=== PATIENT | male | born 1945 | race Caucasian/White ===

== ENCOUNTER 2019-06-19 18:03 | Inpatient (IN) | payer MEDICARE, OTHER ==
[~2019-06-19] VITALS: Ht 182.9 cm; Wt 102.1 kg
--- NOTE | 2019-06-19 18:34 | PHYS DOC ---
Past Medical History Past Medical History: CVA, Hypertension, Other Additional Past Medical Histor: PARKINSON'S Past Surgical History: Coronary Bypass Surgery, Other Additional Past Surgical Histo: KNEE Alcohol Use: None Drug Use: None Adult General Chief Complaint Chief Complaint: WEAKNESS/GENERALIZED HPI HPI Patient is a 73 year old male who presents via EMS with complaining of weakness and frequent falls. Patient states he had gradually increasing generalized weakness for the last couple days and had 3 falls since yesterday. Patient's stated he did not fall and was not able to get up from the toilet stool or from the floor and she had to call recovery room nurse to help her to get him out of the floor. Patient denies new focal neuro deficit, fever and chills, chest pain, nausea and vomiting. Patient had history of left knee replacement several weeks ago at [facility]. Review of Systems Review of Systems Constitutional: Denies fever or chills [] Eyes: Denies change in visual acuity, redness, or eye pain [] HENT: Denies nasal congestion or sore throat [] Respiratory: Denies cough or shortness of breath [] Cardiovascular: No additional information not addressed in HPI [] GI: Denies abdominal pain, nausea, vomiting, bloody stools or diarrhea [] : Denies dysuria or hematuria [] Musculoskeletal: Denies back pain or joint pain [] Integument: Denies rash or skin lesions [] Neurologic: Denies headache, focal weakness or sensory changes [] Endocrine: Denies polyuria or polydipsia [] All other systems were reviewed and found to be within normal limits, except as documented in this note. Allergies Allergies Physical Exam Physical Exam Constitutional: Well developed, well nourished, mild distress, non-toxic appearance. [] HENT: Normocephalic, atraumatic. Eyes: PERRLA, EOMI, conjunctiva normal, no discharge. [] Neck: Normal range of motion, no tenderness, supple, no stridor. [] Cardiovascular:Heart rate regular rhythm, no murmur [] Lungs & Thorax: Bilateral breath sounds clear to auscultation [] Abdomen: Bowel sounds normal, soft, no tenderness, no masses, no pulsatile reggie s. [] Skin: Warm, dry, no erythema, no rash. [] Back: No tenderness, no CVA tenderness. [] Extremities: No tenderness, no cyanosis, no clubbing, ROM intact, no edema. [] Neurologic: Alert and oriented X 2, no focal deficits noted. [] Psychologic: Unable to evaluate Current Patient Data Vital Signs Vital Signs Date Time Temp Pulse Resp B/P (MAP) Pulse Ox O2 Delivery O2 Flow Rate FiO2 06/19/19 19:12 70 96 06/19/19 18:03 100.1 20 153/67 (95) Room Air 100.1 Lab Values Laboratory Tests Test 06/19/19 18:25 White Blood Count 18.5 x10^3/uL (4.0-11.0) H Red Blood Count 3.83 x10^6/uL (4.30-5.70) L Hemoglobin 10.6 g/dL (13.0-17.5) L Hematocrit 32.9 % (39.0-53.0) L Mean Corpuscular Volume 86 fL (79-100) Mean Corpuscular Hemoglobin 28 pg (25-35) Mean Corpuscular Hemoglobin Concent 32 g/dL (31-37) Red Cell Distribution Width 18.2 % (11.5-14.5) H Platelet Count 245 x10^3/uL (140-400) Neutrophils (%) (Auto) 87 % (31-73) H Lymphocytes (%) (Auto) 5 % (24-48) L Monocytes (%) (Auto) 8 % (0-9) Eosinophils (%) (Auto) 0 % (0-3) Basophils (%) (Auto) 0 % (0-3) Neutrophils # (Auto) 16.1 x10^3/uL (1.8-7.7) H Lymphocytes # (Auto) 1.0 x10^3/uL (1.0-4.8) Monocytes # (Auto) 1.4 x10^3/uL (0.0-1.1) H Eosinophils # (Auto) 0.0 x10^3/uL (0.0-0.7) Basophils # (Auto) 0.1 x10^3/uL (0.0-0.2) Segmented Neutrophils % 81 % (35-66) H Band Neutrophils % 6 % (0-9) Lymphocytes % 6 % (24-48) L Monocytes % 7 % (0-10) Platelet Estimate Adequate (ADEQUATE) Prothrombin Time 20.5 SEC (11.7-14.0) H Prothrombin Time INR 1.8 (0.8-1.1) H Sodium Level 145 mmol/L (136-145) Potassium Level 4.7 mmol/L (3.5-5.1) Chloride Level 106 mmol/L (98-107) Carbon Dioxide Level 32 mmol/L (21-32) Anion Gap 7 (6-14) Blood Urea Nitrogen 54 mg/dL (8-26) H Creatinine 3.4 mg/dL (0.7-1.3) H Estimated GFR (Cockcroft-Gault) 17.8 BUN/Creatinine Ratio 16 (6-20) Glucose Level 104 mg/dL (70-99) H Lactic Acid Level 2.0 mmol/L (0.4-2.0) Calcium Level 9.9 mg/dL (8.5-10.1) Magnesium Level 2.5 mg/dL (1.8-2.4) H Total Bilirubin 0.6 mg/dL (0.2-1.0) Aspartate Amino Transferase (AST) 27 U/L (15-37) Alanine Aminotransferase (ALT) 6 U/L (16-63) L Alkaline Phosphatase 104 U/L (46-116) Creatine Kinase 421 U/L (39-308) H Troponin I Quantitative < 0.017 ng/mL (0.000-0.055) CF-Lrq-[id number]-Type Natriuretic Peptide 2491 pg/mL (0-124) H Total Protein 7.7 g/dL (6.4-8.2) Albumin 3.3 g/dL (3.4-5.0) L Albumin/Globulin Ratio 0.8 (1.0-1.7) L Laboratory Tests 06/19/19 18:25 Laboratory Tests 06/19/19 18:25 EKG EKG EKG interpreted by me. EKG at 1821 showed normal sinus rhythm at rate of 65, left atrial abnormalities, left de la rosa axis, nonspecific ST-T elevation, no acute ST and T-wave elevation. Radiology/Procedures Radiology/Procedures [][facility] [address] [place], [place] [id number] IMAGING REPORT Signed PATIENT: ANTON PRIETO ACCOUNT: [id number] : 1945 LOCATION: [address] [place] [address] AGE: 73 SEX: M EXAM STATUS: ADM IN ORD. PHYSICIAN: MARIELLA LOWE MD REASON: weakness PROCEDURE: PORTABLE CHEST 1V EXAM: CHEST ONE VIEW. HISTORY: Weakness. COMPARISON: None. FINDINGS: A frontal view of the chest is obtained. There are changes of coronary artery bypass grafting. There is mild atelectasis in the bases. There is no pneumothorax or pleural effusion. The heart is mildly enlarged. There are atherosclerotic calcifications of the aorta. IMPRESSION: 1. Mild cardiomegaly. 2. Mild basilar atelectasis. Electronically signed by: Andrei Hale MD (06/19/2019 7:37 PM) [facility] DICTATED and SIGNED BY: IRENE HALE MD DATE: 06/19/191936 [facility] [address] [place] [address] IMAGING REPORT Signed PATIENT: ANTON PRIETO ACCOUNT: [id number] : 1945 LOCATION: [address] [place] [address] AGE: 73 SEX: M EXAM STATUS: ADM IN ORD. PHYSICIAN: MARIELLA LOWE MD REASON: weakness PROCEDURE: CT HEAD WO CONTRAST EXAM: CT HEAD WITHOUT CONTRAST. HISTORY: Weakness. TECHNIQUE: Computed tomography of the head was performed without intravenous contrast. COMPARISON: None. FINDINGS: There is no intracranial hemorrhage. There is a chronic infarct in the left external capsule. Hypoattenuation within the white matter indicates moderate chronic microangiopathic change. Prominence of the lateral ventricles and hemispheric sulci indicates moderate atrophy. There is mild mucosal thickening in the ethmoid air cells. There are small mucus retention cysts in the right maxillary sinus. The orbits are unremarkable. The temporal bones are unremarkable. The calvarium reveals no suspicious lesions. There are atherosclerotic calcifications of the internal carotid and vertebral arteries. IMPRESSION: 1. No acute intracranial findings. 2. Chronic left insular infarct. Moderate atrophy and chronic microangiopathic white matter change. *One or more of the following individualized dose reduction techniques were utilized for this examination: 1. Automated exposure control. 2. Adjustment of the mA and/or kV according to patient size. 3. Use of iterative reconstruction technique. Electronically signed by: Andrei Hale MD (06/19/2019 7:51 PM) [facility] DICTATED and SIGNED BY: IRENE HALE MD DATE: 06/19/191950 [facility] [address] [place] [address] IMAGING REPORT Signed PATIENT: ANTON PRIETO ACCOUNT: [id number] : 1945 LOCATION: [address] [place] [address] AGE: 73 SEX: M EXAM STATUS: ADM IN ORD. PHYSICIAN: MARIELLA LOWE MD REASON: weakness PROCEDURE: PELVIS EXAM: PELVIS 1 VIEW. HISTORY: Weakness. COMPARISON: None. FINDINGS: No fractures are identified. There is moderately decreased femoral head/neck offset superolaterally bilaterally. The joint spaces of both hips are maintained. There are moderate degenerative changes of the lower lumbar spine. Atherosclerotic calcifications are noted. IMPRESSION: 1. Correlate for femoroacetabular impingement bilaterally. Electronically signed by: Andrei Hale MD (06/19/2019 7:39 PM) [facility] DICTATED and SIGNED BY: IRENE HALE MD DATE: 06/19/191938 Course & Med Decision Making Course & Med Decision Making Pertinent Labs and Imaging studies reviewed. (See chart for details) Patient requiring admission for further evaluation and treatment. Discussed with Dr. Person who is in agreement with admission. Discussed findings and plan with patient and family, who acknowledge understanding and agreement. Dragon Disclaimer Dragon Disclaimer This electronic medical record was generated, in whole or in part, using a voice recognition dictation system. Departure Departure Impression: Primary Impression: Generalized weakness Additional Impressions: Frequent falls Leukocytosis Disposition: ADMITTED INPATIENT (1938) Admitting Physician: KALEB (Dr. Person accepted admission at 1937) Condition: IMPROVED Referrals: SHANKAR WALDROP (PCP) Problem Qualifiers Additional Impressions: Leukocytosis Leukocytosis type: unspecified Qualified Codes: D72.829 - Elevated white blood cell count, unspecified MARIELLA LOWE MD Jun 19, 2019 18:34
[2019-06-19 18:59] LABS: BASO # 0.1 x10^3/uL (0.0-0.2); BASO % 0 % (0-3); EOS % 0 % (0-3); HEMATOCRIT 32.9 % (39.0-53.0); HEMOGLOBIN 10.6 g/dL (13.0-17.5); LYMPH % 5 % (24-48); MEAN CORPUSCULAR HEMOGLOBIN 28 pg (25-35); MEAN CORPUSCULAR HGB CONC 32 g/dL (31-37); MEAN CORPUSCULAR VOLUME 86 fL (79-100); MONO # 1.4 x10^3/uL (0.0-1.1); MONO % 8 % (0-9); NEUT # 16.1 x10^3/uL (1.8-7.7); NEUT % 87 % (31-73); PLATELET COUNT 245 x10^3/uL (140-400); RED BLOOD COUNT 3.83 x10^6/uL (4.30-5.70); RED CELL DISTRIBUTION WIDTH 18.2 % (11.5-14.5); WHITE BLOOD COUNT 18.5 x10^3/uL (4.0-11.0)
[2019-06-19 19:09] LABS: CALCIUM 9.9 mg/dL (8.5-10.1); CREATININE 3.4 mg/dL (0.7-1.3); GFR 17.8; POTASSIUM 4.7 mmol/L (3.5-5.1); PROTHROMBIN TIME PATIENT 20.5 SEC (11.7-14.0)
[2019-06-19 19:16] LABS: ALBUMIN 3.3 g/dL (3.4-5.0); ALBUMIN/GLOBULIN RATIO 0.8 (1.0-1.7); MAGNESIUM 2.5 mg/dL (1.8-2.4); TOTAL BILIRUBIN 0.6 mg/dL (0.2-1.0); TOTAL PROTEIN 7.7 g/dL (6.4-8.2)
[2019-06-19 19:24] LABS: % BANDS 6 % (0-9); % LYMPHS 6 % (24-48); % MONOS 7 % (0-10); % SEGS 81 % (35-66); PLT ESTIMATE ADEQUATE (ADEQUATE)
--- NOTE | 2019-06-19 19:40 | RAD ---
EXAM: CHEST ONE VIEW. HISTORY: Weakness. COMPARISON: None. FINDINGS: A frontal view of the chest is obtained. There are changes of coronary artery bypass grafting. There is mild atelectasis in the bases. There is no pneumothorax or pleural effusion. The heart is mildly enlarged. There are atherosclerotic calcifications of the aorta. IMPRESSION: 1. Mild cardiomegaly. 2. Mild basilar atelectasis. Electronically signed by: Andrei Hale MD (06/19/2019 7:37 PM) [facility]
--- NOTE | 2019-06-19 19:42 | RAD ---
EXAM: PELVIS 1 VIEW. HISTORY: Weakness. COMPARISON: None. FINDINGS: No fractures are identified. There is moderately decreased femoral head/neck offset superolaterally bilaterally. The joint spaces of both hips are maintained. There are moderate degenerative changes of the lower lumbar spine. Atherosclerotic calcifications are noted. IMPRESSION: 1. Correlate for femoroacetabular impingement bilaterally. Electronically signed by: Andrei Hale MD (06/19/2019 7:39 PM) [facility]
--- NOTE | 2019-06-19 19:54 | RAD ---
EXAM: CT HEAD WITHOUT CONTRAST. HISTORY: Weakness. TECHNIQUE: Computed tomography of the head was performed without intravenous contrast. COMPARISON: None. FINDINGS: There is no intracranial hemorrhage. There is a chronic infarct in the left external capsule. Hypoattenuation within the white matter indicates moderate chronic microangiopathic change. Prominence of the lateral ventricles and hemispheric sulci indicates moderate atrophy. There is mild mucosal thickening in the ethmoid air cells. There are small mucus retention cysts in the right maxillary sinus. The orbits are unremarkable. The temporal bones are unremarkable. The calvarium reveals no suspicious lesions. There are atherosclerotic calcifications of the internal carotid and vertebral arteries. IMPRESSION: 1. No acute intracranial findings. 2. Chronic left insular infarct. Moderate atrophy and chronic microangiopathic white matter change. *One or more of the following individualized dose reduction techniques were utilized for this examination: 1. Automated exposure control. 2. Adjustment of the mA and/or kV according to patient size. 3. Use of iterative reconstruction technique. Electronically signed by: Andrei Hale MD (06/19/2019 7:51 PM) [facility]
[2019-06-19] MEDS ORDERED: cefTRIAXone IV Push 1 GM VIAL. IVP ONE (20:15)
[2019-06-19 21:05] VITALS: BP 145/69
[2019-06-19] MEDS ORDERED: C.DIFF MED SCREEN BY RX. MC ONE (23:00)
[2019-06-19 23:45] VITALS: BP 123/42
[2019-06-20] MEDS ORDERED: FURO-68 PO (00:19)
[2019-06-20] MEDS ORDERED: TAMS0.4C97 PO (00:19)
[2019-06-20] MEDS ORDERED: FENO134C PO (00:19)
[2019-06-20] MEDS ORDERED: LEVO25TA4 PO (00:19)
[2019-06-20] MEDS ORDERED: LORA10TA3 PO (00:19)
[2019-06-20] MEDS ORDERED: ASPI-630 PO (00:19)
[2019-06-20] MEDS ORDERED: AMLO5TAB4 PO (00:19)
[2019-06-20] MEDS ORDERED: LACT1CAP8 PO (00:19)
[2019-06-20] MEDS ORDERED: CARB1TAB2 PO (00:19)
[2019-06-20] MEDS ORDERED: DILT120C99 PO (00:19)
[2019-06-20] MEDS ORDERED: METH10TA2 PO (00:19)
[2019-06-20] MEDS ORDERED: CALC0.25 PO (00:19)
[2019-06-20] MEDS ORDERED: POTA10TA12 PO (00:19)
[2019-06-20] MEDS ORDERED: ASCO500C9 PO (00:19)
[2019-06-20] MEDS ORDERED: WARF7.5T48 PO (00:19)
[2019-06-20] MEDS ORDERED: CITA20TA6 PO (00:19)
[2019-06-20] MEDS ORDERED: CARV25TA PO (00:19)
[2019-06-20] MEDS ORDERED: CHOL10003 PO (00:19)
[2019-06-20] MEDS ORDERED: VITA1CAP PO (00:19)
[2019-06-20] MEDS ORDERED: GABA600T7 PO (00:19)
--- NOTE | 2019-06-20 00:21 | NUR ---
Upon admission assessment, pt BLE noted discoloration dark/red with small multiple blisters, on the L lower leg small blisters are all intact, R lower leg some blisters were dried and intact, no edema noted. Sore on the bottom noted, slightly opened L and R inner buttock but affected skin noted purple/red discoloration and non blanchable, wound care consulted, pictured and placed in pt's chart.
[2019-06-20 03:01] LABS: BILIRUBIN,URINE NEGATIVE (NEG); CLARITY,URINE CLEAR; COLOR,URINE YELLOW; NITRITE,URINE NEGATIVE (NEG); PH,URINE 6.5; PROTEIN,URINE 100 mg/dL (NEG-TRACE)
[2019-06-20 03:15] LABS: BACTERIA,URINE 0 /HPF (0-FEW); SQUAMOUS EPITHELIAL CELL,UR FEW /LPF
[2019-06-20 03:16] LABS: HYALINE CASTS, URINE FEW /HPF
[2019-06-20 03:45] VITALS: BP 159/69
[2019-06-20 07:00] VITALS: BP 138/60
--- NOTE | 2019-06-20 10:27 | PDOC1 ---
History and Physical Date of Admission Date of Admission DATE: 06/20/19 TIME: 10:26 Identification/Chief Complaint Chief Complaint SEEN IN ER , 73 year old male who presents via EMS with complaining of weakness and frequent falls. states he had gradually increasing generalized weakness for the last couple days and had 3 falls since 06/18. stated he did not fall and was not able to get up from the toilet stool or from the floor and she had to call tap out operator to help her to get him out of the floor. Patient denies new focal neuro deficit, fever and chills, Past Medical History Past Medical History Past Medical History Past Medical History: CVA, Hypertension, Other Additional Past Medical Histor: PARKINSON'S Past Surgical History: Coronary Bypass Surgery, Other Additional Past Surgical Histo: KNEE Alcohol Use: None Drug Use: None fhx obesity Family History Family History: High Cholestrol, Hypertension Social History Smoke: No ALCOHOL: none Drugs: None Current Problem List Problem List Problems Medical Problems: (1) Frequent falls Status: Acute (2) Leukocytosis Status: Acute Current Medications Current Medications Current Medications Ceftriaxone Sodium (Rocephin) 1 gm 1X ONCE IVP Last administered on 06/19/19at 20:10; Start 06/19/19 at 20:15; Stop 06/19/19 at 20:16; Status DC Pharmacy Consult (C.diff Med Screen By Rx) 1 each 1X ONCE [facility] Last administered on 06/19/19at 23:00; Start 06/19/19 at 23:00; Stop 06/19/19 at 23:01; Status DC Amlodipine Besylate (Norvasc) 5 mg DAILY PO ; Start 06/20/19 at 09:00 Calcitriol (Rocaltrol) 0.25 mcg DAILY PO ; Start 06/20/19 at 09:00 Carbidopa/Levodopa (Sinemet 25/100) 1 tab QID PO ; Start 06/20/19 at 09:00 Vitamin D (Vitamin D3) 1,000 unit DAILY PO ; Start 06/20/19 at 09:00 Citalopram Hydrobromide (CeleXA) 20 mg DAILY PO ; Start 06/20/19 at 09:00 Diltiazem HCl (Cardizem 24hr Cd) 120 mg DAILY PO ; Start 06/20/19 at 09:00 Fenofibrate (Lofibra) 134 mg DAILY PO ; Start 06/20/19 at 09:00 Furosemide (Lasix) 40 mg BID92 PO ; Start 06/20/19 at 09:00 Levothyroxine Sodium (Synthroid) 25 mcg DAILY06 PO ; Start 06/20/19 at 09:00 Potassium Chloride (Klor-Con) 10 meq DAILY PO ; Start 06/20/19 at 09:00 Tamsulosin HCl (Flomax) 0.4 mg DAILY PO ; Start 06/20/19 at 09:00 Warfarin Sodium (Coumadin) 7.5 mg DAILY16 PO ; Start 06/20/19 at 16:00 Ascorbic Acid (Vitamin C) 500 mg DAILY PO ; Start 06/20/19 at 09:00 Carvedilol (Coreg) 25 mg BIDWMEALS PO ; Start 06/20/19 at 09:00 Gabapentin (Neurontin) 600 mg DAILY PO ; Start 06/20/19 at 10:00 Lactobacillus Rhamnosus (Culturelle) 1 cap BID PO ; Start 06/20/19 at 09:00 Cetirizine HCl (ZyrTEC) 10 mg DAILY PO ; Start 06/20/19 at 09:00 Vitamin B Complex (Eloy B) 1 tab DAILY PO ; Start 06/20/19 at 09:00 Warfarin Sodium (Coumadin Per Pharmacy) 1 each PRN DAILY PRN [facility] SEE COMMENTS; Start 06/20/19 at 09:15 Active Scripts Active Reported Vitamin D3 (Cholecalciferol (Vitamin D3)) 1,000 Unit Tablet 1 Tab PO DAILY Vitamin C (Ascorbic Acid) 500 Mg Capsule 500 Mg PO DAILY Vitamin B Complex 1 Each Capsule 1 Each PO DAILY Sinemet 25-100 Mg Tablet (Carbidopa/Levodopa) 1 Each Tablet 1 Tab PO QID Probiotic (Lactobacillus Combo No.11) 1 Each Cap.sprink 1 Each PO DAILY Potassium Chloride 10 Meq Tab.sr.24h 10 Meq PO DAILY Methadone Hcl 10 Mg Tablet 30 Mg PO TID Loratadine 10 Mg Tablet 1 Tab PO DAILY Levothyroxine Sodium 25 Mcg Tablet 1 Tab PO DAILY Lasix (Furosemide) 40 Mg Tablet 40 Mg PO BID Gabapentin 600 Mg Tablet 600 Mg PO QID Flomax (Tamsulosin Hcl) 0.4 Mg Cap.er.24h 1 Cap PO DAILY Fenofibrate (Fenofibrate,Micronized) 134 Mg Capsule 1 Cap PO DAILY Diltiazem 24HR Cd (Diltiazem Hcl) 120 Mg Cap.er.24h 1 Cap PO DAILY Coumadin (Warfarin Sodium) 7.5 Mg Tablet 1 Tab PO DAILY Coreg (Carvedilol) 25 Mg Tablet 25 Mg PO BIDWMEALS Citalopram Hbr (Citalopram Hydrobromide) 20 Mg Tablet 1 Tab PO DAILY Calcitriol 0.25 Mcg Capsule 1 Cap PO DAILY Aspirin 81 Mg Tab.chew 1 Tab PO DAILY Norvasc (Amlodipine Besylate) 5 Mg Tablet 5 Mg PO DAILY Allergies Allergies: Coded Allergies: ibuprofen (Verified Allergy, Intermediate, 06/20/19) ROS Review of System Review of Systems Review of Systems Constitutional: Denies fever or chills [] Eyes: Denies change in visual acuity, redness, or eye pain [] HENT: Denies nasal congestion or sore throat [] Respiratory: Denies cough or shortness of breath [] Cardiovascular: No additional information not addressed in HPI [] GI: Denies abdominal pain, nausea, vomiting, bloody stools or diarrhea [] : Denies dysuria or hematuria [] Musculoskeletal: Denies back pain or joint pain [] Integument: Denies rash or skin lesions [] Neurologic: Denies headache, focal weakness or sensory changes [] Endocrine: Denies polyuria or polydipsia [] 14 pt systems were reviewed and found to be within normal limits, except as documented Physical Exam Physical Exam bradykinesia General: Alert, Oriented X3, Cooperative, No acute distress HEENT: Atraumatic, PERRLA, EOMI Lungs: Clear to auscultation, Normal air movement Heart: no thrills Breasts: Not examined Abdomen: Normal bowel sounds, Soft Rectal Exam: not examined PELVIC: Examination not indicated Extremities: No cyanosis Neuro: Normal speech, Cranial nerves 3-12 NL Psych/Mental Status: Mental status NL, Mood NL Vitals Vitals Vital Signs Date Time Temp Pulse Resp B/P (MAP) Pulse Ox O2 Delivery O2 Flow Rate FiO2 06/20/19 07:00 98.0 73 16 138/60 (86) 91 Nasal Cannula 2.0 98.0 Labs Labs Laboratory Tests Test 06/19/19 18:25 06/20/19 02:10 White Blood Count 18.5 x10^3/uL (4.0-11.0) Red Blood Count 3.83 x10^6/uL (4.30-5.70) Hemoglobin 10.6 g/dL (13.0-17.5) Hematocrit 32.9 % (39.0-53.0) Mean Corpuscular Volume 86 fL (79-100) Mean Corpuscular Hemoglobin 28 pg (25-35) Mean Corpuscular Hemoglobin Concent 32 g/dL (31-37) Red Cell Distribution Width 18.2 % (11.5-14.5) Platelet Count 245 x10^3/uL (140-400) Neutrophils (%) (Auto) 87 % (31-73) Lymphocytes (%) (Auto) 5 % (24-48) Monocytes (%) (Auto) 8 % (0-9) Eosinophils (%) (Auto) 0 % (0-3) Basophils (%) (Auto) 0 % (0-3) Neutrophils # (Auto) 16.1 x10^3/uL (1.8-7.7) Lymphocytes # (Auto) 1.0 x10^3/uL (1.0-4.8) Monocytes # (Auto) 1.4 x10^3/uL (0.0-1.1) Eosinophils # (Auto) 0.0 x10^3/uL (0.0-0.7) Basophils # (Auto) 0.1 x10^3/uL (0.0-0.2) Segmented Neutrophils % 81 % (35-66) Band Neutrophils % 6 % (0-9) Lymphocytes % 6 % (24-48) Monocytes % 7 % (0-10) Platelet Estimate Adequate (ADEQUATE) Prothrombin Time 20.5 SEC (11.7-14.0) Prothromb Time International Ratio 1.8 (0.8-1.1) Sodium Level 145 mmol/L (136-145) Potassium Level 4.7 mmol/L (3.5-5.1) Chloride Level 106 mmol/L (98-107) Carbon Dioxide Level 32 mmol/L (21-32) Anion Gap 7 (6-14) Blood Urea Nitrogen 54 mg/dL (8-26) Creatinine 3.4 mg/dL (0.7-1.3) Estimated GFR (Cockcroft-Gault) 17.8 BUN/Creatinine Ratio 16 (6-20) Glucose Level 104 mg/dL (70-99) Lactic Acid Level 2.0 mmol/L (0.4-2.0) Calcium Level 9.9 mg/dL (8.5-10.1) Magnesium Level 2.5 mg/dL (1.8-2.4) Total Bilirubin 0.6 mg/dL (0.2-1.0) Aspartate Amino Transf (AST/SGOT) 27 U/L (15-37) Alanine Aminotransferase (ALT/SGPT) 6 U/L (16-63) Alkaline Phosphatase 104 U/L (46-116) Creatine Kinase 421 U/L (39-308) Troponin I Quantitative < 0.017 ng/mL (0.000-0.055) PW-Amh-Q-Type Natriuretic Peptide 2491 pg/mL (0-124) Total Protein 7.7 g/dL (6.4-8.2) Albumin 3.3 g/dL (3.4-5.0) Albumin/Globulin Ratio 0.8 (1.0-1.7) Urine Collection Type Unknown Urine Color Yellow Urine Clarity Clear Urine pH 6.5 Urine Specific Meadow 1.015 Urine Protein 100 mg/dL (NEG-TRACE) Urine Glucose (UA) Negative mg/dL (NEG) Urine Ketones (Stick) Negative mg/dL (NEG) Urine Blood Negative (NEG) Urine Nitrite Negative (NEG) Urine Bilirubin Negative (NEG) Urine Urobilinogen Dipstick 1.0 mg/dL (0.2 mg/dL) Urine Leukocyte Esterase Negative (NEG) Urine RBC 3-5 /HPF (0-2) Urine WBC 1-4 /HPF (0-4) Urine Squamous Epithelial Cells Few /LPF Urine Bacteria 0 /HPF (0-FEW) Urine Hyaline Casts Few /HPF Laboratory Tests Test 06/19/19 18:25 06/20/19 02:10 White Blood Count 18.5 x10^3/uL (4.0-11.0) Red Blood Count 3.83 x10^6/uL (4.30-5.70) Hemoglobin 10.6 g/dL (13.0-17.5) Hematocrit 32.9 % (39.0-53.0) Mean Corpuscular Volume 86 fL (79-100) Mean Corpuscular Hemoglobin 28 pg (25-35) Mean Corpuscular Hemoglobin Concent 32 g/dL (31-37) Red Cell Distribution Width 18.2 % (11.5-14.5) Platelet Count 245 x10^3/uL (140-400) Neutrophils (%) (Auto) 87 % (31-73) Lymphocytes (%) (Auto) 5 % (24-48) Monocytes (%) (Auto) 8 % (0-9) Eosinophils (%) (Auto) 0 % (0-3) Basophils (%) (Auto) 0 % (0-3) Neutrophils # (Auto) 16.1 x10^3/uL (1.8-7.7) Lymphocytes # (Auto) 1.0 x10^3/uL (1.0-4.8) Monocytes # (Auto) 1.4 x10^3/uL (0.0-1.1) Eosinophils # (Auto) 0.0 x10^3/uL (0.0-0.7) Basophils # (Auto) 0.1 x10^3/uL (0.0-0.2) Segmented Neutrophils % 81 % (35-66) Band Neutrophils % 6 % (0-9) Lymphocytes % 6 % (24-48) Monocytes % 7 % (0-10) Platelet Estimate Adequate (ADEQUATE) Prothrombin Time 20.5 SEC (11.7-14.0) Prothromb Time International Ratio 1.8 (0.8-1.1) Sodium Level 145 mmol/L (136-145) Potassium Level 4.7 mmol/L (3.5-5.1) Chloride Level 106 mmol/L (98-107) Carbon Dioxide Level 32 mmol/L (21-32) Anion Gap 7 (6-14) Blood Urea Nitrogen 54 mg/dL (8-26) Creatinine 3.4 mg/dL (0.7-1.3) Estimated GFR (Cockcroft-Gault) 17.8 BUN/Creatinine Ratio 16 (6-20) Glucose Level 104 mg/dL (70-99) Lactic Acid Level 2.0 mmol/L (0.4-2.0) Calcium Level 9.9 mg/dL (8.5-10.1) Magnesium Level 2.5 mg/dL (1.8-2.4) Total Bilirubin 0.6 mg/dL (0.2-1.0) Aspartate Amino Transf (AST/SGOT) 27 U/L (15-37) Alanine Aminotransferase (ALT/SGPT) 6 U/L (16-63) Alkaline Phosphatase 104 U/L (46-116) Creatine Kinase 421 U/L (39-308) Troponin I Quantitative < 0.017 ng/mL (0.000-0.055) CL-Ovx-Y-Type Natriuretic Peptide 2491 pg/mL (0-124) Total Protein 7.7 g/dL (6.4-8.2) Albumin 3.3 g/dL (3.4-5.0) Albumin/Globulin Ratio 0.8 (1.0-1.7) Urine Collection Type Unknown Urine Color Yellow Urine Clarity Clear Urine pH 6.5 Urine Specific Meadow 1.015 Urine Protein 100 mg/dL (NEG-TRACE) Urine Glucose (UA) Negative mg/dL (NEG) Urine Ketones (Stick) Negative mg/dL (NEG) Urine Blood Negative (NEG) Urine Nitrite Negative (NEG) Urine Bilirubin Negative (NEG) Urine Urobilinogen Dipstick 1.0 mg/dL (0.2 mg/dL) Urine Leukocyte Esterase Negative (NEG) Urine RBC 3-5 /HPF (0-2) Urine WBC 1-4 /HPF (0-4) Urine Squamous Epithelial Cells Few /LPF Urine Bacteria 0 /HPF (0-FEW) Urine Hyaline Casts Few /HPF Images Images XAM: CHEST ONE VIEW. HISTORY: Weakness. COMPARISON: None. FINDINGS: A frontal view of the chest is obtained. There are changes of coronary artery bypass grafting. There is mild atelectasis in the bases. There is no pneumothorax or pleural effusion. The heart is mildly enlarged. There are atherosclerotic calcifications of the aorta. IMPRESSION: 1. Mild cardiomegaly. 2. Mild basilar atelectasis. Electronically signed by: Andrei Hale MD (06/19/2019 7:37 PM) [employer] DICTATED and SIGNED BY: IRENE HALE MD DATE: 06/19/191936 REASON: weakness PROCEDURE: CT HEAD WO CONTRAST EXAM: CT HEAD WITHOUT CONTRAST. HISTORY: Weakness. TECHNIQUE: Computed tomography of the head was performed without intravenous contrast. COMPARISON: None. FINDINGS: There is no intracranial hemorrhage. There is a chronic infarct in the left external capsule. Hypoattenuation within the white matter indicates moderate chronic microangiopathic change. Prominence of the lateral ventricles and hemispheric sulci indicates moderate atrophy. There is mild mucosal thickening in the ethmoid air cells. There are small mucus retention cysts in the right maxillary sinus. The orbits are unremarkable. The temporal bones are unremarkable. The calvarium reveals no suspicious lesions. There are atherosclerotic calcifications of the internal carotid and vertebral arteries. IMPRESSION: 1. No acute intracranial findings. 2. Chronic left insular infarct. Moderate atrophy and chronic microangiopathic white matter change. *One or more of the following individualized dose reduction techniques were utilized for this examination: 1. Automated exposure control. 2. Adjustment of the mA and/or kV according to patient size. 3. Use of iterative reconstruction technique. VTE Prophylaxis Ordered VTE Prophylaxis Devices: Yes VTE Pharmacological Prophylaxi: Yes Assessment/Plan Assessment/Plan IMPRESSION : 1. No acute intracranial findings. ON CT HEAD 2. Chronic left insular infarct. Moderate atrophy and chronic microangiopathic white matter change. 3. FALLS 4. Generalized weakness 5 morbid obesity 6. HYPERTENSION 7. Depression 8. Mild basilar atelectasis. plan admit fall precautions consult neurology PT/OT/ ST home meds dvt prophylaxis 59 MIN PT EXAM, CHART REVIEW, > 50% OF TIME SPENT WITH EXAM, CHART REVIEW, PT CARE COORDINATION JOHANA SIMMONS MD Jun 20, 2019 10:27
[2019-06-20 11:00] VITALS: BP 155/73
--- NOTE | 2019-06-20 11:20 | NUR ---
Pharmacy Warfarin Dosing Note S:Pharmacy consulted to assist with anticoagulation therapy started with target INR: 2 -3 O:ANTON PRIETO is a 73 year old M with Atrial Fibrillation LABS: Last INR: 1.8 Last HGB: 10.6 Last HCT: 32.9 Last PLT: 245 Last dose of given on at Previous Regimen: 7.5 MG/D Vitamin K given: Drug Interaction Changes: Ongoing Drug Interactions: A:INR of 1.8 is below desired range. Target range for this patient is: 2 -3 P: Warfarin dose: 7.5 mg Today at 1600 Bridge Therapy: None Next INR due TOMORROW. Pharmacy anticoagulation service will continue to follow. JAYE JUSTIN [facility]MERLY [facility] [place], 06/20/19 [id number]
--- NOTE | 2019-06-20 11:23 | EKG ---
[facility] [address] [place] [address] Test Date: 2019-06-19 Test Time: 18:21:39 Pat Name: ANTON PRIETO Department: Room: [facility] 1 Gender: M [employer]: : 1945 Requested By: MARIELLA LOWE Order Number: [id number] Reading MD: Jamil Olson MD Measurements Intervals Philipp Rate: 64 P: 56 AK: 210 QRS: -17 QRSD: 88 T: 17 QT: 436 QTc: 454 Interpretive Statements SINUS RHYTHM LAD NON-SPECIFIC ST/T CHANGES Electronically Signed On 06-29-2019 10:26:43 CDT by Jamil Olson MD
--- NOTE | 2019-06-20 11:32 | NUR ---
Pharmacy Medication Review S: Consulted for medication review re: C.diff Risk Assessment score of 5 O: ANTON PRIETO is a 73 year old with: Previous C.diff infection: >1yr ago Previous hospitalization: Within 60 days Recent antibiotics: Within 30 days Use of gastric acid suppressor: No Transfer from [place]/LTAC: No Current antibiotic regimen: NONE Current acid suppression regimen: NONE A: Patient has been identified as having risk factors for C.diff infection as noted above. P: ABX DE-ESCALATION RECOMMENDED: PT NOT ON ABX CURRENTLY PROBIOTIC ORDERED: YES PPI CHANGED TO [id number]: PT NOT ON PPI THERAPY JAYE JUSTIN [facility], 06/20/19 [id number]
[2019-06-20] MEDS ORDERED: 0.9 % SODIUM CHLORIDE 10 ML DISP.SYRIN. IV PRN (12:30)
[2019-06-20] MEDS ORDERED: DOCUSATE SODIUM 100 MG CAPSULE. PO PRN (12:30)
[2019-06-20] MEDS ORDERED: guaiFENesin ORAL 200 MG/10 ML LIQUID. PO PRN (12:30)
[2019-06-20] MEDS ORDERED: ALBUTEROL SULFATE 2.5 MG/3 ML NEBU. NEB PRN (12:30)
[2019-06-20] MEDS ORDERED: LORazepam 0.5 MG TABLET PO PRN (12:30)
[2019-06-20] MEDS ORDERED: ACETAMINOPHEN 325 MG TABLET. PO PRN (12:30)
[2019-06-20] MEDS ORDERED: cloNIDine HCL 0.1 MG TABLET PO PRN (12:30)
[2019-06-20] MEDS ORDERED: SODIUM PHOSPHATES 19/7GM 133 ML ENEMA. PR PRN (12:30)
[2019-06-20] MEDS ORDERED: ONDANSETRON PF 4 MG/2 ML VIAL. IV PRN (12:30)
[2019-06-20] MEDS ORDERED: MAG HYDROX/ALUMINUM HYD/SIMETH 30 ML ORAL.SUSP PO PRN (12:30)
[2019-06-20] MEDS: CALCITRIOL 0.25 MCG CAPSULE. PO SCH (12:40)
[2019-06-20] MEDS: CETIRIZINE HCL 10 MG TABLET. PO SCH (12:40)
[2019-06-20] MEDS: amLODIPine BESYLATE 5 MG TABLET PO SCH (12:40)
[2019-06-20] MEDS: POTASSIUM CHLORIDE 10 MEQ TABLET.ER. PO SCH (12:40)
[2019-06-20] MEDS: ASCORBIC ACID 500 MG TABLET PO SCH (12:40)
[2019-06-20] MEDS: GABAPENTIN 300 MG CAPSULE. PO SCH (12:42)
[2019-06-20] MEDS: CITALOPRAM 20 MG TABLET. PO SCH (12:42)
[2019-06-20] MEDS: TAMSULOSIN 0.4 MG CAP.ER.24H. PO SCH (12:42)
[2019-06-20] MEDS: FUROSEMIDE 40 MG TABLET. PO SCH ×2 (12:42→14:19)
[2019-06-20] MEDS: CARBIDOPA/LEVODOPA 25/100MG TABLET PO SCH ×4 (12:42→20:32)
[2019-06-20] MEDS: CHOLECALCIFEROL (VITAMIN D3) 1,000 UNIT TABLET PO SCH (12:42)
[2019-06-20] MEDS: LACTOBACILLUS RHAMNOSUS GG 1 CAPSULE. PO SCH ×2 (12:42→20:32)
[2019-06-20] MEDS: CARVEDILOL 12.5 MG TABLET. PO SCH ×2 (12:42→17:20)
[2019-06-20] MEDS: VITAMIN B COMPLEX TABLET. PO SCH (12:43)
[2019-06-20] MEDS: FENOFIBRATE,MICRONIZED 134 MG CAPSULE PO SCH (12:43)
[2019-06-20] MEDS: LEVOTHYROXINE 25 MCG TABLET. PO SCH (12:43)
[2019-06-20 15:00] VITALS: BP 162/58
[2019-06-20] MEDS: ASPIRIN CHEWABLE 81 MG TABLET. PO SCH (15:00)
--- NOTE | 2019-06-20 15:30 | PDOC ---
PROGRESS NOTES Assessment Assessment IMPRESSION: PD. Falls. Generalized weakness. Chronic urinary retention on Pelaez. HTN. Obesity. 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 Brain atrophy, moderate. Dementia features. RECOMMENDATIONS/PLAN: Continue Sinemet 25/100 mg qid. He has been on Coumadin. Continue ASA 81 mg daily. Treat medical diseases. CCT w/o contrast. Lab: see orders. OT/PT. HISTORY OF THE PRESENT ILLNESS: This is a 73 -year-old male patient with above medical and neurological diseases was brought by EMS with complaining of weakness and frequent falls. 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 Patient denies new focal neuro deficit, fever and chills, chest pain, nausea and vomiting. Patient had history of left knee replacement several weeks ago at [facility]. Past Medical History CVA, Hypertension, PARKINSON'S PAST SURGERY HISTORY: Coronary Bypass Surgery, left knee surgery. Family History High Cholesterol, Hypertension Allergies Coded Allergies: ibuprofen (Verified Allergy, Intermediate, 06/20/19) MEDICATIONS: Refer to [facility] SOCIAL HISTORY: Lives at home. Denies recent smoking, drinking, and illicit drug use. REVIEW OF SYSTEMS: Constitutional: No malnutrition, weight loss, cachexia. Head: No traumatic brain or head injury. Skin: No edema, or rash. Ear: No infection. Eyes: No vision loss or color blindness. Nose: No bleeding or purulent discharges. Hearing: Hearing decrease. Neck: No injury. Cardiac: HTN. Pulmonary: No COPD. GI: No GI ulcer, GI bleeding. Urinary/genital: Incontinence, urinary retention. Endocrinologic: No cousin face, craniofacial dysmorphism. Skeletomuscular: Generalized weakness. Neurological: see HP. Psychiatric: Denies drug use/abuse. Otherwise, not [id number] review of systems. PHYSICAL EXAMINATION: General appearance is in subacute distress. HEENT: Normocephalic and nontraumatic. Eyes, nose, ears, and throat are unremarkable. Neck is supple. No lymphadenopathy. No crepitus. Cardiovascular: S1, S2, regular rate and rhythm. Pulmonary: Relative clear to auscultation bilaterally. Abdomen: Bowel sounds are positive. Abdomen is soft, nontender, and nondistended. Extremities: No rash, lesions, or edema. No restriction of range of motion NEUROLOGICAL EXAMINATION: Awake. Partially oriented to time, place and person. PERRL. EOMI. CN: no focal findings. Muscle tone: within normal. Muscle strength: 4+ DTR: 1+ Plantar reflex: Flexor response bilaterally Gait: not examined in bed. Sensory exam: no abnormal findings. No acute cerebellar signs elicited. F-T-N test fine. Objective Objective Vital Signs Date Time Temp Pulse Resp B/P (MAP) Pulse Ox O2 Delivery O2 Flow Rate FiO2 06/20/19 12:45 71 155/73 06/20/19 11:00 98.3 16 93 Room Air 1.0 98.3 Intake and Output 06/20/19 07:00 Intake Total 400 ml Output Total 750 ml Balance -350 ml Intake Oral 400 ml Output Urine Total 750 ml # Bowel Movements 2 Vitals Signs Vitals VS - Last 72 Hours, by Label Date Time Temp Pulse Resp B/P (MAP) Pulse Ox O2 Delivery O2 Flow Rate FiO2 06/20/19 12:45 71 155/73 06/20/19 12:42 71 155/73 06/20/19 12:40 71 155/73 06/20/19 11:00 98.3 71 16 155/73 (100) 93 Room Air 1.0 98.3 06/20/19 08:00 Room Air 1.0 06/20/19 07:00 98.0 73 16 138/60 (86) 91 Nasal Cannula 2.0 98.0 06/20/19 03:45 100.1 71 17 159/69 (99) 91 Nasal Cannula 1.0 100.1 06/19/19 23:45 97.6 64 17 123/42 (69) 94 Nasal Cannula 1.0 97.6 06/19/19 21:58 Room Air 06/19/19 21:05 98.0 64 17 145/69 (94) 95 Nasal Cannula 1.0 98.0 06/19/19 19:57 66 06/19/19 19:42 64 94 06/19/19 19:12 70 96 06/19/19 18:57 66 94 06/19/19 18:42 66 06/19/19 18:38 68 06/19/19 18:03 100.1 66 20 153/67 (95) 100 Room Air 100.1 Laboratory Laboratory Laboratory Tests Test 06/19/19 18:25 06/20/19 02:10 White Blood Count 18.5 x10^3/uL (4.0-11.0) Red Blood Count 3.83 x10^6/uL (4.30-5.70) Hemoglobin 10.6 g/dL (13.0-17.5) Hematocrit 32.9 % (39.0-53.0) Mean Corpuscular Volume 86 fL (79-100) Mean Corpuscular Hemoglobin 28 pg (25-35) Mean Corpuscular Hemoglobin Concent 32 g/dL (31-37) Red Cell Distribution Width 18.2 % (11.5-14.5) Platelet Count 245 x10^3/uL (140-400) Neutrophils (%) (Auto) 87 % (31-73) Lymphocytes (%) (Auto) 5 % (24-48) Monocytes (%) (Auto) 8 % (0-9) Eosinophils (%) (Auto) 0 % (0-3) Basophils (%) (Auto) 0 % (0-3) Neutrophils # (Auto) 16.1 x10^3/uL (1.8-7.7) Lymphocytes # (Auto) 1.0 x10^3/uL (1.0-4.8) Monocytes # (Auto) 1.4 x10^3/uL (0.0-1.1) Eosinophils # (Auto) 0.0 x10^3/uL (0.0-0.7) Basophils # (Auto) 0.1 x10^3/uL (0.0-0.2) Segmented Neutrophils % 81 % (35-66) Band Neutrophils % 6 % (0-9) Lymphocytes % 6 % (24-48) Monocytes % 7 % (0-10) Platelet Estimate Adequate (ADEQUATE) Prothrombin Time 20.5 SEC (11.7-14.0) Prothromb Time International Ratio 1.8 (0.8-1.1) Sodium Level 145 mmol/L (136-145) Potassium Level 4.7 mmol/L (3.5-5.1) Chloride Level 106 mmol/L (98-107) Carbon Dioxide Level 32 mmol/L (21-32) Anion Gap 7 (6-14) Blood Urea Nitrogen 54 mg/dL (8-26) Creatinine 3.4 mg/dL (0.7-1.3) Estimated GFR (Cockcroft-Gault) 17.8 BUN/Creatinine Ratio 16 (6-20) Glucose Level 104 mg/dL (70-99) Lactic Acid Level 2.0 mmol/L (0.4-2.0) Calcium Level 9.9 mg/dL (8.5-10.1) Magnesium Level 2.5 mg/dL (1.8-2.4) Total Bilirubin 0.6 mg/dL (0.2-1.0) Aspartate Amino Transf (AST/SGOT) 27 U/L (15-37) Alanine Aminotransferase (ALT/SGPT) 6 U/L (16-63) Alkaline Phosphatase 104 U/L (46-116) Creatine Kinase 421 U/L (39-308) Troponin I Quantitative < 0.017 ng/mL (0.000-0.055) UG-Bak-U-Type Natriuretic Peptide 2491 pg/mL (0-124) Total Protein 7.7 g/dL (6.4-8.2) Albumin 3.3 g/dL (3.4-5.0) Albumin/Globulin Ratio 0.8 (1.0-1.7) Urine Collection Type Unknown Urine Color Yellow Urine Clarity Clear Urine pH 6.5 Urine Specific [place] 1.015 Urine Protein 100 mg/dL (NEG-TRACE) Urine Glucose (UA) Negative mg/dL (NEG) Urine Ketones (Stick) Negative mg/dL (NEG) Urine Blood Negative (NEG) Urine Nitrite Negative (NEG) Urine Bilirubin Negative (NEG) Urine Urobilinogen Dipstick 1.0 mg/dL (0.2 mg/dL) Urine Leukocyte Esterase Negative (NEG) Urine RBC 3-5 /HPF (0-2) Urine WBC 1-4 /HPF (0-4) Urine Squamous Epithelial Cells Few /LPF Urine Bacteria 0 /HPF (0-FEW) Urine Hyaline Casts Few /HPF Medication Medications Current Medications Acetaminophen (Tylenol) 650 mg PRN Q4HRS PRN PO TEMP OVER 100.4F OR MILD PAIN; Start 06/20/19 at 12:30 Al Hydroxide/Mg Hydroxide (Mylanta Plus Xs) 30 ml PRN DAILY PRN PO HEARTBURN / GAS; Start 06/20/19 at 12:30 Albuterol Sulfate (Ventolin Neb Soln) 2.5 mg PRN Q4HRS PRN NEB SHORTNESS OF BREATH; Start 06/20/19 at 12:30 Amlodipine Besylate (Norvasc) 5 mg DAILY PO Last administered on 06/20/19 12:40; Start 06/20/19 at 09:00 Ascorbic Acid (Vitamin C) 500 mg DAILY PO Last administered on 06/20/19at 12:40; Start 06/20/19 at 09:00 Aspirin (Children'S Aspirin) 81 mg DAILY PO ; Start 06/20/19 at 15:00 Calcitriol (Rocaltrol) 0.25 mcg DAILY PO Last administered on 06/20/19 12:40; Start 06/20/19 at 09:00 Carbidopa/Levodopa (Sinemet 25/100) 1 tab QID PO Last administered on 06/20/19 12:42; Start 06/20/19 at 09:00 Carvedilol (Coreg) 25 mg BIDWMEALS PO Last administered on 06/20/19 12:42; Start 06/20/19 at 09:00 Ceftriaxone Sodium (Rocephin) 1 gm 1X ONCE IVP Last administered on 06/19/19at 20:10; Start 06/19/19 at 20:15; Stop 06/19/19 at 20:16; Status DC Ceftriaxone Sodium (Rocephin) 1 gm Q24H IVP ; Start 06/20/19 at 20:00 Cetirizine HCl (ZyrTEC) 10 mg DAILY PO Last administered on 06/20/19at 12:40; Start 06/20/19 at 09:00 Citalopram Hydrobromide (CeleXA) 20 mg DAILY PO Last administered on 06/20/19 12:42; Start 06/20/19 at 09:00 Clonidine HCl (Catapres) 0.1 mg PRN Q6HRS PRN PO SBP>160 OR DBP>90; Start 06/20/19 at 12:30 Diltiazem HCl (Cardizem 24hr Cd) 120 mg DAILY PO Last administered on 06/20/19at 12:45; Start 06/20/19 at 09:00 Docusate Sodium (Colace) 100 mg PRN BID PRN PO CONSTIPATION; Start 06/20/19 at 12:30 Fenofibrate (Lofibra) 134 mg DAILY PO Last administered on 06/20/19 12:43; Start 06/20/19 at 09:00 Furosemide (Lasix) 40 mg BID92 PO Last administered on 06/20/19 14:19; Start 06/20/19 at 09:00 Gabapentin (Neurontin) 600 mg DAILY PO Last administered on 06/20/19 12:42; Start 06/20/19 at 10:00 Guaifenesin (Robitussin) 200 mg PRN Q4HRS PRN PO COUGH; Start 06/20/19 at 12:30 Lactobacillus Rhamnosus (Culturelle) 1 cap BID PO Last administered on 06/20/19 12:42; Start 06/20/19 at 09:00 Levothyroxine Sodium (Synthroid) 25 mcg DAILY06 PO Last administered on 06/20/19at 12:43; Start 06/20/19 at 09:00 Lorazepam (Ativan) 0.5 mg PRN Q4HRS PRN PO ANXIETY / AGITATION; Start 06/20/19 at 12:30 Methadone HCl (Dolophine) 30 mg TID PO ; Start 06/20/19 at 15:00 Ondansetron HCl (Zofran) 4 mg PRN Q4HRS PRN IV NAUSEA/VOMITING; Start 06/20/19 at 12:30 Pharmacy Consult (C.diff Med Screen By Rx) 1 each 1X ONCE MC Last administered on 06/19/19at 23:00; Start 06/19/19 at 23:00; Stop 06/19/19 at 23:01; Status DC Potassium Chloride (Klor-Con) 10 meq DAILY PO Last administered on 06/20/19 12:40; Start 06/20/19 at 09:00 Sodium Monofluorophosphate (Fleet Adult) 133 ml PRN DAILY PRN [place] CONSTIPATION; Start 06/20/19 at 12:30 Sodium Chloride (Normal Saline Flush) 3 ml QSHIFT PRN IV AFTER MEDS AND BLOOD DRAWS; Start 06/20/19 at 12:30 Tamsulosin HCl (Flomax) 0.4 mg DAILY PO Last administered on 06/20/19at 12:42; Start 9/29/19 at 09:00 Vitamin B Complex (Eloy B) 1 tab DAILY PO Last administered on 06/20/19at 12:43; Start 06/20/19 at 09:00 Vitamin D (Vitamin D3) 1,000 unit DAILY PO Last administered on 06/20/19at 12:42; Start 06/20/19 at 09:00 Warfarin Sodium (Coumadin Per Pharmacy) 1 each PRN DAILY PRN MC SEE COMMENTS Last administered on 06/20/19at 11:17; Start 06/20/19 at 09:15 Warfarin Sodium (Coumadin) 7.5 mg DAILY16 PO ; Start 06/20/19 at 16:00 Comment Review of Relevant I have reviewed the following items piyush (where applicable) has been applied. BRAD MOTLEY MD Jun 20, 2019 15:30
[2019-06-20] MEDS: WARFARIN 7.5 MG TABLET. PO SCH (15:37)
[2019-06-20] MEDS: METHADONE 10 MG TABLET. PO SCH ×2 (15:37→20:32)
--- NOTE | 2019-06-20 17:31 | PDOC2 ---
CONSULT Date of Consult Date of Consult DATE: 06/20/19 TIME: 17:22 Reason for Consult Reason for Consult: abdominal pain History of Present Illness Reason for Visit: This is a 73-year-old gentleman who was admitted yesterday after having weakness at home having difficulty getting off the toilet. He has a history of mild constipation for which she takes a stool softener. He and his relate that he had worsening constipation this week without bowel movement for 34 days. He took 1 single capful of MiraLAX and developed loose stools yesterday several of them, although he doesn't think that precipitated his weakness. He denies a history of abdominal pain at admission, but today he noticed some crampy stabbing pain in the lower abdomen more on the right side. This is a new c omplaint. He denies any hematochezia, melena, upper abdominal pain, nausea, vomiting, change in appetite. He had a colonoscopy about 5 years ago that was reportedly normal. He had a stroke around that same time. He is 7 weeks out from total knee replacement and states that he is still recovering. The abdominal pain seems to have slowly improved. We are asked to see him Past Medical History Cardiovascular: CAD, HTN CENTRAL NERVOUS SYSTEM: CVA, Other (parkinsonism) GI: Constipation Musculoskeletal: Osteoarthritis Past Surgical History Past Surgical History: CABG, Total knee replacement (7 weeks ago, still and rehabilitation) Family History Family History: High Cholestrol, Hypertension Social History No ALCOHOL: none Drugs: None Current Problem List Problem List Problems Medical Problems: (1) Frequent falls Status: Acute (2) Leukocytosis Status: Acute Current Medications Current Medications Current Medications Ceftriaxone Sodium (Rocephin) 1 gm 1X ONCE IVP Last administered on 06/19/19at 20:10; Start 06/19/19 at 20:15; Stop 06/19/19 at 20:16; Status DC Pharmacy Consult (C.diff Med Screen By Rx) 1 each 1X ONCE [facility] Last administered on 06/19/19at 23:00; Start 06/19/19 at 23:00; Stop 06/19/19 at 23:01; Status DC Amlodipine Besylate (Norvasc) 5 mg DAILY PO Last administered on 06/20/19at 12:40; Start 06/20/19 at 09:00 Calcitriol (Rocaltrol) 0.25 mcg DAILY PO Last administered on 06/20/19 12:40; Start 06/20/19 at 09:00 Carbidopa/Levodopa (Sinemet 25/100) 1 tab QID PO Last administered on 06/20/19 17:20; Start 06/20/19 at 09:00 Vitamin D (Vitamin D3) 1,000 unit DAILY PO Last administered on 06/20/19 12:42; Start 06/20/19 at 09:00 Citalopram Hydrobromide (CeleXA) 20 mg DAILY PO Last administered on 06/20/19 12:42; Start 06/20/19 at 09:00 Diltiazem HCl (Cardizem 24hr Cd) 120 mg DAILY PO Last administered on 06/20/19 12:45; Start 06/20/19 at 09:00 Fenofibrate (Lofibra) 134 mg DAILY PO Last administered on 06/20/19 12:43; Start 06/20/19 at 09:00 Furosemide (Lasix) 40 mg BID92 PO Last administered on 06/20/19 14:19; Start 06/20/19 at 09:00 Levothyroxine Sodium (Synthroid) 25 mcg DAILY06 PO Last administered on 06/20/19 12:43; Start 06/20/19 at 09:00 Potassium Chloride (Klor-Con) 10 meq DAILY PO Last administered on 06/20/19 12:40; Start 06/20/19 at 09:00 Tamsulosin HCl (Flomax) 0.4 mg DAILY PO Last administered on 06/20/19 12:42; Start 06/20/19 at 09:00 Warfarin Sodium (Coumadin) 7.5 mg DAILY16 PO Last administered on 06/20/19 15:37; Start 06/20/19 at 16:00 Ascorbic Acid (Vitamin C) 500 mg DAILY PO Last administered on 06/20/19 12:40; Start 06/20/19 at 09:00 Carvedilol (Coreg) 25 mg BIDWMEALS PO Last administered on 06/20/19 17:20; Start 06/20/19 at 09:00 Gabapentin (Neurontin) 600 mg DAILY PO Last administered on 06/20/19 12:42; Start 06/20/19 at 10:00 Lactobacillus Rhamnosus (Culturelle) 1 cap BID PO Last administered on 06/20/19at 12:42; Start 06/20/19 at 09:00 Cetirizine HCl (ZyrTEC) 10 mg DAILY PO Last administered on 06/20/19at 12:40; Start 06/20/19 at 09:00 Vitamin B Complex (Eloy B) 1 tab DAILY PO Last administered on 06/20/19at 12:43; Start 06/20/19 at 09:00 Warfarin Sodium (Coumadin Per Pharmacy) 1 each PRN DAILY PRN MC SEE COMMENTS Last administered on 06/20/19at 11:17; Start 06/20/19 at 09:15 Sodium Chloride (Normal Saline Flush) 3 ml QSHIFT PRN IV AFTER MEDS AND BLOOD DRAWS; Start 06/20/19 at 12:30 Ondansetron HCl (Zofran) 4 mg PRN Q4HRS PRN IV NAUSEA/VOMITING; Start 06/20/19 at 12:30 Acetaminophen (Tylenol) 650 mg PRN Q4HRS PRN PO TEMP OVER 100.4F OR MILD PAIN; Start 06/20/19 at 12:30 Al Hydroxide/Mg Hydroxide (Mylanta Plus Xs) 30 ml PRN DAILY PRN PO HEARTBURN / GAS; Start 06/20/19 at 12:30 Clonidine HCl (Catapres) 0.1 mg PRN Q6HRS PRN PO SBP>160 OR DBP>90; Start 06/20/19 at 12:30 Sodium Monofluorophosphate (Fleet Adult) 133 ml PRN DAILY PRN [place] CONSTIPATION; Start 06/20/19 at 12:30 Docusate Sodium (Colace) 100 mg PRN BID PRN PO CONSTIPATION; Start 06/20/19 at 12:30 Albuterol Sulfate (Ventolin Neb Soln) 2.5 mg PRN Q4HRS PRN NEB SHORTNESS OF BREATH; Start 06/20/19 at 12:30 Guaifenesin (Robitussin) 200 mg PRN Q4HRS PRN PO COUGH; Start 06/20/19 at 12:30 Lorazepam (Ativan) 0.5 mg PRN Q4HRS PRN PO ANXIETY / AGITATION; Start 06/20/19 at 12:30 Ceftriaxone Sodium (Rocephin) 1 gm Q24H IVP ; Start 06/20/19 at 20:00 Aspirin (Children'S Aspirin) 81 mg DAILY PO Last administered on 06/20/19at 15:00; Start 06/20/19 at 15:00 Methadone HCl (Dolophine) 30 mg TID PO Last administered on 06/20/19at 15:37; Start 06/20/19 at 15:00 Active Scripts Active Reported Vitamin D3 (Cholecalciferol (Vitamin D3)) 1,000 Unit Tablet 1 Tab PO DAILY Vitamin C (Ascorbic Acid) 500 Mg Capsule 500 Mg PO DAILY Vitamin B Complex 1 Each Capsule 1 Each PO DAILY Sinemet 25-100 Mg Tablet (Carbidopa/Levodopa) 1 Each Tablet 1 Tab PO QID Probiotic (Lactobacillus Combo No.11) 1 Each Cap.sprink 1 Each PO DAILY Potassium Chloride 10 Meq Tab.sr.24h 10 Meq PO DAILY Methadone Hcl 10 Mg Tablet 30 Mg PO TID Loratadine 10 Mg Tablet 1 Tab PO DAILY Levothyroxine Sodium 25 Mcg Tablet 1 Tab PO DAILY Lasix (Furosemide) 40 Mg Tablet 40 Mg PO BID Gabapentin 600 Mg Tablet 600 Mg PO QID Flomax (Tamsulosin Hcl) 0.4 Mg Cap.er.24h 1 Cap PO DAILY Fenofibrate (Fenofibrate,Micronized) 134 Mg Capsule 1 Cap PO DAILY Diltiazem 24HR Cd (Diltiazem Hcl) 120 Mg Cap.er.24h 1 Cap PO DAILY Coumadin (Warfarin Sodium) 7.5 Mg Tablet 1 Tab PO DAILY Coreg (Carvedilol) 25 Mg Tablet 25 Mg PO BIDWMEALS Citalopram Hbr (Citalopram Hydrobromide) 20 Mg Tablet 1 Tab PO DAILY Calcitriol 0.25 Mcg Capsule 1 Cap PO DAILY Aspirin 81 Mg Tab.chew 1 Tab PO DAILY Norvasc (Amlodipine Besylate) 5 Mg Tablet 5 Mg PO DAILY Allergies Allergies: Coded Allergies: ibuprofen (Verified Allergy, Intermediate, 06/20/19) ROS Gastrointestinal: Yes Abdominal Pain (new today, lower, stabbing) Musculoskeletal: Yes Joint Pain Neurological: Yes Gait Disturbance (consistent with Parkinson's disease), Yes Speech Problems Physical Exam General: Alert, Other (slow speech pattern due to Parkinson's disease but appears oriented and appropriate) HEENT: Atraumatic Lungs: Clear to auscultation Heart: Regular rate, Normal S1, Normal S2 Abdomen: Normal bowel sounds, Soft, No tenderness, No hepatosplenomegaly, No masses Extremities: No clubbing, No cyanosis Neuro: Other (generalized weakness) Vitals VITALS Vital Signs Date Time Temp Pulse Resp B/P (MAP) Pulse Ox O2 Delivery O2 Flow Rate FiO2 06/20/19 17:20 64 162/58 06/20/19 15:00 98.6 16 91 Room Air 1.0 98.6 Labs Labs Laboratory Tests Test 06/19/19 18:25 06/20/19 02:10 06/20/19 16:05 White Blood Count 18.5 x10^3/uL (4.0-11.0) Red Blood Count 3.83 x10^6/uL (4.30-5.70) Hemoglobin 10.6 g/dL (13.0-17.5) Hematocrit 32.9 % (39.0-53.0) Mean Corpuscular Volume 86 fL (79-100) Mean Corpuscular Hemoglobin 28 pg (25-35) Mean Corpuscular Hemoglobin Concent 32 g/dL (31-37) Red Cell Distribution Width 18.2 % (11.5-14.5) Platelet Count 245 x10^3/uL (140-400) Neutrophils (%) (Auto) 87 % (31-73) Lymphocytes (%) (Auto) 5 % (24-48) Monocytes (%) (Auto) 8 % (0-9) Eosinophils (%) (Auto) 0 % (0-3) Basophils (%) (Auto) 0 % (0-3) Neutrophils # (Auto) 16.1 x10^3/uL (1.8-7.7) Lymphocytes # (Auto) 1.0 x10^3/uL (1.0-4.8) Monocytes # (Auto) 1.4 x10^3/uL (0.0-1.1) Eosinophils # (Auto) 0.0 x10^3/uL (0.0-0.7) Basophils # (Auto) 0.1 x10^3/uL (0.0-0.2) Segmented Neutrophils % 81 % (35-66) Band Neutrophils % 6 % (0-9) Lymphocytes % 6 % (24-48) Monocytes % 7 % (0-10) Platelet Estimate Adequate (ADEQUATE) Prothrombin Time 20.5 SEC (11.7-14.0) Prothromb Time International Ratio 1.8 (0.8-1.1) Sodium Level 145 mmol/L (136-145) Potassium Level 4.7 mmol/L (3.5-5.1) Chloride Level 106 mmol/L (98-107) Carbon Dioxide Level 32 mmol/L (21-32) Anion Gap 7 (6-14) Blood Urea Nitrogen 54 mg/dL (8-26) Creatinine 3.4 mg/dL (0.7-1.3) Estimated GFR (Cockcroft-Gault) 17.8 BUN/Creatinine Ratio 16 (6-20) Glucose Level 104 mg/dL (70-99) Lactic Acid Level 2.0 mmol/L (0.4-2.0) Calcium Level 9.9 mg/dL (8.5-10.1) Magnesium Level 2.5 mg/dL (1.8-2.4) Total Bilirubin 0.6 mg/dL (0.2-1.0) Aspartate Amino Transf (AST/SGOT) 27 U/L (15-37) Alanine Aminotransferase (ALT/SGPT) 6 U/L (16-63) Alkaline Phosphatase 104 U/L (46-116) Creatine Kinase 421 U/L (39-308) 333 U/L (39-308) Troponin I Quantitative < 0.017 ng/mL (0.000-0.055) JQ-Nfo-B-Type Natriuretic Peptide 2491 pg/mL (0-124) Total Protein 7.7 g/dL (6.4-8.2) Albumin 3.3 g/dL (3.4-5.0) Albumin/Globulin Ratio 0.8 (1.0-1.7) Urine Collection Type Unknown Urine Color Yellow Urine Clarity Clear Urine pH 6.5 Urine Specific [place] 1.015 Urine Protein 100 mg/dL (NEG-TRACE) Urine Glucose (UA) Negative mg/dL (NEG) Urine Ketones (Stick) Negative mg/dL (NEG) Urine Blood Negative (NEG) Urine Nitrite Negative (NEG) Urine Bilirubin Negative (NEG) Urine Urobilinogen Dipstick 1.0 mg/dL (0.2 mg/dL) Urine Leukocyte Esterase Negative (NEG) Urine RBC 3-5 /HPF (0-2) Urine WBC 1-4 /HPF (0-4) Urine Squamous Epithelial Cells Few /LPF Urine Bacteria 0 /HPF (0-FEW) Urine Hyaline Casts Few /HPF Thyroid Stimulating Hormone (TSH) 1.819 uIU/mL (0.358-3.74) Laboratory Tests Test 06/19/19 18:25 06/20/19 02:10 06/20/19 16:05 White Blood Count 18.5 x10^3/uL (4.0-11.0) Red Blood Count 3.83 x10^6/uL (4.30-5.70) Hemoglobin 10.6 g/dL (13.0-17.5) Hematocrit 32.9 % (39.0-53.0) Mean Corpuscular Volume 86 fL (79-100) Mean Corpuscular Hemoglobin 28 pg (25-35) Mean Corpuscular Hemoglobin Concent 32 g/dL (31-37) Red Cell Distribution Width 18.2 % (11.5-14.5) Platelet Count 245 x10^3/uL (140-400) Neutrophils (%) (Auto) 87 % (31-73) Lymphocytes (%) (Auto) 5 % (24-48) Monocytes (%) (Auto) 8 % (0-9) Eosinophils (%) (Auto) 0 % (0-3) Basophils (%) (Auto) 0 % (0-3) Neutrophils # (Auto) 16.1 x10^3/uL (1.8-7.7) Lymphocytes # (Auto) 1.0 x10^3/uL (1.0-4.8) Monocytes # (Auto) 1.4 x10^3/uL (0.0-1.1) Eosinophils # (Auto) 0.0 x10^3/uL (0.0-0.7) Basophils # (Auto) 0.1 x10^3/uL (0.0-0.2) Segmented Neutrophils % 81 % (35-66) Band Neutrophils % 6 % (0-9) Lymphocytes % 6 % (24-48) Monocytes % 7 % (0-10) Platelet Estimate Adequate (ADEQUATE) Prothrombin Time 20.5 SEC (11.7-14.0) Prothromb Time International Ratio 1.8 (0.8-1.1) Sodium Level 145 mmol/L (136-145) Potassium Level 4.7 mmol/L (3.5-5.1) Chloride Level 106 mmol/L (98-107) Carbon Dioxide Level 32 mmol/L (21-32) Anion Gap 7 (6-14) Blood Urea Nitrogen 54 mg/dL (8-26) Creatinine 3.4 mg/dL (0.7-1.3) Estimated GFR (Cockcroft-Gault) 17.8 BUN/Creatinine Ratio 16 (6-20) Glucose Level 104 mg/dL (70-99) Lactic Acid Level 2.0 mmol/L (0.4-2.0) Calcium Level 9.9 mg/dL (8.5-10.1) Magnesium Level 2.5 mg/dL (1.8-2.4) Total Bilirubin 0.6 mg/dL (0.2-1.0) Aspartate Amino Transf (AST/SGOT) 27 U/L (15-37) Alanine Aminotransferase (ALT/SGPT) 6 U/L (16-63) Alkaline Phosphatase 104 U/L (46-116) Creatine Kinase 421 U/L (39-308) 333 U/L (39-308) Troponin I Quantitative < 0.017 ng/mL (0.000-0.055) DV-Pdb-L-Type Natriuretic Peptide 2491 pg/mL (0-124) Total Protein 7.7 g/dL (6.4-8.2) Albumin 3.3 g/dL (3.4-5.0) Albumin/Globulin Ratio 0.8 (1.0-1.7) Urine Collection Type Unknown Urine Color Yellow Urine Clarity Clear Urine pH 6.5 Urine Specific [place] 1.015 Urine Protein 100 mg/dL (NEG-TRACE) Urine Glucose (UA) Negative mg/dL (NEG) Urine Ketones (Stick) Negative mg/dL (NEG) Urine Blood Negative (NEG) Urine Nitrite Negative (NEG) Urine Bilirubin Negative (NEG) Urine Urobilinogen Dipstick 1.0 mg/dL (0.2 mg/dL) Urine Leukocyte Esterase Negative (NEG) Urine RBC 3-5 /HPF (0-2) Urine WBC 1-4 /HPF (0-4) Urine Squamous Epithelial Cells Few /LPF Urine Bacteria 0 /HPF (0-FEW) Urine Hyaline Casts Few /HPF Thyroid Stimulating Hormone (TSH) 1.819 uIU/mL (0.358-3.74) Assessment/Plan Assessment/Plan Abdominal pain. According to the patient and his , this is a new complaint today. He described it as a crampy stabbing pain in the lower abdomen. He denies this was occurring in the past. He does relate a chronic history of mild constipation which had worsened this week. He took MiraLAX and had some loose stools on the day of admission but curiously was not having abdominal pain at that time. He denies any bleeding in his pain now is slowly improved. His examination now is relatively benign. This history suggests related to spasm & constipation with irregular bowel pattern but occult colitis, inflammation, diverticulitis, appendicitis, etc. should be considered and excluded Parkinsonism Recent weakness- 7 weeks post total knee replacement Plan: CT scan of the abdomen and pelvis tomorrow morning to exclude any unrecognized inflammatory process Monitor stool output and treat appropriately VILMA NANCE MD Jun 20, 2019 17:31
[2019-06-20] MEDS ORDERED: DICYCLOMINE HCL 10 MG CAPSULE PO PRN (17:45)
[2019-06-20 19:40] VITALS: BP 156/63
[2019-06-20] MEDS: cefTRIAXone IV Push 1 GM VIAL. IVP SCH (20:31)
[2019-06-20 23:45] VITALS: BP 144/53
[2019-06-21] VITALS (7 sets, daily range): BP systolic 119–152; BP diastolic 52–76
[2019-06-21 04:21] LABS: BASO # 0.1 x10^3/uL (0.0-0.2); BASO % 0 % (0-3); EOS # 0.3 x10^3/uL (0.0-0.7); EOS % 2 % (0-3); HEMATOCRIT 29.3 % (39.0-53.0); HEMOGLOBIN 9.4 g/dL (13.0-17.5); LYMPH # 1.2 x10^3/uL (1.0-4.8); LYMPH % 9 % (24-48); MEAN CORPUSCULAR HEMOGLOBIN 28 pg (25-35); MEAN CORPUSCULAR HGB CONC 32 g/dL (31-37); MEAN CORPUSCULAR VOLUME 86 fL (79-100); MONO # 1.4 x10^3/uL (0.0-1.1); MONO % 10 % (0-9); NEUT # 10.6 x10^3/uL (1.8-7.7); NEUT % 79 % (31-73); PLATELET COUNT 188 x10^3/uL (140-400); RED BLOOD COUNT 3.42 x10^6/uL (4.30-5.70); RED CELL DISTRIBUTION WIDTH 18.6 % (11.5-14.5); WHITE BLOOD COUNT 13.4 x10^3/uL (4.0-11.0)
[2019-06-21 04:34] LABS: ALBUMIN 2.8 g/dL (3.4-5.0); ALBUMIN/GLOBULIN RATIO 0.7 (1.0-1.7); CALCIUM 9.3 mg/dL (8.5-10.1); CREATININE 3.1 mg/dL (0.7-1.3); GFR 19.8; PHOSPHORUS 4.6 mg/dL (2.6-4.7); POTASSIUM 3.9 mmol/L (3.5-5.1); TOTAL BILIRUBIN 0.5 mg/dL (0.2-1.0); TOTAL PROTEIN 6.9 g/dL (6.4-8.2)
[2019-06-21] MEDS: LEVOTHYROXINE 25 MCG TABLET. PO SCH (05:41)
--- NOTE | 2019-06-21 08:20 | PDOC ---
PROGRESS NOTES History of Present Illness History of Present Illness VTE Prophylaxis Ordered VTE Prophylaxis Devices: Yes VTE Pharmacological Prophylaxi: Yes Assessment/Plan Assessment/Plan IMPRESSION : 1. No acute intracranial findings. ON CT HEAD 2. Chronic left insular infarct. Moderate atrophy and chronic microangiopathic white matter change. 3. FALLS 4. Generalized weakness 5 morbid obesity 6. HYPERTENSION 7. Depression 8. Mild basilar atelectasis. 9. CKD stage 4-[address] abd Significant calcific involvement of the arterial vasculature. Bilateral common iliac artery fusiform aneurysms. 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 Alternatively, this may represent significant atherosclerotic calcific involvement. plan admit fall precautions consult neurology PT/OT/ ST home meds dvt prophylaxis nephrology consult vascular surgery consult 39 MIN PT EXAM, CHART REVIEW, > 50% OF TIME SPENT WITH EXAM, CHART REVIEW, PT CARE COORDINATION Vitals Vitals Vital Signs Date Time Temp Pulse Resp B/P (MAP) Pulse Ox O2 Delivery O2 Flow Rate FiO2 06/21/19 08:02 97.9 97.9 06/21/19 08:01 61 18 142/54 (83) 92 Nasal Cannula 2.0 Physical Exam General: Alert, Oriented X3, Cooperative, No acute distress, mild distress, Other (slow speech pattern due to Parkinson's disease but appears oriented and appropriate) Heart: Regular rate, Normal S1, Normal S2 Lungs: Clear Abdomen: Normal bowel sounds, Soft, No tenderness, No hepatosplenomegaly, No masses Extremities: No clubbing, No cyanosis, No edema Labs LABS Examination: CT ABDOMEN PELVIS WO CONTRAST History: Abdominal pain Comparison/Correlation: None Findings: Axial images of the abdomen and pelvis were obtained about contrast. Sagittal and coronal reformatted images were provided. Small pleural effusions bilaterally present. Sternal wires are present. Significant coronary artery calcification is present. Minimal bibasilar costophrenic sulcus atelectasis is present. Unenhanced liver is unremarkable. Spleen is unremarkable. Numerous small calculi present within the dependent aspect of the gallbladder. Slight distention of the gallbladder is present but there is no biliary dilatation or surrounding inflammatory change. Pancreas is unremarkable. Nodule involving the right adrenal gland is present. It is very small for characterization measuring less than 1 cm diameter left adrenal gland 1 cm diameter nodule is present with Hounsfield units of 19. It is smoothly marginated. Fullness of the right pelvicalyceal system is present. Significant left renal atrophy is present. Left renal lower pole cysts are present. Circumferential wall thickening urinary bladder is present. Gas is present within the inner bladder. Significant surrounding stranding of the urinary bladder is evident. No loculated collections. Large quantity of stool is present in the colon. No extraluminal gas. Small right periumbilical hernias present containing a very small segment of nonobstructed bowel. No bowel obstruction or extraluminal gas. Calcific involvement of the abdominal aorta and iliac arteries is significant. 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 2.2 cm diameter left common iliac artery fusiform aneurysm is present. Calcific density which appears represent focal dissection is suspected involving the proximal left superficial femoral artery and this is best seen on axial image 90. Similar findings involving the proximal left superficial femoral artery on axial image 85 and 86 is present Minimal anterolisthesis of L4 in relation L5 is present. Facet joint degenerative changes are present. Spinal canal stenosis is severe at L3-4 and L4-5. Sclerosis of the right and left femoral heads noted. Impression: Circumferential wall thickening of the urinary bladder with surrounding stranding is of concern for cystitis. Cholelithiasis. Small pleural effusions. Significant calcific involvement of the arterial vasculature. Bilateral common iliac artery fusiform aneurysms. 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 Alternatively, this may represent significant atherosclerotic calcific involvement. Indeterminate left adrenal nodule. Interval follow-up CT in 6-8 months to assess stability should be considered as this finding is not typical for an adenoma. PQRS Compliance Statement: One or more of the following individualized dose reduction techniques were utilized for this examination: 1. Automated exposure control 2. Adjustment of the mA and/or kV according to patient size 3. Use of iterative reconstruction technique Electronically signed by: Jake Castaneda MD (06/21/2019 11:19 AM) [facility] Laboratory Tests Test 06/20/19 16:05 06/21/19 03:40 06/21/19 03:45 Creatine Kinase 333 U/L (39-308) Thyroid Stimulating Hormone (TSH) 1.819 uIU/mL (0.358-3.74) Sodium Level 142 mmol/L (136-145) Potassium Level 3.9 mmol/L (3.5-5.1) Chloride Level 104 mmol/L (98-107) Carbon Dioxide Level 34 mmol/L (21-32) Anion Gap 4 (6-14) Blood Urea Nitrogen 49 mg/dL (8-26) Creatinine 3.1 mg/dL (0.7-1.3) Estimated GFR (Cockcroft-Gault) 19.8 BUN/Creatinine Ratio 16 (6-20) Glucose Level 89 mg/dL (70-99) Calcium Level 9.3 mg/dL (8.5-10.1) Phosphorus Level 4.6 mg/dL (2.6-4.7) Total Bilirubin 0.5 mg/dL (0.2-1.0) Aspartate Amino Transf (AST/SGOT) 24 U/L (15-37) Alanine Aminotransferase (ALT/SGPT) 7 U/L (16-63) Alkaline Phosphatase 88 U/L (46-116) Total Protein 6.9 g/dL (6.4-8.2) Albumin 2.8 g/dL (3.4-5.0) Albumin/Globulin Ratio 0.7 (1.0-1.7) White Blood Count 13.4 x10^3/uL (4.0-11.0) Red Blood Count 3.42 x10^6/uL (4.30-5.70) Hemoglobin 9.4 g/dL (13.0-17.5) Hematocrit 29.3 % (39.0-53.0) Mean Corpuscular Volume 86 fL (79-100) Mean Corpuscular Hemoglobin 28 pg (25-35) Mean Corpuscular Hemoglobin Concent 32 g/dL (31-37) Red Cell Distribution Width 18.6 % (11.5-14.5) Platelet Count 188 x10^3/uL (140-400) Neutrophils (%) (Auto) 79 % (31-73) Lymphocytes (%) (Auto) 9 % (24-48) Monocytes (%) (Auto) 10 % (0-9) Eosinophils (%) (Auto) 2 % (0-3) Basophils (%) (Auto) 0 % (0-3) Neutrophils # (Auto) 10.6 x10^3/uL (1.8-7.7) Lymphocytes # (Auto) 1.2 x10^3/uL (1.0-4.8) Monocytes # (Auto) 1.4 x10^3/uL (0.0-1.1) Eosinophils # (Auto) 0.3 x10^3/uL (0.0-0.7) Basophils # (Auto) 0.1 x10^3/uL (0.0-0.2) Assessment and Plan Assessmemt and Plan Problems Medical Problems: (1) Frequent falls Status: Acute (2) Leukocytosis Status: Acute Comment Review of Relevant I have reviewed the following items piyush (where applicable) has been applied. Labs Laboratory Tests Test 06/19/19 18:25 06/20/19 02:10 06/20/19 07:30 06/20/19 16:05 White Blood Count 18.5 x10^3/uL (4.0-11.0) Red Blood Count 3.83 x10^6/uL (4.30-5.70) Hemoglobin 10.6 g/dL (13.0-17.5) Hematocrit 32.9 % (39.0-53.0) Mean Corpuscular Volume 86 fL (79-100) Mean Corpuscular Hemoglobin 28 pg (25-35) Mean Corpuscular Hemoglobin Concent 32 g/dL (31-37) Red Cell Distribution Width 18.2 % (11.5-14.5) Platelet Count 245 x10^3/uL (140-400) Neutrophils (%) (Auto) 87 % (31-73) Lymphocytes (%) (Auto) 5 % (24-48) Monocytes (%) (Auto) 8 % (0-9) Eosinophils (%) (Auto) 0 % (0-3) Basophils (%) (Auto) 0 % (0-3) Neutrophils # (Auto) 16.1 x10^3/uL (1.8-7.7) Lymphocytes # (Auto) 1.0 x10^3/uL (1.0-4.8) Monocytes # (Auto) 1.4 x10^3/uL (0.0-1.1) Eosinophils # (Auto) 0.0 x10^3/uL (0.0-0.7) Basophils # (Auto) 0.1 x10^3/uL (0.0-0.2) Segmented Neutrophils % 81 % (35-66) Band Neutrophils % 6 % (0-9) Lymphocytes % 6 % (24-48) Monocytes % 7 % (0-10) Platelet Estimate Adequate (ADEQUATE) Prothrombin Time 20.5 SEC (11.7-14.0) Prothromb Time International Ratio 1.8 (0.8-1.1) Sodium Level 145 mmol/L (136-145) Potassium Level 4.7 mmol/L (3.5-5.1) Chloride Level 106 mmol/L (98-107) Carbon Dioxide Level 32 mmol/L (21-32) Anion Gap 7 (6-14) Blood Urea Nitrogen 54 mg/dL (8-26) Creatinine 3.4 mg/dL (0.7-1.3) Estimated GFR (Cockcroft-Gault) 17.8 BUN/Creatinine Ratio 16 (6-20) Glucose Level 104 mg/dL (70-99) Lactic Acid Level 2.0 mmol/L (0.4-2.0) Calcium Level 9.9 mg/dL (8.5-10.1) Magnesium Level 2.5 mg/dL (1.8-2.4) Total Bilirubin 0.6 mg/dL (0.2-1.0) Aspartate Amino Transf (AST/SGOT) 27 U/L (15-37) Alanine Aminotransferase (ALT/SGPT) 6 U/L (16-63) Alkaline Phosphatase 104 U/L (46-116) Creatine Kinase 421 U/L (39-308) 333 U/L (39-308) Troponin I Quantitative < 0.017 ng/mL (0.000-0.055) AW-Syh-V-Type Natriuretic Peptide 2491 pg/mL (0-124) Total Protein 7.7 g/dL (6.4-8.2) Albumin 3.3 g/dL (3.4-5.0) Albumin/Globulin Ratio 0.8 (1.0-1.7) Urine Collection Type Unknown Urine Color Yellow Urine Clarity Clear Urine pH 6.5 Urine Specific [place] 1.015 Urine Protein 100 mg/dL (NEG-TRACE) Urine Glucose (UA) Negative mg/dL (NEG) Urine Ketones (Stick) Negative mg/dL (NEG) Urine Blood Negative (NEG) Urine Nitrite Negative (NEG) Urine Bilirubin Negative (NEG) Urine Urobilinogen Dipstick 1.0 mg/dL (0.2 mg/dL) Urine Leukocyte Esterase Negative (NEG) Urine RBC 3-5 /HPF (0-2) Urine WBC 1-4 /HPF (0-4) Urine Squamous Epithelial Cells Few /LPF Urine Bacteria 0 /HPF (0-FEW) Urine Hyaline Casts Few /HPF Clostridium difficile Toxin B Gene Negative (Negative) Thyroid Stimulating Hormone (TSH) 1.819 uIU/mL (0.358-3.74) Test 06/21/19 03:40 06/21/19 03:45 Sodium Level 142 mmol/L (136-145) Potassium Level 3.9 mmol/L (3.5-5.1) Chloride Level 104 mmol/L (98-107) Carbon Dioxide Level 34 mmol/L (21-32) Anion Gap 4 (6-14) Blood Urea Nitrogen 49 mg/dL (8-26) Creatinine 3.1 mg/dL (0.7-1.3) Estimated GFR (Cockcroft-Gault) 19.8 BUN/Creatinine Ratio 16 (6-20) Glucose Level 89 mg/dL (70-99) Calcium Level 9.3 mg/dL (8.5-10.1) Phosphorus Level 4.6 mg/dL (2.6-4.7) Total Bilirubin 0.5 mg/dL (0.2-1.0) Aspartate Amino Transf (AST/SGOT) 24 U/L (15-37) Alanine Aminotransferase (ALT/SGPT) 7 U/L (16-63) Alkaline Phosphatase 88 U/L (46-116) Total Protein 6.9 g/dL (6.4-8.2) Albumin 2.8 g/dL (3.4-5.0) Albumin/Globulin Ratio 0.7 (1.0-1.7) White Blood Count 13.4 x10^3/uL (4.0-11.0) Red Blood Count 3.42 x10^6/uL (4.30-5.70) Hemoglobin 9.4 g/dL (13.0-17.5) Hematocrit 29.3 % (39.0-53.0) Mean Corpuscular Volume 86 fL (79-100) Mean Corpuscular Hemoglobin 28 pg (25-35) Mean Corpuscular Hemoglobin Concent 32 g/dL (31-37) Red Cell Distribution Width 18.6 % (11.5-14.5) Platelet Count 188 x10^3/uL (140-400) Neutrophils (%) (Auto) 79 % (31-73) Lymphocytes (%) (Auto) 9 % (24-48) Monocytes (%) (Auto) 10 % (0-9) Eosinophils (%) (Auto) 2 % (0-3) Basophils (%) (Auto) 0 % (0-3) Neutrophils # (Auto) 10.6 x10^3/uL (1.8-7.7) Lymphocytes # (Auto) 1.2 x10^3/uL (1.0-4.8) Monocytes # (Auto) 1.4 x10^3/uL (0.0-1.1) Eosinophils # (Auto) 0.3 x10^3/uL (0.0-0.7) Basophils # (Auto) 0.1 x10^3/uL (0.0-0.2) Laboratory Tests Test 06/20/19 16:05 06/21/19 03:40 06/21/19 03:45 Creatine Kinase 333 U/L (39-308) Thyroid Stimulating Hormone (TSH) 1.819 uIU/mL (0.358-3.74) Sodium Level 142 mmol/L (136-145) Potassium Level 3.9 mmol/L (3.5-5.1) Chloride Level 104 mmol/L (98-107) Carbon Dioxide Level 34 mmol/L (21-32) Anion Gap 4 (6-14) Blood Urea Nitrogen 49 mg/dL (8-26) Creatinine 3.1 mg/dL (0.7-1.3) Estimated GFR (Cockcroft-Gault) 19.8 BUN/Creatinine Ratio 16 (6-20) Glucose Level 89 mg/dL (70-99) Calcium Level 9.3 mg/dL (8.5-10.1) Phosphorus Level 4.6 mg/dL (2.6-4.7) Total Bilirubin 0.5 mg/dL (0.2-1.0) Aspartate Amino Transf (AST/SGOT) 24 U/L (15-37) Alanine Aminotransferase (ALT/SGPT) 7 U/L (16-63) Alkaline Phosphatase 88 U/L (46-116) Total Protein 6.9 g/dL (6.4-8.2) Albumin 2.8 g/dL (3.4-5.0) Albumin/Globulin Ratio 0.7 (1.0-1.7) White Blood Count 13.4 x10^3/uL (4.0-11.0) Red Blood Count 3.42 x10^6/uL (4.30-5.70) Hemoglobin 9.4 g/dL (13.0-17.5) Hematocrit 29.3 % (39.0-53.0) Mean Corpuscular Volume 86 fL (79-100) Mean Corpuscular Hemoglobin 28 pg (25-35) Mean Corpuscular Hemoglobin Concent 32 g/dL (31-37) Red Cell Distribution Width 18.6 % (11.5-14.5) Platelet Count 188 x10^3/uL (140-400) Neutrophils (%) (Auto) 79 % (31-73) Lymphocytes (%) (Auto) 9 % (24-48) Monocytes (%) (Auto) 10 % (0-9) Eosinophils (%) (Auto) 2 % (0-3) Basophils (%) (Auto) 0 % (0-3) Neutrophils # (Auto) 10.6 x10^3/uL (1.8-7.7) Lymphocytes # (Auto) 1.2 x10^3/uL (1.0-4.8) Monocytes # (Auto) 1.4 x10^3/uL (0.0-1.1) Eosinophils # (Auto) 0.3 x10^3/uL (0.0-0.7) Basophils # (Auto) 0.1 x10^3/uL (0.0-0.2) Medications Current Medications Ceftriaxone Sodium (Rocephin) 1 gm 1X ONCE IVP Last administered on 06/19/19at 20:10; Start 06/19/19 at 20:15; Stop 06/19/19 at 20:16; Status DC Pharmacy Consult (C.diff Med Screen By Rx) 1 each 1X ONCE [facility] Last administered on 06/19/19at 23:00; Start 06/19/19 at 23:00; Stop 06/19/19 at 23:01; Status DC Amlodipine Besylate (Norvasc) 5 mg DAILY PO Last administered on 06/20/19at 12:40; Start 06/20/19 at 09:00 Calcitriol (Rocaltrol) 0.25 mcg DAILY PO Last administered on 06/20/19 12:40; Start 06/20/19 at 09:00 Carbidopa/Levodopa (Sinemet 25/100) 1 tab QID PO Last administered on 06/20/19 20:32; Start 06/20/19 at 09:00 Vitamin D (Vitamin D3) 1,000 unit DAILY PO Last administered on 06/20/19 12:42; Start 06/20/19 at 09:00 Citalopram Hydrobromide (CeleXA) 20 mg DAILY PO Last administered on 06/20/19 12:42; Start 06/20/19 at 09:00 Diltiazem HCl (Cardizem 24hr Cd) 120 mg DAILY PO Last administered on 06/20/19 12:45; Start 06/20/19 at 09:00 Fenofibrate (Lofibra) 134 mg DAILY PO Last administered on 06/20/19 12:43; Start 06/20/19 at 09:00 Furosemide (Lasix) 40 mg BID92 PO Last administered on 06/20/19 14:19; Start 06/20/19 at 09:00 Levothyroxine Sodium (Synthroid) 25 mcg DAILY06 PO Last administered on 06/21/19 05:41; Start 06/20/19 at 09:00 Potassium Chloride (Klor-Con) 10 meq DAILY PO Last administered on 06/20/19 12:40; Start 06/20/19 at 09:00 Tamsulosin HCl (Flomax) 0.4 mg DAILY PO Last administered on 06/20/19 12:42; Start 06/20/19 at 09:00 Warfarin Sodium (Coumadin) 7.5 mg DAILY16 PO Last administered on 06/20/19 15:37; Start 06/20/19 at 16:00 Ascorbic Acid (Vitamin C) 500 mg DAILY PO Last administered on 06/20/19 12:40; Start 06/20/19 at 09:00 Carvedilol (Coreg) 25 mg BIDWMEALS PO Last administered on 06/20/19 17:20; Start 06/20/19 at 09:00 Gabapentin (Neurontin) 600 mg DAILY PO Last administered on 06/20/19 12:42; Start 06/20/19 at 10:00 Lactobacillus Rhamnosus (Culturelle) 1 cap BID PO Last administered on 06/20/19at 20:32; Start 06/20/19 at 09:00 Cetirizine HCl (ZyrTEC) 10 mg DAILY PO Last administered on 06/20/19at 12:40; Start 06/20/19 at 09:00 Vitamin B Complex (Eloy B) 1 tab DAILY PO Last administered on 06/20/19at 12:43; Start 06/20/19 at 09:00 Warfarin Sodium (Coumadin Per Pharmacy) 1 each PRN DAILY PRN MC SEE COMMENTS Last administered on 06/20/19at 11:17; Start 06/20/19 at 09:15 Sodium Chloride (Normal Saline Flush) 3 ml QSHIFT PRN IV AFTER MEDS AND BLOOD DRAWS; Start 06/20/19 at 12:30 Ondansetron HCl (Zofran) 4 mg PRN Q4HRS PRN IV NAUSEA/VOMITING; Start 06/20/19 at 12:30 Acetaminophen (Tylenol) 650 mg PRN Q4HRS PRN PO TEMP OVER 100.4F OR MILD PAIN; Start 06/20/19 at 12:30 Al Hydroxide/Mg Hydroxide (Mylanta Plus Xs) 30 ml PRN DAILY PRN PO HEARTBURN / GAS; Start 06/20/19 at 12:30 Clonidine HCl (Catapres) 0.1 mg PRN Q6HRS PRN PO SBP>160 OR DBP>90; Start 06/20/19 at 12:30 Sodium Monofluorophosphate (Fleet Adult) 133 ml PRN DAILY PRN NM CONSTIPATION; Start 06/20/19 at 12:30 Docusate Sodium (Colace) 100 mg PRN BID PRN PO CONSTIPATION; Start 06/20/19 at 12:30 Albuterol Sulfate (Ventolin Neb Soln) 2.5 mg PRN Q4HRS PRN NEB SHORTNESS OF BREATH; Start 06/20/19 at 12:30 Guaifenesin (Robitussin) 200 mg PRN Q4HRS PRN PO COUGH; Start 06/20/19 at 12:30 Lorazepam (Ativan) 0.5 mg PRN Q4HRS PRN PO ANXIETY / AGITATION; Start 06/20/19 at 12:30 Ceftriaxone Sodium (Rocephin) 1 gm Q24H IVP Last administered on 06/20/19at 20:31; Start 06/20/19 at 20:00 Aspirin (Children'S Aspirin) 81 mg DAILY PO Last administered on 06/20/19at 15:00; Start 06/20/19 at 15:00 Methadone HCl (Dolophine) 30 mg TID PO Last administered on 06/20/19at 20:32; Start 06/20/19 at 15:00 Dicyclomine HCl (Bentyl) 10 mg PRN 1X PRN PO recurrence of crampy abd pain; Start 06/20/19 at 17:45 Active Scripts Active Reported Vitamin D3 (Cholecalciferol (Vitamin D3)) 1,000 Unit Tablet 1 Tab PO DAILY Vitamin C (Ascorbic Acid) 500 Mg Capsule 500 Mg PO DAILY Vitamin B Complex 1 Each Capsule 1 Each PO DAILY Sinemet 25-100 Mg Tablet (Carbidopa/Levodopa) 1 Each Tablet 1 Tab PO QID Probiotic (Lactobacillus Combo No.11) 1 Each Cap.sprink 1 Each PO DAILY Potassium Chloride 10 Meq Tab.sr.24h 10 Meq PO DAILY Methadone Hcl 10 Mg Tablet 30 Mg PO TID Loratadine 10 Mg Tablet 1 Tab PO DAILY Levothyroxine Sodium 25 Mcg Tablet 1 Tab PO DAILY Lasix (Furosemide) 40 Mg Tablet 40 Mg PO BID Gabapentin 600 Mg Tablet 600 Mg PO QID Flomax (Tamsulosin Hcl) 0.4 Mg Cap.er.24h 1 Cap PO DAILY Fenofibrate (Fenofibrate,Micronized) 134 Mg Capsule 1 Cap PO DAILY Diltiazem 24HR Cd (Diltiazem Hcl) 120 Mg Cap.er.24h 1 Cap PO DAILY Coumadin (Warfarin Sodium) 7.5 Mg Tablet 1 Tab PO DAILY Coreg (Carvedilol) 25 Mg Tablet 25 Mg PO BIDWMEALS Citalopram Hbr (Citalopram Hydrobromide) 20 Mg Tablet 1 Tab PO DAILY Calcitriol 0.25 Mcg Capsule 1 Cap PO DAILY Aspirin 81 Mg Tab.chew 1 Tab PO DAILY Norvasc (Amlodipine Besylate) 5 Mg Tablet 5 Mg PO DAILY Vitals/I & O Vital Sign - Last 24 Hours 06/20/19 06/20/19 06/20/19 06/20/19 11:00 12:40 12:42 12:45 Temp 98.3 98.3 Pulse 71 71 71 71 Resp 16 B/P (MAP) 155/73 (100) 155/73 155/73 155/73 Pulse Ox 93 O2 Delivery Room Air O2 Flow Rate 1.0 06/20/19 06/20/19 06/20/19 06/20/19 15:00 17:20 19:40 20:16 Temp 98.6 98.2 98.6 98.2 Pulse 64 64 60 Resp 16 18 B/P (MAP) 162/58 (92) 162/58 156/63 (94) Pulse Ox 91 93 O2 Delivery Room Air Nasal Cannula Nasal Cannula O2 Flow Rate 1.0 2.0 1.0 06/20/19 06/21/19 06/21/19 06/21/19 23:45 03:45 07:00 08:01 Temp 98.1 98.1 97.9 97.9 98.1 98.1 97.9 97.9 Pulse 60 53 61 61 Resp 18 18 18 18 B/P (MAP) 144/53 (83) 119/52 (74) 142/54 (83) 142/54 (83) Pulse Ox 96 97 94 92 O2 Delivery Nasal Cannula Nasal Cannula Nasal Cannula O2 Flow Rate 2.0 2.0 2.0 06/21/19 08:02 Temp 97.9 97.9 Intake and Output 06/20/19 06/20/19 06/21/19 15:00 23:00 07:00 Intake Total 400 ml 100 ml 600 ml Output Total 550 ml 650 ml 1000 ml Balance -150 ml -550 ml -400 ml JOHANA SIMMONS MD Jun 21, 2019 08:20
[2019-06-21] MEDS: FENOFIBRATE,MICRONIZED 134 MG CAPSULE PO SCH (09:00)
--- NOTE | 2019-06-21 09:22 | PDOC ---
Subjective: Subjective: Point to RLQ and LLQ - has pain "in between here" - not getting better. Not really sure about pain anywhere else in abdomen. Says stooled a lot yesterday, none this morning. Thinks he'll try some breakfast. Objective: Objective: Dicyclomine not given. 2 stools charted yesterday, 5 today. Vital Signs: Vital Signs Date Time Temp Pulse Resp B/P (MAP) Pulse Ox O2 Delivery O2 Flow Rate FiO2 06/21/19 08:02 97.9 97.9 06/21/19 08:01 61 18 142/54 (83) 92 Nasal Cannula 2.0 Labs: Laboratory Tests Test 06/20/19 16:05 06/21/19 03:40 06/21/19 03:45 Creatine Kinase 333 U/L Thyroid Stimulating Hormone (TSH) 1.819 uIU/mL Sodium Level 142 mmol/L Potassium Level 3.9 mmol/L Chloride Level 104 mmol/L Carbon Dioxide Level 34 mmol/L Anion Gap 4 Blood Urea Nitrogen 49 mg/dL Creatinine 3.1 mg/dL Estimated GFR (Cockcroft-Gault) 19.8 BUN/Creatinine Ratio 16 Glucose Level 89 mg/dL Calcium Level 9.3 mg/dL Phosphorus Level 4.6 mg/dL Total Bilirubin 0.5 mg/dL Aspartate Amino Transf (AST/SGOT) 24 U/L Alanine Aminotransferase (ALT/SGPT) 7 U/L Alkaline Phosphatase 88 U/L Total Protein 6.9 g/dL Albumin 2.8 g/dL Albumin/Globulin Ratio 0.7 White Blood Count 13.4 x10^3/uL Red Blood Count 3.42 x10^6/uL Hemoglobin 9.4 g/dL Hematocrit 29.3 % Mean Corpuscular Volume 86 fL Mean Corpuscular Hemoglobin 28 pg Mean Corpuscular Hemoglobin Concent 32 g/dL Red Cell Distribution Width 18.6 % Platelet Count 188 x10^3/uL Neutrophils (%) (Auto) 79 % Lymphocytes (%) (Auto) 9 % Monocytes (%) (Auto) 10 % Eosinophils (%) (Auto) 2 % Basophils (%) (Auto) 0 % Neutrophils # (Auto) 10.6 x10^3/uL Lymphocytes # (Auto) 1.2 x10^3/uL Monocytes # (Auto) 1.4 x10^3/uL Eosinophils # (Auto) 0.3 x10^3/uL Basophils # (Auto) 0.1 x10^3/uL Imaging: CT A/P and C-spine CT 06/21 pending PE: GEN: NAD LUNGS: NC 2L HEART: RRR ABD: NABS, soft, umbilical hernia, does not seem particularly tender in lower quadrants NEURO/PSYCH: A & O 3, forgetful A/P: Lower abd pain H/o constipation w/ loose stools after Miralax - C Diff was negative - ?ongoing Weakness, recent knee replacement Anemia - unclear baseline, on Warfarin CKD, CAD, h/o CVA -- Leaving for CT after I saw him - await results. AMBROCIO HOGAN Jun 21, 2019 09:22
[2019-06-21] MEDS: CETIRIZINE HCL 10 MG TABLET. PO SCH (10:39)
[2019-06-21] MEDS: GABAPENTIN 300 MG CAPSULE. PO SCH (10:39)
[2019-06-21] MEDS: amLODIPine BESYLATE 5 MG TABLET PO SCH (10:39)
[2019-06-21] MEDS: LACTOBACILLUS RHAMNOSUS GG 1 CAPSULE. PO SCH ×2 (10:40→21:00)
[2019-06-21] MEDS: VITAMIN B COMPLEX TABLET. PO SCH (10:40)
[2019-06-21] MEDS: ASCORBIC ACID 500 MG TABLET PO SCH (10:40)
[2019-06-21] MEDS: CHOLECALCIFEROL (VITAMIN D3) 1,000 UNIT TABLET PO SCH (10:40)
[2019-06-21] MEDS: ASPIRIN CHEWABLE 81 MG TABLET. PO SCH (10:40)
[2019-06-21] MEDS: METHADONE 10 MG TABLET. PO SCH ×3 (10:42→21:00)
[2019-06-21] MEDS: CARVEDILOL 12.5 MG TABLET. PO SCH ×2 (10:42→18:48)
[2019-06-21] MEDS: CALCITRIOL 0.25 MCG CAPSULE. PO SCH (10:42)
[2019-06-21] MEDS: TAMSULOSIN 0.4 MG CAP.ER.24H. PO SCH (10:44)
[2019-06-21] MEDS: FUROSEMIDE 40 MG TABLET. PO SCH ×2 (10:44→14:00)
[2019-06-21] MEDS: CITALOPRAM 20 MG TABLET. PO SCH (10:44)
[2019-06-21] MEDS: POTASSIUM CHLORIDE 10 MEQ TABLET.ER. PO SCH (10:44)
[2019-06-21] MEDS: CARBIDOPA/LEVODOPA 25/100MG TABLET PO SCH ×4 (10:44→21:00)
[2019-06-21] MEDS: WARFARIN 7.5 MG TABLET. PO SCH (10:44)
--- NOTE | 2019-06-21 10:59 | RAD ---
Examination: CT CERVICAL SPINE WO CONTRAST History: Fall, pain Comparison/Correlation: None Findings: Axial images of cervical spine were obtained without contrast. Sagittal and coronal reformatted images were provided. Atlantoaxial joint degenerative remodeling is present. Reversal of cervical lordosis is present. Spurring at multiple levels of the cervical spine are notable vertically from C3 to C6 centrally. Moderate disc space narrowing at C3-4 is present. Moderate to severe disc space narrowing from C5 to C7 noted. Spurring is significant involving the anterior aspects of C3-C6. Mild spurring partially also is present. Neural foraminal narrowing is evident bilaterally from C3 through C6 especially. Vertebral body heights are adequate. Alignment is unremarkable. Soft tissues of neck are unremarkable. Sternotomy wires and anterior thoracic inlet surgical clips are present. Impression: Severe degenerative changes. No displaced fracture or malalignment. Reversal of cervical lordosis may represent normal variant or spasm. PQRS Compliance Statement: One or more of the following individualized dose reduction techniques were utilized for this examination: 1. Automated exposure control 2. Adjustment of the mA and/or kV according to patient size 3. Use of iterative reconstruction technique Electronically signed by: Jake Castaneda MD (06/21/2019 10:55 AM) [facility]
--- NOTE | 2019-06-21 11:22 | RAD ---
Examination: CT ABDOMEN PELVIS WO CONTRAST History: Abdominal pain Comparison/Correlation: None Findings: Axial images of the abdomen and pelvis were obtained about contrast. Sagittal and coronal reformatted images were provided. Small pleural effusions bilaterally present. Sternal wires are present. Significant coronary artery calcification is present. Minimal bibasilar costophrenic sulcus atelectasis is present. Unenhanced liver is unremarkable. Spleen is unremarkable. Numerous small calculi present within the dependent aspect of the gallbladder. Slight distention of the gallbladder is present but there is no biliary dilatation or surrounding inflammatory change. Pancreas is unremarkable. Nodule involving the right adrenal gland is present. It is very small for characterization measuring less than 1 cm diameter left adrenal gland 1 cm diameter nodule is present with Hounsfield units of 19. It is smoothly marginated. Fullness of the right pelvicalyceal system is present. Significant left renal atrophy is present. Left renal lower pole cysts are present. Circumferential wall thickening urinary bladder is present. Gas is present within the inner bladder. Significant surrounding stranding of the urinary bladder is evident. No loculated collections. Large quantity of stool is present in the colon. No extraluminal gas. Small right periumbilical hernias present containing a very small segment of nonobstructed bowel. No bowel obstruction or extraluminal gas. Calcific involvement of the abdominal aorta and iliac arteries is significant. 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 2.2 cm diameter left common iliac artery fusiform aneurysm is present. Calcific density which appears represent focal dissection is suspected involving the proximal left superficial femoral artery and this is best seen on axial image 90. Similar findings involving the proximal left superficial femoral artery on axial image 85 and 86 is present Minimal anterolisthesis of L4 in relation L5 is present. Facet joint degenerative changes are present. Spinal canal stenosis is severe at L3-4 and L4-5. Sclerosis of the right and left femoral heads noted. Impression: Circumferential wall thickening of the urinary bladder with surrounding stranding is of concern for cystitis. Cholelithiasis. Small pleural effusions. Significant calcific involvement of the arterial vasculature. Bilateral common iliac artery fusiform aneurysms. 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 Alternatively, this may represent significant atherosclerotic calcific involvement. Indeterminate left adrenal nodule. Interval follow-up CT in 6-8 months to assess stability should be considered as this finding is not typical for an adenoma. PQRS Compliance Statement: One or more of the following individualized dose reduction techniques were utilized for this examination: 1. Automated exposure control 2. Adjustment of the mA and/or kV according to patient size 3. Use of iterative reconstruction technique Electronically signed by: Jake Castaneda MD (06/21/2019 11:19 AM) [facility]
[2019-06-21] MEDS ORDERED: SODIUM PHOSPHATES 19/7GM 133 ML ENEMA. PR ONE (12:00)
[2019-06-21] MEDS ORDERED: SODIUM PHOSPHATES 19/7GM 133 ML ENEMA. PR PRN (12:00)
--- NOTE | 2019-06-21 14:20 | PDOC2 ---
CONSULT Date of Consult Date of Consult DATE: 06/21/19 TIME: 14:16 History of Present Illness Reason for Visit: This is a pleasant 73-year-old male who is referred to the hospital for weakness and altered mental status. Vascular surgery has been asked to see him for incidentally discovered bilateral iliac aneurysms. The patient is a very poor historian and cannot help very much with the history presented today. His is present at the bedside he was helpful in filling in some of his history. Past Medical History Cardiovascular: CAD, HTN CENTRAL NERVOUS SYSTEM: CVA, Other (parkinsonism) GI: Constipation Musculoskeletal: Osteoarthritis Past Surgical History Past Surgical History: CABG, Total knee replacement (7 weeks ago, still and rehabilitation) Family History Family History: High Cholestrol, Hypertension Social History No ALCOHOL: none Drugs: None Current Problem List Problem List Problems Medical Problems: (1) Frequent falls Status: Acute (2) Leukocytosis Status: Acute Current Medications Current Medications Current Medications Ceftriaxone Sodium (Rocephin) 1 gm 1X ONCE IVP Last administered on 06/19/19at 20:10; Start 06/19/19 at 20:15; Stop 06/19/19 at 20:16; Status DC Pharmacy Consult (C.diff Med Screen By Rx) 1 each 1X ONCE [facility] Last administered on 06/19/19at 23:00; Start 06/19/19 at 23:00; Stop 06/19/19 at 23:01; Status DC Amlodipine Besylate (Norvasc) 5 mg DAILY PO Last administered on 06/21/19at 10:39; Start 06/20/19 at 09:00 Calcitriol (Rocaltrol) 0.25 mcg DAILY PO Last administered on 06/21/19at 10:42; Start 06/20/19 at 09:00 Carbidopa/Levodopa (Sinemet 25/100) 1 tab QID PO Last administered on 06/21/19at 13:44; Start 06/20/19 at 09:00 Vitamin D (Vitamin D3) 1,000 unit DAILY PO Last administered on 06/21/19at 10:40; Start 06/20/19 at 09:00 Citalopram Hydrobromide (CeleXA) 20 mg DAILY PO Last administered on 06/21/19at 10:44; Start 06/20/19 at 09:00 Diltiazem HCl (Cardizem 24hr Cd) 120 mg DAILY PO Last administered on 06/21/19 09:00; Start 06/20/19 at 09:00 Fenofibrate (Lofibra) 134 mg DAILY PO Last administered on 06/21/19 09:00; Start 06/20/19 at 09:00 Furosemide (Lasix) 40 mg BID92 PO Last administered on 06/21/19 10:44; Start 06/20/19 at 09:00 Levothyroxine Sodium (Synthroid) 25 mcg DAILY06 PO Last administered on 06/21/19 05:41; Start 06/20/19 at 09:00 Potassium Chloride (Klor-Con) 10 meq DAILY PO Last administered on 06/21/19 10:44; Start 06/20/19 at 09:00 Tamsulosin HCl (Flomax) 0.4 mg DAILY PO Last administered on 06/21/19 10:44; Start 06/20/19 at 09:00 Warfarin Sodium (Coumadin) 7.5 mg DAILY16 PO Last administered on 06/21/19 10:44; Start 06/20/19 at 16:00 Ascorbic Acid (Vitamin C) 500 mg DAILY PO Last administered on 06/21/19 10:40; Start 06/20/19 at 09:00 Carvedilol (Coreg) 25 mg BIDWMEALS PO Last administered on 06/21/19 10:42; Start 06/20/19 at 09:00 Gabapentin (Neurontin) 600 mg DAILY PO Last administered on 06/21/19 10:39; Start 06/20/19 at 10:00 Lactobacillus Rhamnosus (Culturelle) 1 cap BID PO Last administered on 06/21/19 10:40; Start 06/20/19 at 09:00 Cetirizine HCl (ZyrTEC) 10 mg DAILY PO Last administered on 06/21/19 10:39; Start 06/20/19 at 09:00 Vitamin B Complex (Eloy B) 1 tab DAILY PO Last administered on 06/21/19 10:40; Start 06/20/19 at 09:00 Warfarin Sodium (Coumadin Per Pharmacy) 1 each PRN DAILY PRN [facility] SEE COMMENTS Last administered on 06/20/19 11:17; Start 06/20/19 at 09:15 Sodium Chloride (Normal Saline Flush) 3 ml QSHIFT PRN IV AFTER MEDS AND BLOOD DRAWS; Start 06/20/19 at 12:30 Ondansetron HCl (Zofran) 4 mg PRN Q4HRS PRN IV NAUSEA/VOMITING; Start 06/20/19 at 12:30 Acetaminophen (Tylenol) 650 mg PRN Q4HRS PRN PO TEMP OVER 100.4F OR MILD PAIN; Start 06/20/19 at 12:30 Al Hydroxide/Mg Hydroxide (Mylanta Plus Xs) 30 ml PRN DAILY PRN PO HEARTBURN / GAS; Start 06/20/19 at 12:30 Clonidine HCl (Catapres) 0.1 mg PRN Q6HRS PRN PO SBP>160 OR DBP>90; Start 06/20/19 at 12:30 Sodium Monofluorophosphate (Fleet Adult) 133 ml PRN DAILY PRN HI CONSTIPATION; Start 06/20/19 at 12:30; Stop 06/21/19 at 13:33; Status DC Docusate Sodium (Colace) 100 mg PRN BID PRN PO CONSTIPATION; Start 06/20/19 at 12:30 Albuterol Sulfate (Ventolin Neb Soln) 2.5 mg PRN Q4HRS PRN NEB SHORTNESS OF BREATH; Start 06/20/19 at 12:30 Guaifenesin (Robitussin) 200 mg PRN Q4HRS PRN PO COUGH; Start 06/20/19 at 12:30 Lorazepam (Ativan) 0.5 mg PRN Q4HRS PRN PO ANXIETY / AGITATION; Start 06/20/19 at 12:30 Ceftriaxone Sodium (Rocephin) 1 gm Q24H IVP Last administered on 06/20/19at 20:31; Start 06/20/19 at 20:00 Aspirin (Children'S Aspirin) 81 mg DAILY PO Last administered on 06/21/19at 10: 40; Start 06/20/19 at 15:00 Methadone HCl (Dolophine) 30 mg TID PO Last administered on 06/21/19at 13:45; Start 06/20/19 at 15:00 Dicyclomine HCl (Bentyl) 10 mg PRN 1X PRN PO recurrence of crampy abd pain; Start 06/20/19 at 17:45 Sodium Monofluorophosphate (Fleet Adult) 133 ml DAILY PRN HI CONSTIPATION; Start 06/21/19 at 12:00 Sodium Monofluorophosphate (Fleet Adult) 133 ml 1X ONCE HI ; Start 06/21/19 at 12:00; Stop 06/21/19 at 12:01; Status DC Active Scripts Active Reported Vitamin D3 (Cholecalciferol (Vitamin D3)) 1,000 Unit Tablet 1 Tab PO DAILY Vitamin C (Ascorbic Acid) 500 Mg Capsule 500 Mg PO DAILY Vitamin B Complex 1 Each Capsule 1 Each PO DAILY Sinemet 25-100 Mg Tablet (Carbidopa/Levodopa) 1 Each Tablet 1 Tab PO QID Probiotic (Lactobacillus Combo No.11) 1 Each Cap.sprink 1 Each PO DAILY Potassium Chloride 10 Meq Tab.sr.24h 10 Meq PO DAILY Methadone Hcl 10 Mg Tablet 30 Mg PO TID Loratadine 10 Mg Tablet 1 Tab PO DAILY Levothyroxine Sodium 25 Mcg Tablet 1 Tab PO DAILY Lasix (Furosemide) 40 Mg Tablet 40 Mg PO BID Gabapentin 600 Mg Tablet 600 Mg PO QID Flomax (Tamsulosin Hcl) 0.4 Mg Cap.er.24h 1 Cap PO DAILY Fenofibrate (Fenofibrate,Micronized) 134 Mg Capsule 1 Cap PO DAILY Diltiazem 24HR Cd (Diltiazem Hcl) 120 Mg Cap.er.24h 1 Cap PO DAILY Coumadin (Warfarin Sodium) 7.5 Mg Tablet 1 Tab PO DAILY Coreg (Carvedilol) 25 Mg Tablet 25 Mg PO BIDWMEALS Citalopram Hbr (Citalopram Hydrobromide) 20 Mg Tablet 1 Tab PO DAILY Calcitriol 0.25 Mcg Capsule 1 Cap PO DAILY Aspirin 81 Mg Tab.chew 1 Tab PO DAILY Norvasc (Amlodipine Besylate) 5 Mg Tablet 5 Mg PO DAILY Allergies Allergies: Coded Allergies: ibuprofen (Verified Allergy, Intermediate, 06/20/19) Physical Exam General: Alert, Cooperative, No acute distress HEENT: Atraumatic Lungs: Clear to auscultation Heart: Regular rate, Normal S1, Normal S2 Abdomen: Normal bowel sounds, Soft, Other (obese) Extremities: No edema, Other (Doppler signals intact bilaterally, palpable femoral pulses bilaterally, no evidence of pulsatile mass behind the knees) Skin: No rashes, No breakdown, No significant lesion Neuro: Normal gait, Normal speech, Strength at 5/5 X4 ext, Normal tone, Sensation intact, Cranial nerves 3-12 NL Psych/Mental Status: Mental status NL, Mood NL MUSCULOSKELETAL: No joint tenderness, No deformity, No swelling, No muscular tenderness noted Vitals VITALS Vital Signs Date Time Temp Pulse Resp B/P (MAP) Pulse Ox O2 Delivery O2 Flow Rate FiO2 06/21/19 12:41 99.2 99.2 06/21/19 11:45 64 20 146/76 (99) 94 06/21/19 08:01 Nasal Cannula 2.0 Labs Labs Laboratory Tests Test 06/19/19 18:25 06/20/19 02:10 06/20/19 07:30 06/20/19 16:05 White Blood Count 18.5 x10^3/uL (4.0-11.0) Red Blood Count 3.83 x10^6/uL (4.30-5.70) Hemoglobin 10.6 g/dL (13.0-17.5) Hematocrit 32.9 % (39.0-53.0) Mean Corpuscular Volume 86 fL (79-100) Mean Corpuscular Hemoglobin 28 pg (25-35) Mean Corpuscular Hemoglobin Concent 32 g/dL (31-37) Red Cell Distribution Width 18.2 % (11.5-14.5) Platelet Count 245 x10^3/uL (140-400) Neutrophils (%) (Auto) 87 % (31-73) Lymphocytes (%) (Auto) 5 % (24-48) Monocytes (%) (Auto) 8 % (0-9) Eosinophils (%) (Auto) 0 % (0-3) Basophils (%) (Auto) 0 % (0-3) Neutrophils # (Auto) 16.1 x10^3/uL (1.8-7.7) Lymphocytes # (Auto) 1.0 x10^3/uL (1.0-4.8) Monocytes # (Auto) 1.4 x10^3/uL (0.0-1.1) Eosinophils # (Auto) 0.0 x10^3/uL (0.0-0.7) Basophils # (Auto) 0.1 x10^3/uL (0.0-0.2) Segmented Neutrophils % 81 % (35-66) Band Neutrophils % 6 % (0-9) Lymphocytes % 6 % (24-48) Monocytes % 7 % (0-10) Platelet Estimate Adequate (ADEQUATE) Prothrombin Time 20.5 SEC (11.7-14.0) Prothromb Time International Ratio 1.8 (0.8-1.1) Sodium Level 145 mmol/L (136-145) Potassium Level 4.7 mmol/L (3.5-5.1) Chloride Level 106 mmol/L (98-107) Carbon Dioxide Level 32 mmol/L (21-32) Anion Gap 7 (6-14) Blood Urea Nitrogen 54 mg/dL (8-26) Creatinine 3.4 mg/dL (0.7-1.3) Estimated GFR (Cockcroft-Gault) 17.8 BUN/Creatinine Ratio 16 (6-20) Glucose Level 104 mg/dL (70-99) Lactic Acid Level 2.0 mmol/L (0.4-2.0) Calcium Level 9.9 mg/dL (8.5-10.1) Magnesium Level 2.5 mg/dL (1.8-2.4) Total Bilirubin 0.6 mg/dL (0.2-1.0) Aspartate Amino Transf (AST/SGOT) 27 U/L (15-37) Alanine Aminotransferase (ALT/SGPT) 6 U/L (16-63) Alkaline Phosphatase 104 U/L (46-116) Creatine Kinase 421 U/L (39-308) 333 U/L (39-308) Troponin I Quantitative < 0.017 ng/mL (0.000-0.055) WM-Hdx-K-Type Natriuretic Peptide 2491 pg/mL (0-124) Total Protein 7.7 g/dL (6.4-8.2) Albumin 3.3 g/dL (3.4-5.0) Albumin/Globulin Ratio 0.8 (1.0-1.7) Urine Collection Type Unknown Urine Color Yellow Urine Clarity Clear Urine pH 6.5 Urine Specific Strat[place] 1.015 Urine Protein 100 mg/dL (NEG-TRACE) Urine Glucose (UA) Negative mg/dL (NEG) Urine Ketones (Stick) Negative mg/dL (NEG) Urine Blood Negative (NEG) Urine Nitrite Negative (NEG) Urine Bilirubin Negative (NEG) Urine Urobilinogen Dipstick 1.0 mg/dL (0.2 mg/dL) Urine Leukocyte Esterase Negative (NEG) Urine RBC 3-5 /HPF (0-2) Urine WBC 1-4 /HPF (0-4) Urine Squamous Epithelial Cells Few /LPF Urine Bacteria 0 /HPF (0-FEW) Urine Hyaline Casts Few /HPF Clostridium difficile Toxin B Gene Negative (Negative) Vitamin B12 Level 871 pg/mL (247-911) Thyroid Stimulating Hormone (TSH) 1.819 uIU/mL (0.358-3.74) Test 06/21/19 03:40 06/21/19 03:45 Sodium Level 142 mmol/L (136-145) Potassium Level 3.9 mmol/L (3.5-5.1) Chloride Level 104 mmol/L (98-107) Carbon Dioxide Level 34 mmol/L (21-32) Anion Gap 4 (6-14) Blood Urea Nitrogen 49 mg/dL (8-26) Creatinine 3.1 mg/dL (0.7-1.3) Estimated GFR (Cockcroft-Gault) 19.8 BUN/Creatinine Ratio 16 (6-20) Glucose Level 89 mg/dL (70-99) Calcium Level 9.3 mg/dL (8.5-10.1) Phosphorus Level 4.6 mg/dL (2.6-4.7) Total Bilirubin 0.5 mg/dL (0.2-1.0) Aspartate Amino Transf (AST/SGOT) 24 U/L (15-37) Alanine Aminotransferase (ALT/SGPT) 7 U/L (16-63) Alkaline Phosphatase 88 U/L (46-116) Total Protein 6.9 g/dL (6.4-8.2) Albumin 2.8 g/dL (3.4-5.0) Albumin/Globulin Ratio 0.7 (1.0-1.7) White Blood Count 13.4 x10^3/uL (4.0-11.0) Red Blood Count 3.42 x10^6/uL (4.30-5.70) Hemoglobin 9.4 g/dL (13.0-17.5) Hematocrit 29.3 % (39.0-53.0) Mean Corpuscular Volume 86 fL (79-100) Mean Corpuscular Hemoglobin 28 pg (25-35) Mean Corpuscular Hemoglobin Concent 32 g/dL (31-37) Red Cell Distribution Width 18.6 % (11.5-14.5) Platelet Count 188 x10^3/uL (140-400) Neutrophils (%) (Auto) 79 % (31-73) Lymphocytes (%) (Auto) 9 % (24-48) Monocytes (%) (Auto) 10 % (0-9) Eosinophils (%) (Auto) 2 % (0-3) Basophils (%) (Auto) 0 % (0-3) Neutrophils # (Auto) 10.6 x10^3/uL (1.8-7.7) Lymphocytes # (Auto) 1.2 x10^3/uL (1.0-4.8) Monocytes # (Auto) 1.4 x10^3/uL (0.0-1.1) Eosinophils # (Auto) 0.3 x10^3/uL (0.0-0.7) Basophils # (Auto) 0.1 x10^3/uL (0.0-0.2) Laboratory Tests Test 06/20/19 16:05 06/21/19 03:40 06/21/19 03:45 Creatine Kinase 333 U/L (39-308) Vitamin B12 Level 871 pg/mL (247-911) Thyroid Stimulating Hormone (TSH) 1.819 uIU/mL (0.358-3.74) Sodium Level 142 mmol/L (136-145) Potassium Level 3.9 mmol/L (3.5-5.1) Chloride Level 104 mmol/L (98-107) Carbon Dioxide Level 34 mmol/L (21-32) Anion Gap 4 (6-14) Blood Urea Nitrogen 49 mg/dL (8-26) Creatinine 3.1 mg/dL (0.7-1.3) Estimated GFR (Cockcroft-Gault) 19.8 BUN/Creatinine Ratio 16 (6-20) Glucose Level 89 mg/dL (70-99) Calcium Level 9.3 mg/dL (8.5-10.1) Phosphorus Level 4.6 mg/dL (2.6-4.7) Total Bilirubin 0.5 mg/dL (0.2-1.0) Aspartate Amino Transf (AST/SGOT) 24 U/L (15-37) Alanine Aminotransferase (ALT/SGPT) 7 U/L (16-63) Alkaline Phosphatase 88 U/L (46-116) Total Protein 6.9 g/dL (6.4-8.2) Albumin 2.8 g/dL (3.4-5.0) Albumin/Globulin Ratio 0.7 (1.0-1.7) White Blood Count 13.4 x10^3/uL (4.0-11.0) Red Blood Count 3.42 x10^6/uL (4.30-5.70) Hemoglobin 9.4 g/dL (13.0-17.5) Hematocrit 29.3 % (39.0-53.0) Mean Corpuscular Volume 86 fL (79-100) Mean Corpuscular Hemoglobin 28 pg (25-35) Mean Corpuscular Hemoglobin Concent 32 g/dL (31-37) Red Cell Distribution Width 18.6 % (11.5-14.5) Platelet Count 188 x10^3/uL (140-400) Neutrophils (%) (Auto) 79 % (31-73) Lymphocytes (%) (Auto) 9 % (24-48) Monocytes (%) (Auto) 10 % (0-9) Eosinophils (%) (Auto) 2 % (0-3) Basophils (%) (Auto) 0 % (0-3) Neutrophils # (Auto) 10.6 x10^3/uL (1.8-7.7) Lymphocytes # (Auto) 1.2 x10^3/uL (1.0-4.8) Monocytes # (Auto) 1.4 x10^3/uL (0.0-1.1) Eosinophils # (Auto) 0.3 x10^3/uL (0.0-0.7) Basophils # (Auto) 0.1 x10^3/uL (0.0-0.2) Assessment/Plan Assessment/Plan Asymptomatic bilateral common iliac artery aneurysms--there is no evidence of dissection within the aorta. There is plaque within the aorta and that is all that can be said given that this is a noncontrast study. He does have an uncomplicated 2 cm right common iliac artery aneurysm and an uncomplicated 1.9 cm left common iliac artery aneurysm. There is no significant aortic degeneration or aneurysm. I would recommend follow-up in our office in 1 year with aortic duplex to monitor his aneurysms. These are not contributing to his acute illness currently in the hospital. All questions were answered to the patient's and his 's satisfaction regarding the plan. Our office will contact the patient for testing an appointment in 1 year. Amisha Mortensen DO, AMISHA NELSON DO Jun 21, 2019 14:20
--- NOTE | 2019-06-21 14:21 | PDOC2 ---
CONSULT Date of Consult Date of Consult DATE: 06/21/19 TIME: 14:08 Reason for Consult Reason for Consult: Renal failure Source Source: Caregiver, Chart review History of Present Illness Reason for Visit: 73 year old C male who presents via EMS with complaining of weakness and frequent falls. Hx Obtained from , Pt is hard of hearing and poor Historian Per c/o generalized weakness for the last couple days and had 3 falls since 06/18. He was not able to get up from the toilet stool and floor and she had to call client service professional to help her to get him out of the floor. Denies any F/C. NoCP or SOB . He does straight cath at home - 4 times/day. He follows with Dr. Posadas of our group and he he was scheduled for appt with him today as OP Denies any Urinary symptoms of UTI, C/O Constipation . No NSAID use Has AV access in Lt UE Currently sitting up, eating Lunch, No Complaints Past Medical History Cardiovascular: CAD, HTN CENTRAL NERVOUS SYSTEM: CVA, Other (parkinsonism) GI: Constipation Musculoskeletal: Osteoarthritis Past Surgical History Past Surgical History: CABG, Total knee replacement (7 weeks ago, still and rehabilitation) Family History Family History: High Cholestrol, Hypertension Social History No ALCOHOL: none Drugs: None Current Problem List Problem List Problems Medical Problems: (1) Frequent falls Status: Acute (2) Leukocytosis Status: Acute Current Medications Current Medications Current Medications Ceftriaxone Sodium (Rocephin) 1 gm 1X ONCE IVP Last administered on 06/19/19at 20:10; Start 06/19/19 at 20:15; Stop 06/19/19 at 20:16; Status DC Pharmacy Consult (C.diff Med Screen By Rx) 1 each 1X ONCE MC Last administered on 06/19/19at 23:00; Start 06/19/19 at 23:00; Stop 06/19/19 at 23:01; Status DC Amlodipine Besylate (Norvasc) 5 mg DAILY PO Last administered on 06/21/19at 10:39; Start 06/20/19 at 09:00 Calcitriol (Rocaltrol) 0.25 mcg DAILY PO Last administered on 06/21/19at 10:42; Start 06/20/19 at 09:00 Carbidopa/Levodopa (Sinemet 25/100) 1 tab QID PO Last administered on 06/21/19 13:44; Start 06/20/19 at 09:00 Vitamin D (Vitamin D3) 1,000 unit DAILY PO Last administered on 06/21/19 10:40; Start 06/20/19 at 09:00 Citalopram Hydrobromide (CeleXA) 20 mg DAILY PO Last administered on 06/21/19 10:44; Start 06/20/19 at 09:00 Diltiazem HCl (Cardizem 24hr Cd) 120 mg DAILY PO Last administered on 06/21/19 09:00; Start 06/20/19 at 09:00 Fenofibrate (Lofibra) 134 mg DAILY PO Last administered on 06/21/19 09:00; S tart 06/20/19 at 09:00 Furosemide (Lasix) 40 mg BID92 PO Last administered on 06/21/19 10:44; Start 06/20/19 at 09:00 Levothyroxine Sodium (Synthroid) 25 mcg DAILY06 PO Last administered on 06/21/19 05:41; Start 06/20/19 at 09:00 Potassium Chloride (Klor-Con) 10 meq DAILY PO Last administered on 06/21/19 10:44; Start 06/20/19 at 09:00 Tamsulosin HCl (Flomax) 0.4 mg DAILY PO Last administered on 06/21/19 10:44; Start 06/20/19 at 09:00 Warfarin Sodium (Coumadin) 7.5 mg DAILY16 PO Last administered on 06/21/19 10:44; Start 06/20/19 at 16:00 Ascorbic Acid (Vitamin C) 500 mg DAILY PO Last administered on 06/21/19 10:40; Start 06/20/19 at 09:00 Carvedilol (Coreg) 25 mg BIDWMEALS PO Last administered on 06/21/19 10:42; Start 06/20/19 at 09:00 Gabapentin (Neurontin) 600 mg DAILY PO Last administered on 06/21/19 10:39; Start 06/20/19 at 10:00 Lactobacillus Rhamnosus (Culturelle) 1 cap BID PO Last administered on 06/21/19 10:40; Start 06/20/19 at 09:00 Cetirizine HCl (ZyrTEC) 10 mg DAILY PO Last administered on 06/21/19at 10:39; Start 06/20/19 at 09:00 Vitamin B Complex (Eloy B) 1 tab DAILY PO Last administered on 06/21/19at 10:40; Start 06/20/19 at 09:00 Warfarin Sodium (Coumadin Per Pharmacy) 1 each PRN DAILY PRN MC SEE COMMENTS Last administered on 06/20/19at 11:17; Start 06/20/19 at 09:15 Sodium Chloride (Normal Saline Flush) 3 ml QSHIFT PRN IV AFTER MEDS AND BLOOD DRAWS; Start 06/20/19 at 12:30 Ondansetron HCl (Zofran) 4 mg PRN Q4HRS PRN IV NAUSEA/VOMITING; Start 06/20/19 at 12:30 Acetaminophen (Tylenol) 650 mg PRN Q4HRS PRN PO TEMP OVER 100.4F OR MILD PAIN; Start 06/20/19 at 12:30 Al Hydroxide/Mg Hydroxide (Mylanta Plus Xs) 30 ml PRN DAILY PRN PO HEARTBURN / GAS; Start 06/20/19 at 12:30 Clonidine HCl (Catapres) 0.1 mg PRN Q6HRS PRN PO SBP>160 OR DBP>90; Start 06/20/19 at 12:30 Sodium Monofluorophosphate (Fleet Adult) 133 ml PRN DAILY PRN NE CONSTIPATION; Start 06/20/19 at 12:30; Stop 06/21/19 at 13:33; Status DC Docusate Sodium (Colace) 100 mg PRN BID PRN PO CONSTIPATION; Start 06/20/19 at 12:30 Albuterol Sulfate (Ventolin Neb Soln) 2.5 mg PRN Q4HRS PRN NEB SHORTNESS OF BREATH; Start 06/20/19 at 12:30 Guaifenesin (Robitussin) 200 mg PRN Q4HRS PRN PO COUGH; Start 06/20/19 at 12:30 Lorazepam (Ativan) 0.5 mg PRN Q4HRS PRN PO ANXIETY / AGITATION; Start 06/20/19 at 12:30 Ceftriaxone Sodium (Rocephin) 1 gm Q24H IVP Last administered on 06/20/19at 20:31; Start 06/20/19 at 20:00 Aspirin (Children'S Aspirin) 81 mg DAILY PO Last administered on 06/21/19at 10:40; Start 06/20/19 at 15:00 Methadone HCl (Dolophine) 30 mg TID PO Last administered on 06/21/19at 13:45; Start 06/20/19 at 15:00 Dicyclomine HCl (Bentyl) 10 mg PRN 1X PRN PO recurrence of crampy abd pain; Start 06/20/19 at 17:45 Sodium Monofluorophosphate (Fleet Adult) 133 ml DAILY PRN NE CONSTIPATION; Start 06/21/19 at 12:00 Sodium Monofluorophosphate (Fleet Adult) 133 ml 1X ONCE NE ; Start 06/21/19 at 12:00; Stop 06/21/19 at 12:01; Status DC Active Scripts Active Reported Vitamin D3 (Cholecalciferol (Vitamin D3)) 1,000 Unit Tablet 1 Tab PO DAILY Vitamin C (Ascorbic Acid) 500 Mg Capsule 500 Mg PO DAILY Vitamin B Complex 1 Each Capsule 1 Each PO DAILY Sinemet 25-100 Mg Tablet (Carbidopa/Levodopa) 1 Each Tablet 1 Tab PO QID Probiotic (Lactobacillus Combo No.11) 1 Each Cap.sprink 1 Each PO DAILY Potassium Chloride 10 Meq Tab.sr.24h 10 Meq PO DAILY Methadone Hcl 10 Mg Tablet 30 Mg PO TID Loratadine 10 Mg Tablet 1 Tab PO DAILY Levothyroxine Sodium 25 Mcg Tablet 1 Tab PO DAILY Lasix (Furosemide) 40 Mg Tablet 40 Mg PO BID Gabapentin 600 Mg Tablet 600 Mg PO QID Flomax (Tamsulosin Hcl) 0.4 Mg Cap.er.24h 1 Cap PO DAILY Fenofibrate (Fenofibrate,Micronized) 134 Mg Capsule 1 Cap PO DAILY Diltiazem 24HR Cd (Diltiazem Hcl) 120 Mg Cap.er.24h 1 Cap PO DAILY Coumadin (Warfarin Sodium) 7.5 Mg Tablet 1 Tab PO DAILY Coreg (Carvedilol) 25 Mg Tablet 25 Mg PO BIDWMEALS Citalopram Hbr (Citalopram Hydrobromide) 20 Mg Tablet 1 Tab PO DAILY Calcitriol 0.25 Mcg Capsule 1 Cap PO DAILY Aspirin 81 Mg Tab.chew 1 Tab PO DAILY Norvasc (Amlodipine Besylate) 5 Mg Tablet 5 Mg PO DAILY Allergies Allergies: Coded Allergies: ibuprofen (Verified Allergy, Intermediate, 06/20/19) ROS Review of System Per HPI Physical Exam Physical Exam General: No acute distress HEENT:OM moist, O2 by NC Neck Supple Lungs: Clear to auscultation, Non labored Heart: RRR, No Rub Abdomen: Normal bowel sounds, Soft Extremities: No edema Neuro: Per neurologist exam Skin No rash Pelaez in place, No CVA or SP tenderness Vital Signs Vital Signs Date Time Temp Pulse Resp B/P (MAP) Pulse Ox O2 Delivery O2 Flow Rate FiO2 06/21/19 12:41 99.2 99.2 06/21/19 11:45 64 20 146/76 (99) 94 06/21/19 08:01 Nasal Cannula 2.0 Assessment & Plan RUSSELL - on CKD stage 4 - Pre-renal Baseline Cr 2.7 -3 E-Lytes stable, Currently no emergent indication for HD Supportive care, Strict I/O, Monitor, Avoid Nephrotoxins CKD stage 4- Obtained and Reviewed records from our office Follows with Dr. Posadas, Baseline Cr 2.7-3.0 Has AV access in Lt UE ? Urinary retention- Straight cath at home 4 times/day Dont have any records Consult urology CTscan- Fullness of the right pelvicalyceal system is present. Significant left renal atrophy is present. Left renal lower pole cysts are present. Circumferential wall thickening urinary bladder is present. Gas is present within the inner bladder. Significant surrounding stranding of the urinary bladder is evident. Constipation- Fleet's enema is CI in CKD natanael advanced Defer to primary HTN- BP stable Anemia- WALLACE per protocol for Hgb < 10 Discussed with at bedside Labs Labs Laboratory Tests Test 06/19/19 18:25 06/20/19 02:10 06/20/19 07:30 06/20/19 16:05 White Blood Count 18.5 x10^3/uL (4.0-11.0) Red Blood Count 3.83 x10^6/uL (4.30-5.70) Hemoglobin 10.6 g/dL (13.0-17.5) Hematocrit 32.9 % (39.0-53.0) Mean Corpuscular Volume 86 fL (79-100) Mean Corpuscular Hemoglobin 28 pg (25-35) Mean Corpuscular Hemoglobin Concent 32 g/dL (31-37) Red Cell Distribution Width 18.2 % (11.5-14.5) Platelet Count 245 x10^3/uL (140-400) Neutrophils (%) (Auto) 87 % (31-73) Lymphocytes (%) (Auto) 5 % (24-48) Monocytes (%) (Auto) 8 % (0-9) Eosinophils (%) (Auto) 0 % (0-3) Basophils (%) (Auto) 0 % (0-3) Neutrophils # (Auto) 16.1 x10^3/uL (1.8-7.7) Lymphocytes # (Auto) 1.0 x10^3/uL (1.0-4.8) Monocytes # (Auto) 1.4 x10^3/uL (0.0-1.1) Eosinophils # (Auto) 0.0 x10^3/uL (0.0-0.7) Basophils # (Auto) 0.1 x10^3/uL (0.0-0.2) Segmented Neutrophils % 81 % (35-66) Band Neutrophils % 6 % (0-9) Lymphocytes % 6 % (24-48) Monocytes % 7 % (0-10) Platelet Estimate Adequate (ADEQUATE) Prothrombin Time 20.5 SEC (11.7-14.0) Prothromb Time International Ratio 1.8 (0.8-1.1) Sodium Level 145 mmol/L (136-145) Potassium Level 4.7 mmol/L (3.5-5.1) Chloride Level 106 mmol/L (98-107) Carbon Dioxide Level 32 mmol/L (21-32) Anion Gap 7 (6-14) Blood Urea Nitrogen 54 mg/dL (8-26) Creatinine 3.4 mg/dL (0.7-1.3) Estimated GFR (Cockcroft-Gault) 17.8 BUN/Creatinine Ratio 16 (6-20) Glucose Level 104 mg/dL (70-99) Lactic Acid Level 2.0 mmol/L (0.4-2.0) Calcium Level 9.9 mg/dL (8.5-10.1) Magnesium Level 2.5 mg/dL (1.8-2.4) Total Bilirubin 0.6 mg/dL (0.2-1.0) Aspartate Amino Transf (AST/SGOT) 27 U/L (15-37) Alanine Aminotransferase (ALT/SGPT) 6 U/L (16-63) Alkaline Phosphatase 104 U/L (46-116) Creatine Kinase 421 U/L (39-308) 333 U/L (39-308) Troponin I Quantitative < 0.017 ng/mL (0.000-0.055) HQ-Mmv-C-Type Natriuretic Peptide 2491 pg/mL (0-124) Total Protein 7.7 g/dL (6.4-8.2) Albumin 3.3 g/dL (3.4-5.0) Albumin/Globulin Ratio 0.8 (1.0-1.7) Urine Collection Type Unknown Urine Color Yellow Urine Clarity Clear Urine pH 6.5 Urine Specific [place] 1.015 Urine Protein 100 mg/dL (NEG-TRACE) Urine Glucose (UA) Negative mg/dL (NEG) Urine Ketones (Stick) Negative mg/dL (NEG) Urine Blood Negative (NEG) Urine Nitrite Negative (NEG) Urine Bilirubin Negative (NEG) Urine Urobilinogen Dipstick 1.0 mg/dL (0.2 mg/dL) Urine Leukocyte Esterase Negative (NEG) Urine RBC 3-5 /HPF (0-2) Urine WBC 1-4 /HPF (0-4) Urine Squamous Epithelial Cells Few /LPF Urine Bacteria 0 /HPF (0-FEW) Urine Hyaline Casts Few /HPF Clostridium difficile Toxin B Gene Negative (Negative) Vitamin B12 Level 871 pg/mL (247-911) Thyroid Stimulating Hormone (TSH) 1.819 uIU/mL (0.358-3.74) Test 06/21/19 03:40 06/21/19 03:45 Sodium Level 142 mmol/L (136-145) Potassium Level 3.9 mmol/L (3.5-5.1) Chloride Level 104 mmol/L (98-107) Carbon Dioxide Level 34 mmol/L (21-32) Anion Gap 4 (6-14) Blood Urea Nitrogen 49 mg/dL (8-26) Creatinine 3.1 mg/dL (0.7-1.3) Estimated GFR (Cockcroft-Gault) 19.8 BUN/Creatinine Ratio 16 (6-20) Glucose Level 89 mg/dL (70-99) Calcium Level 9.3 mg/dL (8.5-10.1) Phosphorus Level 4.6 mg/dL (2.6-4.7) Total Bilirubin 0.5 mg/dL (0.2-1.0) Aspartate Amino Transf (AST/SGOT) 24 U/L (15-37) Alanine Aminotransferase (ALT/SGPT) 7 U/L (16-63) Alkaline Phosphatase 88 U/L (46-116) Total Protein 6.9 g/dL (6.4-8.2) Albumin 2.8 g/dL (3.4-5.0) Albumin/Globulin Ratio 0.7 (1.0-1.7) White Blood Count 13.4 x10^3/uL (4.0-11.0) Red Blood Count 3.42 x10^6/uL (4.30-5.70) Hemoglobin 9.4 g/dL (13.0-17.5) Hematocrit 29.3 % (39.0-53.0) Mean Corpuscular Volume 86 fL (79-100) Mean Corpuscular Hemoglobin 28 pg (25-35) Mean Corpuscular Hemoglobin Concent 32 g/dL (31-37) Red Cell Distribution Width 18.6 % (11.5-14.5) Platelet Count 188 x10^3/uL (140-400) Neutrophils (%) (Auto) 79 % (31-73) Lymphocytes (%) (Auto) 9 % (24-48) Monocytes (%) (Auto) 10 % (0-9) Eosinophils (%) (Auto) 2 % (0-3) Basophils (%) (Auto) 0 % (0-3) Neutrophils # (Auto) 10.6 x10^3/uL (1.8-7.7) Lymphocytes # (Auto) 1.2 x10^3/uL (1.0-4.8) Monocytes # (Auto) 1.4 x10^3/uL (0.0-1.1) Eosinophils # (Auto) 0.3 x10^3/uL (0.0-0.7) Basophils # (Auto) 0.1 x10^3/uL (0.0-0.2) Laboratory Tests Test 06/20/19 16:05 06/21/19 03:40 06/21/19 03:45 Creatine Kinase 333 U/L (39-308) Vitamin B12 Level 871 pg/mL (247-911) Thyroid Stimulating Hormone (TSH) 1.819 uIU/mL (0.358-3.74) Sodium Level 142 mmol/L (136-145) Potassium Level 3.9 mmol/L (3.5-5.1) Chloride Level 104 mmol/L (98-107) Carbon Dioxide Level 34 mmol/L (21-32) Anion Gap 4 (6-14) Blood Urea Nitrogen 49 mg/dL (8-26) Creatinine 3.1 mg/dL (0.7-1.3) Estimated GFR (Cockcroft-Gault) 19.8 BUN/Creatinine Ratio 16 (6-20) Glucose Level 89 mg/dL (70-99) Calcium Level 9.3 mg/dL (8.5-10.1) Phosphorus Level 4.6 mg/dL (2.6-4.7) Total Bilirubin 0.5 mg/dL (0.2-1.0) Aspartate Amino Transf (AST/SGOT) 24 U/L (15-37) Alanine Aminotransferase (ALT/SGPT) 7 U/L (16-63) Alkaline Phosphatase 88 U/L (46-116) Total Protein 6.9 g/dL (6.4-8.2) Albumin 2.8 g/dL (3.4-5.0) Albumin/Globulin Ratio 0.7 (1.0-1.7) White Blood Count 13.4 x10^3/uL (4.0-11.0) Red Blood Count 3.42 x10^6/uL (4.30-5.70) Hemoglobin 9.4 g/dL (13.0-17.5) Hematocrit 29.3 % (39.0-53.0) Mean Corpuscular Volume 86 fL (79-100) Mean Corpuscular Hemoglobin 28 pg (25-35) Mean Corpuscular Hemoglobin Concent 32 g/dL (31-37) Red Cell Distribution Width 18.6 % (11.5-14.5) Platelet Count 188 x10^3/uL (140-400) Neutrophils (%) (Auto) 79 % (31-73) Lymphocytes (%) (Auto) 9 % (24-48) Monocytes (%) (Auto) 10 % (0-9) Eosinophils (%) (Auto) 2 % (0-3) Basophils (%) (Auto) 0 % (0-3) Neutrophils # (Auto) 10.6 x10^3/uL (1.8-7.7) Lymphocytes # (Auto) 1.2 x10^3/uL (1.0-4.8) Monocytes # (Auto) 1.4 x10^3/uL (0.0-1.1) Eosinophils # (Auto) 0.3 x10^3/uL (0.0-0.7) Basophils # (Auto) 0.1 x10^3/uL (0.0-0.2) Review All relevant outside records, renal labs, imaging studies, telemetry/EKG's were reviewed. SHANTEL CLAY MD Jun 21, 2019 14:21
--- NOTE | 2019-06-21 14:50 | NUR ---
CHANTAL following pt for dc planning. Chart reviewed and discussed with RN. Pt lives at home with spouse. Pt is admitted for metabolic encephalopathy, AKF and has PMHx of CVA. Pt has 3 falls since 06/18. PT/OT notes reviewed and recommend SNU. CHANTAL attempted to speak with pt this morning but pt was asleep. CHANTAL spoke with pt's daughter, Amanda, phone: [phone] about SNU and options. Pt's daughter chose [facility] and [facility]. Amanda also requested if pt's is able to stay with pt at facility. CHANTAL extensively discussed SNU evaluation process and types of placements. Amanda reports pt/ is able to do private payments so can stay with pt. Plan 1. CHANTAL phoned and faxed referral to [facility], phone: [phone], fax: [phone]. Pt is seen by Luz from [facility] and is accepted pending insurance. Pt's daughter had already spoken with Luz regarding admitting pt's and they have scheduled in home evaluations tomorrow. [facility] will not have a bed until Friday and daughter agreeable with [facility].. 2. Discussed with Physician, nephrology consulted due to AKF. 3. Will continue to follow to assist with dc planning. Addendum: 06/21/19 at 1505 by YOUSUF CORNEJO DISREGARD ABOVE NOTE: ENTERED ON WRONG PATIENT
[2019-06-21 14:55] LABS: PROTHROMBIN TIME PATIENT 21.7 SEC (11.7-14.0)
--- NOTE | 2019-06-21 15:11 | NUR ---
CHANTAL following pt for dc planning. Chart reviewed and discussed with RN. Pt lives at home with spouse. Pt is admitted for generalized weakness and has PMHx CVA. Pt has had 3 falls since 06/18 and pt's called EMS as she was unable to lift him off floor. PT/OT notes reviewed- Recommends SNU. CHANTAL spoke with pt and pt's , Nasir, phone: [phone] regarding SNU, options and Medicare coverage. Pt's stated pt has been at [facility] inpt rehab after in March. Jelani discussed difference between SNU vs Rehab. Pt's requested for List of SNU and would like to visit the facilities tomorrow. Plan 1. SWer provided pt's with list of SNU providers with Medicare ratings. Pt's plans to visit the facilities with her daughter. 2. Will continue to follow pt to assist with dc planning.
--- NOTE | 2019-06-21 15:27 | NUR ---
Pharmacy Warfarin Dosing Note S: Pharmacy consulted to assist with anticoagulation therapy O: ANTON PRIETO is a 73 year old M with Atrial Fibrillation LABS: Last INR: 1.9 Last HGB: 9.4 Last HCT: 29.3 Last PLT: 188 Last dose of 7.5 mg given on 06/20/19 at 1500 A:INR of 1.9 is below desired range of 2 - 3; trending towards goal. P: Warfarin 7.5 mg today @ 1600 Bridge Therapy: None Next INR due 06/22/19 Pharmacy anticoagulation service will continue to follow. JOSE ALFREDO [facility], 06/21/19 [id number]
--- NOTE | 2019-06-21 16:15 | NUR ---
Wound Care: Consult to eval and treat for multiple wounds present on admission. Blisters to BLE closed with intact, dry, stable scabs. 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 L 4th toe and great toe scabbed (stable, dry, intact). Left EDITH. Py buttocks pink and blanchable, with small amount of dry peeling skin. Applied barrier cream. Recommend P500 mattress and WC cushion. Follow up 06/28/19 Addendum: 06/21/19 at 1619 by MARLEN ALEMAN RN Wound assessments completed d/t all wounds being closed.
--- NOTE | 2019-06-21 16:43 | PDOC ---
PROGRESS NOTES Assessment Assessment PD. Falls. Generalized weakness. Chronic urinary retention on Pelaez. HTN. Obesity. 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 Brain atrophy, moderate. Dementia features. RECOMMENDATIONS/PLAN: Continue Sinemet 25/100 mg qid. He has been on Coumadin. Continue ASA 81 mg daily. Treat medical diseases. CCT w/o contrast. Lab: see orders. OT/PT. HISTORY OF THE PRESENT ILLNESS: This is a 73 -year-old male patient with above medical and neurological diseases was brought by EMS with complaining of weakness and frequent falls. Patient st ated he had gradually increasing generalized weakness for the last couple days and had 3 falls since yesterday, but the patient's stated he did not fall and was not able to get up from the toilet stool or from the floor and she had to call utility hand to help her to get him out of the floor. Patient denies new focal neuro deficit, fever and chills, chest pain, nausea and vomiting. Patient had history of left knee replacement several weeks ago at [facility]. he stated on 06/21/19 that he was doing fine. Past Medical History CVA, Hypertension, PARKINSON'S PAST SURGERY HISTORY: Coronary Bypass Surgery, left knee surgery. Family History High Cholesterol, Hypertension Allergies Coded Allergies: ibuprofen (Verified Allergy, Intermediate, 06/20/19) MEDICATIONS: Refer to MAR SOCIAL HISTORY: Lives at home. Denies recent smoking, drinking, and illicit drug use. REVIEW OF SYSTEMS: Constitutional: No malnutrition, weight loss, cachexia. Head: No traumatic brain or head injury. Skin: No edema, or rash. Ear: No infection. Eyes: No vision loss or color blindness. Nose: No bleeding or purulent discharges. Hearing: Hearing decrease. Neck: No injury. Cardiac: HTN. Pulmonary: No COPD. GI: No GI ulcer, GI bleeding. Urinary/genital: Incontinence, urinary retention. Endocrinologic: No cousin face, craniofacial dysmorphism. Skeletomuscular: Generalized weakness. Neurological: see HP. Psychiatric: Denies drug use/abuse. Otherwise, not [id number] review of systems. PHYSICAL EXAMINATION: General appearance is in subacute distress. HEENT: Normocephalic and nontraumatic. Eyes, nose, ears, and throat are unremarkable. Neck is supple. No lymphadenopathy. No crepitus. Cardiovascular: S1, S2, regular rate and rhythm. Pulmonary: Relative clear to auscultation bilaterally. Abdomen: Bowel sounds are positive. Abdomen is soft, nontender, and nondistended. Extremities: No rash, lesions, or edema. No restriction of range of motion NEUROLOGICAL EXAMINATION: Awake. Partially oriented to time, place and person. PERRL. EOMI. CN: no focal findings. Muscle tone: within normal. Muscle strength: 4+ DTR: 1+ Plantar reflex: Flexor response bilaterally Gait: not examined in bed. Sensory exam: no abnormal findings. No acute cerebellar signs elicited. F-T-N test fine. Objective Objective Vital Signs Date Time Temp Pulse Resp B/P (MAP) Pulse Ox O2 Delivery O2 Flow Rate FiO2 06/21/19 15:48 98.3 55 20 122/56 (78) 94 98.3 06/21/19 08:01 Nasal Cannula 2.0 Intake and Output 06/21/19 07:00 Intake Total 1100 ml Output Total 2200 ml Balance -1100 ml Intake Oral 1100 ml Output Urine Total 2200 ml # Bowel Movements 5 Vitals Signs Vitals VS - Last 72 Hours, by Label Date Time Temp Pulse Resp B/P (MAP) Pulse Ox O2 Delivery O2 Flow Rate FiO2 06/21/19 15:48 98.3 55 20 122/56 (78) 94 98.3 06/21/19 12:41 99.2 99.2 06/21/19 11:45 99.5 64 20 146/76 (99) 94 99.5 06/21/19 10:42 61 142/54 06/21/19 10:39 61 142/54 06/21/19 09:00 61 142/54 06/21/19 08:02 97.9 97.9 06/21/19 08:01 97.9 61 18 142/54 (83) 92 Nasal Cannula 2.0 97.9 06/21/19 08:00 Nasal Cannula 2.0 06/21/19 07:00 97.9 61 18 142/54 (83) 94 97.9 06/21/19 03:45 98.1 53 18 119/52 (74) 97 Nasal Cannula 2.0 98.1 06/20/19 23:45 98.1 60 18 144/53 (83) 96 Nasal Cannula 2.0 98.1 06/20/19 20:16 Nasal Cannula 1.0 06/20/19 19:40 98.2 60 18 156/63 (94) 93 Nasal Cannula 2.0 98.2 06/20/19 17:20 64 162/58 06/20/19 15:00 98.6 64 16 162/58 (92) 91 Room Air 1.0 98.6 06/20/19 12:45 71 155/73 06/20/19 12:42 71 155/73 06/20/19 12:40 71 155/73 06/20/19 11:00 98.3 71 16 155/73 (100) 93 Room Air 1.0 98.3 06/20/19 08:00 Room Air 1.0 06/20/19 07:00 98.0 73 16 138/60 (86) 91 Nasal Cannula 2.0 98.0 Laboratory Laboratory Laboratory Tests Test 06/21/19 03:40 06/21/19 03:45 06/21/19 14:30 Sodium Level 142 mmol/L (136-145) Potassium Level 3.9 mmol/L (3.5-5.1) Chloride Level 104 mmol/L (98-107) Carbon Dioxide Level 34 mmol/L (21-32) Anion Gap 4 (6-14) Blood Urea Nitrogen 49 mg/dL (8-26) Creatinine 3.1 mg/dL (0.7-1.3) Estimated GFR (Cockcroft-Gault) 19.8 BUN/Creatinine Ratio 16 (6-20) Glucose Level 89 mg/dL (70-99) Calcium Level 9.3 mg/dL (8.5-10.1) Phosphorus Level 4.6 mg/dL (2.6-4.7) Total Bilirubin 0.5 mg/dL (0.2-1.0) Aspartate Amino Transf (AST/SGOT) 24 U/L (15-37) Alanine Aminotransferase (ALT/SGPT) 7 U/L (16-63) Alkaline Phosphatase 88 U/L (46-116) Total Protein 6.9 g/dL (6.4-8.2) Albumin 2.8 g/dL (3.4-5.0) Albumin/Globulin Ratio 0.7 (1.0-1.7) White Blood Count 13.4 x10^3/uL (4.0-11.0) Red Blood Count 3.42 x10^6/uL (4.30-5.70) Hemoglobin 9.4 g/dL (13.0-17.5) Hematocrit 29.3 % (39.0-53.0) Mean Corpuscular Volume 86 fL (79-100) Mean Corpuscular Hemoglobin 28 pg (25-35) Mean Corpuscular Hemoglobin Concent 32 g/dL (31-37) Red Cell Distribution Width 18.6 % (11.5-14.5) Platelet Count 188 x10^3/uL (140-400) Neutrophils (%) (Auto) 79 % (31-73) Lymphocytes (%) (Auto) 9 % (24-48) Monocytes (%) (Auto) 10 % (0-9) Eosinophils (%) (Auto) 2 % (0-3) Basophils (%) (Auto) 0 % (0-3) Neutrophils # (Auto) 10.6 x10^3/uL (1.8-7.7) Lymphocytes # (Auto) 1.2 x10^3/uL (1.0-4.8) Monocytes # (Auto) 1.4 x10^3/uL (0.0-1.1) Eosinophils # (Auto) 0.3 x10^3/uL (0.0-0.7) Basophils # (Auto) 0.1 x10^3/uL (0.0-0.2) Prothrombin Time 21.7 SEC (11.7-14.0) Prothromb Time International Ratio 1.9 (0.8-1.1) Medication Medications Current Medications Ceftriaxone Sodium (Rocephin) 1 gm Q24H IVP Last administered on 06/20/19at 20:31; Start 06/20/19 at 20:00 Dicyclomine HCl (Bentyl) 10 mg PRN 1X PRN PO recurrence of crampy abd pain; Start 06/20/19 at 17:45 Sodium Monofluorophosphate (Fleet Adult) 133 ml 1X ONCE MS ; Start 06/21/19 at 12:00; Stop 06/21/19 at 12:01; Status DC Sodium Monofluorophosphate (Fleet Adult) 133 ml DAILY PRN MS CONSTIPATION; Start 06/21/19 at 12:00; Status Cancel Comment Review of Relevant I have reviewed the following items piyush (where applicable) has been applied. BRAD MOTLEY MD Jun 21, 2019 16:43
--- NOTE | 2019-06-21 20:10 | NUR ---
Routine consult for urology, left message with Romelia with answering service took message.
[2019-06-21] MEDS: cefTRIAXone IV Push 1 GM VIAL. IVP SCH (20:33)
[2019-06-22 03:49] VITALS: BP 133/55
[2019-06-22 04:44] LABS: BASO % 0 % (0-3); EOS # 0.3 x10^3/uL (0.0-0.7); EOS % 3 % (0-3); HEMATOCRIT 29.1 % (39.0-53.0); HEMOGLOBIN 9.5 g/dL (13.0-17.5); LYMPH # 1.1 x10^3/uL (1.0-4.8); LYMPH % 9 % (24-48); MEAN CORPUSCULAR HEMOGLOBIN 28 pg (25-35); MEAN CORPUSCULAR HGB CONC 33 g/dL (31-37); MEAN CORPUSCULAR VOLUME 85 fL (79-100); MONO # 1.2 x10^3/uL (0.0-1.1); MONO % 10 % (0-9); NEUT # 9.7 x10^3/uL (1.8-7.7); NEUT % 79 % (31-73); PLATELET COUNT 207 x10^3/uL (140-400); RED BLOOD COUNT 3.42 x10^6/uL (4.30-5.70); WHITE BLOOD COUNT 12.3 x10^3/uL (4.0-11.0)
[2019-06-22 05:04] LABS: PROTHROMBIN TIME PATIENT 23.7 SEC (11.7-14.0)
[2019-06-22 05:05] LABS: ALBUMIN 2.7 g/dL (3.4-5.0); CALCIUM 9.1 mg/dL (8.5-10.1); GFR 20.6; PHOSPHORUS 4.5 mg/dL (2.6-4.7); POTASSIUM 3.6 mmol/L (3.5-5.1)
[2019-06-22] MEDS: LEVOTHYROXINE 25 MCG TABLET. PO SCH (05:53)
--- NOTE | 2019-06-22 07:13 | PDOC ---
PROGRESS NOTES History of Present Illness History of Present Illness VTE Prophylaxis Ordered VTE Prophylaxis Devices: Yes VTE Pharmacological Prophylaxi: Yes Assessment/Plan Assessment/Plan IMPRESSION : 1. No acute intracranial findings. ON CT HEAD 2. Chronic left insular infarct. Moderate atrophy and chronic microangiopathic white matter change. 3. FALLS 4. Generalized weakness 5 morbid obesity 6. HYPERTENSION 7. Depression 8. Mild basilar atelectasis. 9. CKD stage 4-[address] abd Significant calcific involvement of the arterial vasculature. Bilateral common iliac artery fusiform aneurysms. 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 Alternatively, this may represent significant atherosclerotic calcific involvement. plan admit fall precautions consult neurology PT/OT/ ST home meds dvt prophylaxis nephrology consult vascular surgery consult 06/22 CONFUSED TO DETAILS, SWALLOW IMPAIRED ST SEEING 29 MIN PT EXAM, CHART REVIEW, > 50% OF TIME SPENT WITH EXAM, CHART REVIEW, PT CARE COORDINATION Vitals Vitals Vital Signs Date Time Temp Pulse Resp B/P (MAP) Pulse Ox O2 Delivery O2 Flow Rate FiO2 06/22/19 03:49 99.0 60 16 133/55 (81) 2 Nasal Cannula 93.0 99.0 Physical Exam General: Alert, Cooperative, No acute distress, Other (CONFUSED TO DETAILS) Heart: Regular rate, Normal S1, Normal S2 Lungs: Clear Abdomen: Normal bowel sounds, Soft, Other (obese) Extremities: No edema, Other (Doppler signals intact bilaterally, palpable femoral pulses bilaterally, no evidence of pulsatile mass behind the knees) Skin: No rashes, No breakdown, No significant lesion Labs LABS Laboratory Tests Test 06/21/19 14:30 06/22/19 04:00 Prothrombin Time 21.7 SEC (11.7-14.0) 23.7 SEC (11.7-14.0) Prothromb Time International Ratio 1.9 (0.8-1.1) 2.1 (0.8-1.1) White Blood Count 12.3 x10^3/uL (4.0-11.0) Red Blood Count 3.42 x10^6/uL (4.30-5.70) Hemoglobin 9.5 g/dL (13.0-17.5) Hematocrit 29.1 % (39.0-53.0) Mean Corpuscular Volume 85 fL (79-100) Mean Corpuscular Hemoglobin 28 pg (25-35) Mean Corpuscular Hemoglobin Concent 33 g/dL (31-37) Red Cell Distribution Width 18.0 % (11.5-14.5) Platelet Count 207 x10^3/uL (140-400) Neutrophils (%) (Auto) 79 % (31-73) Lymphocytes (%) (Auto) 9 % (24-48) Monocytes (%) (Auto) 10 % (0-9) Eosinophils (%) (Auto) 3 % (0-3) Basophils (%) (Auto) 0 % (0-3) Neutrophils # (Auto) 9.7 x10^3/uL (1.8-7.7) Lymphocytes # (Auto) 1.1 x10^3/uL (1.0-4.8) Monocytes # (Auto) 1.2 x10^3/uL (0.0-1.1) Eosinophils # (Auto) 0.3 x10^3/uL (0.0-0.7) Basophils # (Auto) 0.0 x10^3/uL (0.0-0.2) Sodium Level 145 mmol/L (136-145) Potassium Level 3.6 mmol/L (3.5-5.1) Chloride Level 106 mmol/L (98-107) Carbon Dioxide Level 30 mmol/L (21-32) Anion Gap 9 (6-14) Blood Urea Nitrogen 49 mg/dL (8-26) Creatinine 3.0 mg/dL (0.7-1.3) Estimated GFR (Cockcroft-Gault) 20.6 Glucose Level 93 mg/dL (70-99) Calcium Level 9.1 mg/dL (8.5-10.1) Phosphorus Level 4.5 mg/dL (2.6-4.7) Albumin 2.7 g/dL (3.4-5.0) Assessment and Plan Assessmemt and Plan Problems Medical Problems: (1) Frequent falls Status: Acute (2) Leukocytosis Status: Acute Comment Review of Relevant I have reviewed the following items piyush (where applicable) has been applied. Labs Laboratory Tests Test 06/20/19 07:30 06/20/19 16:05 06/21/19 03:40 06/21/19 03:45 Clostridium difficile Toxin B Gene Negative (Negative) Creatine Kinase 333 U/L (39-308) Vitamin B12 Level 871 pg/mL (247-911) Thyroid Stimulating Hormone (TSH) 1.819 uIU/mL (0.358-3.74) Sodium Level 142 mmol/L (136-145) Potassium Level 3.9 mmol/L (3.5-5.1) Chloride Level 104 mmol/L (98-107) Carbon Dioxide Level 34 mmol/L (21-32) Anion Gap 4 (6-14) Blood Urea Nitrogen 49 mg/dL (8-26) Creatinine 3.1 mg/dL (0.7-1.3) Estimated GFR (Cockcroft-Gault) 19.8 BUN/Creatinine Ratio 16 (6-20) Glucose Level 89 mg/dL (70-99) Calcium Level 9.3 mg/dL (8.5-10.1) Phosphorus Level 4.6 mg/dL (2.6-4.7) Total Bilirubin 0.5 mg/dL (0.2-1.0) Aspartate Amino Transf (AST/SGOT) 24 U/L (15-37) Alanine Aminotransferase (ALT/SGPT) 7 U/L (16-63) Alkaline Phosphatase 88 U/L (46-116) Total Protein 6.9 g/dL (6.4-8.2) Albumin 2.8 g/dL (3.4-5.0) Albumin/Globulin Ratio 0.7 (1.0-1.7) White Blood Count 13.4 x10^3/uL (4.0-11.0) Red Blood Count 3.42 x10^6/uL (4.30-5.70) Hemoglobin 9.4 g/dL (13.0-17.5) Hematocrit 29.3 % (39.0-53.0) Mean Corpuscular Volume 86 fL (79-100) Mean Corpuscular Hemoglobin 28 pg (25-35) Mean Corpuscular Hemoglobin Concent 32 g/dL (31-37) Red Cell Distribution Width 18.6 % (11.5-14.5) Platelet Count 188 x10^3/uL (140-400) Neutrophils (%) (Auto) 79 % (31-73) Lymphocytes (%) (Auto) 9 % (24-48) Monocytes (%) (Auto) 10 % (0-9) Eosinophils (%) (Auto) 2 % (0-3) Basophils (%) (Auto) 0 % (0-3) Neutrophils # (Auto) 10.6 x10^3/uL (1.8-7.7) Lymphocytes # (Auto) 1.2 x10^3/uL (1.0-4.8) Monocytes # (Auto) 1.4 x10^3/uL (0.0-1.1) Eosinophils # (Auto) 0.3 x10^3/uL (0.0-0.7) Basophils # (Auto) 0.1 x10^3/uL (0.0-0.2) Test 06/21/19 14:30 06/22/19 04:00 Prothrombin Time 21.7 SEC (11.7-14.0) 23.7 SEC (11.7-14.0) Prothromb Time International Ratio 1.9 (0.8-1.1) 2.1 (0.8-1.1) White Blood Count 12.3 x10^3/uL (4.0-11.0) Red Blood Count 3.42 x10^6/uL (4.30-5.70) Hemoglobin 9.5 g/dL (13.0-17.5) Hematocrit 29.1 % (39.0-53.0) Mean Corpuscular Volume 85 fL (79-100) Mean Corpuscular Hemoglobin 28 pg (25-35) Mean Corpuscular Hemoglobin Concent 33 g/dL (31-37) Red Cell Distribution Width 18.0 % (11.5-14.5) Platelet Count 207 x10^3/uL (140-400) Neutrophils (%) (Auto) 79 % (31-73) Lymphocytes (%) (Auto) 9 % (24-48) Monocytes (%) (Auto) 10 % (0-9) Eosinophils (%) (Auto) 3 % (0-3) Basophils (%) (Auto) 0 % (0-3) Neutrophils # (Auto) 9.7 x10^3/uL (1.8-7.7) Lymphocytes # (Auto) 1.1 x10^3/uL (1.0-4.8) Monocytes # (Auto) 1.2 x10^3/uL (0.0-1.1) Eosinophils # (Auto) 0.3 x10^3/uL (0.0-0.7) Basophils # (Auto) 0.0 x10^3/uL (0.0-0.2) Sodium Level 145 mmol/L (136-145) Potassium Level 3.6 mmol/L (3.5-5.1) Chloride Level 106 mmol/L (98-107) Carbon Dioxide Level 30 mmol/L (21-32) Anion Gap 9 (6-14) Blood Urea Nitrogen 49 mg/dL (8-26) Creatinine 3.0 mg/dL (0.7-1.3) Estimated GFR (Cockcroft-Gault) 20.6 Glucose Level 93 mg/dL (70-99) Calcium Level 9.1 mg/dL (8.5-10.1) Phosphorus Level 4.5 mg/dL (2.6-4.7) Albumin 2.7 g/dL (3.4-5.0) Laboratory Tests Test 06/21/19 14:30 06/22/19 04:00 Prothrombin Time 21.7 SEC (11.7-14.0) 23.7 SEC (11.7-14.0) Prothromb Time International Ratio 1.9 (0.8-1.1) 2.1 (0.8-1.1) White Blood Count 12.3 x10^3/uL (4.0-11.0) Red Blood Count 3.42 x10^6/uL (4.30-5.70) Hemoglobin 9.5 g/dL (13.0-17.5) Hematocrit 29.1 % (39.0-53.0) Mean Corpuscular Volume 85 fL (79-100) Mean Corpuscular Hemoglobin 28 pg (25-35) Mean Corpuscular Hemoglobin Concent 33 g/dL (31-37) Red Cell Distribution Width 18.0 % (11.5-14.5) Platelet Count 207 x10^3/uL (140-400) Neutrophils (%) (Auto) 79 % (31-73) Lymphocytes (%) (Auto) 9 % (24-48) Monocytes (%) (Auto) 10 % (0-9) Eosinophils (%) (Auto) 3 % (0-3) Basophils (%) (Auto) 0 % (0-3) Neutrophils # (Auto) 9.7 x10^3/uL (1.8-7.7) Lymphocytes # (Auto) 1.1 x10^3/uL (1.0-4.8) Monocytes # (Auto) 1.2 x10^3/uL (0.0-1.1) Eosinophils # (Auto) 0.3 x10^3/uL (0.0-0.7) Basophils # (Auto) 0.0 x10^3/uL (0.0-0.2) Sodium Level 145 mmol/L (136-145) Potassium Level 3.6 mmol/L (3.5-5.1) Chloride Level 106 mmol/L (98-107) Carbon Dioxide Level 30 mmol/L (21-32) Anion Gap 9 (6-14) Blood Urea Nitrogen 49 mg/dL (8-26) Creatinine 3.0 mg/dL (0.7-1.3) Estimated GFR (Cockcroft-Gault) 20.6 Glucose Level 93 mg/dL (70-99) Calcium Level 9.1 mg/dL (8.5-10.1) Phosphorus Level 4.5 mg/dL (2.6-4.7) Albumin 2.7 g/dL (3.4-5.0) Medications Current Medications Ceftriaxone Sodium (Rocephin) 1 gm 1X ONCE IVP Last administered on 06/19/19at 20:10; Start 06/19/19 at 20:15; Stop 06/19/19 at 20:16; Status DC Pharmacy Consult (C.diff Med Screen By Rx) 1 each 1X ONCE [facility] Last administered on 06/19/19at 23:00; Start 06/19/19 at 23:00; Stop 06/19/19 at 23:01; Status DC Amlodipine Besylate (Norvasc) 5 mg DAILY PO Last administered on 06/21/19at 10:39; Start 06/20/19 at 09:00 Calcitriol (Rocaltrol) 0.25 mcg DAILY PO Last administered on 06/21/19at 10:42; Start 06/20/19 at 09:00 Carbidopa/Levodopa (Sinemet 25/100) 1 tab QID PO Last administered on 06/21/19at 18:48; Start 06/20/19 at 09:00 Vitamin D (Vitamin D3) 1,000 unit DAILY PO Last administered on 06/21/19 10:40; Start 06/20/19 at 09:00 Citalopram Hydrobromide (CeleXA) 20 mg DAILY PO Last administered on 06/21/19 10:44; Start 06/20/19 at 09:00 Diltiazem HCl (Cardizem 24hr Cd) 120 mg DAILY PO Last administered on 06/21/19 09:00; Start 06/20/19 at 09:00 Fenofibrate (Lofibra) 134 mg DAILY PO Last administered on 06/21/19 09:00; Start 06/20/19 at 09:00 Furosemide (Lasix) 40 mg BID92 PO Last administered on 06/21/19 10:44; Start 06/20/19 at 09:00 Levothyroxine Sodium (Synthroid) 25 mcg DAILY06 PO Last administered on 06/21/19 05:41; Start 06/20/19 at 09:00 Potassium Chloride (Klor-Con) 10 meq DAILY PO Last administered on 06/21/19 10:44; Start 06/20/19 at 09:00 Tamsulosin HCl (Flomax) 0.4 mg DAILY PO Last administered on 06/21/19 10:44; Start 06/20/19 at 09:00 Warfarin Sodium (Coumadin) 7.5 mg DAILY16 PO Last administered on 06/21/19 10:44; Start 06/20/19 at 16:00 Ascorbic Acid (Vitamin C) 500 mg DAILY PO Last administered on 06/21/19 10:40; Start 06/20/19 at 09:00 Carvedilol (Coreg) 25 mg BIDWMEALS PO Last administered on 06/21/19 18:48; Start 06/20/19 at 09:00 Gabapentin (Neurontin) 600 mg DAILY PO Last administered on 06/21/19 10:39; Start 06/20/19 at 10:00 Lactobacillus Rhamnosus (Culturelle) 1 cap BID PO Last administered on 06/21/19 10:40; Start 06/20/19 at 09:00 Cetirizine HCl (ZyrTEC) 10 mg DAILY PO Last administered on 06/21/19 10:39; Start 06/20/19 at 09:00 Vitamin B Complex (Eloy B) 1 tab DAILY PO Last administered on 06/21/19at 10:40; Start 06/20/19 at 09:00 Warfarin Sodium (Coumadin Per Pharmacy) 1 each PRN DAILY PRN MC SEE COMMENTS Last administered on 06/21/19at 15:27; Start 06/20/19 at 09:15 Sodium Chloride (Normal Saline Flush) 3 ml QSHIFT PRN IV AFTER MEDS AND BLOOD DRAWS; Start 06/20/19 at 12:30 Ondansetron HCl (Zofran) 4 mg PRN Q4HRS PRN IV NAUSEA/VOMITING; Start 06/20/19 at 12:30 Acetaminophen (Tylenol) 650 mg PRN Q4HRS PRN PO TEMP OVER 100.4F OR MILD PAIN; Start 06/20/19 at 12:30 Al Hydroxide/Mg Hydroxide (Mylanta Plus Xs) 30 ml PRN DAILY PRN PO HEARTBURN / GAS; Start 06/20/19 at 12:30 Clonidine HCl (Catapres) 0.1 mg PRN Q6HRS PRN PO SBP>160 OR DBP>90; Start 06/20/19 at 12:30 Sodium Monofluorophosphate (Fleet Adult) 133 ml PRN DAILY PRN VT CONSTIPATION; Start 06/20/19 at 12:30; Stop 06/21/19 at 13:33; Status DC Docusate Sodium (Colace) 100 mg PRN BID PRN PO CONSTIPATION; Start 06/20/19 at 12:30 Albuterol Sulfate (Ventolin Neb Soln) 2.5 mg PRN Q4HRS PRN NEB SHORTNESS OF B REATH; Start 06/20/19 at 12:30 Guaifenesin (Robitussin) 200 mg PRN Q4HRS PRN PO COUGH; Start 06/20/19 at 12:30 Lorazepam (Ativan) 0.5 mg PRN Q4HRS PRN PO ANXIETY / AGITATION; Start 06/20/19 at 12:30 Ceftriaxone Sodium (Rocephin) 1 gm Q24H IVP Last administered on 06/21/19at 20:33; Start 06/20/19 at 20:00 Aspirin (Children'S Aspirin) 81 mg DAILY PO Last administered on 06/21/19at 10:40; Start 06/20/19 at 15:00 Methadone HCl (Dolophine) 30 mg TID PO Last administered on 06/21/19at 13:45; Start 06/20/19 at 15:00 Dicyclomine HCl (Bentyl) 10 mg PRN 1X PRN PO recurrence of crampy abd pain; Start 06/20/19 at 17:45 Sodium Monofluorophosphate (Fleet Adult) 133 ml DAILY PRN VT CONSTIPATION; Start 06/21/19 at 12:00; Status Cancel Sodium Monofluorophosphate (Fleet Adult) 133 ml 1X ONCE VT ; Start 06/21/19 at 12:00; Stop 06/21/19 at 12:01; Status DC Active Scripts Active Reported Vitamin D3 (Cholecalciferol (Vitamin D3)) 1,000 Unit Tablet 1 Tab PO DAILY Vitamin C (Ascorbic Acid) 500 Mg Capsule 500 Mg PO DAILY Vitamin B Complex 1 Each Capsule 1 Each PO DAILY Sinemet 25-100 Mg Tablet (Carbidopa/Levodopa) 1 Each Tablet 1 Tab PO QID Probiotic (Lactobacillus Combo No.11) 1 Each Cap.sprink 1 Each PO DAILY Potassium Chloride 10 Meq Tab.sr.24h 10 Meq PO DAILY Methadone Hcl 10 Mg Tablet 30 Mg PO TID Loratadine 10 Mg Tablet 1 Tab PO DAILY Levothyroxine Sodium 25 Mcg Tablet 1 Tab PO DAILY Lasix (Furosemide) 40 Mg Tablet 40 Mg PO BID Gabapentin 600 Mg Tablet 600 Mg PO QID Flomax (Tamsulosin Hcl) 0.4 Mg Cap.er.24h 1 Cap PO DAILY Fenofibrate (Fenofibrate,Micronized) 134 Mg Capsule 1 Cap PO DAILY Diltiazem 24HR Cd (Diltiazem Hcl) 120 Mg Cap.er.24h 1 Cap PO DAILY Coumadin (Warfarin Sodium) 7.5 Mg Tablet 1 Tab PO DAILY Coreg (Carvedilol) 25 Mg Tablet 25 Mg PO BIDWMEALS Citalopram Hbr (Citalopram Hydrobromide) 20 Mg Tablet 1 Tab PO DAILY Calcitriol 0.25 Mcg Capsule 1 Cap PO DAILY Aspirin 81 Mg Tab.chew 1 Tab PO DAILY Norvasc (Amlodipine Besylate) 5 Mg Tablet 5 Mg PO DAILY Vitals/I & O Vital Sign - Last 24 Hours 06/21/19 06/21/19 06/21/19 06/21/19 08:00 08:01 08:02 09:00 Temp 97.9 97.9 97.9 97.9 Pulse 61 61 Resp 18 B/P (MAP) 142/54 (83) 142/54 Pulse Ox 92 O2 Delivery Nasal Cannula Nasal Cannula O2 Flow Rate 2.0 2.0 06/21/19 06/21/19 06/21/19 06/21/19 10:39 10:42 11:45 12:41 Temp 99.5 99.2 99.5 99.2 Pulse 61 61 64 Resp 20 B/P (MAP) 142/54 142/54 146/76 (99) Pulse Ox 94 06/21/19 06/21/19 06/21/19 06/21/19 15:48 18:48 19:55 20:00 Temp 98.3 98.2 98.3 98.2 Pulse 55 55 62 Resp 20 18 B/P (MAP) 122/56 (78) 122/56 152/55 (87) Pulse Ox 94 98 O2 Delivery Nasal Cannula Nasal Cannula O2 Flow Rate 2.0 2.0 06/21/19 06/22/19 23:18 03:49 Temp 97.9 99.0 97.9 99.0 Pulse 64 60 Resp 16 16 B/P (MAP) 144/70 (94) 133/55 (81) Pulse Ox 94 2 O2 Delivery Nasal Cannula Nasal Cannula O2 Flow Rate 2.0 93.0 Intake and Output 06/21/19 06/21/19 06/22/19 15:00 23:00 07:00 Intake Total 250 ml Output Total 0 ml 1250 ml Balance 250 ml -1250 ml JOHANA SIMMONS MD Jun 22, 2019 07:13
[2019-06-22 07:15] VITALS: BP 161/69
[2019-06-22] MEDS: CARBIDOPA/LEVODOPA 25/100MG TABLET PO SCH ×4 (09:00→19:19)
[2019-06-22] MEDS: FUROSEMIDE 40 MG TABLET. PO SCH ×2 (09:00→15:25)
--- NOTE | 2019-06-22 09:32 | PDOC ---
Subjective: Subjective: "Lower gut" pain. Says the year in 2011, then 2018. Says he's at [facility]. Objective: Objective: [facility] Bedside Swallow Eval: Pt demo's intermittent s/s aspiration across all consistencies. In addition, pt demo's minimally functional oropharyngeal swallow d/t severely prolonged oral holding, also across all consistencies. Dysphagia appears c/w advanced dementia, which is unlikely to improve. See full [facility] BSE report for add'l details. Recommendations: NPO. 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 Palliative care consult may be beneficial to determine goals of care. Will continue [facility] f/u to monitor pt's swallow function and provide PRN pt/fmly education. NPO precautions posted in pt's rm. Vital Signs: Vital Signs Date Time Temp Pulse Resp B/P (MAP) Pulse Ox O2 Delivery O2 Flow Rate FiO2 06/22/19 07:15 98.9 60 18 161/69 (99) 96 Nasal Cannula 2.0 98.9 Labs: Laboratory Tests Test 06/21/19 14:30 06/22/19 04:00 Prothrombin Time 21.7 SEC 23.7 SEC Prothromb Time International Ratio 1.9 2.1 White Blood Count 12.3 x10^3/uL Red Blood Count 3.42 x10^6/uL Hemoglobin 9.5 g/dL Hematocrit 29.1 % Mean Corpuscular Volume 85 fL Mean Corpuscular Hemoglobin 28 pg Mean Corpuscular Hemoglobin Concent 33 g/dL Red Cell Distribution Width 18.0 % Platelet Count 207 x10^3/uL Neutrophils (%) (Auto) 79 % Lymphocytes (%) (Auto) 9 % Monocytes (%) (Auto) 10 % Eosinophils (%) (Auto) 3 % Basophils (%) (Auto) 0 % Neutrophils # (Auto) 9.7 x10^3/uL Lymphocytes # (Auto) 1.1 x10^3/uL Monocytes # (Auto) 1.2 x10^3/uL Eosinophils # (Auto) 0.3 x10^3/uL Basophils # (Auto) 0.0 x10^3/uL Sodium Level 145 mmol/L Potassium Level 3.6 mmol/L Chloride Level 106 mmol/L Carbon Dioxide Level 30 mmol/L Anion Gap 9 Blood Urea Nitrogen 49 mg/dL Creatinine 3.0 mg/dL Estimated GFR (Cockcroft-Gault) 20.6 Glucose Level 93 mg/dL Calcium Level 9.1 mg/dL Phosphorus Level 4.5 mg/dL Albumin 2.7 g/dL Imaging: CT A/P 06/21 Impression: Circumferential wall thickening of the urinary bladder with surrounding stranding is of concern for cystitis. Cholelithiasis. Small pleural effusions. Significant calcific involvement of the arterial vasculature. Bilateral common iliac artery fusiform aneurysms. 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 Alternatively, this may represent significant atherosclerotic calcific involvement. Indeterminate left adrenal nodule. Interval follow-up CT in 6-8 months to assess stability should be considered as this finding is not typical for an adenoma. C-spine 06/21 Impression: Severe degenerative changes. No displaced fracture or malalignment. Reversal of cervical lordosis may represent normal variant or spasm. PE: GEN: NAD - staff changing brief - reports significant amount of stool LUNGS: room air HEART: RRR ABD: BS+, soft, non-tender NEURO/PSYCH: confused A/P: Lower abd pain Atherosclerosis, CKD, urinary retention, CAD, h/o CVA H/o constipation - now stooling Dementia, weakness, recent knee replacement Anemia - stable -- Stooling. Unreliable historian w/ dementia - reports pain - exam is benign. Reviewed other notes - NPO per [facility] - ?PC consult, follow [facility] recs. AMBROCIO HOGAN Jun 22, 2019 09:32
--- NOTE | 2019-06-22 10:17 | PDOC2 ---
GLEN LIRA 06/22/19 1017: UROLOGY CONSULT Date of Consult Date of Consult DATE: 06/22/19 TIME: 10:05 Identification/Chief Complaint Chief Complaint urinary retention Source Source: Chart review, Patient History of Present Illness Reason for Visit: 73yo male with PMH of CKD and PD admitted to [facility] for generalized weakness and frequent falls. We were consulted to evaluate urinary retention. He has been seen by [facility] in the past, four years ago when he was diagnosed with neurogenic bladder after urodynamics. He has since managed this with self-intermittent cath 4x/day and denies difficulty doing so. States he cannot urinate on his own, he relies on self-cath. He has not seen a Urologist since 2014. Pt states he has been constipated recently. Denies fevers, chills, nausea vomiting, hematuria, dysuria, abdominal pain. He had a L TKA last month. Past Medical History Cardiovascular: CAD, HTN CENTRAL NERVOUS SYSTEM: CVA, Other (parkinsonism) GI: Constipation Musculoskeletal: Osteoarthritis Past Surgical History Past Surgical History: CABG, Total knee replacement (7 weeks ago, still and rehabilitation) Family History Family History: High Cholestrol, Hypertension Social History No ALCOHOL: none Drugs: None Current Medications Current Medications Current Medications Famotidine (Pepcid Vial) 20 mg QHS IVP ; Start 06/22/19 at 21:00 Sodium Monofluorophosphate (Fleet Adult) 133 ml 1X ONCE ID ; Start 06/21/19 at 12:00; Stop 06/21/19 at 12:01; Status DC Sodium Monofluorophosphate (Fleet Adult) 133 ml DAILY PRN ID CONSTIPATION; Start 06/21/19 at 12:00; Status Cancel Allergies Allergies: Coded Allergies: ibuprofen (Verified Allergy, Intermediate, 06/20/19) ROS Review Of Systems: CONSTITUTIONAL: No fever or chills EYES: No recent changes SKIN: No rash or itching CARDIOVASCULAR: No chest pain, syncope, palpitations, or edema RESPIRATORY: No SOB or cough GASTROINTESTINAL: No nausea, vomiting or abdominal pain. + constipation NEUROLOGICAL: No headaches or weakness ENDOCRINE: No cold or heat intolerance GENITOURINARY: As per HPI MUSCULOSKELETAL: Recent TKA LYMPHATICS: No enlarged lymph nodes PSYCHIATRIC: No anxiety or depression Physical Exam Physical Exam: General: Pleasant, no acute distress, well groomed Eyes: conjunctiva anicteric, eyes full range of motion ENT: moist oral mucosa, normal dentition Neck: Trachea midline, no masses Respiratory: unlabored breathing, not using accessory muscles Cardiovascular: Regular rate and rhythm, no peripheral edema Abdomen: nontender, nondistended, no hepatosplenomegaly, no masses : boudreaux in place draining clear yellow urine Skin: no rashes or skin lesions on visualized skin Psych: normal mood, affect. Alert and oriented x 3. Vitals VITALS Vital Signs Date Time Temp Pulse Resp B/P (MAP) Pulse Ox O2 Delivery O2 Flow Rate FiO2 06/22/19 07:15 98.9 60 18 161/69 (99) 96 Nasal Cannula 2.0 98.9 Labs Labs Laboratory Tests Test 06/20/19 16:05 06/21/19 03:40 06/21/19 03:45 06/21/19 14:30 Creatine Kinase 333 U/L (39-308) Vitamin B12 Level 871 pg/mL (247-911) Thyroid Stimulating Hormone (TSH) 1.819 uIU/mL (0.358-3.74) Sodium Level 142 mmol/L (136-145) Potassium Level 3.9 mmol/L (3.5-5.1) Chloride Level 104 mmol/L (98-107) Carbon Dioxide Level 34 mmol/L (21-32) Anion Gap 4 (6-14) Blood Urea Nitrogen 49 mg/dL (8-26) Creatinine 3.1 mg/dL (0.7-1.3) Estimated GFR (Cockcroft-Gault) 19.8 BUN/Creatinine Ratio 16 (6-20) Glucose Level 89 mg/dL (70-99) Calcium Level 9.3 mg/dL (8.5-10.1) Phosphorus Level 4.6 mg/dL (2.6-4.7) Total Bilirubin 0.5 mg/dL (0.2-1.0) Aspartate Amino Transf (AST/SGOT) 24 U/L (15-37) Alanine Aminotransferase (ALT/SGPT) 7 U/L (16-63) Alkaline Phosphatase 88 U/L (46-116) Total Protein 6.9 g/dL (6.4-8.2) Albumin 2.8 g/dL (3.4-5.0) Albumin/Globulin Ratio 0.7 (1.0-1.7) White Blood Count 13.4 x10^3/uL (4.0-11.0) Red Blood Count 3.42 x10^6/uL (4.30-5.70) Hemoglobin 9.4 g/dL (13.0-17.5) Hematocrit 29.3 % (39.0-53.0) Mean Corpuscular Volume 86 fL (79-100) Mean Corpuscular Hemoglobin 28 pg (25-35) Mean Corpuscular Hemoglobin Concent 32 g/dL (31-37) Red Cell Distribution Width 18.6 % (11.5-14.5) Platelet Count 188 x10^3/uL (140-400) Neutrophils (%) (Auto) 79 % (31-73) Lymphocytes (%) (Auto) 9 % (24-48) Monocytes (%) (Auto) 10 % (0-9) Eosinophils (%) (Auto) 2 % (0-3) Basophils (%) (Auto) 0 % (0-3) Neutrophils # (Auto) 10.6 x10^3/uL (1.8-7.7) Lymphocytes # (Auto) 1.2 x10^3/uL (1.0-4.8) Monocytes # (Auto) 1.4 x10^3/uL (0.0-1.1) Eosinophils # (Auto) 0.3 x10^3/uL (0.0-0.7) Basophils # (Auto) 0.1 x10^3/uL (0.0-0.2) Prothrombin Time 21.7 SEC (11.7-14.0) Prothromb Time International Ratio 1.9 (0.8-1.1) Test 06/22/19 04:00 White Blood Count 12.3 x10^3/uL (4.0-11.0) Red Blood Count 3.42 x10^6/uL (4.30-5.70) Hemoglobin 9.5 g/dL (13.0-17.5) Hematocrit 29.1 % (39.0-53.0) Mean Corpuscular Volume 85 fL (79-100) Mean Corpuscular Hemoglobin 28 pg (25-35) Mean Corpuscular Hemoglobin Concent 33 g/dL (31-37) Red Cell Distribution Width 18.0 % (11.5-14.5) Platelet Count 207 x10^3/uL (140-400) Neutrophils (%) (Auto) 79 % (31-73) Lymphocytes (%) (Auto) 9 % (24-48) Monocytes (%) (Auto) 10 % (0-9) Eosinophils (%) (Auto) 3 % (0-3) Basophils (%) (Auto) 0 % (0-3) Neutrophils # (Auto) 9.7 x10^3/uL (1.8-7.7) Lymphocytes # (Auto) 1.1 x10^3/uL (1.0-4.8) Monocytes # (Auto) 1.2 x10^3/uL (0.0-1.1) Eosinophils # (Auto) 0.3 x10^3/uL (0.0-0.7) Basophils # (Auto) 0.0 x10^3/uL (0.0-0.2) Prothrombin Time 23.7 SEC (11.7-14.0) Prothromb Time International Ratio 2.1 (0.8-1.1) Sodium Level 145 mmol/L (136-145) Potassium Level 3.6 mmol/L (3.5-5.1) Chloride Level 106 mmol/L (98-107) Carbon Dioxide Level 30 mmol/L (21-32) Anion Gap 9 (6-14) Blood Urea Nitrogen 49 mg/dL (8-26) Creatinine 3.0 mg/dL (0.7-1.3) Estimated GFR (Cockcroft-Gault) 20.6 Glucose Level 93 mg/dL (70-99) Calcium Level 9.1 mg/dL (8.5-10.1) Phosphorus Level 4.5 mg/dL (2.6-4.7) Albumin 2.7 g/dL (3.4-5.0) Laboratory Tests Test 06/21/19 14:30 06/22/19 04:00 Prothrombin Time 21.7 SEC (11.7-14.0) 23.7 SEC (11.7-14.0) Prothromb Time International Ratio 1.9 (0.8-1.1) 2.1 (0.8-1.1) White Blood Count 12.3 x10^3/uL (4.0-11.0) Red Blood Count 3.42 x10^6/uL (4.30-5.70) Hemoglobin 9.5 g/dL (13.0-17.5) Hematocrit 29.1 % (39.0-53.0) Mean Corpuscular Volume 85 fL (79-100) Mean Corpuscular Hemoglobin 28 pg (25-35) Mean Corpuscular Hemoglobin Concent 33 g/dL (31-37) Red Cell Distribution Width 18.0 % (11.5-14.5) Platelet Count 207 x10^3/uL (140-400) Neutrophils (%) (Auto) 79 % (31-73) Lymphocytes (%) (Auto) 9 % (24-48) Monocytes (%) (Auto) 10 % (0-9) Eosinophils (%) (Auto) 3 % (0-3) Basophils (%) (Auto) 0 % (0-3) Neutrophils # (Auto) 9.7 x10^3/uL (1.8-7.7) Lymphocytes # (Auto) 1.1 x10^3/uL (1.0-4.8) Monocytes # (Auto) 1.2 x10^3/uL (0.0-1.1) Eosinophils # (Auto) 0.3 x10^3/uL (0.0-0.7) Basophils # (Auto) 0.0 x10^3/uL (0.0-0.2) Sodium Level 145 mmol/L (136-145) Potassium Level 3.6 mmol/L (3.5-5.1) Chloride Level 106 mmol/L (98-107) Carbon Dioxide Level 30 mmol/L (21-32) Anion Gap 9 (6-14) Blood Urea Nitrogen 49 mg/dL (8-26) Creatinine 3.0 mg/dL (0.7-1.3) Estimated GFR (Cockcroft-Gault) 20.6 Glucose Level 93 mg/dL (70-99) Calcium Level 9.1 mg/dL (8.5-10.1) Phosphorus Level 4.5 mg/dL (2.6-4.7) Albumin 2.7 g/dL (3.4-5.0) Images Images CT a/p Impression: Circumferential wall thickening of the urinary bladder with surrounding stranding is of concern for cystitis. Cholelithiasis. Small pleural effusions. Significant calcific involvement of the arterial vasculature. Bilateral common iliac artery fusiform aneurysms. 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 Alternatively, this may represent significant atherosclerotic calcific involvement. Indeterminate left adrenal nodule. Interval follow-up CT in 6-8 months to assess stability should be considered as this finding is not typical for an adenoma. Assessment/Plan Assessment/Plan Chronic urinary retention; Neurogenic Bladder Continue boudreaux until patient is functional enough for SIC, resume SIC 4x/d at th at time Recommend f/u outpatient MARTHA COLON MD 06/22/19 1048: UROLOGY CONSULT Assessment/Plan Assessment/Plan have seen patient and reviewed chart. will also need f/u of creatinine. agree with leaving boudreaux for now. GLEN LIRA Jun 22, 2019 10:17 MARTHA COLON MD Jun 22, 2019 10:48
[2019-06-22] MEDS: LACTOBACILLUS RHAMNOSUS GG 1 CAPSULE. PO SCH ×2 (10:52→19:19)
[2019-06-22] MEDS: GABAPENTIN 300 MG CAPSULE. PO SCH (10:55)
[2019-06-22] MEDS: CARVEDILOL 12.5 MG TABLET. PO SCH ×2 (10:55→17:00)
[2019-06-22] MEDS: TAMSULOSIN 0.4 MG CAP.ER.24H. PO SCH (10:55)
[2019-06-22] MEDS: ASPIRIN CHEWABLE 81 MG TABLET. PO SCH (10:56)
[2019-06-22] MEDS: METHADONE 10 MG TABLET. PO SCH ×3 (10:56→19:19)
[2019-06-22] MEDS: CITALOPRAM 20 MG TABLET. PO SCH (10:58)
[2019-06-22] MEDS: amLODIPine BESYLATE 5 MG TABLET PO SCH (10:58)
[2019-06-22 11:06] VITALS: BP 174/73
--- NOTE | 2019-06-22 11:18 | PDOC ---
SUBJECTIVE ROS More alert per RN, Having increased BM's OBJECTIVE Vital Signs Vital Signs Date Time Temp Pulse Resp B/P (MAP) Pulse Ox O2 Delivery O2 Flow Rate FiO2 06/22/19 10:58 60 161/69 06/22/19 07:15 98.9 18 96 Nasal Cannula 2.0 98.9 I & 0 Intake and Output 06/22/19 07:00 Intake Total 250 ml Output Total 1250 ml Balance -1000 ml Intake Oral 250 ml Output Urine Total 1250 ml # Bowel Movements 2 PHYSICAL EXAM Physical Exam General: No acute distress HEENT:OM moist, O2 by NC Neck Supple Lungs: Clear to auscultation, Non labored Heart: RRR, No Rub Abdomen: Normal bowel sounds, Soft Extremities: No edema Neuro: Per neurologist exam Skin No rash Pelaez in place, No CVA or SP tenderness DIAGNOSIS/ASSESSMENT Assessment & Plan RUSSELL - on CKD stage 4 - Pre-renal Baseline Cr 2.7 -3 , stable renal function E-Lytes stable, Currently no emergent indication for HD Supportive care, Strict I/O, Monitor, Avoid Nephrotoxins CKD stage 4- Obtained and Reviewed records from our office Follows with Dr. Posadas, Baseline Cr 2.7-3.0 Has AV access in Lt UE ? Urinary retention- Straight cath at home 4 times/day Urology consulted - Neurogenic Bladder, CTscan- Fullness of the right pelvicalyceal system is present. Significant left renal atrophy is present. Left renal lower pole cysts are present. Circumferential wall thickening urinary bladder is present. Gas is present within the inner bladder. Significant surrounding stranding of the urinary bladder is evident. Constipation- Fleet's enema is CI in CKD natanael advanced Dw RN , Defer to primary HTN- BP stable Anemia- WALLACE per protocol for Hgb < 10 COMMENT/RELEVANT DATA Meds Current Medications Medications (Trade) Dose Ordered Sig/Derick Start Time Stop Time Status Last Admin Dose Admin Acetaminophen (Tylenol) 650 mg PRN Q4HRS PRN 06/20/19 12:30 Al Hydroxide/Mg Hydroxide (Mylanta Plus Xs) 30 ml PRN DAILY PRN 06/20/19 12:30 Albuterol Sulfate (Ventolin Neb Soln) 2.5 mg PRN Q4HRS PRN 06/20/19 12:30 Amlodipine Besylate (Norvasc) 5 mg DAILY 06/20/19 09:00 06/22/19 10:58 5 MG Ascorbic Acid (Vitamin C) 500 mg DAILY 06/20/19 09:00 06/21/19 10:40 500 MG Aspirin (Children'S Aspirin) 81 mg DAILY 06/20/19 15:00 06/22/19 10:56 81 MG Calcitriol (Rocaltrol) 0.25 mcg DAILY 06/20/19 09:00 06/21/19 10:42 0.25 MCG Carbidopa/Levodopa (Sinemet 25/100) 1 tab QID 06/20/19 09:00 06/21/19 18:48 1 TAB Carvedilol (Coreg) 25 mg BIDWMEALS 06/20/19 09:00 06/22/19 10:55 25 MG Ceftriaxone Sodium (Rocephin) 1 gm Q24H 06/20/19 20:00 06/21/19 20:33 1 GM Cetirizine HCl (ZyrTEC) 10 mg DAILY 06/20/19 09:00 06/21/19 10:39 10 MG Citalopram Hydrobromide (CeleXA) 20 mg DAILY 06/20/19 09:00 06/22/19 10:58 20 MG Clonidine HCl (Catapres) 0.1 mg PRN Q6HRS PRN 06/20/19 12:30 Dicyclomine HCl (Bentyl) 10 mg PRN 1X PRN 06/20/19 17:45 Diltiazem HCl (Cardizem 24hr Cd) 120 mg DAILY 06/20/19 09:00 06/22/19 10:56 120 MG Docusate Sodium (Colace) 100 mg PRN BID PRN 06/20/19 12:30 Famotidine (Pepcid Vial) 20 mg QHS 06/22/19 21:00 Fenofibrate (Lofibra) 134 mg DAILY 06/20/19 09:00 06/21/19 09:00 134 MG Furosemide (Lasix) 40 mg BID92 06/20/19 09:00 06/21/19 10:44 40 MG Gabapentin (Neurontin) 600 mg DAILY 06/20/19 10:00 06/22/19 10:55 600 MG Guaifenesin (Robitussin) 200 mg PRN Q4HRS PRN 06/20/19 12:30 Lactobacillus Rhamnosus (Culturelle) 1 cap BID 06/20/19 09:00 06/22/19 10:52 1 CAP Levothyroxine Sodium (Synthroid) 25 mcg DAILY06 06/20/19 09:00 06/21/19 05:41 25 MCG Lorazepam (Ativan) 0.5 mg PRN Q4HRS PRN 06/20/19 12:30 Methadone HCl (Dolophine) 30 mg TID 06/20/19 15:00 06/22/19 10:56 30 MG Ondansetron HCl (Zofran) 4 mg PRN Q4HRS PRN 06/20/19 12:30 Pharmacy Consult ([place] Med Screen By Rx) 1 each 1X ONCE 06/19/19 23:00 06/19/19 23:01 DC 06/19/19 23:00 1 EACH Potassium Chloride (Klor-Con) 10 meq DAILY 06/20/19 09:00 06/21/19 10:44 10 MEQ Sodium Monofluorophosphate (Fleet Adult) 133 ml 1X ONCE 06/21/19 12:00 06/21/19 12:01 DC Sodium Chloride (Normal Saline Flush) 3 ml QSHIFT PRN 06/20/19 12:30 Tamsulosin HCl (Flomax) 0.4 mg DAILY 06/20/19 09:00 06/22/19 10:55 0.4 MG Vitamin B Complex (Eloy B) 1 tab DAILY 06/20/19 09:00 06/21/19 10:40 1 TAB Vitamin D (Vitamin D3) 1,000 unit DAILY 06/20/19 09:00 06/21/19 10:40 1,000 UNIT Warfarin Sodium (Coumadin Per Pharmacy) 1 each PRN DAILY PRN 06/20/19 09:15 06/21/19 15:27 1 EACH Warfarin Sodium (Coumadin) 7.5 mg DAILY16 06/20/19 16:00 06/21/19 10:44 7.5 MG Lab Laboratory Tests Test 06/21/19 14:30 06/22/19 04:00 Prothrombin Time 21.7 SEC (11.7-14.0) 23.7 SEC (11.7-14.0) Prothromb Time International Ratio 1.9 (0.8-1.1) 2.1 (0.8-1.1) White Blood Count 12.3 x10^3/uL (4.0-11.0) Red Blood Count 3.42 x10^6/uL (4.30-5.70) Hemoglobin 9.5 g/dL (13.0-17.5) Hematocrit 29.1 % (39.0-53.0) Mean Corpuscular Volume 85 fL (79-100) Mean Corpuscular Hemoglobin 28 pg (25-35) Mean Corpuscular Hemoglobin Concent 33 g/dL (31-37) Red Cell Distribution Width 18.0 % (11.5-14.5) Platelet Count 207 x10^3/uL (140-400) Neutrophils (%) (Auto) 79 % (31-73) Lymphocytes (%) (Auto) 9 % (24-48) Monocytes (%) (Auto) 10 % (0-9) Eosinophils (%) (Auto) 3 % (0-3) Basophils (%) (Auto) 0 % (0-3) Neutrophils # (Auto) 9.7 x10^3/uL (1.8-7.7) Lymphocytes # (Auto) 1.1 x10^3/uL (1.0-4.8) Monocytes # (Auto) 1.2 x10^3/uL (0.0-1.1) Eosinophils # (Auto) 0.3 x10^3/uL (0.0-0.7) Basophils # (Auto) 0.0 x10^3/uL (0.0-0.2) Sodium Level 145 mmol/L (136-145) Potassium Level 3.6 mmol/L (3.5-5.1) Chloride Level 106 mmol/L (98-107) Carbon Dioxide Level 30 mmol/L (21-32) Anion Gap 9 (6-14) Blood Urea Nitrogen 49 mg/dL (8-26) Creatinine 3.0 mg/dL (0.7-1.3) Estimated GFR (Cockcroft-Gault) 20.6 Glucose Level 93 mg/dL (70-99) Calcium Level 9.1 mg/dL (8.5-10.1) Phosphorus Level 4.5 mg/dL (2.6-4.7) Albumin 2.7 g/dL (3.4-5.0) Results All relevant outside records, renal labs, imaging studies, telemetry/EKG's were reviewed. SHANTEL CLAY MD Jun 22, 2019 11:18
--- NOTE | 2019-06-22 14:05 | NUR ---
SW following pt. SW spoke with pt and pt's , they have chosen [facility]. CHANTAL phoned and faxed referral to [facility]. Pt acceptance and admission pending. Will continue to follow.
--- NOTE | 2019-06-22 14:07 | NUR ---
Pharmacy Warfarin Dosing Note S: Pharmacy consulted to assist with anticoagulation therapy started O: ANTON PRIETO is a 73 year old M with Atrial Fibrillation LABS: Last INR: 2.1 Last HGB: 9.5 Last HCT: 29.1 Last PLT: 207 Last dose of 7.5 mg given on 06/21/19 at 1045 Vitamin K given: Ongoing Drug Interactions: A:INR of 2.1 is within desired range. Target range for this patient is: 2 -3 P: Warfarin dose: 7.5 mg Today at 1600 Bridge Therapy: None Next INR due IN AM Pharmacy anticoagulation service will continue to follow. KAMERON ADLER [facility], 06/22/19 0815
[2019-06-22 15:15] VITALS: BP 146/65
[2019-06-22] MEDS: POTASSIUM CHLORIDE 10 MEQ TABLET.ER. PO SCH (15:18)
[2019-06-22] MEDS: CALCITRIOL 0.25 MCG CAPSULE. PO SCH (15:18)
[2019-06-22] MEDS: VITAMIN B COMPLEX TABLET. PO SCH (15:18)
[2019-06-22] MEDS: FENOFIBRATE,MICRONIZED 134 MG CAPSULE PO SCH (15:18)
[2019-06-22] MEDS: ASCORBIC ACID 500 MG TABLET PO SCH (15:19)
[2019-06-22] MEDS: CETIRIZINE HCL 10 MG TABLET. PO SCH (15:19)
[2019-06-22] MEDS: CHOLECALCIFEROL (VITAMIN D3) 1,000 UNIT TABLET PO SCH (15:19)
[2019-06-22] MEDS: WARFARIN 7.5 MG TABLET. PO SCH (15:24)
--- NOTE | 2019-06-22 17:55 | PDOC ---
PROGRESS NOTES Assessment Assessment PD. Falls. Generalized weakness. Chronic urinary retention on Pelaez. HTN. Obesity. 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 Brain atrophy, moderate. Severe C-spine degenerative disease. Dementia features. RECOMMENDATIONS/PLAN: Continue Sinemet 25/100 mg qid. He has been on Coumadin. Continue ASA 81 mg daily. Treat medical diseases. OT/PT. Discussed with his at bedside on 06/22/19. HISTORY OF THE PRESENT ILLNESS: This is a 73 -year-old male patient with above medical and neurological diseases was brought by EMS with complaining of weakness and frequent falls. Patient stated he had gradually increasing generalized weakness for the last couple days and had 3 falls since yesterday, but the patient's stated he did not fall and was not able to get up from the toilet stool or from the floor and she had to call hat lining paster to help her to get him out of the floor. Patient denies new focal neuro deficit, fever and chills, chest pain, nausea and vomiting. Patient had history of left knee replacement several weeks ago at [facility]. He stated on 06/22/19 that he felt better. Past Medical History CVA, Hypertension, PARKINSON'S PAST SURGERY HISTORY: Coronary Bypass Surgery, left knee surgery. Family History High Cholesterol, Hypertension Allergies Coded Allergies: ibuprofen (Verified Allergy, Intermediate, 06/20/19) MEDICATIONS: Refer to MAR SOCIAL HISTORY: Lives at home. Denies recent smoking, drinking, and illicit drug use. REVIEW OF SYSTEMS: Constitutional: No malnutrition, weight loss, cachexia. Head: No traumatic brain or head injury. Skin: No edema, or rash. Ear: No infection. Eyes: No vision loss or color blindness. Nose: No bleeding or purulent discharges. Hearing: Hearing decrease. Neck: No injury. Cardiac: HTN. Pulmonary: No COPD. GI: No GI ulcer, GI bleeding. Urinary/genital: Incontinence, urinary retention. Endocrinologic: No cousin face, craniofacial dysmorphism. Skeletomuscular: Generalized weakness. Neurological: see HP. Psychiatric: Denies drug use/abuse. Otherwise, not [id number] review of systems. PHYSICAL EXAMINATION: General appearance is in subacute distress. HEENT: Normocephalic and nontraumatic. Eyes, nose, ears, and throat are unremarkable. Neck is supple. No lymphadenopathy. No crepitus. Cardiovascular: S1, S2, regular rate and rhythm. Pulmonary: Relative clear to auscultation bilaterally. Abdomen: Bowel sounds are positive. Abdomen is soft, nontender, and nondistended. Extremities: No rash, lesions, or edema. No restriction of range of motion NEUROLOGICAL EXAMINATION: Awake. Partially oriented to time, place and person. PERRL. EOMI. CN: no focal findings. Muscle tone: fluctuated. Muscle strength: 4+ DTR: 1+ Plantar reflex: Flexor response bilaterally Gait: not examined in chair. Sensory exam: no abnormal findings. No acute cerebellar signs elicited. F-T-N test fine. Objective Objective Vital Signs Date Time Temp Pulse Resp B/P (MAP) Pulse Ox O2 Delivery O2 Flow Rate FiO2 06/22/19 15:15 98.3 57 20 146/65 (92) 98 Nasal Cannula 2.0 98.3 Intake and Output 06/22/19 06:59 Intake Total 250 ml Output Total 1250 ml Balance -1000 ml Intake Oral 250 ml Output Urine Total 1250 ml # Bowel Movements 2 Vitals Signs Vitals VS - Last 72 Hours, by Label Date Time Temp Pulse Resp B/P (MAP) Pulse Ox O2 Delivery O2 Flow Rate FiO2 06/22/19 15:15 98.3 57 20 146/65 (92) 98 Nasal Cannula 2.0 98.3 06/22/19 11:06 98.7 64 18 174/73 (106) 97 Nasal Cannula 2.0 98.7 06/22/19 10:58 60 161/69 06/22/19 10:56 60 161/69 06/22/19 10:55 60 161/69 06/22/19 08:00 Nasal Cannula 2.0 06/22/19 07:15 98.9 60 18 161/69 (99) 96 Nasal Cannula 2.0 98.9 06/22/19 03:49 99.0 60 16 133/55 (81) 2 Nasal Cannula 93.0 99.0 06/21/19 23:18 97.9 64 16 144/70 (94) 94 Nasal Cannula 2.0 97.9 06/21/19 20:00 Nasal Cannula 2.0 06/21/19 19:55 98.2 62 18 152/55 (87) 98 Nasal Cannula 2.0 98.2 06/21/19 18:48 55 122/56 06/21/19 15:48 98.3 55 20 122/56 (78) 94 98.3 06/21/19 12:41 99.2 99.2 06/21/19 11:45 99.5 64 20 146/76 (99) 94 99.5 06/21/19 10:42 61 142/54 06/21/19 10:39 61 142/54 06/21/19 09:00 61 142/54 06/21/19 08:02 97.9 97.9 06/21/19 08:01 97.9 61 18 142/54 (83) 92 Nasal Cannula 2.0 97.9 06/21/19 08:00 Nasal Cannula 2.0 06/21/19 07:00 97.9 61 18 142/54 (83) 94 97.9 Laboratory Laboratory Laboratory Tests Test 06/22/19 04:00 White Blood Count 12.3 x10^3/uL (4.0-11.0) Red Blood Count 3.42 x10^6/uL (4.30-5.70) Hemoglobin 9.5 g/dL (13.0-17.5) Hematocrit 29.1 % (39.0-53.0) Mean Corpuscular Volume 85 fL (79-100) Mean Corpuscular Hemoglobin 28 pg (25-35) Mean Corpuscular Hemoglobin Concent 33 g/dL (31-37) Red Cell Distribution Width 18.0 % (11.5-14.5) Platelet Count 207 x10^3/uL (140-400) Neutrophils (%) (Auto) 79 % (31-73) Lymphocytes (%) (Auto) 9 % (24-48) Monocytes (%) (Auto) 10 % (0-9) Eosinophils (%) (Auto) 3 % (0-3) Basophils (%) (Auto) 0 % (0-3) Neutrophils # (Auto) 9.7 x10^3/uL (1.8-7.7) Lymphocytes # (Auto) 1.1 x10^3/uL (1.0-4.8) Monocytes # (Auto) 1.2 x10^3/uL (0.0-1.1) Eosinophils # (Auto) 0.3 x10^3/uL (0.0-0.7) Basophils # (Auto) 0.0 x10^3/uL (0.0-0.2) Prothrombin Time 23.7 SEC (11.7-14.0) Prothromb Time International Ratio 2.1 (0.8-1.1) Sodium Level 145 mmol/L (136-145) Potassium Level 3.6 mmol/L (3.5-5.1) Chloride Level 106 mmol/L (98-107) Carbon Dioxide Level 30 mmol/L (21-32) Anion Gap 9 (6-14) Blood Urea Nitrogen 49 mg/dL (8-26) Creatinine 3.0 mg/dL (0.7-1.3) Estimated GFR (Cockcroft-Gault) 20.6 Glucose Level 93 mg/dL (70-99) Calcium Level 9.1 mg/dL (8.5-10.1) Phosphorus Level 4.5 mg/dL (2.6-4.7) Albumin 2.7 g/dL (3.4-5.0) Medication Medications Current Medications Darbepoetin Koffi (ARANESP for NON-DIALYSIS PTS) 60 mcg 1X ONCE SQ ; Start 06/22/19 at 21:00; Stop 06/22/19 at 21:01 Famotidine (Pepcid Vial) 20 mg QHS IVP ; Start 06/22/19 at 21:00; Stop 06/22/19 at 15:28; Status DC Famotidine (Pepcid) 20 mg QHS PO ; Start 06/22/19 at 21:00 Comment Review of Relevant I have reviewed the following items piyush (where applicable) has been applied. BRAD MOTLEY MD Jun 22, 2019 17:55
[2019-06-22] MEDS: cefTRIAXone IV Push 1 GM VIAL. IVP SCH (19:18)
[2019-06-22 19:45] VITALS: BP 180/70
[2019-06-22] MEDS ORDERED: FAMOTIDINE 20 MG/2 ML VIAL IVP SCH (21:00)
[2019-06-22] MEDS ORDERED: DARBEPOETIN ALFA 60 MCG/0.3 ML DISP.SYRIN. SQ ONE (21:00)
[2019-06-22] MEDS ORDERED: FAMOTIDINE 20 MG TABLET. PO SCH (21:00)
[2019-06-22 23:40] VITALS: BP 174/75
[2019-06-23 03:40] VITALS: BP 167/77
[2019-06-23 04:52] LABS: BASO # 0.1 x10^3/uL (0.0-0.2); BASO % 1 % (0-3); EOS # 0.5 x10^3/uL (0.0-0.7); EOS % 5 % (0-3); HEMATOCRIT 31.3 % (39.0-53.0); HEMOGLOBIN 10.2 g/dL (13.0-17.5); LYMPH # 1.3 x10^3/uL (1.0-4.8); LYMPH % 12 % (24-48); MEAN CORPUSCULAR HEMOGLOBIN 28 pg (25-35); MEAN CORPUSCULAR HGB CONC 33 g/dL (31-37); MEAN CORPUSCULAR VOLUME 85 fL (79-100); MONO # 0.9 x10^3/uL (0.0-1.1); MONO % 8 % (0-9); NEUT # 7.9 x10^3/uL (1.8-7.7); NEUT % 74 % (31-73); PLATELET COUNT 241 x10^3/uL (140-400); RED BLOOD COUNT 3.68 x10^6/uL (4.30-5.70); RED CELL DISTRIBUTION WIDTH 18.2 % (11.5-14.5); WHITE BLOOD COUNT 10.7 x10^3/uL (4.0-11.0)
[2019-06-23 05:03] LABS: PROTHROMBIN TIME PATIENT 26.1 SEC (11.7-14.0)
[2019-06-23 05:10] LABS: ALBUMIN 2.7 g/dL (3.4-5.0); CALCIUM 9.3 mg/dL (8.5-10.1); CREATININE 2.9 mg/dL (0.7-1.3); GFR 21.4; PHOSPHORUS 4.3 mg/dL (2.6-4.7); POTASSIUM 3.6 mmol/L (3.5-5.1)
[2019-06-23] MEDS: LEVOTHYROXINE 25 MCG TABLET. PO SCH (06:29)
[2019-06-23 07:00] VITALS: BP 171/61
--- NOTE | 2019-06-23 08:03 | PDOC ---
PROGRESS NOTES History of Present Illness History of Present Illness VTE Prophylaxis Ordered VTE Prophylaxis Devices: Yes VTE Pharmacological Prophylaxi: Yes Assessment/Plan Assessment/Plan IMPRESSION : 1. No acute intracranial findings. ON CT HEAD 2. Chronic left insular infarct. Moderate atrophy and chronic microangiopathic white matter change. 3. FALLS 4. Generalized weakness 5 morbid obesity 6. HYPERTENSION 7. Depression 8. Mild basilar atelectasis. 9. CKD stage 4-[address] abd Significant calcific involvement of the arterial vasculature. Bilateral common iliac artery fusiform aneurysms. 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 Alternatively, this may represent significant atherosclerotic calcific involvement. plan admit fall precautions consult neurology PT/OT/ ST home meds dvt prophylaxis nephrology consult vascular surgery consult 06/22 CONFUSED TO DETAILS, SWALLOW IMPAIRED ST SEEING 06/23 PLAN D/C SOON WHEN NEUROLOGY AND NEPHROLOGY AGREES 29 MIN PT EXAM, CHART REVIEW, > 50% OF TIME SPENT WITH EXAM, CHART REVIEW, PT CARE COORDINATION Vitals Vitals Vital Signs Date Time Temp Pulse Resp B/P (MAP) Pulse Ox O2 Delivery O2 Flow Rate FiO2 06/23/19 03:40 98.3 63 17 167/77 (107) 95 Nasal Cannula 2.0 98.3 Physical Exam General: Alert, Oriented X3, Cooperative, No acute distress, Other (CONFUSED TO DETAILS) Heart: Regular rate, Normal S1, Normal S2 Lungs: Clear Abdomen: Normal bowel sounds, Soft, Other (obese) Extremities: No cyanosis, No edema, Other (Doppler signals intact bilaterally, palpable femoral pulses bilaterally, no evidence of pulsatile mass behind the knees) Skin: No rashes, No breakdown, No significant lesion Labs LABS Laboratory Tests Test 06/23/19 04:41 White Blood Count 10.7 x10^3/uL (4.0-11.0) Red Blood Count 3.68 x10^6/uL (4.30-5.70) Hemoglobin 10.2 g/dL (13.0-17.5) Hematocrit 31.3 % (39.0-53.0) Mean Corpuscular Volume 85 fL (79-100) Mean Corpuscular Hemoglobin 28 pg (25-35) Mean Corpuscular Hemoglobin Concent 33 g/dL (31-37) Red Cell Distribution Width 18.2 % (11.5-14.5) Platelet Count 241 x10^3/uL (140-400) Neutrophils (%) (Auto) 74 % (31-73) Lymphocytes (%) (Auto) 12 % (24-48) Monocytes (%) (Auto) 8 % (0-9) Eosinophils (%) (Auto) 5 % (0-3) Basophils (%) (Auto) 1 % (0-3) Neutrophils # (Auto) 7.9 x10^3/uL (1.8-7.7) Lymphocytes # (Auto) 1.3 x10^3/uL (1.0-4.8) Monocytes # (Auto) 0.9 x10^3/uL (0.0-1.1) Eosinophils # (Auto) 0.5 x10^3/uL (0.0-0.7) Basophils # (Auto) 0.1 x10^3/uL (0.0-0.2) Prothrombin Time 26.1 SEC (11.7-14.0) Prothromb Time International Ratio 2.4 (0.8-1.1) Sodium Level 146 mmol/L (136-145) Potassium Level 3.6 mmol/L (3.5-5.1) Chloride Level 106 mmol/L (98-107) Carbon Dioxide Level 31 mmol/L (21-32) Anion Gap 9 (6-14) Blood Urea Nitrogen 46 mg/dL (8-26) Creatinine 2.9 mg/dL (0.7-1.3) Estimated GFR (Cockcroft-Gault) 21.4 Glucose Level 93 mg/dL (70-99) Calcium Level 9.3 mg/dL (8.5-10.1) Phosphorus Level 4.3 mg/dL (2.6-4.7) Albumin 2.7 g/dL (3.4-5.0) Assessment and Plan Assessmemt and Plan Problems Medical Problems: (1) Frequent falls Status: Acute (2) Leukocytosis Status: Acute Comment Review of Relevant I have reviewed the following items piyush (where applicable) has been applied. Labs Laboratory Tests Test 06/21/19 14:30 06/22/19 04:00 06/23/19 04:41 Prothrombin Time 21.7 SEC (11.7-14.0) 23.7 SEC (11.7-14.0) 26.1 SEC (11.7-14.0) Prothromb Time International Ratio 1.9 (0.8-1.1) 2.1 (0.8-1.1) 2.4 (0.8-1.1) White Blood Count 12.3 x10^3/uL (4.0-11.0) 10.7 x10^3/uL (4.0-11.0) Red Blood Count 3.42 x10^6/uL (4.30-5.70) 3.68 x10^6/uL (4.30-5.70) Hemoglobin 9.5 g/dL (13.0-17.5) 10.2 g/dL (13.0-17.5) Hematocrit 29.1 % (39.0-53.0) 31.3 % (39.0-53.0) Mean Corpuscular Volume 85 fL (79-100) 85 fL (79-100) Mean Corpuscular Hemoglobin 28 pg (25-35) 28 pg (25-35) Mean Corpuscular Hemoglobin Concent 33 g/dL (31-37) 33 g/dL (31-37) Red Cell Distribution Width 18.0 % (11.5-14.5) 18.2 % (11.5-14.5) Platelet Count 207 x10^3/uL (140-400) 241 x10^3/uL (140-400) Neutrophils (%) (Auto) 79 % (31-73) 74 % (31-73) Lymphocytes (%) (Auto) 9 % (24-48) 12 % (24-48) Monocytes (%) (Auto) 10 % (0-9) 8 % (0-9) Eosinophils (%) (Auto) 3 % (0-3) 5 % (0-3) Basophils (%) (Auto) 0 % (0-3) 1 % (0-3) Neutrophils # (Auto) 9.7 x10^3/uL (1.8-7.7) 7.9 x10^3/uL (1.8-7.7) Lymphocytes # (Auto) 1.1 x10^3/uL (1.0-4.8) 1.3 x10^3/uL (1.0-4.8) Monocytes # (Auto) 1.2 x10^3/uL (0.0-1.1) 0.9 x10^3/uL (0.0-1.1) Eosinophils # (Auto) 0.3 x10^3/uL (0.0-0.7) 0.5 x10^3/uL (0.0-0.7) Basophils # (Auto) 0.0 x10^3/uL (0.0-0.2) 0.1 x10^3/uL (0.0-0.2) Sodium Level 145 mmol/L (136-145) 146 mmol/L (136-145) Potassium Level 3.6 mmol/L (3.5-5.1) 3.6 mmol/L (3.5-5.1) Chloride Level 106 mmol/L (98-107) 106 mmol/L (98-107) Carbon Dioxide Level 30 mmol/L (21-32) 31 mmol/L (21-32) Anion Gap 9 (6-14) 9 (6-14) Blood Urea Nitrogen 49 mg/dL (8-26) 46 mg/dL (8-26) Creatinine 3.0 mg/dL (0.7-1.3) 2.9 mg/dL (0.7-1.3) Estimated GFR (Cockcroft-Gault) 20.6 21.4 Glucose Level 93 mg/dL (70-99) 93 mg/dL (70-99) Calcium Level 9.1 mg/dL (8.5-10.1) 9.3 mg/dL (8.5-10.1) Phosphorus Level 4.5 mg/dL (2.6-4.7) 4.3 mg/dL (2.6-4.7) Albumin 2.7 g/dL (3.4-5.0) 2.7 g/dL (3.4-5.0) Laboratory Tests Test 06/23/19 04:41 White Blood Count 10.7 x10^3/uL (4.0-11.0) Red Blood Count 3.68 x10^6/uL (4.30-5.70) Hemoglobin 10.2 g/dL (13.0-17.5) Hematocrit 31.3 % (39.0-53.0) Mean Corpuscular Volume 85 fL (79-100) Mean Corpuscular Hemoglobin 28 pg (25-35) Mean Corpuscular Hemoglobin Concent 33 g/dL (31-37) Red Cell Distribution Width 18.2 % (11.5-14.5) Platelet Count 241 x10^3/uL (140-400) Neutrophils (%) (Auto) 74 % (31-73) Lymphocytes (%) (Auto) 12 % (24-48) Monocytes (%) (Auto) 8 % (0-9) Eosinophils (%) (Auto) 5 % (0-3) Basophils (%) (Auto) 1 % (0-3) Neutrophils # (Auto) 7.9 x10^3/uL (1.8-7.7) Lymphocytes # (Auto) 1.3 x10^3/uL (1.0-4.8) Monocytes # (Auto) 0.9 x10^3/uL (0.0-1.1) Eosinophils # (Auto) 0.5 x10^3/uL (0.0-0.7) Basophils # (Auto) 0.1 x10^3/uL (0.0-0.2) Prothrombin Time 26.1 SEC (11.7-14.0) Prothromb Time International Ratio 2.4 (0.8-1.1) Sodium Level 146 mmol/L (136-145) Potassium Level 3.6 mmol/L (3.5-5.1) Chloride Level 106 mmol/L (98-107) Carbon Dioxide Level 31 mmol/L (21-32) Anion Gap 9 (6-14) Blood Urea Nitrogen 46 mg/dL (8-26) Creatinine 2.9 mg/dL (0.7-1.3) Estimated GFR (Cockcroft-Gault) 21.4 Glucose Level 93 mg/dL (70-99) Calcium Level 9.3 mg/dL (8.5-10.1) Phosphorus Level 4.3 mg/dL (2.6-4.7) Albumin 2.7 g/dL (3.4-5.0) Medications Current Medications Ceftriaxone Sodium (Rocephin) 1 gm 1X ONCE IVP Last administered on 06/19/19at 20:10; Start 06/19/19 at 20:15; Stop 06/19/19 at 20:16; Status DC Pharmacy Consult (C.diff Med Screen By Rx) 1 each 1X ONCE [facility] Last administered on 06/19/19 23:00; Start 06/19/19 at 23:00; Stop 06/19/19 at 23:01; Status DC Amlodipine Besylate (Norvasc) 5 mg DAILY PO Last administered on 06/22/19 10:58; Start 06/20/19 at 09:00 Calcitriol (Rocaltrol) 0.25 mcg DAILY PO Last administered on 06/22/19 15:18; Start 06/20/19 at 09:00 Carbidopa/Levodopa (Sinemet 25/100) 1 tab QID PO Last administered on 06/22/19 19:19; Start 06/20/19 at 09:00 Vitamin D (Vitamin D3) 1,000 unit DAILY PO Last administered on 06/22/19 15:19; Start 06/20/19 at 09:00 Citalopram Hydrobromide (CeleXA) 20 mg DAILY PO Last administered on 06/22/19 10:58; Start 06/20/19 at 09:00 Diltiazem HCl (Cardizem 24hr Cd) 120 mg DAILY PO Last administered on 06/22/19 10:56; Start 06/20/19 at 09:00 Fenofibrate (Lofibra) 134 mg DAILY PO Last administered on 06/22/19 15:18; Start 06/20/19 at 09:00 Furosemide (Lasix) 40 mg BID92 PO Last administered on 06/22/19 15:25; Start 06/20/19 at 09:00 Levothyroxine Sodium (Synthroid) 25 mcg DAILY06 PO Last administered on 06/23/19 06:29; Start 06/20/19 at 09:00 Potassium Chloride (Klor-Con) 10 meq DAILY PO Last administered on 06/22/19 15:18; Start 06/20/19 at 09:00 Tamsulosin HCl (Flomax) 0.4 mg DAILY PO Last administered on 06/22/19 10:55; Start 06/20/19 at 09:00 Warfarin Sodium (Coumadin) 7.5 mg DAILY16 PO Last administered on 06/22/19 15:24; Start 06/20/19 at 16:00 Ascorbic Acid (Vitamin C) 500 mg DAILY PO Last administered on 06/22/19 15:19; Start 06/20/19 at 09:00 Carvedilol (Coreg) 25 mg BIDWMEALS PO Last administered on 06/22/19 10:55; Start 06/20/19 at 09:00 Gabapentin (Neurontin) 600 mg DAILY PO Last administered on 06/22/19 10:55; Start 06/20/19 at 10:00 Lactobacillus Rhamnosus (Culturelle) 1 cap BID PO Last administered on 06/22/19 19:19; Start 06/20/19 at 09:00 Cetirizine HCl (ZyrTEC) 10 mg DAILY PO Last administered on 06/22/19 15:19; Start 06/20/19 at 09:00 Vitamin B Complex (Eloy B) 1 tab DAILY PO Last administered on 06/22/19 15:18; Start 06/20/19 at 09:00 Warfarin Sodium (Coumadin Per Pharmacy) 1 each PRN DAILY PRN MC SEE COMMENTS Last administered on 06/22/19at 14:12; Start 06/20/19 at 09:15 Sodium Chloride (Normal Saline Flush) 3 ml QSHIFT PRN IV AFTER MEDS AND BLOOD DRAWS; Start 06/20/19 at 12:30 Ondansetron HCl (Zofran) 4 mg PRN Q4HRS PRN IV NAUSEA/VOMITING; Start 06/20/19 at 12:30 Acetaminophen (Tylenol) 650 mg PRN Q4HRS PRN PO TEMP OVER 100.4F OR MILD PAIN; Start 06/20/19 at 12:30 Al Hydroxide/Mg Hydroxide (Mylanta Plus Xs) 30 ml PRN DAILY PRN PO HEARTBURN / GAS; Start 06/20/19 at 12:30 Clonidine HCl (Catapres) 0.1 mg PRN Q6HRS PRN PO SBP>160 OR DBP>90; Start 06/20/19 at 12:30 Sodium Monofluorophosphate (Fleet Adult) 133 ml PRN DAILY PRN MS CONSTIPATION; Start 06/20/19 at 12:30; Stop 06/21/19 at 13:33; Status DC Docusate Sodium (Colace) 100 mg PRN BID PRN PO CONSTIPATION; Start 06/20/19 at 12:30 Albuterol Sulfate (Ventolin Neb Soln) 2.5 mg PRN Q4HRS PRN NEB SHORTNESS OF BREATH; Start 06/20/19 at 12:30 Guaifenesin (Robitussin) 200 mg PRN Q4HRS PRN PO COUGH; Start 06/20/19 at 12:30 Lorazepam (Ativan) 0.5 mg PRN Q4HRS PRN PO ANXIETY / AGITATION; Start 06/20/19 at 12:30 Ceftriaxone Sodium (Rocephin) 1 gm Q24H IVP Last administered on 06/22/19at 19:18; Start 06/20/19 at 20:00 Aspirin (Children'S Aspirin) 81 mg DAILY PO Last administered on 06/22/19at 10:56; Start 06/20/19 at 15:00 Methadone HCl (Dolophine) 30 mg TID PO Last administered on 06/22/19at 19:19; Start 06/20/19 at 15:00 Dicyclomine HCl (Bentyl) 10 mg PRN 1X PRN PO recurrence of crampy abd pain; Start 06/20/19 at 17:45 Sodium Monofluorophosphate (Fleet Adult) 133 ml DAILY PRN MS CONSTIPATION; Start 06/21/19 at 12:00; Status Cancel Sodium Monofluorophosphate (Fleet Adult) 133 ml 1X ONCE MS ; Start 06/21/19 at 12:00; Stop 06/21/19 at 12:01; Status DC Famotidine (Pepcid Vial) 20 mg QHS IVP ; Start 06/22/19 at 21:00; Stop 06/22/19 at 15:28; Status DC Darbepoetin Koffi (ARANESP for NON-DIALYSIS PTS) 60 mcg 1X ONCE SQ Last administered on 06/22/19at 19:18; Start 06/22/19 at 21:00; Stop 06/22/19 at 21:01; Status DC Famotidine (Pepcid) 20 mg QHS PO Last administered on 06/23/19at 00:44; Start 06/22/19 at 21:00 Active Scripts Active Reported Vitamin D3 (Cholecalciferol (Vitamin D3)) 1,000 Unit Tablet 1 Tab PO DAILY Vitamin C (Ascorbic Acid) 500 Mg Capsule 500 Mg PO DAILY Vitamin B Complex 1 Each Capsule 1 Each PO DAILY Sinemet 25-100 Mg Tablet (Carbidopa/Levodopa) 1 Each Tablet 1 Tab PO QID Probiotic (Lactobacillus Combo No.11) 1 Each Cap.sprink 1 Each PO DAILY Potassium Chloride 10 Meq Tab.sr.24h 10 Meq PO DAILY Methadone Hcl 10 Mg Tablet 30 Mg PO TID Loratadine 10 Mg Tablet 1 Tab PO DAILY Levothyroxine Sodium 25 Mcg Tablet 1 Tab PO DAILY Lasix (Furosemide) 40 Mg Tablet 40 Mg PO BID Gabapentin 600 Mg Tablet 600 Mg PO QID Flomax (Tamsulosin Hcl) 0.4 Mg Cap.er.24h 1 Cap PO DAILY Fenofibrate (Fenofibrate,Micronized) 134 Mg Capsule 1 Cap PO DAILY Diltiazem 24HR Cd (Diltiazem Hcl) 120 Mg Cap.er.24h 1 Cap PO DAILY Coumadin (Warfarin Sodium) 7.5 Mg Tablet 1 Tab PO DAILY Coreg (Carvedilol) 25 Mg Tablet 25 Mg PO BIDWMEALS Citalopram Hbr (Citalopram Hydrobromide) 20 Mg Tablet 1 Tab PO DAILY Calcitriol 0.25 Mcg Capsule 1 Cap PO DAILY Aspirin 81 Mg Tab.chew 1 Tab PO DAILY Norvasc (Amlodipine Besylate) 5 Mg Tablet 5 Mg PO DAILY Vitals/I & O Vital Sign - Last 24 Hours 06/22/19 06/22/19 06/22/19 06/22/19 10:55 10:56 10:58 11:06 Temp 98.7 98.7 Pulse 60 60 60 64 Resp 18 B/P (MAP) 161/69 161/69 161/69 174/73 (106) Pulse Ox 97 O2 Delivery Nasal Cannula O2 Flow Rate 2.0 06/22/19 06/22/19 06/22/19 06/22/19 15:15 17:00 19:45 23:40 Temp 98.3 98.7 98.5 98.3 98.7 98.5 Pulse 57 57 61 60 Resp 20 17 17 B/P (MAP) 146/65 (92) 146/65 180/70 (106) 174/75 (108) Pulse Ox 98 91 92 O2 Delivery Nasal Cannula Room Air Nasal Cannula O2 Flow Rate 2.0 2.0 06/23/19 03:40 Temp 98.3 98.3 Pulse 63 Resp 17 B/P (MAP) 167/77 (107) Pulse Ox 95 O2 Delivery Nasal Cannula O2 Flow Rate 2.0 Intake and Output 06/22/19 06/22/19 06/23/19 15:00 23:00 07:00 Intake Total 200 ml 60 ml 1000 ml Output Total 725 ml 1700 ml Balance 200 ml -665 ml -700 ml JOHANA SIMMONS MD Jun 23, 2019 08:03
[2019-06-23] MEDS: TAMSULOSIN 0.4 MG CAP.ER.24H. PO SCH (08:33)
[2019-06-23] MEDS: LACTOBACILLUS RHAMNOSUS GG 1 CAPSULE. PO SCH (08:33)
[2019-06-23] MEDS: FENOFIBRATE,MICRONIZED 134 MG CAPSULE PO SCH (08:33)
[2019-06-23] MEDS: CHOLECALCIFEROL (VITAMIN D3) 1,000 UNIT TABLET PO SCH (08:33)
[2019-06-23] MEDS: CALCITRIOL 0.25 MCG CAPSULE. PO SCH (08:33)
[2019-06-23] MEDS: CITALOPRAM 20 MG TABLET. PO SCH (08:34)
[2019-06-23] MEDS: VITAMIN B COMPLEX TABLET. PO SCH (08:34)
[2019-06-23] MEDS: GABAPENTIN 300 MG CAPSULE. PO SCH (08:34)
[2019-06-23] MEDS: CARBIDOPA/LEVODOPA 25/100MG TABLET PO SCH ×2 (08:34→13:34)
[2019-06-23] MEDS: POTASSIUM CHLORIDE 10 MEQ TABLET.ER. PO SCH (08:34)
[2019-06-23] MEDS: amLODIPine BESYLATE 5 MG TABLET PO SCH (08:34)
[2019-06-23] MEDS: CETIRIZINE HCL 10 MG TABLET. PO SCH (08:35)
[2019-06-23] MEDS: FUROSEMIDE 40 MG TABLET. PO SCH ×2 (08:35→13:33)
[2019-06-23] MEDS: ASCORBIC ACID 500 MG TABLET PO SCH (08:35)
[2019-06-23] MEDS: CARVEDILOL 12.5 MG TABLET. PO SCH (08:36)
[2019-06-23] MEDS: METHADONE 10 MG TABLET. PO SCH ×2 (08:36→13:34)
[2019-06-23] MEDS: ASPIRIN CHEWABLE 81 MG TABLET. PO SCH (08:42)
[2019-06-23 11:28] VITALS: BP 139/61
--- NOTE | 2019-06-23 11:37 | PDOC ---
Subjective: Subjective: Denies abd pain and is tolerating diet. Reports significant stooling yesterday - slowing - ?no stools yet today Objective: Vital Signs: Vital Signs Date Time Temp Pulse Resp B/P (MAP) Pulse Ox O2 Delivery O2 Flow Rate FiO2 06/23/19 11:28 98.4 54 18 139/61 (87) 95 Nasal Cannula 2.0 98.4 Labs: Laboratory Tests Test 06/23/19 04:41 White Blood Count 10.7 x10^3/uL Red Blood Count 3.68 x10^6/uL Hemoglobin 10.2 g/dL Hematocrit 31.3 % Mean Corpuscular Volume 85 fL Mean Corpuscular Hemoglobin 28 pg Mean Corpuscular Hemoglobin Concent 33 g/dL Red Cell Distribution Width 18.2 % Platelet Count 241 x10^3/uL Neutrophils (%) (Auto) 74 % Lymphocytes (%) (Auto) 12 % Monocytes (%) (Auto) 8 % Eosinophils (%) (Auto) 5 % Basophils (%) (Auto) 1 % Neutrophils # (Auto) 7.9 x10^3/uL Lymphocytes # (Auto) 1.3 x10^3/uL Monocytes # (Auto) 0.9 x10^3/uL Eosinophils # (Auto) 0.5 x10^3/uL Basophils # (Auto) 0.1 x10^3/uL Prothrombin Time 26.1 SEC Prothromb Time International Ratio 2.4 Sodium Level 146 mmol/L Potassium Level 3.6 mmol/L Chloride Level 106 mmol/L Carbon Dioxide Level 31 mmol/L Anion Gap 9 Blood Urea Nitrogen 46 mg/dL Creatinine 2.9 mg/dL Estimated GFR (Cockcroft-Gault) 21.4 Glucose Level 93 mg/dL Calcium Level 9.3 mg/dL Phosphorus Level 4.3 mg/dL Albumin 2.7 g/dL C Diff was negative. PE: GEN: NAD LUNGS: NC 2L HEART: RRR ABD: S/ND/NT NEURO/PSYCH: more alert today A/P: Lower abd pain - resolved H/o constipation, then with diarrhea after Miralax and Fleet, now slowing Dementia, Parkinson's Anemia - stable CKD, urinary retention -- Pain resolved, tolerating diet. Monitor stooling. AMBROCIO HOGAN Jun 23, 2019 11:37
--- NOTE | 2019-06-23 11:41 | PDOC3 ---
Discharge Summary Date of Admission: Jun 19, 2019 Date of Discharge: Jun 23, 2019 Follow-Up: 1-2 days Admitting Diagnosis comment: Assessment/Plan Assessment/Plan IMPRESSION : 1. No acute intracranial findings. ON CT HEAD, acute metabolic encephalopathy sec to UTI 2. Chronic left insular infarct. Moderate atrophy and chronic microangiopathic white matter change. 3. FALLS 4. Generalized weakness 5 morbid obesity 6. HYPERTENSION 7. Depression 8. Mild basilar atelectasis. 9. CKD stage 4-[address] abd Significant calcific involvement of the arterial vasculature. Bilateral common iliac artery fusiform aneurysms. 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 Alternatively, this may represent significant atherosclerotic calcific involvement. 11, uti plan admit fall precautions consult neurology PT/OT/ ST home meds dvt prophylaxis nephrology consult vascular surgery consult 06/22 CONFUSED TO DETAILS, SWALLOW IMPAIRED ST SEEING 06/23 PLAN D/C SOON WHEN NEUROLOGY AND NEPHROLOGY AGREES 36 MIN PT EXAM, CHART REVIEW, D/C PLANNING > 50% OF TIME SPENT WITH EXAM, CHART REVIEW, PT CARE COORDINATION Vitals Vitals Vital Signs Date Time Temp Pulse Resp B/P (MAP) Pulse Ox O2 Delivery O2 Flow Rate FiO2 06/23/19 03:40 98.3 63 17 167/77 (107) 95 Nasal Cannula 2.0 98.3 Physical Exam General: Alert, Oriented X3, Cooperative, No acute distress, Other (CONFUSED TO DETAILS) Heart: Regular rate, Normal S1, Normal S2 Lungs: Clear Abdomen: Normal bowel sounds, Soft, Other (obese) Extremities: No cyanosis, No edema, Other (Doppler signals intact bilaterally, palpable femoral pulses bilaterally, no evidence of pulsatile mass behind the knees) Skin: No rashes, No breakdown, No significant lesion FINAL DIAGNOSIS Problems Medical Problems: (1) Frequent falls Status: Acute (2) Leukocytosis Status: Acute Brief Hospital Course Mr. Dinh is a 73 old [sex] who presented with [ ACUTE METABOLIC ENCEPHALOPATHY//UTI] CONDITION AT DISCHARGE: Improved Discharge Medications Current Medications Ceftriaxone Sodium (Rocephin) 1 gm 1X ONCE IVP Last administered on 06/19/19at 20:10; Start 06/19/19 at 20:15; Stop 06/19/19 at 20:16; Status DC Pharmacy Consult (C.diff Med Screen By Rx) 1 each 1X ONCE [facility] Last administered on 06/19/19at 23:00; Start 06/19/19 at 23:00; Stop 06/19/19 at 23:01; Status DC Amlodipine Besylate (Norvasc) 5 mg DAILY PO Last administered on 06/23/19 08:34; Start 06/20/19 at 09:00 Calcitriol (Rocaltrol) 0.25 mcg DAILY PO Last administered on 06/23/19 08:33; Start 06/20/19 at 09:00 Carbidopa/Levodopa (Sinemet 25/100) 1 tab QID PO Last administered on 06/23/19 08:34; Start 06/20/19 at 09:00 Vitamin D (Vitamin D3) 1,000 unit DAILY PO Last administered on 06/23/19 08:3 3; Start 06/20/19 at 09:00 Citalopram Hydrobromide (CeleXA) 20 mg DAILY PO Last administered on 06/23/19 08:34; Start 06/20/19 at 09:00 Diltiazem HCl (Cardizem 24hr Cd) 120 mg DAILY PO Last administered on 06/22/19 10:56; Start 06/20/19 at 09:00 Fenofibrate (Lofibra) 134 mg DAILY PO Last administered on 06/23/19 08:33; Start 06/20/19 at 09:00 Furosemide (Lasix) 40 mg BID92 PO Last administered on 06/23/19 08:35; Start 06/20/19 at 09:00 Levothyroxine Sodium (Synthroid) 25 mcg DAILY06 PO Last administered on 06/23/19 06:29; Start 06/20/19 at 09:00 Potassium Chloride (Klor-Con) 10 meq DAILY PO Last administered on 06/23/19 08:34; Start 06/20/19 at 09:00 Tamsulosin HCl (Flomax) 0.4 mg DAILY PO Last administered on 06/23/19 08:33; Start 06/20/19 at 09:00 Warfarin Sodium (Coumadin) 7.5 mg DAILY16 PO Last administered on 06/22/19 15:24; Start 06/20/19 at 16:00 Ascorbic Acid (Vitamin C) 500 mg DAILY PO Last administered on 06/23/19 08:35; Start 06/20/19 at 09:00 Carvedilol (Coreg) 25 mg BIDWMEALS PO Last administered on 06/23/19 08:36; Start 06/20/19 at 09:00 Gabapentin (Neurontin) 600 mg DAILY PO Last administered on 06/23/19 08:34; Start 06/20/19 at 10:00 Lactobacillus Rhamnosus (Culturelle) 1 cap BID PO Last administered on 06/23/19 08:33; Start 06/20/19 at 09:00 Cetirizine HCl (ZyrTEC) 10 mg DAILY PO Last administered on 06/23/19 08:35; Start 06/20/19 at 09:00 Vitamin B Complex (Eloy B) 1 tab DAILY PO Last administered on 06/23/19 08:34; Start 06/20/19 at 09:00 Warfarin Sodium (Coumadin Per Pharmacy) 1 each PRN DAILY PRN [facility] SEE COMMENTS Last administered on 06/22/19at 14:12; Start 06/20/19 at 09:15 Sodium Chloride (Normal Saline Flush) 3 ml QSHIFT PRN IV AFTER MEDS AND BLOOD DRAWS; Start 06/20/19 at 12:30 Ondansetron HCl (Zofran) 4 mg PRN Q4HRS PRN IV NAUSEA/VOMITING; Start 06/20/19 at 12:30 Acetaminophen (Tylenol) 650 mg PRN Q4HRS PRN PO TEMP OVER 100.4F OR MILD PAIN; Start 06/20/19 at 12:30 Al Hydroxide/Mg Hydroxide (Mylanta Plus Xs) 30 ml PRN DAILY PRN PO HEARTBURN / GAS; Start 06/20/19 at 12:30 Clonidine HCl (Catapres) 0.1 mg PRN Q6HRS PRN PO SBP>160 OR DBP>90; Start 06/20/19 at 12:30 Sodium Monofluorophosphate (Fleet Adult) 133 ml PRN DAILY PRN [facility] CONSTIPATION; Start 06/20/19 at 12:30; Stop 06/21/19 at 13:33; Status DC Docusate Sodium (Colace) 100 mg PRN BID PRN PO CONSTIPATION; Start 06/20/19 at 12:30 Albuterol Sulfate (Ventolin Neb Soln) 2.5 mg PRN Q4HRS PRN NEB SHORTNESS OF BREATH; Start 06/20/19 at 12:30 Guaifenesin (Robitussin) 200 mg PRN Q4HRS PRN PO COUGH; Start 06/20/19 at 12:30 Lorazepam (Ativan) 0.5 mg PRN Q4HRS PRN PO ANXIETY / AGITATION; Start 06/20/19 at 12:30 Ceftriaxone Sodium (Rocephin) 1 gm Q24H IVP Last administered on 06/22/19at 19:18; Start 06/20/19 at 20:00 Aspirin (Children'S Aspirin) 81 mg DAILY PO Last administered on 06/23/19at 08:42; Start 06/20/19 at 15:00 Methadone HCl (Dolophine) 30 mg TID PO Last administered on 06/23/19at 08:36; Start 06/20/19 at 15:00 Dicyclomine HCl (Bentyl) 10 mg PRN 1X PRN PO recurrence of crampy abd pain; Start 06/20/19 at 17:45 Sodium Monofluorophosphate (Fleet Adult) 133 ml DAILY PRN [facility] CONSTIPATION; Start 06/21/19 at 12:00; Status Cancel Sodium Monofluorophosphate (Fleet Adult) 133 ml 1X ONCE [facility] ; Start 06/21/19 at 12:00; Stop 06/21/19 at 12:01; Status DC Famotidine (Pepcid Vial) 20 mg QHS IVP ; Start 06/22/19 at 21:00; Stop 06/22/19 at 15:28; Status DC Darbepoetin Koffi (ARANESP for NON-DIALYSIS PTS) 60 mcg 1X ONCE SQ Last administered on 06/22/19at 19:18; Start 06/22/19 at 21:00; Stop 06/22/19 at 21:01; Status DC Famotidine (Pepcid) 20 mg QHS PO Last administered on 06/23/19at 00:44; Start 06/22/19 at 21:00 Active Scripts Active Reported Vitamin D3 (Cholecalciferol (Vitamin D3)) 1,000 Unit Tablet 1 Tab PO DAILY Vitamin C (Ascorbic Acid) 500 Mg Capsule 500 Mg PO DAILY Vitamin B Complex 1 Each Capsule 1 Each PO DAILY Sinemet 25-100 Mg Tablet (Carbidopa/Levodopa) 1 Each Tablet 1 Tab PO QID Probiotic (Lactobacillus Combo No.11) 1 Each Cap.sprink 1 Each PO DAILY Potassium Chloride 10 Meq Tab.sr.24h 10 Meq PO DAILY Methadone Hcl 10 Mg Tablet 30 Mg PO TID Loratadine 10 Mg Tablet 1 Tab PO DAILY Levothyroxine Sodium 25 Mcg Tablet 1 Tab PO DAILY Lasix (Furosemide) 40 Mg Tablet 40 Mg PO BID Gabapentin 600 Mg Tablet 600 Mg PO QID Flomax (Tamsulosin Hcl) 0.4 Mg Cap.er.24h 1 Cap PO DAILY Fenofibrate (Fenofibrate,Micronized) 134 Mg Capsule 1 Cap PO DAILY Diltiazem 24HR Cd (Diltiazem Hcl) 120 Mg Cap.er.24h 1 Cap PO DAILY Coumadin (Warfarin Sodium) 7.5 Mg Tablet 1 Tab PO DAILY Coreg (Carvedilol) 25 Mg Tablet 25 Mg PO BIDWMEALS Citalopram Hbr (Citalopram Hydrobromide) 20 Mg Tablet 1 Tab PO DAILY Calcitriol 0.25 Mcg Capsule 1 Cap PO DAILY Aspirin 81 Mg Tab.chew 1 Tab PO DAILY Norvasc (Amlodipine Besylate) 5 Mg Tablet 5 Mg PO DAILY Vital Signs Vital Signs Date Time Temp Pulse Resp B/P (MAP) Pulse Ox O2 Delivery O2 Flow Rate FiO2 06/23/19 11:28 98.4 54 18 139/61 (87) 95 Nasal Cannula 2.0 98.4 Labs Laboratory Tests Test 06/21/19 14:30 06/22/19 04:00 06/23/19 04:41 Prothrombin Time 21.7 SEC (11.7-14.0) 23.7 SEC (11.7-14.0) 26.1 SEC (11.7-14.0) Prothromb Time International Ratio 1.9 (0.8-1.1) 2.1 (0.8-1.1) 2.4 (0.8-1.1) White Blood Count 12.3 x10^3/uL (4.0-11.0) 10.7 x10^3/uL (4.0-11.0) Red Blood Count 3.42 x10^6/uL (4.30-5.70) 3.68 x10^6/uL (4.30-5.70) Hemoglobin 9.5 g/dL (13.0-17.5) 10.2 g/dL (13.0-17.5) Hematocrit 29.1 % (39.0-53.0) 31.3 % (39.0-53.0) Mean Corpuscular Volume 85 fL (79-100) 85 fL (79-100) Mean Corpuscular Hemoglobin 28 pg (25-35) 28 pg (25-35) Mean Corpuscular Hemoglobin Concent 33 g/dL (31-37) 33 g/dL (31-37) Red Cell Distribution Width 18.0 % (11.5-14.5) 18.2 % (11.5-14.5) Platelet Count 207 x10^3/uL (140-400) 241 x10^3/uL (140-400) Neutrophils (%) (Auto) 79 % (31-73) 74 % (31-73) Lymphocytes (%) (Auto) 9 % (24-48) 12 % (24-48) Monocytes (%) (Auto) 10 % (0-9) 8 % (0-9) Eosinophils (%) (Auto) 3 % (0-3) 5 % (0-3) Basophils (%) (Auto) 0 % (0-3) 1 % (0-3) Neutrophils # (Auto) 9.7 x10^3/uL (1.8-7.7) 7.9 x10^3/uL (1.8-7.7) Lymphocytes # (Auto) 1.1 x10^3/uL (1.0-4.8) 1.3 x10^3/uL (1.0-4.8) Monocytes # (Auto) 1.2 x10^3/uL (0.0-1.1) 0.9 x10^3/uL (0.0-1.1) Eosinophils # (Auto) 0.3 x10^3/uL (0.0-0.7) 0.5 x10^3/uL (0.0-0.7) Basophils # (Auto) 0.0 x10^3/uL (0.0-0.2) 0.1 x10^3/uL (0.0-0.2) Sodium Level 145 mmol/L (136-145) 146 mmol/L (136-145) Potassium Level 3.6 mmol/L (3.5-5.1) 3.6 mmol/L (3.5-5.1) Chloride Level 106 mmol/L (98-107) 106 mmol/L (98-107) Carbon Dioxide Level 30 mmol/L (21-32) 31 mmol/L (21-32) Anion Gap 9 (6-14) 9 (6-14) Blood Urea Nitrogen 49 mg/dL (8-26) 46 mg/dL (8-26) Creatinine 3.0 mg/dL (0.7-1.3) 2.9 mg/dL (0.7-1.3) Estimated GFR (Cockcroft-Gault) 20.6 21.4 Glucose Level 93 mg/dL (70-99) 93 mg/dL (70-99) Calcium Level 9.1 mg/dL (8.5-10.1) 9.3 mg/dL (8.5-10.1) Phosphorus Level 4.5 mg/dL (2.6-4.7) 4.3 mg/dL (2.6-4.7) Albumin 2.7 g/dL (3.4-5.0) 2.7 g/dL (3.4-5.0) Laboratory Tests Test 06/23/19 04:41 White Blood Count 10.7 x10^3/uL (4.0-11.0) Red Blood Count 3.68 x10^6/uL (4.30-5.70) Hemoglobin 10.2 g/dL (13.0-17.5) Hematocrit 31.3 % (39.0-53.0) Mean Corpuscular Volume 85 fL (79-100) Mean Corpuscular Hemoglobin 28 pg (25-35) Mean Corpuscular Hemoglobin Concent 33 g/dL (31-37) Red Cell Distribution Width 18.2 % (11.5-14.5) Platelet Count 241 x10^3/uL (140-400) Neutrophils (%) (Auto) 74 % (31-73) Lymphocytes (%) (Auto) 12 % (24-48) Monocytes (%) (Auto) 8 % (0-9) Eosinophils (%) (Auto) 5 % (0-3) Basophils (%) (Auto) 1 % (0-3) Neutrophils # (Auto) 7.9 x10^3/uL (1.8-7.7) Lymphocytes # (Auto) 1.3 x10^3/uL (1.0-4.8) Monocytes # (Auto) 0.9 x10^3/uL (0.0-1.1) Eosinophils # (Auto) 0.5 x10^3/uL (0.0-0.7) Basophils # (Auto) 0.1 x10^3/uL (0.0-0.2) Prothrombin Time 26.1 SEC (11.7-14.0) Prothromb Time International Ratio 2.4 (0.8-1.1) Sodium Level 146 mmol/L (136-145) Potassium Level 3.6 mmol/L (3.5-5.1) Chloride Level 106 mmol/L (98-107) Carbon Dioxide Level 31 mmol/L (21-32) Anion Gap 9 (6-14) Blood Urea Nitrogen 46 mg/dL (8-26) Creatinine 2.9 mg/dL (0.7-1.3) Estimated GFR (Cockcroft-Gault) 21.4 Glucose Level 93 mg/dL (70-99) Calcium Level 9.3 mg/dL (8.5-10.1) Phosphorus Level 4.3 mg/dL (2.6-4.7) Albumin 2.7 g/dL (3.4-5.0) Allergies Allergies Coded Allergies Type Severity Reaction Last Updated Verified ibuprofen Allergy Intermediate 06/20/19 Yes Disposition/Orders: Other (D/C TO SNF) Patient Instructions D/C PLANNING 34 MIN JOHANA SIMMONS MD Jun 23, 2019 11:41
[2019-06-23] MEDS ORDERED: LORA0.5T PO (11:46)
[2019-06-23] MEDS ORDERED: CLON0.1T12 PO (11:46)
[2019-06-23] MEDS ORDERED: DICY10CA3 PO (11:46)
[2019-06-23] MEDS ORDERED: DOCU-109 PO (11:46)
[2019-06-23] MEDS ORDERED: FAMO20TA5 PO (11:46)
[2019-06-23] MEDS ORDERED: AMOX250S20 PO (11:46)
[2019-06-23] MEDS ORDERED: ALBU2.5V8 NEB (11:46)
[2019-06-23] MEDS ORDERED: ACET325T9 PO (11:46)
--- NOTE | 2019-06-23 11:51 | SNU/HH DC ---
DISCHARGE ORDERS DISCHARGE INFORMATION: FINAL DIAGNOSIS Problems Medical Problems: (1) Frequent falls Status: Acute (2) Leukocytosis Status: Acute CONDITION ON DISCHARGE: Stable CODE STATUS: Code Status: Full ASSISTED: SNF STAY <30 DAYS: Yes HOSPICE: HOSPICE: No HOSPICE EVAL & TREAT: No LTAC: ADMIT TO LTAC: No POST DISCHARGE ORDERS: ACTIVITY ORDERS: Activity as tolerated WEIGHT BEARING STATUS: Partial weight bearing DIET AFTER DISCHARGE: Cardiac WOUND/INCISION CARE: Other, see below (SELF CATHS) CHECKS AFTER DISCHARGE: CHECKS AFTER DISCHARGE: Check blood press - daily TREATMENT/EQUIPMENT ORDERS: ADAPTIVE EQUIPMENT NEEDED: Front wheeled walker, Wheelchair RESPIRATORY EQUIPMENT NEEDED: Oxygen Physical Therapy For: Evalulation/Treatment Occupational Therapy For: Evaluation/Treatment Speech Language Pathology For: Evaluation/Treatment DISCHARGE MEDICATIONS: Home Meds Active Scripts Amoxicillin/Potassium Clav (AUGMENTIN 250-62.5 MG/5 ML) 250 Mg/5 Ml Susp.recon, 5 ML PO BID for UTI for 10 Days, #100 ML Prov:JOHANA SIMMONS MD 06/23/19 Famotidine (FAMOTIDINE) 20 Mg Tablet, 20 MG PO QHS for STOMACH ACID for 30 Days, #30 TAB Prov:JOHANA SIMMONS MD 06/23/19 Docusate Sodium (COLACE) 100 Mg Capsule, 100 MG PO PRN BID PRN for CONSTIPATION for 30 Days, #30 CAP Prov:JOHANA SIMMONS MD 06/23/19 Lorazepam (LORAZEPAM) 0.5 Mg Tablet, 0.5 MG PO PRN Q4HRS PRN for ANXIETY / AGITATION for 14 Days, #30 TAB Prov:JOHANA SIMMONS MD 06/23/19 Acetaminophen (TYLENOL) 325 Mg Tablet, 650 MG PO PRN Q4HRS PRN for TEMP OVER 100.4F OR MILD PAIN for 30 Days, #60 TAB Prov:JOHANA SIMMONS MD 06/23/19 Clonidine Hcl (CATAPRES) 0.1 Mg Tablet, 0.1 MG PO PRN Q6HRS PRN for SBP>160 OR DBP>90 for 14 Days, #30 TAB Prov:JOHANA SIMMONS MD 06/23/19 Albuterol Sulfate (Proair Hfa) 8.5 Gm Hfa.aer.ad, 2.5 MG NEB PRN Q4HRS PRN for SHORTNESS OF BREATH for 14 Days, #1 INHALER Prov:JOHANA SIMMONS MD 06/23/19 Dicyclomine Hcl (DICYCLOMINE HCL) 10 Mg Capsule, 10 MG PO PRN 1X PRN for recurrence of crampy abd pain for 14 Days, #30 CAP Prov:JOHANA SIMMONS MD 06/23/19 Reported Medications Cholecalciferol (Vitamin D3) (VITAMIN D3) 1,000 Unit Tablet, 1 TAB PO DAILY for supplement, #30 TAB 5 Refills 06/20/19 Ascorbic Acid (Vitamin C) 500 Mg Capsule, 500 MG PO DAILY for Supplement, CAP 06/20/19 Vitamin B Complex (VITAMIN B COMPLEX) 1 Each Capsule, 1 EACH PO DAILY for Supplement, CAP 06/20/19 Carbidopa/Levodopa (SINEMET 25-100 MG TABLET) 1 Each Tablet, 1 TAB PO QID for Parkinson, TAB 06/20/19 Lactobacillus Combo No.11 (PROBIOTIC) 1 Each Cap.sprink, 1 EACH PO DAILY for supplement, CAP 06/20/19 Potassium Chloride (POTASSIUM CHLORIDE) 10 Meq Tab.sr.24h, 10 MEQ PO DAILY for Supplement, TAB.SR 06/20/19 Methadone Hcl (METHADONE HCL) 10 Mg Tablet, 30 MG PO TID for pain, TAB 06/20/19 Loratadine (LORATADINE) 10 Mg Tablet, 1 TAB PO DAILY for Allergy, #30 TAB 5 Refills 06/20/19 Levothyroxine Sodium (LEVOTHYROXINE SODIUM) 25 Mcg Tablet, 1 TAB PO DAILY for Hypothyroidism, #30 TAB 5 Refills 06/20/19 Furosemide (LASIX) 40 Mg Tablet, 40 MG PO BID for Edema/swelling, TAB 06/20/19 Gabapentin (GABAPENTIN) 600 Mg Tablet, 600 MG PO QID for NEUROGENIC PAIN, TAB 06/20/19 Tamsulosin Hcl (FLOMAX) 0.4 Mg Cap.er.24h, 1 CAP PO DAILY for Prostate, #30 CAP 11 Refills 06/20/19 Fenofibrate,Micronized (FENOFIBRATE) 134 Mg Capsule, 1 CAP PO DAILY for Cholesterol, #30 CAP 5 Refills 06/20/19 Diltiazem Hcl (DILTIAZEM 24HR CD) 120 Mg Cap.er.24h, 1 CAP PO DAILY for Hypertension, #90 CAP 1 Refill 06/20/19 Warfarin Sodium (COUMADIN) 7.5 Mg Tablet, 1 TAB PO DAILY for Afib, #30 TAB 06/20/19 Carvedilol (COREG) 25 Mg Tablet, 25 MG PO BIDWMEALS for CARDIAC, TAB 06/20/19 Citalopram Hydrobromide (CITALOPRAM HBR) 20 Mg Tablet, 1 TAB PO DAILY for depression, #30 TAB 5 Refills 06/20/19 Calcitriol (CALCITRIOL) 0.25 Mcg Capsule, 1 CAP PO DAILY for Supplement, #30 CAP 5 Refills 06/20/19 Aspirin (ASPIRIN) 81 Mg Tab.chew, 1 TAB PO DAILY for blood thinner, #30 TAB 3 Refills 06/20/19 Amlodipine Besylate (NORVASC) 5 Mg Tablet, 5 MG PO DAILY for Hypertension, TAB 06/20/19 JOHANA SIMMONS MD Jun 23, 2019 11:50
--- NOTE | 2019-06-23 14:28 | PDOC ---
SUBJECTIVE ROS alert , sitting up in chair , No family at bedside OBJECTIVE Vital Signs Vital Signs Date Time Temp Pulse Resp B/P (MAP) Pulse Ox O2 Delivery O2 Flow Rate FiO2 06/23/19 11:28 98.4 54 18 139/61 (87) 95 Nasal Cannula 2.0 98.4 I & 0 Intake and Output 06/23/19 07:00 Intake Total 1260 ml Output Total 2425 ml Balance -1165 ml Intake Oral 1260 ml Output Urine Total 2425 ml # Bowel Movements 10 PHYSICAL EXAM Physical Exam General: No acute distress HEENT:OM moist, O2 by NC Neck Supple Lungs: Clear to auscultation, Non labored Heart: RRR, No Rub Abdomen: Normal bowel sounds, Soft Extremities: No edema Neuro: Per neurologist exam Skin No rash Pelaez in place, No CVA or SP tenderness DIAGNOSIS/ASSESSMENT Assessment & Plan RUSSELL - on CKD stage 4 - Pre-renal Baseline Cr 2.7 -3 , stable renal function E-Lytes stable, Supportive care, Strict I/O, Monitor, Avoid Nephrotoxins CKD stage 4- Obtained and Reviewed records from our office Follows with Dr. Posadas, Baseline Cr 2.7-3.0 Has AV access in Lt UE , No indication for HD Hypernatremia- Mild Increase PO fluid intake ? Urinary retention- Straight cath at home 4 times/day Urology consulted - Neurogenic Bladder, CTscan- Fullness of the right pelvicalyceal system is present. Significant left renal atrophy is present. Left renal lower pole cysts are present. Circumferential wall thickening urinary bladder is present. Gas is present within the inner bladder. Significant surrounding stranding of the urinary bladder is evident. Constipation- Fleet's enema is CI in CKD Dw RN , HTN- BP stable Anemia- WALLACE per protocol for Hgb < 10 COMMENT/RELEVANT DATA Meds Current Medications Medications (Trade) Dose Ordered Sig/Derick Start Time Stop Time Status Last Admin Dose Admin Acetaminophen (Tylenol) 650 mg PRN Q4HRS PRN 06/20/19 12:30 Al Hydroxide/Mg Hydroxide (Mylanta Plus Xs) 30 ml PRN DAILY PRN 06/20/19 12:30 Albuterol Sulfate (Ventolin Neb Soln) 2.5 mg PRN Q4HRS PRN 06/20/19 12:30 Amlodipine Besylate (Norvasc) 5 mg DAILY 06/20/19 09:00 06/23/19 08:34 5 MG Ascorbic Acid (Vitamin C) 500 mg DAILY 06/20/19 09:00 06/23/19 08:35 500 MG Aspirin (Children'S Aspirin) 81 mg DAILY 06/20/19 15:00 06/23/19 08:42 81 MG Calcitriol (Rocaltrol) 0.25 mcg DAILY 06/20/19 09:00 06/23/19 08:33 0.25 MCG Carbidopa/Levodopa (Sinemet 25/100) 1 tab QID 06/20/19 09:00 06/23/19 13:34 1 TAB Carvedilol (Coreg) 25 mg BIDWMEALS 06/20/19 09:00 06/23/19 08:36 25 MG Cefdinir (Omnicef) 300 mg BID 06/23/19 21:00 Ceftriaxone Sodium (Rocephin) 1 gm Q24H 06/20/19 20:00 06/23/19 14:00 DC 06/22/19 19:18 1 GM Cetirizine HCl (ZyrTEC) 10 mg DAILY 06/20/19 09:00 06/23/19 08:35 10 MG Citalopram Hydrobromide (CeleXA) 20 mg DAILY 06/20/19 09:00 06/23/19 08:34 20 MG Clonidine HCl (Catapres) 0.1 mg PRN Q6HRS PRN 06/20/19 12:30 Darbepoetin Koffi (ARANESP for NON-DIALYSIS PTS) 60 mcg 1X ONCE 06/22/19 21:00 06/22/19 21:01 DC 06/22/19 19:18 60 MCG Dicyclomine HCl (Bentyl) 10 mg PRN 1X PRN 06/20/19 17:45 Diltiazem HCl (Cardizem 24hr Cd) 120 mg DAILY 06/20/19 09:00 06/22/19 10:56 120 MG Docusate Sodium (Colace) 100 mg PRN BID PRN 06/20/19 12:30 Famotidine (Pepcid Vial) 20 mg QHS 06/22/19 21:00 06/22/19 15:28 DC Famotidine (Pepcid) 20 mg QHS 06/22/19 21:00 06/23/19 00:44 20 MG Fenofibrate (Lofibra) 134 mg DAILY 06/20/19 09:00 06/23/19 08:33 134 MG Furosemide (Lasix) 40 mg BID92 06/20/19 09:00 06/23/19 13:33 40 MG Gabapentin (Neurontin) 600 mg DAILY 06/20/19 10:00 06/23/19 08:34 600 MG Guaifenesin (Robitussin) 200 mg PRN Q4HRS PRN 06/20/19 12:30 Lactobacillus Rhamnosus (Culturelle) 1 cap BID 06/20/19 09:00 06/23/19 08:33 1 CAP Levothyroxine Sodium (Synthroid) 25 mcg DAILY06 06/20/19 09:00 06/23/19 06:29 25 MCG Lorazepam (Ativan) 0.5 mg PRN Q4HRS PRN 06/20/19 12:30 Methadone HCl (Dolophine) 30 mg TID 06/20/19 15:00 06/23/19 13:34 30 MG Ondansetron HCl (Zofran) 4 mg PRN Q4HRS PRN 06/20/19 12:30 Pharmacy Consult (C.diff Med Screen By Rx) 1 each 1X ONCE 06/19/19 23:00 06/19/19 23:01 DC 06/19/19 23:00 1 EACH Potassium Chloride (Klor-Con) 10 meq DAILY 06/20/19 09:00 06/23/19 08:34 10 MEQ Sodium Monofluorophosphate (Fleet Adult) 133 ml 1X ONCE 06/21/19 12:00 06/21/19 12:01 DC Sodium Chloride (Normal Saline Flush) 3 ml QSHIFT PRN 06/20/19 12:30 Tamsulosin HCl (Flomax) 0.4 mg DAILY 06/20/19 09:00 06/23/19 08:33 0.4 MG Vitamin B Complex (Eloy B) 1 tab DAILY 06/20/19 09:00 06/23/19 08:34 1 TAB Vitamin D (Vitamin D3) 1,000 unit DAILY 06/20/19 09:00 06/23/19 08:33 1,000 UNIT Warfarin Sodium (Coumadin Per Pharmacy) 1 each PRN DAILY PRN 06/20/19 09:15 06/22/19 14:12 1 EACH Warfarin Sodium (Coumadin) 7.5 mg DAILY16 06/20/19 16:00 06/22/19 15:24 7.5 MG Lab Laboratory Tests Test 06/23/19 04:41 White Blood Count 10.7 x10^3/uL (4.0-11.0) Red Blood Count 3.68 x10^6/uL (4.30-5.70) Hemoglobin 10.2 g/dL (13.0-17.5) Hematocrit 31.3 % (39.0-53.0) Mean Corpuscular Volume 85 fL (79-100) Mean Corpuscular Hemoglobin 28 pg (25-35) Mean Corpuscular Hemoglobin Concent 33 g/dL (31-37) Red Cell Distribution Width 18.2 % (11.5-14.5) Platelet Count 241 x10^3/uL (140-400) Neutrophils (%) (Auto) 74 % (31-73) Lymphocytes (%) (Auto) 12 % (24-48) Monocytes (%) (Auto) 8 % (0-9) Eosinophils (%) (Auto) 5 % (0-3) Basophils (%) (Auto) 1 % (0-3) Neutrophils # (Auto) 7.9 x10^3/uL (1.8-7.7) Lymphocytes # (Auto) 1.3 x10^3/uL (1.0-4.8) Monocytes # (Auto) 0.9 x10^3/uL (0.0-1.1) Eosinophils # (Auto) 0.5 x10^3/uL (0.0-0.7) Basophils # (Auto) 0.1 x10^3/uL (0.0-0.2) Prothrombin Time 26.1 SEC (11.7-14.0) Prothromb Time International Ratio 2.4 (0.8-1.1) Sodium Level 146 mmol/L (136-145) Potassium Level 3.6 mmol/L (3.5-5.1) Chloride Level 106 mmol/L (98-107) Carbon Dioxide Level 31 mmol/L (21-32) Anion Gap 9 (6-14) Blood Urea Nitrogen 46 mg/dL (8-26) Creatinine 2.9 mg/dL (0.7-1.3) Estimated GFR (Cockcroft-Gault) 21.4 Glucose Level 93 mg/dL (70-99) Calcium Level 9.3 mg/dL (8.5-10.1) Phosphorus Level 4.3 mg/dL (2.6-4.7) Albumin 2.7 g/dL (3.4-5.0) Results All relevant outside records, renal labs, imaging studies, telemetry/EKG's were reviewed. SHANTEL CLAY MD Jun 23, 2019 14:28
--- NOTE | 2019-06-23 14:44 | NUR ---
SW following pt. Pt has been accepted at [facility]. PP notified re BPCI status. SW phoned and faxed orders to PP. Pt will transport via central transport at 1430. Pt's aware of plans and agreeable. Discussed with RN/Packet on chart.
--- NOTE | 2019-06-23 15:02 | NUR ---
Discharge Note: PT DISCHARGED TO [facility]. PT LEFT FACILITY VIA [facility] STAFF WITH AT 1500. PT STABLE AND ALERT UPON DISCHARGE. PT PIV REMOVED FROM [place] WITHOUT COMPLICATIONS, BANDAGE APPLIED. REPORT CALLED TO FACILITY RN ELLIE AT 1351, DISCHARGE INSTRUCTIONS, DISCHARGE MEDICATIONS, AND FOLLOW-UP INSTRUCTIONS GIVEN TO FACILITY, NO CONCERNS VOICED AT THIS TIME. PT DISCHARGED WITH INDWELLING BREEN CATH IN PLACE AND SET TO REMOVE WHEN PT IS ABLE TO STRAIGHT CATH HIMSELF. [facility] [address] [place] [address] Discharge instructions and discharge home medications reviewed with Patient and a copy given. All questions have been answered and understanding verbalized.
--- NOTE | 2019-06-23 16:39 | PDOC ---
PROGRESS NOTES Assessment Assessment PD. Falls. Generalized weakness. Chronic urinary retention on Pelaez. HTN. Obesity. 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 Brain atrophy, moderate. Severe C-spine degenerative disease. Dementia features. RECOMMENDATIONS/PLAN: Continue Sinemet 25/100 mg qid. He has been on Coumadin. Continue ASA 81 mg daily. Treat medical diseases. OT/PT. Discussed with his at bedside on 06/23/19. HISTORY OF THE PRESENT ILLNESS: This is a 73 -year-old male patient with above medical and neurological diseases was brought by EMS with complaining of weakness and frequent falls. Patient stated he had gradually increasing generalized weakness for the last couple days and had 3 falls since yesterday, but the patient's stated he did not fall and was not able to get up from the toilet stool or from the floor and she had to call furnace clerk to help her to get him out of the floor. Patient denies new focal neuro deficit, fever and chills, chest pain, nausea and vomiting. Patient had history of left knee replacement several weeks ago at [facility]. He stated on 06/23/19 that he was doing fine. Past Medical History CVA, Hypertension, PARKINSON'S PAST SURGERY HISTORY: Coronary Bypass Surgery, left knee surgery. Family History High Cholesterol, Hypertension Allergies Coded Allergies: ibuprofen (Verified Allergy, Intermediate, 06/20/19) MEDICATIONS: Refer to MAR SOCIAL HISTORY: Lives at home. Denies recent smoking, drinking, and illicit drug use. REVIEW OF SYSTEMS: Constitutional: No malnutrition, weight loss, cachexia. Head: No traumatic brain or head injury. Skin: No edema, or rash. Ear: No infection. Eyes: No vision loss or color blindness. Nose: No bleeding or purulent discharges. Hearing: Hearing decrease. Neck: No injury. Cardiac: HTN. Pulmonary: No COPD. GI: No GI ulcer, GI bleeding. Urinary/genital: Incontinence, urinary retention. Endocrinologic: No cousin face, craniofacial dysmorphism. Skeletomuscular: Generalized weakness. Neurological: see HP. Psychiatric: Denies drug use/abuse. Otherwise, not [id number] review of systems. PHYSICAL EXAMINATION: General appearance is in no acute distress. HEENT: Normocephalic and nontraumatic. Eyes, nose, ears, and throat are unremarkable. Neck is supple. No lymphadenopathy. No crepitus. Cardiovascular: S1, S2, regular rate and rhythm. Pulmonary: Relative clear to auscultation bilaterally. Abdomen: Bowel sounds are positive. Abdomen is soft, nontender, and nondistended. Extremities: No rash, lesions, or edema. No restriction of range of motion NEUROLOGICAL EXAMINATION: Awake. Partially oriented to time, place and person. PERRL. EOMI. CN: no focal findings. Muscle tone: fluctuated. Muscle strength: 4+ DTR: 1+ Plantar reflex: Flexor response bilaterally Gait: not examined in chair. Sensory exam: no abnormal findings. No acute cerebellar signs elicited. F-T-N test fine. Objective Objective Vital Signs Date Time Temp Pulse Resp B/P (MAP) Pulse Ox O2 Delivery O2 Flow Rate FiO2 06/23/19 11:28 98.4 54 18 139/61 (87) 95 Nasal Cannula 2.0 98.4 Intake and Output 06/23/19 07:00 Intake Total 1260 ml Output Total 2425 ml Balance -1165 ml Intake Oral 1260 ml Output Urine Total 2425 ml # Bowel Movements 10 Vitals Signs Vitals VS - Last 72 Hours, by Label Date Time Temp Pulse Resp B/P (MAP) Pulse Ox O2 Delivery O2 Flow Rate FiO2 06/23/19 11:28 98.4 54 18 139/61 (87) 95 Nasal Cannula 2.0 98.4 06/23/19 09:00 49 06/23/19 08:36 58 171/61 06/23/19 08:34 58 171/61 06/23/19 08:00 Room Air 06/23/19 07:00 98.5 58 18 171/61 (97) 96 Nasal Cannula 2.0 98.5 06/23/19 03:40 98.3 63 17 167/77 (107) 95 Nasal Cannula 2.0 98.3 06/22/19 23:40 98.5 60 17 174/75 (108) 92 Nasal Cannula 2.0 98.5 06/22/19 19:45 98.7 61 17 180/70 (106) 91 Room Air 98.7 06/22/19 17:00 57 146/65 06/22/19 15:15 98.3 57 20 146/65 (92) 98 Nasal Cannula 2.0 98.3 06/22/19 11:06 98.7 64 18 174/73 (106) 97 Nasal Cannula 2.0 98.7 06/22/19 10:58 60 161/69 06/22/19 10:56 60 161/06/22/19 10:55 60 161/06/22/19 08:00 Nasal Cannula 2.0 06/22/19 07:15 98.9 60 18 (99) 96 Nasal Cannula 2.0 98.9 Laboratory Laboratory Laboratory Tests Test 06/23/19 04:41 White Blood Count 10.7 x10^3/uL (4.0-11.0) Red Blood Count 3.68 x10^6/uL (4.30-5.70) Hemoglobin 10.2 g/dL (13.0-17.5) Hematocrit 31.3 % (39.0-53.0) Mean Corpuscular Volume 85 fL (79-100) Mean Corpuscular Hemoglobin 28 pg (25-35) Mean Corpuscular Hemoglobin Concent 33 g/dL (31-37) Red Cell Distribution Width 18.2 % (11.5-14.5) Platelet Count 241 x10^3/uL (140-400) Neutrophils (%) (Auto) 74 % (31-73) Lymphocytes (%) (Auto) 12 % (24-48) Monocytes (%) (Auto) 8 % (0-9) Eosinophils (%) (Auto) 5 % (0-3) Basophils (%) (Auto) 1 % (0-3) Neutrophils # (Auto) 7.9 x10^3/uL (1.8-7.7) Lymphocytes # (Auto) 1.3 x10^3/uL (1.0-4.8) Monocytes # (Auto) 0.9 x10^3/uL (0.0-1.1) Eosinophils # (Auto) 0.5 x10^3/uL (0.0-0.7) Basophils # (Auto) 0.1 x10^3/uL (0.0-0.2) Prothrombin Time 26.1 SEC (11.7-14.0) Prothromb Time International Ratio 2.4 (0.8-1.1) Sodium Level 146 mmol/L (136-145) Potassium Level 3.6 mmol/L (3.5-5.1) Chloride Level 106 mmol/L (98-107) Carbon Dioxide Level 31 mmol/L (21-32) Anion Gap 9 (6-14) Blood Urea Nitrogen 46 mg/dL (8-26) Creatinine 2.9 mg/dL (0.7-1.3) Estimated GFR (Cockcroft-Gault) 21.4 Glucose Level 93 mg/dL (70-99) Calcium Level 9.3 mg/dL (8.5-10.1) Phosphorus Level 4.3 mg/dL (2.6-4.7) Albumin 2.7 g/dL (3.4-5.0) Medication Medications Current Medications Cefdinir (Omnicef) 300 mg BID PO ; Start 06/23/19 at 21:00; Stop 06/23/19 at 15:06; Status DC Darbepoetin Koffi (ARANESP for NON-DIALYSIS PTS) 60 mcg 1X ONCE SQ Last administered on 06/22/19at 19:18; Start 06/22/19 at 21:00; Stop 06/22/19 at 21:01; Status DC Famotidine (Pepcid Vial) 20 mg QHS IVP ; Start 06/22/19 at 21:00; Stop 06/22/19 at 15:28; Status DC Famotidine (Pepcid) 20 mg QHS PO Last administered on 06/23/19at 00:44; Start 06/22/19 at 21:00; Stop 06/23/19 at 15:06; Status DC Comment Review of Relevant I have reviewed the following items piyush (where applicable) has been applied. BRAD MOTLEY MD Jun 23, 2019 16:39
[2019-06-23] MEDS ORDERED: CEFDINIR 300 MG CAPSULE PO SCH (21:00)
== END 2019-06-23 15:06 | DRG 682 ==
LOC: ER 18:03 → 6 SOUTH 19:19
PROVIDERS: ADMIT Internal Medicine; ATTEND Internal Medicine
DX: N17.9 Acute kidney failure, unspecified (principal); G93.41 Metabolic encephalopathy; N39.0 Urinary tract infection, site not specified; I12.0 Hypertensive chronic kidney disease with stage 5 chronic kidney disease or end stage renal disease; J98.11 Atelectasis; N18.5 Chronic kidney disease, stage 5; G20 Parkinson's disease; E66.01 Morbid (severe) obesity due to excess calories; D64.9 Anemia, unspecified; E27.8 Other specified disorders of adrenal gland; F02.80 Dementia in other diseases classified elsewhere, unspecified severity, without behavioral disturbance, psychotic disturbance, mood disturbance, and anxiety; F32.9 Major depressive disorder, single episode, unspecified; G31.9 Degenerative disease of nervous system, unspecified; H91.90 Unspecified hearing loss, unspecified ear; I25.10 Atherosclerotic heart disease of native coronary artery without angina pectoris; M40.50 Lordosis, unspecified, site unspecified; R29.6 Repeated falls; Z79.82 Long term (current) use of aspirin; Z82.49 Family history of ischemic heart disease and other diseases of the circulatory system; Z86.73 Personal history of transient ischemic attack (TIA), and cerebral infarction without residual deficits; Z96.652 Presence of left artificial knee joint; Z95.1 Presence of aortocoronary bypass graft; M19.90 Unspecified osteoarthritis, unspecified site; Z88.8 Allergy status to other drugs, medicaments and biological substances; Z68.30 Body mass index [BMI] 30.0-30.9, adult; Z79.899 Other long term (current) drug therapy
CPT/HCPCS: 36415; 70450; 71045; 72125; 72170; 74176; 80053; 80069; 81001; 82550; 82607; 83605; 83735; 83880; 84100; 84443; 84484; 85007; 85025; 85610; 87086; 87493; 93005; 96374; J0696; J0881; 92526; 92610; 97116; 97530; 97535; 99285-25; G0378

== ENCOUNTER 2019-06-28 20:06 | Inpatient (IN) | payer MEDICARE, OTHER ==
[~2019-06-28] VITALS: Ht 180.3 cm; Wt 85.8 kg
[~2019-06-28 20:06] MED LIST: ACET325T9 PO; ALBU2.5V8 NEB; AMLO5TAB4 PO; AMOX250S20 PO; ASCO500C9 PO; ASPI-630 PO; CALC0.25 PO; CARB1TAB2 PO; CARV25TA PO; CHOL10003 PO; CITA20TA6 PO; CLON0.1T12 PO; DICY10CA3 PO; DILT120C99 PO; DOCU-109 PO; FAMO20TA5 PO; FENO134C PO; FURO-68 PO; GABA600T7 PO; LACT1CAP8 PO; LEVO25TA4 PO; LORA0.5T PO; LORA10TA3 PO; METH10TA2 PO; POTA10TA12 PO; TAMS0.4C97 PO; VITA1CAP PO; WARF7.5T48 PO
[2019-06-28 21:12] LABS: CALCIUM 9.3 mg/dL (8.5-10.1); CREATININE 3.1 mg/dL (0.7-1.3); GFR 19.8; POTASSIUM 3.5 mmol/L (3.5-5.1)
[2019-06-28 21:18] LABS: ALBUMIN/GLOBULIN RATIO 0.7 (1.0-1.7); TOTAL BILIRUBIN 0.4 mg/dL (0.2-1.0); TOTAL PROTEIN 7.2 g/dL (6.4-8.2)
[2019-06-28 21:20] LABS: BASO # 0.1 x10^3/uL (0.0-0.2); BASO % 1 % (0-3); EOS # 0.5 x10^3/uL (0.0-0.7); EOS % 5 % (0-3); HEMATOCRIT 31.1 % (39.0-53.0); HEMOGLOBIN 10.3 g/dL (13.0-17.5); LYMPH # 1.3 x10^3/uL (1.0-4.8); LYMPH % 13 % (24-48); MEAN CORPUSCULAR HEMOGLOBIN 28 pg (25-35); MEAN CORPUSCULAR HGB CONC 33 g/dL (31-37); MEAN CORPUSCULAR VOLUME 84 fL (79-100); MONO # 0.9 x10^3/uL (0.0-1.1); MONO % 9 % (0-9); NEUT # 7.2 x10^3/uL (1.8-7.7); NEUT % 72 % (31-73); PLATELET COUNT 318 x10^3/uL (140-400); RED BLOOD COUNT 3.71 x10^6/uL (4.30-5.70); RED CELL DISTRIBUTION WIDTH 17.6 % (11.5-14.5)
--- NOTE | 2019-06-28 21:54 | PHYS DOC ---
Past Medical History Past Medical History: A-Fib, CVA, Dementia, Hypertension, Other Additional Past Medical Histor: PARKINSON'S, BPH Past Surgical History: Coronary Bypass Surgery, Pacemaker, Other Additional Past Surgical Histo: KNEE Alcohol Use: None Drug Use: None Adult General Chief Complaint Chief Complaint: RECTAL BLEED HPI HPI Patient is a 73-year-old male with multiple medical problems including previous stroke, atrial fibrillation on Coumadin who recently had a left knee replacement. He presents tonight because he had one bloody bowel movement at [facility]. Family states a few years ago he had a similar episode his INR was elevated they gave him medicine to reverse his INR and he ultimately had a stroke. He denies any abdominal pain at this time.[] Review of Systems Review of Systems Constitutional: Denies fever or chills [] Eyes: Denies change in visual acuity, redness, or eye pain [] HENT: Denies nasal congestion or sore throat [] Respiratory: Denies cough or shortness of breath [] Cardiovascular: No additional information not addressed in HPI [] GI: Per history of present illness[] : Denies dysuria or hematuria [] Musculoskeletal: Recent surgery left knee[] Integument: Denies rash or skin lesions [] Neurologic: Denies headache, focal weakness or sensory changes [] Endocrine: Denies polyuria or polydipsia [] All other systems were reviewed and found to be within normal limits, except as documented in this note. Current Medications Current Medications Current Medications Medications (Trade) Dose Ordered Sig/Derick Start Time Stop Time Status Last Admin Dose Admin Ondansetron HCl (Zofran) 4 mg PRN Q8HRS PRN 06/28/19 22:00 06/29/19 21:59 Sodium Chloride 1,000 ml @ 125 mls/hr Q8H 06/28/19 22:00 06/29/19 21:59 Allergies Allergies Allergies Coded Allergies Type Severity Reaction Last Updated Verified ibuprofen Allergy Intermediate 06/20/19 Yes Physical Exam Physical Exam Constitutional: Frail elderly male in no distress[] HENT: Normocephalic, atraumatic, bilateral external ears normal, oropharynx moist, no oral exudates, nose normal. [] Eyes: PERRLA, EOMI, conjunctiva normal, no discharge. [] Neck: Normal range of motion, no tenderness, supple, no stridor. [] Cardiovascular:Heart rate regular rhythm, no murmur [] Lungs & Thorax: Bilateral breath sounds clear to auscultation [] Abdomen: Bowel sounds normal, soft, no tenderness, no masses, no pulsatile masses there was a moderate amount of bright red blood in the patient's brief. [] Skin: Warm, dry, no erythema, no rash. [] Back: No tenderness, no CVA tenderness. [] Extremities: No tenderness, no cyanosis, no clubbing, ROM intact, no edema. [] Neurologic: Awake and alert[] Psychologic: Depressed affect[] Current Patient Data Vital Signs Vital Signs Date Time Temp Pulse Resp B/P (MAP) Pulse Ox O2 Delivery O2 Flow Rate FiO2 06/28/19 21:12 68 167/70 (102) 90 Room Air 06/28/19 20:06 99.2 14 99.2 Lab Values Laboratory Tests Test 06/28/19 20:40 White Blood Count 10.0 x10^3/uL (4.0-11.0) Red Blood Count 3.71 x10^6/uL (4.30-5.70) L Hemoglobin 10.3 g/dL (13.0-17.5) L Hematocrit 31.1 % (39.0-53.0) L Mean Corpuscular Volume 84 fL (79-100) Mean Corpuscular Hemoglobin 28 pg (25-35) Mean Corpuscular Hemoglobin Concent 33 g/dL (31-37) Red Cell Distribution Width 17.6 % (11.5-14.5) H Platelet Count 318 x10^3/uL (140-400) Neutrophils (%) (Auto) 72 % (31-73) Lymphocytes (%) (Auto) 13 % (24-48) L Monocytes (%) (Auto) 9 % (0-9) Eosinophils (%) (Auto) 5 % (0-3) H Basophils (%) (Auto) 1 % (0-3) Neutrophils # (Auto) 7.2 x10^3/uL (1.8-7.7) Lymphocytes # (Auto) 1.3 x10^3/uL (1.0-4.8) Monocytes # (Auto) 0.9 x10^3/uL (0.0-1.1) Eosinophils # (Auto) 0.5 x10^3/uL (0.0-0.7) Basophils # (Auto) 0.1 x10^3/uL (0.0-0.2) Prothrombin Time 28.0 SEC (11.7-14.0) H Prothrombin Time INR 2.6 (0.8-1.1) H Sodium Level 146 mmol/L (136-145) H Potassium Level 3.5 mmol/L (3.5-5.1) Chloride Level 105 mmol/L (98-107) Carbon Dioxide Level 34 mmol/L (21-32) H Anion Gap 7 (6-14) Blood Urea Nitrogen 44 mg/dL (8-26) H Creatinine 3.1 mg/dL (0.7-1.3) H Estimated GFR (Cockcroft-Gault) 19.8 BUN/Creatinine Ratio 14 (6-20) Glucose Level 131 mg/dL (70-99) H Calcium Level 9.3 mg/dL (8.5-10.1) Total Bilirubin 0.4 mg/dL (0.2-1.0) Aspartate Amino Transferase (AST) 23 U/L (15-37) Alanine Aminotransferase (ALT) 8 U/L (16-63) L Alkaline Phosphatase 76 U/L (46-116) Total Protein 7.2 g/dL (6.4-8.2) Albumin 3.0 g/dL (3.4-5.0) L Albumin/Globulin Ratio 0.7 (1.0-1.7) L Laboratory Tests 06/28/19 20:40 Laboratory Tests 06/28/19 20:40 EKG EKG [] Radiology/Procedures Radiology/Procedures [] Course & Med Decision Making Course & Med Decision Making Pertinent Labs and Imaging studies reviewed. (See chart for details) [ED course: Evaluation reveals a 73-year-old male with a rectal bleed. His INR is 2.6. I think is prudent to hold his Coumadin and observe. I do not believe reversing his INR is the right thing to do given his previous history of CVA with reversal of his coagulopathy. Currently his H&H is 10 and 30 his vital signs are all stable I believe it is safe to recheck an H&H in the morning. We have typed and crossed just in case we need to transfuse.] Dragon Disclaimer Dragon Disclaimer This electronic medical record was generated, in whole or in part, using a voice recognition dictation system. Departure Departure Impression: Primary Impression: GI bleed Disposition: 09 ADMITTED INPATIENT Admitting Physician: KALEB Condition: GUARDED Referrals: SAHNKAR WALDROP (PCP) Problem Qualifiers Primary Impression: GI bleed GI bleed type/associated pathology: unspecified gastrointestinal hemorrhage type Qualified Codes: K92.2 - Gastrointestinal hemorrhage, unspecified JACEK PULIDO DO Jun 28, 2019 21:54
[2019-06-28] MEDS ORDERED: ONDANSETRON PF 4 MG/2 ML VIAL. IV PRN (22:00)
[2019-06-28 23:30] VITALS: BP 149/68
[2019-06-28] MEDS: IV NORMAL SALINE 1000ML BAG 1,000 ML IV SCH (23:37)
[2019-06-29] VITALS (21 sets, daily range): BP systolic 114–170; BP diastolic 55–82
--- NOTE | 2019-06-29 01:08 | NUR ---
Received report from CHANELL Camejo from ED. Pt. arrived on unit at 2313 by bed Pt. does not complain of pain but had a bloody stool with blood clots. Pt. was changed. Admission assessment done at this time. Bed was placed in lowest position, call light within reach. Will continue to monitor.
[2019-06-29] MEDS: IV NORMAL SALINE 1000ML BAG 1,000 ML IV SCH ×2 (05:30→19:34)
[2019-06-29] MEDS ORDERED: GABA300C18 PO (06:35)
[2019-06-29] MEDS ORDERED: WARF3TAB50 PO (06:35)
[2019-06-29 07:16] LABS: BASO # 0.1 x10^3/uL (0.0-0.2); BASO % 1 % (0-3); EOS # 0.4 x10^3/uL (0.0-0.7); EOS % 4 % (0-3); HEMATOCRIT 23.4 % (39.0-53.0); HEMOGLOBIN 7.8 g/dL (13.0-17.5); LYMPH # 1.5 x10^3/uL (1.0-4.8); LYMPH % 15 % (24-48); MEAN CORPUSCULAR HEMOGLOBIN 28 pg (25-35); MEAN CORPUSCULAR HGB CONC 33 g/dL (31-37); MEAN CORPUSCULAR VOLUME 84 fL (79-100); MONO # 0.8 x10^3/uL (0.0-1.1); MONO % 8 % (0-9); NEUT # 7.5 x10^3/uL (1.8-7.7); NEUT % 72 % (31-73); PLATELET COUNT 278 x10^3/uL (140-400); RED CELL DISTRIBUTION WIDTH 17.5 % (11.5-14.5); WHITE BLOOD COUNT 10.3 x10^3/uL (4.0-11.0)
[2019-06-29 07:25] LABS: PROTHROMBIN TIME PATIENT 27.8 SEC (11.7-14.0)
--- NOTE | 2019-06-29 09:10 | PDOC2 ---
GI CONSULT Reason For Consult: GI Bleed HPI: HPI: 73 y/o male who we recently saw for constipation and abdominal pain that resolved. This time, sent to ER from [facility] after passing bright red blood w/ clots. Recent knee surgery and h/o CVA on Coumadin. Hgb 10.3 to 7.8 (for comparison - last admission in 9-10 range). BUN 44, Cr 3.1. INR 2.6 (Coumadin now held). Per nurse, bleeding recurred overnight. VItal are stable - actually hypertensive when arrived in ER. He says he didn't see the blood. Denies abd pain, and n/v. Previous colonoscopy w/ Dr. Tiwari. PMH: PMH: CAD, HTN, ?A Fib, CVA, Parkinson's, dementia, BPH, urinary retention, CKD, OA, constipation, cholelithiasis CABG, knee replacement, pacemaker FH: Family History: No pertinent hx Social History: ALCOHOL: none Drugs: None ROS: GEN: Denies fevers, chills, sweats HEENT: Denies blurred vision, sore throat CV: Denies chest pain RESP: +SOA GI: Per HPI : Denies hematuria, dysuria ENDO: Denies weight changes NEURO: Denies confusion, dizziness MSK: Denies weakness, joint pain/swelling SKIN: Denies jaundice, pruritus Vitals: Vitals: Vital Signs Date Time Temp Pulse Resp B/P (MAP) Pulse Ox O2 Delivery O2 Flow Rate FiO2 06/29/19 07:00 98.4 71 18 140/61 (87) 93 Room Air 98.4 Labs: Labs: Laboratory Tests Test 06/28/19 20:40 06/29/19 05:40 White Blood Count 10.0 x10^3/uL (4.0-11.0) 10.3 x10^3/uL (4.0-11.0) Red Blood Count 3.71 x10^6/uL (4.30-5.70) 2.80 x10^6/uL (4.30-5.70) Hemoglobin 10.3 g/dL (13.0-17.5) 7.8 g/dL (13.0-17.5) Hematocrit 31.1 % (39.0-53.0) 23.4 % (39.0-53.0) Mean Corpuscular Volume 84 fL (79-100) 84 fL (79-100) Mean Corpuscular Hemoglobin 28 pg (25-35) 28 pg (25-35) Mean Corpuscular Hemoglobin Concent 33 g/dL (31-37) 33 g/dL (31-37) Red Cell Distribution Width 17.6 % (11.5-14.5) 17.5 % (11.5-14.5) Platelet Count 318 x10^3/uL (140-400) 278 x10^3/uL (140-400) Neutrophils (%) (Auto) 72 % (31-73) 72 % (31-73) Lymphocytes (%) (Auto) 13 % (24-48) 15 % (24-48) Monocytes (%) (Auto) 9 % (0-9) 8 % (0-9) Eosinophils (%) (Auto) 5 % (0-3) 4 % (0-3) Basophils (%) (Auto) 1 % (0-3) 1 % (0-3) Neutrophils # (Auto) 7.2 x10^3/uL (1.8-7.7) 7.5 x10^3/uL (1.8-7.7) Lymphocytes # (Auto) 1.3 x10^3/uL (1.0-4.8) 1.5 x10^3/uL (1.0-4.8) Monocytes # (Auto) 0.9 x10^3/uL (0.0-1.1) 0.8 x10^3/uL (0.0-1.1) Eosinophils # (Auto) 0.5 x10^3/uL (0.0-0.7) 0.4 x10^3/uL (0.0-0.7) Basophils # (Auto) 0.1 x10^3/uL (0.0-0.2) 0.1 x10^3/uL (0.0-0.2) Prothrombin Time 28.0 SEC (11.7-14.0) 27.8 SEC (11.7-14.0) Prothromb Time International Ratio 2.6 (0.8-1.1) 2.6 (0.8-1.1) Sodium Level 146 mmol/L (136-145) Potassium Level 3.5 mmol/L (3.5-5.1) Chloride Level 105 mmol/L (98-107) Carbon Dioxide Level 34 mmol/L (21-32) Anion Gap 7 (6-14) Blood Urea Nitrogen 44 mg/dL (8-26) Creatinine 3.1 mg/dL (0.7-1.3) Estimated GFR (Cockcroft-Gault) 19.8 BUN/Creatinine Ratio 14 (6-20) Glucose Level 131 mg/dL (70-99) Calcium Level 9.3 mg/dL (8.5-10.1) Total Bilirubin 0.4 mg/dL (0.2-1.0) Aspartate Amino Transf (AST/SGOT) 23 U/L (15-37) Alanine Aminotransferase (ALT/SGPT) 8 U/L (16-63) Alkaline Phosphatase 76 U/L (46-116) Total Protein 7.2 g/dL (6.4-8.2) Albumin 3.0 g/dL (3.4-5.0) Albumin/Globulin Ratio 0.7 (1.0-1.7) Allergies: Coded Allergies: ibuprofen (Verified Allergy, Intermediate, 06/20/19) Medications: Current Medications Medications (Trade) Dose Ordered Sig/Derick Route PRN Reason Start Time Stop Time Status Last Admin Dose Admin Sodium Chloride 1,000 ml @ 125 mls/hr Q8H IV 06/28/19 22:00 06/29/19 21:59 06/29/19 05:30 Imaging: Imaging: - PE: GEN: NAD HEENT: Atraumatic, PERRL LUNGS: CTAB HEART: RRR ABD: NABS, S/ND/NT EXTREMITY: No edema SKIN: No rashes, no jaundice NEURO/PSYCH: A & O �3 - slow to answer questions - nurse was told this is baseline A/P: A/P: Hematochezia Chronic anemia - Hgb below baseline CRC screen - previous colonoscopy w/ Dr. Tiwari H/o constipation - addressed during recent admission Cholelithiasis - noted on past imaging Parkinson's, CKD, recent knee replacement, h/o CVA Anti-coagulated w/ Coumadin -- ?diverticular source - not mentioned on recent CT Remain NPO, check bleeding scan, empiric PPI, monitor Hgb. Will review colonoscopy records w/ our office. Called by nurse this afternoon - passed more bright red blood w/ large clots - vitals remain stable, just left for bleeding scan. Recheck of Hgb 6.5 - plans for transfusion 2 units and transfer to ICU per Dr. Person. Plan to recheck Hgb after transfusions complete. Per our office - colonoscopy 11/12/13 showed diverticulosis and random colon biopsies were unrevealing. AMBROCIO HOGAN Jun 29, 2019 09:10
[2019-06-29 10:51] LABS: % BANDS 1 % (0-9); % BASOS 1 % (0-3); % EOS 5 % (0-5); % LYMPHS 14 % (24-48); % METAS 1 % (0-0); % MONOS 5 % (0-10); % MYELOS 2 % (0-0); % SEGS 71 % (35-66)
[2019-06-29 10:52] LABS: PLT ESTIMATE ADEQUATE (ADEQUATE)
[2019-06-29 10:53] LABS: ANISOCYTOSIS SLIGHT; SCHISTOCYTES OCC
[2019-06-29] MEDS: PANTOPRAZOLE IV PUSH 40 MG VIAL. IVP SCH (11:14)
--- NOTE | 2019-06-29 11:39 | HP ---
ADMIT DATE: 06/28/2019 CHIEF COMPLAINT: Rectal bleeding. HISTORY OF PRESENT ILLNESS: The patient is a pleasant 73-year-old male who is on Coumadin because he had a recent knee replacement, now has developed blood in his stool. He has been having associated constipation, abdominal pain. He was originally rehabing at [facility], when they send him to our ER. His hemoglobin is currently 10.3, but it went down to 7.8. I discussed the case with ER physician. We will admit, the patient is going to be consulting GI. I suspect he is going to need endoscopy. PAST MEDICAL HISTORY: Recent knee replacement, CAD, hypertension, hyperlipidemia, AFib, chronic anticoagulation, Parkinson's, dementia, BPH, urinary retention, chronic kidney disease, osteoarthritis, constipation, cholelithiasis, coronary bypass surgery, knee replacement, pacemaker. ALLERGIES: IBUPROFEN. FAMILY HISTORY: Coronary artery disease. SOCIAL HISTORY: He does not drink, smoke or take drugs. I believe he lives at a facility. MEDICATIONS: Reviewed, please refer to the MRAD. REVIEW OF SYSTEMS: GENERAL: No history of weight change, weakness or fevers. SKIN: No bruising, hair changes or rashes. EYES: No blurred, double or loss of vision. NOSE AND THROAT: No history of nosebleeds, hoarseness or sore throat. HEART: No history of palpitations, chest pain or shortness of breath on exertion. LUNGS: Denies cough, hemoptysis, wheezing or shortness of breath. GASTROINTESTINAL: He complains of bloody stools. GENITOURINARY: No history of frequency, urgency, hesitancy or nocturia. NEUROLOGIC: Denies history of numbness, tingling, tremor or weakness. PSYCHIATRIC: No history of panic, anxiety or depression. ENDOCRINE: No history of heat or cold intolerance, polyuria or polydipsia. EXTREMITIES: Denies muscle weakness, joint pain, pain on walking or stiffness. PHYSICAL EXAMINATION: VITALS: Within normal limits and are stable. GENERAL: No apparent distress. Alert and oriented. HEENT: Head is normocephalic, atraumatic, pupils were equally round and reactive to light and accommodation. NECK: Supple, no JVD, no thyromegaly was noted. LUNGS: Clear to auscultation in all lung cardona without rhonchi or wheezing. HEART: RRR, S1, S2 present. Peripheral pulses intact, no obvious murmurs were noted. ABDOMEN: He has some abdominal pain and I notes that he also has some blood on his bed right below his rectum. EXTREMITIES: Without any cyanosis, clubbing, or edema. Pedal pulses intact, Homans sign is negative. NEUROLOGIC: Normal speech, normal tone. A & O x3, moves all extremities, no obvious focal deficits. PSYCHIATRIC: Normal affect, normal mood. Stable. SKIN: No ulcerations or rashes, good skin turgor, no jaundice. VASCULAR: Good capillary refill, neurovascular bundle appears to be intact. LABORATORY DATA: Hemoglobin is 7.8. ASSESSMENT AND PLAN: Gastrointestinal bleed. We will hold his Coumadin. Consult GI. Trend his hemoglobin. DVT prophylaxis. Full code. Home meds, PT, OT, frequent labs. PROGNOSIS: Guarded. FORD MCDONALD DO DR: RENEE/rene JOB#: [id number] / [id number]
--- NOTE | 2019-06-29 12:03 | NUR ---
SS following for discharge planning. SS reviewed pt chart. Pt is from [facility], ; faxed [phone]. 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 PT/OT ordered. SS will continue to follow for discharge planning.
[2019-06-29] MEDS ORDERED: HEPARIN for NUC MED 500 UNIT/5 ML DISP.SYRIN. IV ONE (12:15)
[2019-06-29 12:24] LABS: RED BLOOD COUNT 2.4 x10^6/uL (4.30-5.70); RED CELL DISTRIBUTION WIDTH 17.8 % (11.5-14.5); WHITE BLOOD COUNT 13.4 x10^3/uL (4.0-11.0)
[2019-06-29 12:28] LABS: HEMATOCRIT 20.3 % (39.0-53.0); HEMOGLOBIN 6.5 g/dL (13.0-17.5)
--- NOTE | 2019-06-29 13:25 | NUR ---
pt being transferred to ICU post bleeding scan due to hemoglobin dropping. pt is having large amounts of blood coming from rectum with large clots. spoke with dr colindres about transferring to ICU to closer monitor pt. report called to CHANELL Forde in ICU
--- NOTE | 2019-06-29 14:40 | NUR ---
Pt admitted to 105 from 4N. PT pale in color. Answers all questions appropriately. Family at bedside. First unit of PRBC started. Awaiting results of bleeding scan.
--- NOTE | 2019-06-29 16:15 | RAD ---
EXAM: Nuclear GI blood loss exam. HISTORY: Hematochezia. Anemia. TECHNIQUE: Scintigraphic imaging was performed following the administration of 30 mCi technetium tagged red blood cells. COMPARISON: CT dated 06/20/2019.. FINDINGS: There is no evidence of radiotracer cannulation or transit of radiotracer to suggest active gastrointestinal hemorrhage. There is expected radiotracer activity within the visceral and vascular structures. IMPRESSION: No scintigraphic evidence of active gastrointestinal hemorrhage. Electronically signed by: Jayne Price MD (06/29/2019 4:11 PM) [place] [id number]
[2019-06-29] MEDS ORDERED: PHYTONADIONE 10 MG/ML AMPUL. SQ ONE (16:30)
[2019-06-29] MEDS: MORPHINE SULFATE 2 MG/ML VIAL. IV PRN ×2 (18:30→19:45)
[2019-06-30] VITALS (23 sets, daily range): BP systolic 133–192; BP diastolic 58–84
[2019-06-30] MEDS: MORPHINE SULFATE 2 MG/ML VIAL. IV PRN ×2 (02:09→04:51)
[2019-06-30 05:29] LABS: HEMOGLOBIN 7.3 g/dL (13.0-17.5); RED BLOOD COUNT 2.58 x10^6/uL (4.30-5.70); RED CELL DISTRIBUTION WIDTH 16.8 % (11.5-14.5); WHITE BLOOD COUNT 13.5 x10^3/uL (4.0-11.0)
[2019-06-30 05:31] LABS: ALBUMIN 2.3 g/dL (3.4-5.0); ALBUMIN/GLOBULIN RATIO 0.8 (1.0-1.7); CALCIUM 8.4 mg/dL (8.5-10.1); CREATININE 3.1 mg/dL (0.7-1.3); GFR 19.8; POTASSIUM 3.7 mmol/L (3.5-5.1); TOTAL BILIRUBIN 0.5 mg/dL (0.2-1.0); TOTAL PROTEIN 5.3 g/dL (6.4-8.2)
[2019-06-30] MEDS: PANTOPRAZOLE IV PUSH 40 MG VIAL. IVP SCH (07:30)
--- NOTE | 2019-06-30 12:45 | NUR ---
Thought process slow but no impaired cognition. Wanting to "drink" fluids but no change in order at this time. t bedside ,same questions answered by several nurses. Data placed on board to assist.Awaiting MD visits at this time
--- NOTE | 2019-06-30 12:58 | PDOC ---
[employer] PROGRESS NOTE Chief Complaint Chief Complaint GI bleed. Fatigue. Dementia History of Present Illness History of Present Illness 06/30/19 Pt seen and examined in the ICU Pt was transferred 2 units of blood on 06/29 Pt is sitting upright Skin pallor is improved compared to yesterday Pt is responsive to questions Accompanied by and granddaughter D/w nurse and family Charts and labs reviewed WBC is 13.5, up from 10 Hgb is 7.3, down from 8 BUN is 51, up from 44 Cr remains 3.1 Vitals/I&O Vitals/I&O: Vital Signs Date Time Temp Pulse Resp B/P (MAP) Pulse Ox O2 Delivery O2 Flow Rate FiO2 06/30/19 06:00 72 12 155/58 (90) 98 Nasal Cannula 2.0 06/30/19 03:00 98.1 98.1 I & O 06/29/19 06/29/19 06/30/19 15:00 23:00 07:00 Intake Total 494 ml Output Total 575 ml 475 ml 515 ml Balance -575 ml 19 ml -515 ml Physical Exam Physical Exam: Right forearm has ecchymosis present General: Alert, Cooperative, No acute distress Heart: Regular rate Lungs: Clear Extremities: No clubbing, No cyanosis Skin: Other Labs Labs: Laboratory Tests Test 06/29/19 20:15 06/30/19 04:55 Hemoglobin 8.0 g/dL (13.0-17.5) 7.3 g/dL (13.0-17.5) Hematocrit 24.0 % (39.0-53.0) 22.0 % (39.0-53.0) Mean Corpuscular Hemoglobin Concent 33 g/dL (31-37) 33 g/dL (31-37) White Blood Count 13.5 x10^3/uL (4.0-11.0) Red Blood Count 2.58 x10^6/uL (4.30-5.70) Mean Corpuscular Volume 85 fL (79-100) Mean Corpuscular Hemoglobin 28 pg (25-35) Red Cell Distribution Width 16.8 % (11.5-14.5) Platelet Count 233 x10^3/uL (140-400) Sodium Level 148 mmol/L (136-145) Potassium Level 3.7 mmol/L (3.5-5.1) Chloride Level 112 mmol/L (98-107) Carbon Dioxide Level 30 mmol/L (21-32) Anion Gap 6 (6-14) Blood Urea Nitrogen 51 mg/dL (8-26) Creatinine 3.1 mg/dL (0.7-1.3) Estimated GFR (Cockcroft-Gault) 19.8 BUN/Creatinine Ratio 16 (6-20) Glucose Level 114 mg/dL (70-99) Calcium Level 8.4 mg/dL (8.5-10.1) Total Bilirubin 0.5 mg/dL (0.2-1.0) Aspartate Amino Transf (AST/SGOT) 13 U/L (15-37) Alanine Aminotransferase (ALT/SGPT) 11 U/L (16-63) Alkaline Phosphatase 46 U/L (46-116) Total Protein 5.3 g/dL (6.4-8.2) Albumin 2.3 g/dL (3.4-5.0) Albumin/Globulin Ratio 0.8 (1.0-1.7) Review of Systems Review of Systems: Pt denies fever Pt denies CAPONE Assessment and Plan Assessmemt and Plan Assessment GI bleed HTN CAD Parkinson's, dementia CVA CKD OA constipation Plan ICU monitoring Trend Hgb PPI Serial labs Await GI input Full code Comment Review of Relevant I have reviewed the following items piyush (where applicable) has been applied. Medications: Current Medications Medications (Trade) Dose Ordered Sig/Derick Route PRN Reason Start Time Stop Time Status Last Admin Dose Admin Phytonadione (Vitamin K Ampule) 5 mg 1X ONCE SQ 06/29/19 16:30 06/29/19 16:31 DC 06/29/19 16:29 Morphine Sulfate (Morphine Sulfate) 4 mg PRN Q1HR PRN IV PAIN 06/29/19 18:15 06/30/19 04:51 FORD MCDONALD III DO Jun 30, 2019 12:58
--- NOTE | 2019-06-30 13:13 | PDOC ---
Subjective: Subjective: Feeling okay. No pain. Objective: Objective: D/w nurse - red blood w/ clot overnight - none today. is very anxious and forgetful. Called by Dr. Person earlier - discussed fluctuating Hgb, he wondered about colonoscopy plans - reviewed Dr. Tiwari's discussion w/ family from yesterday. Vital Signs: Vital Signs Date Time Temp Pulse Resp B/P (MAP) Pulse Ox O2 Delivery O2 Flow Rate FiO2 06/30/19 06:00 72 12 155/58 (90) 98 Nasal Cannula 2.0 06/30/19 03:00 98.1 98.1 Labs: Laboratory Tests Test 06/29/19 20:15 06/30/19 04:55 Hemoglobin 8.0 g/dL 7.3 g/dL Hematocrit 24.0 % 22.0 % Mean Corpuscular Hemoglobin Concent 33 g/dL 33 g/dL White Blood Count 13.5 x10^3/uL Red Blood Count 2.58 x10^6/uL Mean Corpuscular Volume 85 fL Mean Corpuscular Hemoglobin 28 pg Red Cell Distribution Width 16.8 % Platelet Count 233 x10^3/uL Sodium Level 148 mmol/L Potassium Level 3.7 mmol/L Chloride Level 112 mmol/L Carbon Dioxide Level 30 mmol/L Anion Gap 6 Blood Urea Nitrogen 51 mg/dL Creatinine 3.1 mg/dL Estimated GFR (Cockcroft-Gault) 19.8 BUN/Creatinine Ratio 16 Glucose Level 114 mg/dL Calcium Level 8.4 mg/dL Total Bilirubin 0.5 mg/dL Aspartate Amino Transf (AST/SGOT) 13 U/L Alanine Aminotransferase (ALT/SGPT) 11 U/L Alkaline Phosphatase 46 U/L Total Protein 5.3 g/dL Albumin 2.3 g/dL Albumin/Globulin Ratio 0.8 Imaging: Bleeding Scan 06/29 IMPRESSION: No scintigraphic evidence of active gastrointestinal hemorrhage. PE: GEN: NAD LUNGS: CTAB HEART: RRR ABD: NABS, S/ND/NT NEURO/PSYCH: awake and alert - asks for a "real drink" A/P: Suspected diverticular bleed - slowing Chronic anemia - Hgb improved w/ transfusion - fluctuating Diverticulosis - last colonoscopy 10/2013 Anti-coagulated w/ Coumadin -- Discussed in detail w/ pt//family. Recheck Hgb this afternoon. No bleeding today and he asks for a drink - ?try clears - will review w/ Dr. Tiwari. AMBROCIO HOGAN Jun 30, 2019 13:13
[2019-06-30 15:24] LABS: HEMATOCRIT 22.6 % (39.0-53.0); HEMOGLOBIN 7.3 g/dL (13.0-17.5)
[2019-06-30 15:33] LABS: PROTHROMBIN TIME PATIENT 22.3 SEC (11.7-14.0)
--- NOTE | 2019-06-30 20:05 | NUR ---
Old bloody stool just prior to shift change necessary linen change. Coccyx intact. H/ H remains stable. informed-home for the night Able to eat and drink . Tolerated clear liquids
[2019-07-01] VITALS (19 sets, daily range): BP systolic 121–186; BP diastolic 53–85
[2019-07-01] MEDS: MORPHINE SULFATE 2 MG/ML VIAL. IV PRN (04:12)
[2019-07-01 06:20] LABS: BASO # 0.1 x10^3/uL (0.0-0.2); BASO % 1 % (0-3); EOS # 0.3 x10^3/uL (0.0-0.7); EOS % 3 % (0-3); LYMPH # 1.4 x10^3/uL (1.0-4.8); LYMPH % 12 % (24-48); MEAN CORPUSCULAR HEMOGLOBIN 28 pg (25-35); MEAN CORPUSCULAR HGB CONC 33 g/dL (31-37); MEAN CORPUSCULAR VOLUME 86 fL (79-100); MONO # 0.8 x10^3/uL (0.0-1.1); MONO % 7 % (0-9); NEUT # 9.2 x10^3/uL (1.8-7.7); NEUT % 78 % (31-73); PLATELET COUNT 202 x10^3/uL (140-400); RED BLOOD COUNT 2.35 x10^6/uL (4.30-5.70); RED CELL DISTRIBUTION WIDTH 16.8 % (11.5-14.5); WHITE BLOOD COUNT 11.8 x10^3/uL (4.0-11.0)
--- NOTE | 2019-07-01 06:24 | NUR ---
At 0600H patient reports an acute onset of chest pain he describes as "deep burning". Denies radiation and reports midsternal. Unable to rate. Troponin and 12-lead EKG ordered. Anticoagulant contraindicated at this time. VSS but BP increased. Will continue to monitor.
--- NOTE | 2019-07-01 06:26 | EKG ---
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
[2019-07-01 06:41] LABS: ALBUMIN 2.5 g/dL (3.4-5.0); ALBUMIN/GLOBULIN RATIO 0.8 (1.0-1.7); CALCIUM 8.6 mg/dL (8.5-10.1); CREATININE 2.9 mg/dL (0.7-1.3); GFR 21.4; POTASSIUM 3.6 mmol/L (3.5-5.1); TOTAL BILIRUBIN 0.3 mg/dL (0.2-1.0); TOTAL PROTEIN 5.5 g/dL (6.4-8.2)
[2019-07-01 06:42] LABS: HEMATOCRIT 20.1 % (39.0-53.0); HEMOGLOBIN 6.6 g/dL (13.0-17.5)
[2019-07-01] MEDS: PANTOPRAZOLE IV PUSH 40 MG VIAL. IVP SCH (08:05)
--- NOTE | 2019-07-01 11:08 | PDOC ---
[employer] PROGRESS NOTE Chief Complaint Chief Complaint GI bleed. Fatigue. Dementia History of Present Illness History of Present Illness 07/01/19 Pt seen and examined in the ICU Pt currently being transferred 1 unit of blood Pt is sitting upright and responsive to questions Accompanied by D/w nurse. GI gave ok to downgrade from ICU Diet was advanced Chart and labs reviewed WBC was 11.8, down from 13.5 INR was 2.0, down from 2.6 Hgb was 6.8, down from 7.3 BUN was 47, down from 51 Cr is 2.9, down from 3.1 06/30/19 Pt seen and examined in the ICU Pt was transferred 2 units of blood on 06/29 Pt is sitting upright Skin pallor is improved compared to yesterday Pt is responsive to questions Accompanied by and granddaughter D/w nurse and family Charts and labs reviewed WBC is 13.5, up from 10 Hgb is 7.3, down from 8 BUN is 51, up from 44 Cr remains 3.1 Vitals/I&O Vitals/I&O: Vital Signs Date Time Temp Pulse Resp B/P (MAP) Pulse Ox O2 Delivery O2 Flow Rate FiO2 07/01/19 10:45 98.0 89 15 178/72 98.0 07/01/19 10:00 94 Room Air 07/01/19 06:00 2.0 I & O 06/30/19 06/30/19 07/01/19 15:00 23:00 07:00 Intake Total 690 ml 250 ml Output Total 360 ml 1165 ml 530 ml Balance 330 ml -915 ml -530 ml Physical Exam Physical Exam: Right forearm has ecchymosis present General: Alert, Cooperative, No acute distress Heart: Regular rate Lungs: Clear Extremities: No clubbing, No cyanosis Skin: Other Labs Labs: Laboratory Tests Test 06/30/19 15:10 07/01/19 06:00 Hemoglobin 7.3 g/dL (13.0-17.5) 6.6 g/dL (13.0-17.5) Hematocrit 22.6 % (39.0-53.0) 20.1 % (39.0-53.0) Mean Corpuscular Hemoglobin Concent 32 g/dL (31-37) 33 g/dL (31-37) Prothrombin Time 22.3 SEC (11.7-14.0) Prothromb Time International Ratio 2.0 (0.8-1.1) White Blood Count 11.8 x10^3/uL (4.0-11.0) Red Blood Count 2.35 x10^6/uL (4.30-5.70) Mean Corpuscular Volume 86 fL (79-100) Mean Corpuscular Hemoglobin 28 pg (25-35) Red Cell Distribution Width 16.8 % (11.5-14.5) Platelet Count 202 x10^3/uL (140-400) Neutrophils (%) (Auto) 78 % (31-73) Lymphocytes (%) (Auto) 12 % (24-48) Monocytes (%) (Auto) 7 % (0-9) Eosinophils (%) (Auto) 3 % (0-3) Basophils (%) (Auto) 1 % (0-3) Neutrophils # (Auto) 9.2 x10^3/uL (1.8-7.7) Lymphocytes # (Auto) 1.4 x10^3/uL (1.0-4.8) Monocytes # (Auto) 0.8 x10^3/uL (0.0-1.1) Eosinophils # (Auto) 0.3 x10^3/uL (0.0-0.7) Basophils # (Auto) 0.1 x10^3/uL (0.0-0.2) Sodium Level 148 mmol/L (136-145) Potassium Level 3.6 mmol/L (3.5-5.1) Chloride Level 112 mmol/L (98-107) Carbon Dioxide Level 31 mmol/L (21-32) Anion Gap 5 (6-14) Blood Urea Nitrogen 47 mg/dL (8-26) Creatinine 2.9 mg/dL (0.7-1.3) Estimated GFR (Cockcroft-Gault) 21.4 BUN/Creatinine Ratio 16 (6-20) Glucose Level 111 mg/dL (70-99) Calcium Level 8.6 mg/dL (8.5-10.1) Total Bilirubin 0.3 mg/dL (0.2-1.0) Aspartate Amino Transf (AST/SGOT) 14 U/L (15-37) Alanine Aminotransferase (ALT/SGPT) 16 U/L (16-63) Alkaline Phosphatase 46 U/L (46-116) Troponin I Quantitative < 0.017 ng/mL (0.000-0.055) Total Protein 5.5 g/dL (6.4-8.2) Albumin 2.5 g/dL (3.4-5.0) Albumin/Globulin Ratio 0.8 (1.0-1.7) Review of Systems Review of Systems: Pt denies pain Pt denies n/v Assessment and Plan Assessmemt and Plan Assessment GI bleed HTN CAD Parkinson's, dementia CVA CKD OA constipation Plan ICU monitoring Trend Hgb PPI Serial labs Advance diet as tolerated Restart home meds Await GI input Full code Transfer floor Comment Review of Relevant I have reviewed the following items piyush (where applicable) has been applied. FORD MCDONALD III DO Jul 01, 2019 11:08
--- NOTE | 2019-07-01 11:52 | PDOC ---
GI PROGRESS NOTES Date Date/Time DATE: 07/01/19 TIME: 11:50 Subjective Subjective diverticular bleed - resolved but significant bleed with equilibration Objective Vitals Vital Signs Date Time Temp Pulse Resp B/P (MAP) Pulse Ox O2 Delivery O2 Flow Rate FiO2 07/01/19 11:45 98.2 85 13 159/77 98.2 07/01/19 10:45 98.0 89 15 178/72 98.0 07/01/19 10:24 98.2 89 14 163/66 98.2 07/01/19 10:00 89 14 163/66 (98) 94 Room Air 07/01/19 09:02 88 16 157/65 (95) 94 Room Air 07/01/19 08:09 87 14 177/79 (111) 94 Room Air 07/01/19 08:00 Room Air 07/01/19 07:00 98.2 89 14 167/71 (103) 95 Room Air 98.2 07/01/19 06:00 92 16 184/78 (113) 98 Nasal Cannula 2.0 07/01/19 05:00 88 10 157/65 (95) 97 Nasal Cannula 2.0 07/01/19 04:42 12 97 Nasal Cannula 2.0 07/01/19 04:12 97 Nasal Cannula 2.0 07/01/19 04:00 98.3 84 12 168/67 (100) 97 Nasal Cannula 2.0 98.3 07/01/19 04:00 Nasal Cannula 2.0 07/01/19 03:00 87 10 154/70 (98) 97 Nasal Cannula 2.0 07/01/19 02:00 76 15 171/63 (99) 97 Nasal Cannula 2.0 07/01/19 01:00 66 14 121/53 (75) 98 Nasal Cannula 2.0 07/01/19 00:01 98.1 69 21 146/82 (103) 97 Nasal Cannula 2.0 98.1 07/01/19 00:00 Nasal Cannula 2.0 06/30/19 23:00 68 16 144/61 (88) 97 Nasal Cannula 2.0 06/30/19 22:00 72 13 164/64 (97) 97 Nasal Cannula 2.0 06/30/19 21:00 71 15 133/65 (87) 98 Nasal Cannula 2.0 06/30/19 20:00 98.7 71 12 158/76 (103) 97 Nasal Cannula 2.0 98.7 06/30/19 20:00 Nasal Cannula 2.0 06/30/19 19:00 68 19 153/65 (94) 97 Nasal Cannula 2.0 06/30/19 18:00 72 13 145/59 (87) 98 Nasal Cannula 2.0 06/30/19 17:00 70 13 137/60 (85) 98 Nasal Cannula 2.0 06/30/19 16:07 98.1 74 16 162/59 (93) 97 Nasal Cannula 2.0 98.1 06/30/19 16:04 Nasal Cannula 2.0 06/30/19 15:00 74 16 165/66 (99) 97 Nasal Cannula 2.0 06/30/19 14:00 76 16 148/61 (90) 97 Nasal Cannula 2.0 06/30/19 13:00 76 14 164/71 (102) 96 Nasal Cannula 2.0 06/30/19 12:00 98.0 74 12 152/72 (98) 96 Nasal Cannula 2.0 98.0 06/30/19 12:00 Nasal Cannula 2.0 06/30/19 12:00 Labs Labs Laboratory Tests Test 06/30/19 15:10 07/01/19 06:00 Hemoglobin 7.3 g/dL (13.0-17.5) 6.6 g/dL (13.0-17.5) Hematocrit 22.6 % (39.0-53.0) 20.1 % (39.0-53.0) Mean Corpuscular Hemoglobin Concent 32 g/dL (31-37) 33 g/dL (31-37) Prothrombin Time 22.3 SEC (11.7-14.0) Prothromb Time International Ratio 2.0 (0.8-1.1) White Blood Count 11.8 x10^3/uL (4.0-11.0) Red Blood Count 2.35 x10^6/uL (4.30-5.70) Mean Corpuscular Volume 86 fL (79-100) Mean Corpuscular Hemoglobin 28 pg (25-35) Red Cell Distribution Width 16.8 % (11.5-14.5) Platelet Count 202 x10^3/uL (140-400) Neutrophils (%) (Auto) 78 % (31-73) Lymphocytes (%) (Auto) 12 % (24-48) Monocytes (%) (Auto) 7 % (0-9) Eosinophils (%) (Auto) 3 % (0-3) Basophils (%) (Auto) 1 % (0-3) Neutrophils # (Auto) 9.2 x10^3/uL (1.8-7.7) Lymphocytes # (Auto) 1.4 x10^3/uL (1.0-4.8) Monocytes # (Auto) 0.8 x10^3/uL (0.0-1.1) Eosinophils # (Auto) 0.3 x10^3/uL (0.0-0.7) Basophils # (Auto) 0.1 x10^3/uL (0.0-0.2) Sodium Level 148 mmol/L (136-145) Potassium Level 3.6 mmol/L (3.5-5.1) Chloride Level 112 mmol/L (98-107) Carbon Dioxide Level 31 mmol/L (21-32) Anion Gap 5 (6-14) Blood Urea Nitrogen 47 mg/dL (8-26) Creatinine 2.9 mg/dL (0.7-1.3) Estimated GFR (Cockcroft-Gault) 21.4 BUN/Creatinine Ratio 16 (6-20) Glucose Level 111 mg/dL (70-99) Calcium Level 8.6 mg/dL (8.5-10.1) Total Bilirubin 0.3 mg/dL (0.2-1.0) Aspartate Amino Transf (AST/SGOT) 14 U/L (15-37) Alanine Aminotransferase (ALT/SGPT) 16 U/L (16-63) Alkaline Phosphatase 46 U/L (46-116) Troponin I Quantitative < 0.017 ng/mL (0.000-0.055) Total Protein 5.5 g/dL (6.4-8.2) Albumin 2.5 g/dL (3.4-5.0) Albumin/Globulin Ratio 0.8 (1.0-1.7) Physical Exam Physical Exam chest=-clear abd - soft nontender Assessment Assessment Diverticular bleed- significant anemia but now stablizing- getting another unit but no further bleeding Plan Plan advance diet monitor labs VILMA NANCE MD Jul 01, 2019 11:52
[2019-07-01 13:22] LABS: HEMOGLOBIN 7.9 g/dL (13.0-17.5)
--- NOTE | 2019-07-01 15:10 | NUR ---
Transfer note: Received report from Ashley LUA of ICU at 1302. Patient arrived on the unit at 1350. He was awake, alert, oriented x 3, denies pain. He was placed in comfortable position, call light within reach.
[2019-07-01] MEDS ORDERED: DOCUSATE SODIUM 100 MG CAPSULE. PO PRN (15:30)
[2019-07-01] MEDS ORDERED: cloNIDine HCL 0.1 MG TABLET PO PRN (15:30)
--- NOTE | 2019-07-01 15:38 | NUR ---
Restarted patient's home medications per Dr. Person.
--- NOTE | 2019-07-01 16:19 | NUR ---
SW following pt. Pt a transfer from ICU. Discharge disposition is [facility]. Will continue to follow.
[2019-07-01] MEDS: CARBIDOPA/LEVODOPA 25/100MG TABLET PO SCH ×2 (17:24→20:07)
[2019-07-01] MEDS: CARVEDILOL 12.5 MG TABLET. PO SCH (17:24)
--- NOTE | 2019-07-01 17:54 | NUR ---
The patient had a bowel movement of dark tarry stools admixed with blood. VS were stable. The patient's family expressed concern of the presence of blood in the stool. Paged Dr. Tiwari at 1700 and discussed with him the findings. MD said they were aware that stools were old blood and it will take a couple of days for the bowels to clear up. Patient and family teaching done, will need to be reinforced. The patient will continue to be monitored.
[2019-07-01] MEDS: GABAPENTIN 300 MG CAPSULE. PO SCH (20:07)
[2019-07-01] MEDS: FAMOTIDINE 20 MG TABLET. PO SCH (20:07)
--- NOTE | 2019-07-01 20:25 | PDOC1 ---
History and Physical Date of Admission Date of Admission DATE: 06/30/19 [facility] HISTORY /// PHYSICAL Identification/Chief Complaint Chief Complaint SEEN IN ER WITH ACUTE GI BLEED Past Medical History Cardiovascular: CAD, HTN CENTRAL NERVOUS SYSTEM: CVA, Other GI: Constipation Musculoskeletal: Osteoarthritis Past Surgical History Past Surgical History: CABG, Total knee replacement Family History Family History: High Cholestrol, Hypertension Social History Smoke: No ALCOHOL: none Drugs: None Current Medications Current Medications Current Medications Ondansetron HCl (Zofran) 4 mg PRN Q8HRS PRN IV NAUSEA/VOMITING; Start 06/28/19 at 22:00; Stop 06/29/19 at 21:59; Status DC Sodium Chloride 1,000 ml @ 125 mls/hr Q8H IV Last administered on 06/29/19at 19 :34; Start 06/28/19 at 22:00; Stop 06/29/19 at 21:59; Status DC Pantoprazole Sodium (PROTONIX VIAL for IV PUSH) 40 mg DAILYAC IVP Last administered on 07/01/19at 08:05; Start 06/29/19 at 11:00 Heparin Sodium (Porcine) (HEPARIN for NUC MED) 100 unit 1X ONCE IV ; Start 06/29/19 at 12:15; Stop 06/29/19 at 12:16; Status DC Phytonadione (Vitamin K Ampule) 5 mg 1X ONCE SQ Last administered on 06/29/19at 16:29; Start 06/29/19 at 16:30; Stop 06/29/19 at 16:31; Status DC Morphine Sulfate (Morphine Sulfate) 4 mg PRN Q1HR PRN IV PAIN Last administered on 07/01/19at 04:12; Start 06/29/19 at 18:15 Amlodipine Besylate (Norvasc) 5 mg DAILY PO ; Start 07/02/19 at 09:00 Calcitriol (Rocaltrol) 0.25 mcg DAILY PO ; Start 07/02/19 at 09:00 Carbidopa/Levodopa (Sinemet 25/100) 1 tab QID PO Last administered on 07/01/19at 20:07; Start 07/01/19 at 17:00 Vitamin D (Vitamin D3) 1,000 unit DAILY PO ; Start 07/02/19 at 09:00 Citalopram Hydrobromide (CeleXA) 20 mg DAILY PO ; Start 07/02/19 at 09:00 Clonidine HCl (Catapres) 0.1 mg PRN Q6HRS PRN PO SBP>160 OR DBP>90; Start 07/01/19 at 15:30 Diltiazem HCl (Cardizem 24hr Cd) 120 mg DAILY PO ; Start 07/02/19 at 09:00 Docusate Sodium (Colace) 100 mg PRN BID PRN PO CONSTIPATION; Start 07/01/19 at 15:30 Famotidine (Pepcid) 20 mg QHS PO Last administered on 07/01/19at 20:07; Start 07/01/19 at 21:00 Furosemide (Lasix) 40 mg BID92 PO ; Start 07/02/19 at 09:00 Gabapentin (Neurontin) 300 mg TID PO Last administered on 07/01/19at 20:07; Start 07/01/19 at 21:00 Levothyroxine Sodium (Synthroid) 25 mcg DAILY06 PO ; Start 07/02/19 at 06:00 Potassium Chloride (Klor-Con) 10 meq DAILY PO ; Start 07/02/19 at 09:00 Tamsulosin HCl (Flomax) 0.4 mg DAILY PO ; Start 07/02/19 at 09:00 Ascorbic Acid (Vitamin C) 500 mg DAILY PO ; Start 07/02/19 at 09:00 Carvedilol (Coreg) 25 mg BIDWMEALS PO Last administered on 07/01/19at 17:24; Start 07/01/19 at 17:00 Lactobacillus Rhamnosus (Culturelle) 1 cap DAILY PO ; Start 07/02/19 at 09:00 Cetirizine HCl (ZyrTEC) 10 mg DAILY PO ; Start 07/02/19 at 09:00 Vitamin B Complex (Eloy B) 1 tab DAILY PO ; Start 07/02/19 at 09:00 Active Scripts Active Augmentin 250-62.5 Mg/5 Ml (Amoxicillin/Potassium Clav) 250 Mg/5 Ml Susp.recon 5 Ml PO BID 10 Days Famotidine 20 Mg Tablet 20 Mg PO QHS 30 Days Colace (Docusate Sodium) 100 Mg Capsule 100 Mg PO PRN BID PRN 30 Days Lorazepam 0.5 Mg Tablet 0.5 Mg PO PRN Q4HRS PRN 14 Days Tylenol (Acetaminophen) 325 Mg Tablet 650 Mg PO PRN Q4HRS PRN 30 Days Catapres (Clonidine Hcl) 0.1 Mg Tablet 0.1 Mg PO PRN Q6HRS PRN 14 Days Proair Hfa (Albuterol Sulfate) 8.5 Gm Hfa.aer.ad 2.5 Mg NEB PRN Q4HRS PRN 14 Days Dicyclomine Hcl 10 Mg Capsule 10 Mg PO PRN 1X PRN 14 Days Reported Warfarin Sodium 3 Mg Tablet 3 Mg PO DAILY Gabapentin (Gabapentin) 300 Mg Capsule 300 Mg PO TID Vitamin D3 (Cholecalciferol (Vitamin D3)) 1,000 Unit Tablet 1 Tab PO DAILY Vitamin C (Ascorbic Acid) 500 Mg Capsule 500 Mg PO DAILY Vitamin B Complex 1 Each Capsule 1 Each PO DAILY Sinemet 25-100 Mg Tablet (Carbidopa/Levodopa) 1 Each Tablet 1 Tab PO QID Probiotic (Lactobacillus Combo No.11) 1 Each Cap.sprink 1 Each PO DAILY Potassium Chloride 10 Meq Tab.sr.24h 10 Meq PO DAILY Methadone Hcl 10 Mg Tablet 30 Mg PO TID Loratadine 10 Mg Tablet 1 Tab PO DAILY Levothyroxine Sodium 25 Mcg Tablet 1 Tab PO DAILY Lasix (Furosemide) 40 Mg Tablet 40 Mg PO BID Gabapentin 600 Mg Tablet 600 Mg PO QID Flomax (Tamsulosin Hcl) 0.4 Mg Cap.er.24h 1 Cap PO DAILY Fenofibrate (Fenofibrate,Micronized) 134 Mg Capsule 1 Cap PO DAILY Diltiazem 24HR Cd (Diltiazem Hcl) 120 Mg Cap.er.24h 1 Cap PO DAILY Coumadin (Warfarin Sodium) 7.5 Mg Tablet 1 Tab PO DAILY Coreg (Carvedilol) 25 Mg Tablet 25 Mg PO BIDWMEALS Citalopram Hbr (Citalopram Hydrobromide) 20 Mg Tablet 1 Tab PO DAILY Calcitriol 0.25 Mcg Capsule 1 Cap PO DAILY Aspirin 81 Mg Tab.chew 1 Tab PO DAILY Norvasc (Amlodipine Besylate) 5 Mg Tablet 5 Mg PO DAILY Allergies Allergies: Coded Allergies: ibuprofen (Verified Allergy, Intermediate, 06/20/19) ROS General: YES: Fatigue PSYCHOLOGICAL ROS: YES: Concentration difficultie, Disorientation Eyes: Yes Decreased vision HEENT: No: Heacaches, Visual Changes, Hearing change, Nasal congestion, Nasal discharge, Oral lesions, Sinus pain, Sore Throat, Epistaxis, Sneezing, Snoring, Tinnitus, Vertigo, Vocal changes, Other ALLERGY AND IMMUNOLOGY: No: Hives, Insect Bite Sensitivity, Itchy/Watery Eyes, Nasal Congestion, Post Nasal Drip, Seasonal Allergies, Other Hematological and Lymphatic: YES: Bleeding Problems Breast: No New/Changing Breast Lumps, No Nipple changes, No Nipple discharge, No Other Respiratory: No: Cough, Hemoptysis, Orthopnea, Pleuritic Pain, Shortness of breath, SOB with excertion, Sputum Changes, Stridor, Tachypnea, Wheezing, Other Cardiovascular: No Chest Pain, No Palpitations, No Orthopnea, No Paroxysmal Noc. Dyspnea, No Edema, No Lt Headedness, No Other Musculoskeletal: Yes Gait Disturbance, Yes Joint Stiffness Neurological: Yes Confusion Physical Exam Physical Exam GEN: NAD HEENT: Atraumatic, PERRL LUNGS: CTAB HEART: RRR ABD: NABS, S/ND/NT EXTREMITY: No edema SKIN: No rashes, no jaundice NEURO/PSYCH: A & O �3 - slow to answer questions General: Cooperative HEENT: Atraumatic Lungs: Clear to auscultation Rectal Exam: not examined PELVIC: Examination not indicated Extremities: No cyanosis Psych/Mental Status: Mood NL Vitals Vitals Vital Signs Date Time Temp Pulse Resp B/P (MAP) Pulse Ox O2 Delivery O2 Flow Rate FiO2 07/01/19 19:58 98.3 80 16 148/70 (96) 92 Room Air 98.3 07/01/19 06:00 2.0 Labs Labs Active Scripts Active Reported Vitamin D3 (Cholecalciferol (Vitamin D3)) 1,000 Unit Tablet 1 Tab PO DAILY Vitamin C (Ascorbic Acid) 500 Mg Capsule 500 Mg PO DAILY Vitamin B Complex 1 Each Capsule 1 Each PO DAILY Sinemet 25-100 Mg Tablet (Carbidopa/Levodopa) 1 Each Tablet 1 Tab PO QID Probiotic (Lactobacillus Combo No.11) 1 Each Cap.sprink 1 Each PO DAILY Potassium Chloride 10 Meq Tab.sr.24h 10 Meq PO DAILY Methadone Hcl 10 Mg Tablet 30 Mg PO TID Loratadine 10 Mg Tablet 1 Tab PO DAILY Levothyroxine Sodium 25 Mcg Tablet 1 Tab PO DAILY Lasix (Furosemide) 40 Mg Tablet 40 Mg PO BID Gabapentin 600 Mg Tablet 600 Mg PO QID Flomax (Tamsulosin Hcl) 0.4 Mg Cap.er.24h 1 Cap PO DAILY Fenofibrate (Fenofibrate,Micronized) 134 Mg Capsule 1 Cap PO DAILY Diltiazem 24HR Cd (Diltiazem Hcl) 120 Mg Cap.er.24h 1 Cap PO DAILY Coumadin (Warfarin Sodium) 7.5 Mg Tablet 1 Tab PO DAILY Coreg (Carvedilol) 25 Mg Tablet 25 Mg PO BIDWMEALS Citalopram Hbr (Citalopram Hydrobromide) 20 Mg Tablet 1 Tab PO DAILY Calcitriol 0.25 Mcg Capsule 1 Cap PO DAILY Aspirin 81 Mg Tab.chew 1 Tab PO DAILY Norvasc (Amlodipine Besylate) 5 Mg Tablet 5 Mg PO DAILY Vital Signs Laboratory Tests Test 06/30/19 04:55 06/30/19 15:10 07/01/19 06:00 07/01/19 13:15 White Blood Count 13.5 x10^3/uL (4.0-11.0) 11.8 x10^3/uL (4.0-11.0) Red Blood Count 2.58 x10^6/uL (4.30-5.70) 2.35 x10^6/uL (4.30-5.70) Hemoglobin 7.3 g/dL (13.0-17.5) 7.3 g/dL (13.0-17.5) 6.6 g/dL (13.0-17.5) 7.9 g/dL (13.0-17.5) Hematocrit 22.0 % (39.0-53.0) 22.6 % (39.0-53.0) 20.1 % (39.0-53.0) 24.0 % (39.0-53.0) Mean Corpuscular Volume 85 fL (79-100) 86 fL (79-100) Mean Corpuscular Hemoglobin 28 pg (25-35) 28 pg (25-35) Mean Corpuscular Hemoglobin Concent 33 g/dL (31-37) 32 g/dL (31-37) 33 g/dL (31-37) 33 g/dL (31-37) Red Cell Distribution Width 16.8 % (11.5-14.5) 16.8 % (11.5-14.5) Platelet Count 233 x10^3/uL (140-400) 202 x10^3/uL (140-400) Sodium Level 148 mmol/L (136-145) 148 mmol/L (136-145) Potassium Level 3.7 mmol/L (3.5-5.1) 3.6 mmol/L (3.5-5.1) Chloride Level 112 mmol/L (98-107) 112 mmol/L (98-107) Carbon Dioxide Level 30 mmol/L (21-32) 31 mmol/L (21-32) Anion Gap 6 (6-14) 5 (6-14) Blood Urea Nitrogen 51 mg/dL (8-26) 47 mg/dL (8-26) Creatinine 3.1 mg/dL (0.7-1.3) 2.9 mg/dL (0.7-1.3) Estimated GFR (Cockcroft-Gault) 19.8 21.4 BUN/Creatinine Ratio 16 (6-20) 16 (6-20) Glucose Level 114 mg/dL (70-99) 111 mg/dL (70-99) Calcium Level 8.4 mg/dL (8.5-10.1) 8.6 mg/dL (8.5-10.1) Total Bilirubin 0.5 mg/dL (0.2-1.0) 0.3 mg/dL (0.2-1.0) Aspartate Amino Transf (AST/SGOT) 13 U/L (15-37) 14 U/L (15-37) Alanine Aminotransferase (ALT/SGPT) 11 U/L (16-63) 16 U/L (16-63) Alkaline Phosphatase 46 U/L (46-116) 46 U/L (46-116) Total Protein 5.3 g/dL (6.4-8.2) 5.5 g/dL (6.4-8.2) Albumin 2.3 g/dL (3.4-5.0) 2.5 g/dL (3.4-5.0) Albumin/Globulin Ratio 0.8 (1.0-1.7) 0.8 (1.0-1.7) Prothrombin Time 22.3 SEC (11.7-14.0) Prothromb Time International Ratio 2.0 (0.8-1.1) Neutrophils (%) (Auto) 78 % (31-73) Lymphocytes (%) (Auto) 12 % (24-48) Monocytes (%) (Auto) 7 % (0-9) Eosinophils (%) (Auto) 3 % (0-3) Basophils (%) (Auto) 1 % (0-3) Neutrophils # (Auto) 9.2 x10^3/uL (1.8-7.7) Lymphocytes # (Auto) 1.4 x10^3/uL (1.0-4.8) Monocytes # (Auto) 0.8 x10^3/uL (0.0-1.1) Eosinophils # (Auto) 0.3 x10^3/uL (0.0-0.7) Basophils # (Auto) 0.1 x10^3/uL (0.0-0.2) Troponin I Quantitative < 0.017 ng/mL (0.000-0.055) Laboratory Tests Test 07/01/19 06:00 07/01/19 13:15 White Blood Count 11.8 x10^3/uL (4.0-11.0) Red Blood Count 2.35 x10^6/uL (4.30-5.70) Hemoglobin 6.6 g/dL (13.0-17.5) 7.9 g/dL (13.0-17.5) Hematocrit 20.1 % (39.0-53.0) 24.0 % (39.0-53.0) Mean Corpuscular Volume 86 fL (79-100) Mean Corpuscular Hemoglobin 28 pg (25-35) Mean Corpuscular Hemoglobin Concent 33 g/dL (31-37) 33 g/dL (31-37) Red Cell Distribution Width 16.8 % (11.5-14.5) Platelet Count 202 x10^3/uL (140-400) Neutrophils (%) (Auto) 78 % (31-73) Lymphocytes (%) (Auto) 12 % (24-48) Monocytes (%) (Auto) 7 % (0-9) Eosinophils (%) (Auto) 3 % (0-3) Basophils (%) (Auto) 1 % (0-3) Neutrophils # (Auto) 9.2 x10^3/uL (1.8-7.7) Lymphocytes # (Auto) 1.4 x10^3/uL (1.0-4.8) Monocytes # (Auto) 0.8 x10^3/uL (0.0-1.1) Eosinophils # (Auto) 0.3 x10^3/uL (0.0-0.7) Basophils # (Auto) 0.1 x10^3/uL (0.0-0.2) Sodium Level 148 mmol/L (136-145) Potassium Level 3.6 mmol/L (3.5-5.1) Chloride Level 112 mmol/L (98-107) Carbon Dioxide Level 31 mmol/L (21-32) Anion Gap 5 (6-14) Blood Urea Nitrogen 47 mg/dL (8-26) Creatinine 2.9 mg/dL (0.7-1.3) Estimated GFR (Cockcroft-Gault) 21.4 BUN/Creatinine Ratio 16 (6-20) Glucose Level 111 mg/dL (70-99) Calcium Level 8.6 mg/dL (8.5-10.1) Total Bilirubin 0.3 mg/dL (0.2-1.0) Aspartate Amino Transf (AST/SGOT) 14 U/L (15-37) Alanine Aminotransferase (ALT/SGPT) 16 U/L (16-63) Alkaline Phosphatase 46 U/L (46-116) Troponin I Quantitative < 0.017 ng/mL (0.000-0.055) Total Protein 5.5 g/dL (6.4-8.2) Albumin 2.5 g/dL (3.4-5.0) Albumin/Globulin Ratio 0.8 (1.0-1.7) VTE Prophylaxis Ordered VTE Prophylaxis Devices: Contraindicated VTE Pharmacological Prophylaxi: Yes Assessment/Plan Assessment/Plan Assessment IMPRESSION : 1. No acute intracranial findings. ON CT HEAD, RECENT acute metabolic encephalopathy sec to UTI 2. Chronic left insular infarct. Moderate atrophy and chronic microangiopathic white matter change. 3. FALLS 4. Generalized weakness 5 morbid obesity 6. HYPERTENSION 7. Depression 8. Mild basilar atelectasis. 9. CKD stage 4-[address] abd Significant calcific involvement of the arterial vasculature. Bilateral common iliac artery fusiform aneurysms. 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 Alternatively, this may represent significant atherosclerotic calcific involvement. 11, RECENT uti 12 GI bleed 13 CAD 14 Parkinson's, dementia plan admit fall precautions PT/OT/ ST home meds dvt prophylaxis nephrology [facility] JOHANA SIMMONS MD Jul 01, 2019 20:25
[2019-07-02 03:17] VITALS: BP 130/53
[2019-07-02 04:38] LABS: BASO # 0.1 x10^3/uL (0.0-0.2); BASO % 1 % (0-3); EOS # 0.3 x10^3/uL (0.0-0.7); EOS % 3 % (0-3); HEMATOCRIT 21.9 % (39.0-53.0); HEMOGLOBIN 7.2 g/dL (13.0-17.5); LYMPH # 1.4 x10^3/uL (1.0-4.8); LYMPH % 13 % (24-48); MEAN CORPUSCULAR HEMOGLOBIN 29 pg (25-35); MEAN CORPUSCULAR HGB CONC 33 g/dL (31-37); MEAN CORPUSCULAR VOLUME 86 fL (79-100); MONO # 0.6 x10^3/uL (0.0-1.1); MONO % 6 % (0-9); NEUT # 8.6 x10^3/uL (1.8-7.7); NEUT % 77 % (31-73); PLATELET COUNT 219 x10^3/uL (140-400); RED BLOOD COUNT 2.54 x10^6/uL (4.30-5.70); RED CELL DISTRIBUTION WIDTH 16.6 % (11.5-14.5); WHITE BLOOD COUNT 11.1 x10^3/uL (4.0-11.0)
[2019-07-02 05:29] LABS: ALBUMIN 2.4 g/dL (3.4-5.0); ALBUMIN/GLOBULIN RATIO 0.8 (1.0-1.7); ALK PHOS 48 U/L (46-116); ANION GAP 7 (6-14); AST (SGOT) 45 U/L (15-37); BLOOD UREA NITROGEN 36 mg/dL (8-26); BUN/CREATININE RATIO 14 (6-20); CALCIUM 8.8 mg/dL (8.5-10.1); CARBON DIOXIDE 28 mmol/L (21-32); CHLORIDE 110 mmol/L (98-107); CREATININE 2.5 mg/dL (0.7-1.3); GFR 25.4; GLUCOSE 94 mg/dL (70-99); POTASSIUM 3.5 mmol/L (3.5-5.1); SODIUM 145 mmol/L (136-145); TOTAL BILIRUBIN 0.5 mg/dL (0.2-1.0); TOTAL PROTEIN 5.3 g/dL (6.4-8.2)
[2019-07-02 05:49] LABS: ALT (SGPT) < 6 U/L (16-63)
[2019-07-02] MEDS: LEVOTHYROXINE 25 MCG TABLET. PO SCH (06:05)
[2019-07-02 07:00] VITALS: BP 171/78
--- NOTE | 2019-07-02 08:02 | PDOC ---
PROGRESS NOTES Chief Complaint Chief Complaint 1. No acute intracranial findings. ON CT HEAD, RECENT acute metabolic encephalopathy sec to UTI 2. Chronic left insular infarct. Moderate atrophy and chronic microangiopathic white matter change. 3. FALLS 4. Generalized weakness 5 morbid obesity 6. HYPERTENSION 7. Depression 8. Mild basilar atelectasis. 9. CKD stage 4-[address] abd Significant calcific involvement of the arterial vasculature. Bilateral common iliac artery fusiform aneurysms. 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 Alternatively, this may represent significant atherosclerotic calcific involvement. 11, RECENT uti 12 GI bleed with acute blood loss anemia 13 CAD 14 Parkinson's, with dementia 15. severe protein-caloric malnutrition 16. marked debility 10-11 BRIGHT RED RECTAL bleeding noted by RN today History of Present Illness History of Present Illness impression - 1. No acute intracranial findings. ON CT HEAD, RECENT acute metabolic encephalopathy sec to UTI 2. Chronic left insular infarct. Moderate atrophy and chronic microangiopathic white matter change. 3. FALLS 4. Generalized weakness 5 morbid obesity 6. HYPERTENSION 7. Depression 8. Mild basilar atelectasis. 9. CKD stage 4-[address] abd Significant calcific involvement of the arterial vasculature. Bilateral common iliac artery fusiform aneurysms. 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 Alternatively, this may represent significant atherosclerotic calcific involv ement. 11, RECENT uti 12 GI bleed 13 CAD 14 Parkinson's, dementia cbc, comp in am 10-12 37 MIN PT EXAM, CHART REVIEW, > 50% OF TIME SPENT WITH EXAM, CHART REVIEW, PT CARE COORDINATION 07/01/19 Pt seen and examined in the ICU Pt currently being transferred 1 unit of blood Pt is sitting upright and responsive to questions Accompanied by D/w nurse. GI gave ok to downgrade from ICU Diet was advanced Chart and labs reviewed WBC was 11.8, down from 13.5 INR was 2.0, down from 2.6 Hgb was 6.8, down from 7.3 BUN was 47, down from 51 Cr is 2.9, down from 3.1 06/30/19 Pt seen and examined in the ICU Pt was transferred 2 units of blood on 06/29 Pt is sitting upright Skin pallor is improved compared to yesterday Pt is responsive to questions Accompanied by and granddaughter D/w nurse and family Charts and labs reviewed WBC is 13.5, up from 10 Hgb is 7.3, down from 8 BUN is 51, up from 44 Cr remains 3.1 Vitals Vitals Vital Signs Date Time Temp Pulse Resp B/P (MAP) Pulse Ox O2 Delivery O2 Flow Rate FiO2 07/02/19 07:00 97.7 78 18 171/78 (109) 95 Room Air 97.7 07/01/19 20:00 2.0 Physical Exam Physical Exam Right forearm has ecchymosis present General: Alert, Cooperative, No acute distress Heart: Regular rate Lungs: Clear Abdomen: Normal bowel sounds, Soft, No tenderness, No hepatosplenomegaly Extremities: No cyanosis Skin: Other Labs LABS EXAM: Nuclear GI blood loss exam. HISTORY: Hematochezia. Anemia. TECHNIQUE: Scintigraphic imaging was performed following the administration of 30 mCi technetium tagged red blood cells. COMPARISON: CT dated 06/20/2019.. FINDINGS: There is no evidence of radiotracer cannulation or transit of radiotracer to suggest active gastrointestinal hemorrhage. There is expected radiotracer activity within the visceral and vascular structures. IMPRESSION: No scintigraphic evidence of active gastrointestinal hemorrhage. Electronically signed by: Jayne Cárdenas MD (06/29/2019 4:11 PM) [place] [id number] DICTATED and SIGNED BY: JAYNE CÁRDENAS MD DATE: 06/29/19 1611 Laboratory Tests Test 07/01/19 13:15 07/01/19 20:20 07/02/19 03:10 Hemoglobin 7.9 g/dL (13.0-17.5) 7.2 g/dL (13.0-17.5) Hematocrit 24.0 % (39.0-53.0) 21.9 % (39.0-53.0) Mean Corpuscular Hemoglobin Concent 33 g/dL (31-37) 33 g/dL (31-37) Glucose (Fingerstick) 92 mg/dL (70-99) White Blood Count 11.1 x10^3/uL (4.0-11.0) Red Blood Count 2.54 x10^6/uL (4.30-5.70) Mean Corpuscular Volume 86 fL (79-100) Mean Corpuscular Hemoglobin 29 pg (25-35) Red Cell Distribution Width 16.6 % (11.5-14.5) Platelet Count 219 x10^3/uL (140-400) Neutrophils (%) (Auto) 77 % (31-73) Lymphocytes (%) (Auto) 13 % (24-48) Monocytes (%) (Auto) 6 % (0-9) Eosinophils (%) (Auto) 3 % (0-3) Basophils (%) (Auto) 1 % (0-3) Neutrophils # (Auto) 8.6 x10^3/uL (1.8-7.7) Lymphocytes # (Auto) 1.4 x10^3/uL (1.0-4.8) Monocytes # (Auto) 0.6 x10^3/uL (0.0-1.1) Eosinophils # (Auto) 0.3 x10^3/uL (0.0-0.7) Basophils # (Auto) 0.1 x10^3/uL (0.0-0.2) Prothrombin Time 19.0 SEC (11.7-14.0) Prothromb Time International Ratio 1.6 (0.8-1.1) Sodium Level 145 mmol/L (136-145) Potassium Level 3.5 mmol/L (3.5-5.1) Chloride Level 110 mmol/L (98-107) Carbon Dioxide Level 28 mmol/L (21-32) Anion Gap 7 (6-14) Blood Urea Nitrogen 36 mg/dL (8-26) Creatinine 2.5 mg/dL (0.7-1.3) Estimated GFR (Cockcroft-Gault) 25.4 BUN/Creatinine Ratio 14 (6-20) Glucose Level 94 mg/dL (70-99) Calcium Level 8.8 mg/dL (8.5-10.1) Total Bilirubin 0.5 mg/dL (0.2-1.0) Aspartate Amino Transf (AST/SGOT) 45 U/L (15-37) Alanine Aminotransferase (ALT/SGPT) < 6 U/L (16-63) Alkaline Phosphatase 48 U/L (46-116) Total Protein 5.3 g/dL (6.4-8.2) Albumin 2.4 g/dL (3.4-5.0) Albumin/Globulin Ratio 0.8 (1.0-1.7) Assessment and Plan Assessmemt and Plan roblem List (body system elements) * Impaired fnctnl mobility * Strength * Cognition * Balance Clinical Presentation * Evolving Evaluation Complexity Level * Moderate Complexity Pt/caregiver agrees with plan of care/goals * Yes Patient condition at conclusion of therapy * Pt in chair * Personal alarm on * Call light in reach * Phone in reach * PtIn no apparent distress * Pt denies further needs * Visitor with patient Communicated Patient Care With (Name, Title) * CHANELL De La Rosa and MICHELL Clement Goal 2 - Transfers Assistance Required * Independent Goal 2 - Transfer Type * Sit to Stand Goal 2 Assessment * Appropriate - Continue Goal 3 - Ambulation Assistance Required * Independent Goal 3 - Ambulation Distance * 250' Goal 3 - Ambulation Device * Roller Walker Goal 3 Assessment * Appropriate - Continue Goal 4 - Stairs Assistance Required * Independent Goal 4 - Number of Stairs * 2-4 Goal 4 - Device on Stairs * Rail on Right Goal 4 Assessment * Appropriate - Continue Goal 5 * Independent with HEP Goal 5 Assessment * Appropriate - Continue Treatment Plan * Therapeutic Exercise * Bed Mobility Training * Transfer training * Gait Training * Dynamic Balance Training Frequency of Treatment Expected * 7 visits/week Duration of Treatment Expected * 2 weeks Discharge Recommendations * Residential Unit Discharge Recommendation - DME * None Discharge Recommendation Comments * continue to assess progress Comment Review of Relevant I have reviewed the following items piyush (where applicable) has been applied. Labs Laboratory Tests Test 06/30/19 15:10 07/01/19 06:00 07/01/19 13:15 07/01/19 20:20 Hemoglobin 7.3 g/dL (13.0-17.5) 6.6 g/dL (13.0-17.5) 7.9 g/dL (13.0-17.5) Hematocrit 22.6 % (39.0-53.0) 20.1 % (39.0-53.0) 24.0 % (39.0-53.0) Mean Corpuscular Hemoglobin Concent 32 g/dL (31-37) 33 g/dL (31-37) 33 g/dL (31-37) Prothrombin Time 22.3 SEC (11.7-14.0) Prothromb Time International Ratio 2.0 (0.8-1.1) White Blood Count 11.8 x10^3/uL (4.0-11.0) Red Blood Count 2.35 x10^6/uL (4.30-5.70) Mean Corpuscular Volume 86 fL (79-100) Mean Corpuscular Hemoglobin 28 pg (25-35) Red Cell Distribution Width 16.8 % (11.5-14.5) Platelet Count 202 x10^3/uL (140-400) Neutrophils (%) (Auto) 78 % (31-73) Lymphocytes (%) (Auto) 12 % (24-48) Monocytes (%) (Auto) 7 % (0-9) Eosinophils (%) (Auto) 3 % (0-3) Basophils (%) (Auto) 1 % (0-3) Neutrophils # (Auto) 9.2 x10^3/uL (1.8-7.7) Lymphocytes # (Auto) 1.4 x10^3/uL (1.0-4.8) Monocytes # (Auto) 0.8 x10^3/uL (0.0-1.1) Eosinophils # (Auto) 0.3 x10^3/uL (0.0-0.7) Basophils # (Auto) 0.1 x10^3/uL (0.0-0.2) Sodium Level 148 mmol/L (136-145) Potassium Level 3.6 mmol/L (3.5-5.1) Chloride Level 112 mmol/L (98-107) Carbon Dioxide Level 31 mmol/L (21-32) Anion Gap 5 (6-14) Blood Urea Nitrogen 47 mg/dL (8-26) Creatinine 2.9 mg/dL (0.7-1.3) Estimated GFR (Cockcroft-Gault) 21.4 BUN/Creatinine Ratio 16 (6-20) Glucose Level 111 mg/dL (70-99) Calcium Level 8.6 mg/dL (8.5-10.1) Total Bilirubin 0.3 mg/dL (0.2-1.0) Aspartate Amino Transf (AST/SGOT) 14 U/L (15-37) Alanine Aminotransferase (ALT/SGPT) 16 U/L (16-63) Alkaline Phosphatase 46 U/L (46-116) Troponin I Quantitative < 0.017 ng/mL (0.000-0.055) Total Protein 5.5 g/dL (6.4-8.2) Albumin 2.5 g/dL (3.4-5.0) Albumin/Globulin Ratio 0.8 (1.0-1.7) Glucose (Fingerstick) 92 mg/dL (70-99) Test 07/02/19 03:10 White Blood Count 11.1 x10^3/uL (4.0-11.0) Red Blood Count 2.54 x10^6/uL (4.30-5.70) Hemoglobin 7.2 g/dL (13.0-17.5) Hematocrit 21.9 % (39.0-53.0) Mean Corpuscular Volume 86 fL (79-100) Mean Corpuscular Hemoglobin 29 pg (25-35) Mean Corpuscular Hemoglobin Concent 33 g/dL (31-37) Red Cell Distribution Width 16.6 % (11.5-14.5) Platelet Count 219 x10^3/uL (140-400) Neutrophils (%) (Auto) 77 % (31-73) Lymphocytes (%) (Auto) 13 % (24-48) Monocytes (%) (Auto) 6 % (0-9) Eosinophils (%) (Auto) 3 % (0-3) Basophils (%) (Auto) 1 % (0-3) Neutrophils # (Auto) 8.6 x10^3/uL (1.8-7.7) Lymphocytes # (Auto) 1.4 x10^3/uL (1.0-4.8) Monocytes # (Auto) 0.6 x10^3/uL (0.0-1.1) Eosinophils # (Auto) 0.3 x10^3/uL (0.0-0.7) Basophils # (Auto) 0.1 x10^3/uL (0.0-0.2) Prothrombin Time 19.0 SEC (11.7-14.0) Prothromb Time International Ratio 1.6 (0.8-1.1) Sodium Level 145 mmol/L (136-145) Potassium Level 3.5 mmol/L (3.5-5.1) Chloride Level 110 mmol/L (98-107) Carbon Dioxide Level 28 mmol/L (21-32) Anion Gap 7 (6-14) Blood Urea Nitrogen 36 mg/dL (8-26) Creatinine 2.5 mg/dL (0.7-1.3) Estimated GFR (Cockcroft-Gault) 25.4 BUN/Creatinine Ratio 14 (6-20) Glucose Level 94 mg/dL (70-99) Calcium Level 8.8 mg/dL (8.5-10.1) Total Bilirubin 0.5 mg/dL (0.2-1.0) Aspartate Amino Transf (AST/SGOT) 45 U/L (15-37) Alanine Aminotransferase (ALT/SGPT) < 6 U/L (16-63) Alkaline Phosphatase 48 U/L (46-116) Total Protein 5.3 g/dL (6.4-8.2) Albumin 2.4 g/dL (3.4-5.0) Albumin/Globulin Ratio 0.8 (1.0-1.7) Laboratory Tests Test 07/01/19 13:15 07/01/19 20:20 07/02/19 03:10 Hemoglobin 7.9 g/dL (13.0-17.5) 7.2 g/dL (13.0-17.5) Hematocrit 24.0 % (39.0-53.0) 21.9 % (39.0-53.0) Mean Corpuscular Hemoglobin Concent 33 g/dL (31-37) 33 g/dL (31-37) Glucose (Fingerstick) 92 mg/dL (70-99) White Blood Count 11.1 x10^3/uL (4.0-11.0) Red Blood Count 2.54 x10^6/uL (4.30-5.70) Mean Corpuscular Volume 86 fL (79-100) Mean Corpuscular Hemoglobin 29 pg (25-35) Red Cell Distribution Width 16.6 % (11.5-14.5) Platelet Count 219 x10^3/uL (140-400) Neutrophils (%) (Auto) 77 % (31-73) Lymphocytes (%) (Auto) 13 % (24-48) Monocytes (%) (Auto) 6 % (0-9) Eosinophils (%) (Auto) 3 % (0-3) Basophils (%) (Auto) 1 % (0-3) Neutrophils # (Auto) 8.6 x10^3/uL (1.8-7.7) Lymphocytes # (Auto) 1.4 x10^3/uL (1.0-4.8) Monocytes # (Auto) 0.6 x10^3/uL (0.0-1.1) Eosinophils # (Auto) 0.3 x10^3/uL (0.0-0.7) Basophils # (Auto) 0.1 x10^3/uL (0.0-0.2) Prothrombin Time 19.0 SEC (11.7-14.0) Prothromb Time International Ratio 1.6 (0.8-1.1) Sodium Level 145 mmol/L (136-145) Potassium Level 3.5 mmol/L (3.5-5.1) Chloride Level 110 mmol/L (98-107) Carbon Dioxide Level 28 mmol/L (21-32) Anion Gap 7 (6-14) Blood Urea Nitrogen 36 mg/dL (8-26) Creatinine 2.5 mg/dL (0.7-1.3) Estimated GFR (Cockcroft-Gault) 25.4 BUN/Creatinine Ratio 14 (6-20) Glucose Level 94 mg/dL (70-99) Calcium Level 8.8 mg/dL (8.5-10.1) Total Bilirubin 0.5 mg/dL (0.2-1.0) Aspartate Amino Transf (AST/SGOT) 45 U/L (15-37) Alanine Aminotransferase (ALT/SGPT) < 6 U/L (16-63) Alkaline Phosphatase 48 U/L (46-116) Total Protein 5.3 g/dL (6.4-8.2) Albumin 2.4 g/dL (3.4-5.0) Albumin/Globulin Ratio 0.8 (1.0-1.7) Medications Current Medications Ondansetron HCl (Zofran) 4 mg PRN Q8HRS PRN IV NAUSEA/VOMITING; Start 06/28/19 at 22:00; Stop 06/29/19 at 21:59; Status DC Sodium Chloride 1,000 ml @ 125 mls/hr Q8H IV Last administered on 06/29/19at 19:34; Start 06/28/19 at 22:00; Stop 06/29/19 at 21:59; Status DC Pantoprazole Sodium (PROTONIX VIAL for IV PUSH) 40 mg DAILYAC IVP Last administered on 07/01/19at 08:05; Start 06/29/19 at 11:00 Heparin Sodium (Porcine) (HEPARIN for NUC MED) 100 unit 1X ONCE IV ; Start 06/29/19 at 12:15; Stop 06/29/19 at 12:16; Status DC Phytonadione (Vitamin K Ampule) 5 mg 1X ONCE SQ Last administered on 06/29/19at 16:29; Start 06/29/19 at 16:30; Stop 06/29/19 at 16:31; Status DC Morphine Sulfate (Morphine Sulfate) 4 mg PRN Q1HR PRN IV PAIN Last administered on 07/01/19at 04:12; Start 06/29/19 at 18:15 Amlodipine Besylate (Norvasc) 5 mg DAILY PO ; Start 07/02/19 at 09:00 Calcitriol (Rocaltrol) 0.25 mcg DAILY PO ; Start 07/02/19 at 09:00 Carbidopa/Levodopa (Sinemet 25/100) 1 tab QID PO Last administered on 07/01/19at 20:07; Start 07/01/19 at 17:00 Vitamin D (Vitamin D3) 1,000 unit DAILY PO ; Start 07/02/19 at 09:00 Citalopram Hydrobromide (CeleXA) 20 mg DAILY PO ; Start 07/02/19 at 09:00 Clonidine HCl (Catapres) 0.1 mg PRN Q6HRS PRN PO SBP>160 OR DBP>90; Start 07/01/19 at 15:30 Diltiazem HCl (Cardizem 24hr Cd) 120 mg DAILY PO ; Start 07/02/19 at 09:00 Docusate Sodium (Colace) 100 mg PRN BID PRN PO CONSTIPATION; Start 07/01/19 at 15:30 Famotidine (Pepcid) 20 mg QHS PO Last administered on 07/01/19at 20:07; Start 07/01/19 at 21:00 Furosemide (Lasix) 40 mg BID92 PO ; Start 07/02/19 at 09:00 Gabapentin (Neurontin) 300 mg TID PO Last administered on 07/01/19at 20:07; Start 07/01/19 at 21:00 Levothyroxine Sodium (Synthroid) 25 mcg DAILY06 PO Last administered on 07/02/19at 06:05; Start 07/02/19 at 06:00 Potassium Chloride (Klor-Con) 10 meq DAILY PO ; Start 07/02/19 at 09:00 Tamsulosin HCl (Flomax) 0.4 mg DAILY PO ; Start 07/02/19 at 09:00 Ascorbic Acid (Vitamin C) 500 mg DAILY PO ; Start 07/02/19 at 09:00 Carvedilol (Coreg) 25 mg BIDWMEALS PO Last administered on 07/01/19at 17:24; Start 07/01/19 at 17:00 Lactobacillus Rhamnosus (Culturelle) 1 cap DAILY PO ; Start 07/02/19 at 09:00 Cetirizine HCl (ZyrTEC) 10 mg DAILY PO ; Start 07/02/19 at 09:00 Vitamin B Complex (Eloy B) 1 tab DAILY PO ; Start 07/02/19 at 09:00 Active Scripts Active Augmentin 250-62.5 Mg/5 Ml (Amoxicillin/Potassium Clav) 250 Mg/5 Ml Susp.recon 5 Ml PO BID 10 Days Famotidine 20 Mg Tablet 20 Mg PO QHS 30 Days Colace (Docusate Sodium) 100 Mg Capsule 100 Mg PO PRN BID PRN 30 Days Lorazepam 0.5 Mg Tablet 0.5 Mg PO PRN Q4HRS PRN 14 Days Tylenol (Acetaminophen) 325 Mg Tablet 650 Mg PO PRN Q4HRS PRN 30 Days Catapres (Clonidine Hcl) 0.1 Mg Tablet 0.1 Mg PO PRN Q6HRS PRN 14 Days Proair Hfa (Albuterol Sulfate) 8.5 Gm Hfa.aer.ad 2.5 Mg NEB PRN Q4HRS PRN 14 Days Dicyclomine Hcl 10 Mg Capsule 10 Mg PO PRN 1X PRN 14 Days Reported Warfarin Sodium 3 Mg Tablet 3 Mg PO DAILY Gabapentin (Gabapentin) 300 Mg Capsule 300 Mg PO TID Vitamin D3 (Cholecalciferol (Vitamin D3)) 1,000 Unit Tablet 1 Tab PO DAILY Vitamin C (Ascorbic Acid) 500 Mg Capsule 500 Mg PO DAILY Vitamin B Complex 1 Each Capsule 1 Each PO DAILY Sinemet 25-100 Mg Tablet (Carbidopa/Levodopa) 1 Each Tablet 1 Tab PO QID Probiotic (Lactobacillus Combo No.11) 1 Each Cap.sprink 1 Each PO DAILY Potassium Chloride 10 Meq Tab.sr.24h 10 Meq PO DAILY Methadone Hcl 10 Mg Tablet 30 Mg PO TID Loratadine 10 Mg Tablet 1 Tab PO DAILY Levothyroxine Sodium 25 Mcg Tablet 1 Tab PO DAILY Lasix (Furosemide) 40 Mg Tablet 40 Mg PO BID Gabapentin 600 Mg Tablet 600 Mg PO QID Flomax (Tamsulosin Hcl) 0.4 Mg Cap.er.24h 1 Cap PO DAILY Fenofibrate (Fenofibrate,Micronized) 134 Mg Capsule 1 Cap PO DAILY Diltiazem 24HR Cd (Diltiazem Hcl) 120 Mg Cap.er.24h 1 Cap PO DAILY Coumadin (Warfarin Sodium) 7.5 Mg Tablet 1 Tab PO DAILY Coreg (Carvedilol) 25 Mg Tablet 25 Mg PO BIDWMEALS Citalopram Hbr (Citalopram Hydrobromide) 20 Mg Tablet 1 Tab PO DAILY Calcitriol 0.25 Mcg Capsule 1 Cap PO DAILY Aspirin 81 Mg Tab.chew 1 Tab PO DAILY Norvasc (Amlodipine Besylate) 5 Mg Tablet 5 Mg PO DAILY Vitals/I & O Vital Sign - Last 24 Hours 07/01/19 07/01/19 07/01/19 07/01/19 08:09 09:02 10:00 10:24 Temp 98.2 98.2 Pulse 87 88 89 89 Resp 14 16 14 14 B/P (MAP) 177/79 (111) 157/65 (95) 163/66 (98) 163/66 Pulse Ox 94 94 94 O2 Delivery Room Air Room Air Room Air 07/01/19 07/01/19 07/01/19 07/01/19 10:45 11:45 12:25 13:50 Temp 98.0 98.2 98.1 98.8 98.0 98.2 98.1 98.8 Pulse 89 85 88 88 Resp 15 13 15 18 B/P (MAP) 178/72 159/77 186/85 163/68 (99) Pulse Ox 94 O2 Delivery Room Air 07/01/19 07/01/19 07/01/19 07/01/19 15:20 17:24 19:58 20:00 Temp 98.4 98.3 98.4 98.3 Pulse 83 83 80 Resp 18 16 B/P (MAP) 162/76 (104) 162/76 148/70 (96) Pulse Ox 94 92 O2 Delivery Room Air Room Air Room Air O2 Flow Rate 2.0 07/01/19 07/02/1919 23:37 03:17 07:00 Temp 98.7 98.0 97.7 98.7 98.0 97.7 Pulse 73 76 78 Resp 16 16 18 B/P (MAP) 167/73 (104) 130/53 (78) 171/78 (109) Pulse Ox 93 92 95 O2 Delivery Room Air Room Air Room Air Intake and Output 07/01/19 07/01/19 07/02/19 14:59 22:59 06:59 Intake Total 740 ml 200 ml 670 ml Output Total 500 ml 2000 ml Balance 240 ml 200 ml -1330 ml JOHANA SIMMONS MD Jul 02, 2019 08:02
[2019-07-02] MEDS: CHOLECALCIFEROL (VITAMIN D3) 1,000 UNIT TABLET PO SCH (09:00)
[2019-07-02] MEDS: PANTOPRAZOLE IV PUSH 40 MG VIAL. IVP SCH (09:58)
[2019-07-02] MEDS: ASCORBIC ACID 500 MG TABLET PO SCH (09:58)
[2019-07-02] MEDS: POTASSIUM CHLORIDE 10 MEQ TABLET.ER. PO SCH (09:59)
[2019-07-02] MEDS: CETIRIZINE HCL 10 MG TABLET. PO SCH (09:59)
[2019-07-02] MEDS: CALCITRIOL 0.25 MCG CAPSULE. PO SCH (09:59)
[2019-07-02] MEDS: LACTOBACILLUS RHAMNOSUS GG 1 CAPSULE. PO SCH (09:59)
[2019-07-02] MEDS: VITAMIN B COMPLEX TABLET. PO SCH (09:59)
[2019-07-02] MEDS: FUROSEMIDE 40 MG TABLET. PO SCH ×2 (09:59→13:57)
[2019-07-02] MEDS: GABAPENTIN 300 MG CAPSULE. PO SCH ×3 (09:59→21:00)
[2019-07-02] MEDS: CARVEDILOL 12.5 MG TABLET. PO SCH ×2 (10:00→18:17)
[2019-07-02] MEDS: CARBIDOPA/LEVODOPA 25/100MG TABLET PO SCH ×4 (10:01→21:00)
[2019-07-02] MEDS: CITALOPRAM 20 MG TABLET. PO SCH (10:01)
[2019-07-02] MEDS: amLODIPine BESYLATE 5 MG TABLET PO SCH (10:01)
[2019-07-02] MEDS: TAMSULOSIN 0.4 MG CAP.ER.24H. PO SCH (10:01)
[2019-07-02 11:05] VITALS: BP 157/47
--- NOTE | 2019-07-02 15:02 | NUR ---
Wound care: Patient seen per wound care consult. Patient is known to us from recent admission. There are no open wounds at this time. Coccyx/sacrum is reddened but remains blanchable, calazime cream applied. Patient assisted back to bed via walker and assist X3. Patient repositioned and turned to left side using wedge. Patient on a P-500 bed and bilateral heels floated using pillows. Bed lowered and call light in reach. Bed alarm on. Will follow up with patient next week for reassessment.
[2019-07-02 15:20] VITALS: BP 146/51
--- NOTE | 2019-07-02 15:57 | PDOC ---
GI PROGRESS NOTES Date Date/Time DATE: 07/02/19 TIME: 15:47 Subjective Subjective nurse reports red blood in BM- small amount- patient thinks it was more than once today but small volume Hgb tending down from 7.9 after transfusion to 7.2- some is equilibration but some is continued blood loss no pain Objective Vitals Vital Signs Date Time Temp Pulse Resp B/P (MAP) Pulse Ox O2 Delivery O2 Flow Rate FiO2 07/02/19 15:20 98.3 58 18 146/51 (82) 94 Room Air 98.3 07/02/19 11:05 97.8 73 18 157/47 (83) 94 Room Air 97.8 07/02/19 10:01 78 171/78 07/02/19 10:00 78 171/78 07/02/19 10:00 78 171/78 07/02/19 08:00 Room Air 07/02/19 07:00 97.7 78 18 171/78 (109) 95 Room Air 97.7 07/02/19 03:17 98.0 76 16 130/53 (78) 92 Room Air 98.0 07/01/19 23:37 98.7 73 16 167/73 (104) 93 Room Air 98.7 07/01/19 20:00 Room Air 2.0 07/01/19 19:58 98.3 80 16 148/70 (96) 92 Room Air 98.3 07/01/19 17:24 83 162/76 Labs Labs Laboratory Tests Test 07/01/19 20:20 07/02/19 03:10 Glucose (Fingerstick) 92 mg/dL (70-99) White Blood Count 11.1 x10^3/uL (4.0-11.0) Red Blood Count 2.54 x10^6/uL (4.30-5.70) Hemoglobin 7.2 g/dL (13.0-17.5) Hematocrit 21.9 % (39.0-53.0) Mean Corpuscular Volume 86 fL (79-100) Mean Corpuscular Hemoglobin 29 pg (25-35) Mean Corpuscular Hemoglobin Concent 33 g/dL (31-37) Red Cell Distribution Width 16.6 % (11.5-14.5) Platelet Count 219 x10^3/uL (140-400) Neutrophils (%) (Auto) 77 % (31-73) Lymphocytes (%) (Auto) 13 % (24-48) Monocytes (%) (Auto) 6 % (0-9) Eosinophils (%) (Auto) 3 % (0-3) Basophils (%) (Auto) 1 % (0-3) Neutrophils # (Auto) 8.6 x10^3/uL (1.8-7.7) Lymphocytes # (Auto) 1.4 x10^3/uL (1.0-4.8) Monocytes # (Auto) 0.6 x10^3/uL (0.0-1.1) Eosinophils # (Auto) 0.3 x10^3/uL (0.0-0.7) Basophils # (Auto) 0.1 x10^3/uL (0.0-0.2) Prothrombin Time 19.0 SEC (11.7-14.0) Prothromb Time International Ratio 1.6 (0.8-1.1) Sodium Level 145 mmol/L (136-145) Potassium Level 3.5 mmol/L (3.5-5.1) Chloride Level 110 mmol/L (98-107) Carbon Dioxide Level 28 mmol/L (21-32) Anion Gap 7 (6-14) Blood Urea Nitrogen 36 mg/dL (8-26) Creatinine 2.5 mg/dL (0.7-1.3) Estimated GFR (Cockcroft-Gault) 25.4 BUN/Creatinine Ratio 14 (6-20) Glucose Level 94 mg/dL (70-99) Calcium Level 8.8 mg/dL (8.5-10.1) Total Bilirubin 0.5 mg/dL (0.2-1.0) Aspartate Amino Transf (AST/SGOT) 45 U/L (15-37) Alanine Aminotransferase (ALT/SGPT) < 6 U/L (16-63) Alkaline Phosphatase 48 U/L (46-116) Total Protein 5.3 g/dL (6.4-8.2) Albumin 2.4 g/dL (3.4-5.0) Albumin/Globulin Ratio 0.8 (1.0-1.7) Physical Exam Physical Exam chest- clear abd - soft nontender no masses Assessment Assessment Diverticular bleed while on coumadin- significant anemia but now stablizing- INR corrected to 1.6 with Vit K- Hgb up to 7.9 after transfusion yesterday but trending down today- some is from equilibration but also still with some red blood in stool- small amount - could be some old blood from massive bleed several days ago- but red blood today may suggest low volume bleeding- known to have diverticulosis - office notes and reports reviewed- last colonoscopy 2013- no polyps seen- discussed these issues with patient - not here today- but discussed them with her over last few days- we are holding on colonoscopy at this point ( 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 Marino will cover this weekend Plan Plan continue diet monitor labs VLIMA NANCE MD Jul 02, 2019 15:57
[2019-07-02] MEDS ORDERED: FERROUS SULFATE ORAL 300 MG/5 ML SOLUTION. PO STA (18:39)
[2019-07-02] MEDS: METHADONE 10 MG TABLET. PO SCH (19:27)
--- NOTE | 2019-07-02 19:28 | NUR ---
Pt was combative at shift change after report. Wanted to get up and go home. He was "not in a hospital". Pt was unsteady on feet. We got him into bed. He was mad. Pt stated we were restraining and holding him back, when we in fact were not. We were holding under his arms to ensure his safety. Pt became combative as we put him in bed. Held my this nurse's hands and threw fists without toward my face. No contact was made. Pt attempted to kick toward me, was verbally aggressive. Pt was/is confused. Pt called night stocker nurse a "fat lazy nigger". We talked calmly and attempted to calm down. Pt continued to try to get out of bed and we put his legs back into bed. Watching for his safety. Called security up while charge nurse called doctor for agitation medication. Pt yelled at all nurses.
[2019-07-02] MEDS ORDERED: HALOPERIDOL LACTATE 5 MG/ML VIAL. IVP PRN (19:30)
[2019-07-02 19:35] VITALS: BP 133/58
[2019-07-02] MEDS ORDERED: HALOPERIDOL LACTATE 5 MG/ML VIAL. IM PRN (19:45)
[2019-07-02] MEDS: FAMOTIDINE 20 MG TABLET. PO SCH (21:00)
--- NOTE | 2019-07-03 07:28 | NUR ---
Pt combative and verbally abusive to staff after shift change and refusing to calm down to avoid injuring himself and others. Security called since pt unable to reorient to surroundings. After continued reorientation pt was finally willing to stay in the hospital. However pt still resistant. Pt given ativan IM and able to rest during the noc with eyes closed. Yessenia did call to check up on pt and informed of pt resting during the time and given medication to help calm him down. states he was also upset and agitated with her. Will continue to monitor.
[2019-07-03] MEDS: METHADONE 10 MG TABLET. PO SCH ×2 (07:35→18:15)
[2019-07-03] MEDS: LEVOTHYROXINE 25 MCG TABLET. PO SCH (07:35)
[2019-07-03 07:50] VITALS: BP 138/56
[2019-07-03 09:02] LABS: BASO # 0.1 x10^3/uL (0.0-0.2); BASO % 1 % (0-3); EOS # 0.4 x10^3/uL (0.0-0.7); EOS % 4 % (0-3); HEMATOCRIT 28.2 % (39.0-53.0); HEMOGLOBIN 9.5 g/dL (13.0-17.5); LYMPH % 10 % (24-48); MEAN CORPUSCULAR HEMOGLOBIN 29 pg (25-35); MEAN CORPUSCULAR HGB CONC 34 g/dL (31-37); MEAN CORPUSCULAR VOLUME 86 fL (79-100); MONO # 0.6 x10^3/uL (0.0-1.1); MONO % 6 % (0-9); NEUT # 8.1 x10^3/uL (1.8-7.7); NEUT % 79 % (31-73); PLATELET COUNT 242 x10^3/uL (140-400); RED BLOOD COUNT 3.27 x10^6/uL (4.30-5.70); RED CELL DISTRIBUTION WIDTH 16.5 % (11.5-14.5); WHITE BLOOD COUNT 10.2 x10^3/uL (4.0-11.0)
--- NOTE | 2019-07-03 09:05 | PDOC ---
PROGRESS NOTES Chief Complaint Chief Complaint 1. No acute intracranial findings. ON CT HEAD, RECENT acute metabolic encephalopathy sec to UTI 2. Chronic left insular infarct. Moderate atrophy and chronic microangiopathic white matter change. 3. FALLS 4. Generalized weakness 5 morbid obesity 6. HYPERTENSION 7. Depression 8. Mild basilar atelectasis. 9. CKD stage 4-[address] abd Significant calcific involvement of the arterial vasculature. Bilateral common iliac artery fusiform aneurysms. 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 Alternatively, this may represent significant atherosclerotic calcific involvement. 11, RECENT uti 12 GI bleed with acute blood loss anemia 13 CAD 14 Parkinson's, with dementia 15. severe protein-caloric malnutrition 16. marked debility 10-11 BRIGHT RED RECTAL bleeding noted by RN today History of Present Illness History of Present Illness impression - 1. No acute intracranial findings. ON CT HEAD, RECENT acute metabolic encephalopathy sec to UTI 2. Chronic left insular infarct. Moderate atrophy and chronic microangiopathic white matter change. 3. FALLS 4. Generalized weakness 5 morbid obesity 6. HYPERTENSION 7. Depression 8. Mild basilar atelectasis. 9. CKD stage 4-[address] abd Significant calcific involvement of the arterial vasculature. Bilateral common iliac artery fusiform aneurysms. 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 Alternatively, this may represent significant atherosclerotic calcific involv ement. 11, RECENT uti 12 GI bleed 13 CAD 14 Parkinson's, dementia d/w family in room cbc, comp in am - 38 MIN PT EXAM, CHART REVIEW, > 50% OF TIME SPENT WITH EXAM, CHART REVIEW, PT CARE COORDINATION 07/01/19 Pt seen and examined in the ICU Pt currently being transferred 1 unit of blood Pt is sitting upright and responsive to questions Accompanied by D/w nurse. GI gave ok to downgrade from ICU Diet was advanced Chart and labs reviewed WBC was 11.8, down from 13.5 INR was 2.0, down from 2.6 Hgb was 6.8, down from 7.3 BUN was 47, down from 51 Cr is 2.9, down from 3.1 06/30/19 Pt seen and examined in the ICU Pt was transferred 2 units of blood on 06/29 Pt is sitting upright Skin pallor is improved compared to yesterday Pt is responsive to questions Accompanied by and granddaughter D/w nurse and family Charts and labs reviewed WBC is 13.5, up from 10 Hgb is 7.3, down from 8 BUN is 51, up from 44 Cr remains 3.1 Vitals Vitals Vital Signs Date Time Temp Pulse Resp B/P (MAP) Pulse Ox O2 Delivery O2 Flow Rate FiO2 07/03/19 07:50 97.6 67 18 138/56 (83) 91 Room Air 97.6 07/02/19 20:00 2.0 Physical Exam Physical Exam Right forearm has ecchymosis present General: Alert, Cooperative, No acute distress Heart: Regular rate Lungs: Clear Abdomen: Normal bowel sounds, Soft, No tenderness, No hepatosplenomegaly Extremities: No clubbing, No cyanosis Skin: Other Comment Review of Relevant I have reviewed the following items piyush (where applicable) has been applied. Labs Laboratory Tests Test 07/01/19 13:15 07/01/19 20:20 07/02/19 03:10 Hemoglobin 7.9 g/dL (13.0-17.5) 7.2 g/dL (13.0-17.5) Hematocrit 24.0 % (39.0-53.0) 21.9 % (39.0-53.0) Mean Corpuscular Hemoglobin Concent 33 g/dL (31-37) 33 g/dL (31-37) Glucose (Fingerstick) 92 mg/dL (70-99) White Blood Count 11.1 x10^3/uL (4.0-11.0) Red Blood Count 2.54 x10^6/uL (4.30-5.70) Mean Corpuscular Volume 86 fL (79-100) Mean Corpuscular Hemoglobin 29 pg (25-35) Red Cell Distribution Width 16.6 % (11.5-14.5) Platelet Count 219 x10^3/uL (140-400) Neutrophils (%) (Auto) 77 % (31-73) Lymphocytes (%) (Auto) 13 % (24-48) Monocytes (%) (Auto) 6 % (0-9) Eosinophils (%) (Auto) 3 % (0-3) Basophils (%) (Auto) 1 % (0-3) Neutrophils # (Auto) 8.6 x10^3/uL (1.8-7.7) Lymphocytes # (Auto) 1.4 x10^3/uL (1.0-4.8) Monocytes # (Auto) 0.6 x10^3/uL (0.0-1.1) Eosinophils # (Auto) 0.3 x10^3/uL (0.0-0.7) Basophils # (Auto) 0.1 x10^3/uL (0.0-0.2) Prothrombin Time 19.0 SEC (11.7-14.0) Prothromb Time International Ratio 1.6 (0.8-1.1) Sodium Level 145 mmol/L (136-145) Potassium Level 3.5 mmol/L (3.5-5.1) Chloride Level 110 mmol/L (98-107) Carbon Dioxide Level 28 mmol/L (21-32) Anion Gap 7 (6-14) Blood Urea Nitrogen 36 mg/dL (8-26) Creatinine 2.5 mg/dL (0.7-1.3) Estimated GFR (Cockcroft-Gault) 25.4 BUN/Creatinine Ratio 14 (6-20) Glucose Level 94 mg/dL (70-99) Calcium Level 8.8 mg/dL (8.5-10.1) Total Bilirubin 0.5 mg/dL (0.2-1.0) Aspartate Amino Transf (AST/SGOT) 45 U/L (15-37) Alanine Aminotransferase (ALT/SGPT) < 6 U/L (16-63) Alkaline Phosphatase 48 U/L (46-116) Total Protein 5.3 g/dL (6.4-8.2) Albumin 2.4 g/dL (3.4-5.0) Albumin/Globulin Ratio 0.8 (1.0-1.7) Medications Current Medications Ondansetron HCl (Zofran) 4 mg PRN Q8HRS PRN IV NAUSEA/VOMITING; Start 06/28/19 at 22:00; Stop 06/29/19 at 21:59; Status DC Sodium Chloride 1,000 ml @ 125 mls/hr Q8H IV Last administered on 06/29/19at 19:34; Start 06/28/19 at 22:00; Stop 06/29/19 at 21:59; Status DC Pantoprazole Sodium (PROTONIX VIAL for IV PUSH) 40 mg DAILYAC IVP Last administered on 07/02/19at 09:58; Start 06/29/19 at 11:00 Heparin Sodium (Porcine) (HEPARIN for NUC MED) 100 unit 1X ONCE IV ; Start 06/29/19 at 12:15; Stop 06/29/19 at 12:16; Status DC Phytonadione (Vitamin K Ampule) 5 mg 1X ONCE SQ Last administered on 06/29/19at 16:29; Start 06/29/19 at 16:30; Stop 06/29/19 at 16:31; Status DC Morphine Sulfate (Morphine Sulfate) 4 mg PRN Q1HR PRN IV PAIN Last administered on 07/01/19 04:12; Start 06/29/19 at 18:15 Amlodipine Besylate (Norvasc) 5 mg DAILY PO Last administered on 07/02/19 10:01; Start 07/02/19 at 09:00 Calcitriol (Rocaltrol) 0.25 mcg DAILY PO Last administered on 07/02/19at 09:59; Start 07/02/19 at 09:00 Carbidopa/Levodopa (Sinemet 25/100) 1 tab QID PO Last administered on 07/02/19at 18:16; Start 07/01/19 at 17:00 Vitamin D (Vitamin D3) 1,000 unit DAILY PO Last administered on 07/02/19 09:00; Start 07/02/19 at 09:00 Citalopram Hydrobromide (CeleXA) 20 mg DAILY PO Last administered on 07/02/19at 10:01; Start 07/02/19 at 09:00 Clonidine HCl (Catapres) 0.1 mg PRN Q6HRS PRN PO SBP>160 OR DBP>90; Start 07/01/19 at 15:30 Diltiazem HCl (Cardizem 24hr Cd) 120 mg DAILY PO Last administered on 07/02/19at 10:00; Start 07/02/19 at 09:00 Docusate Sodium (Colace) 100 mg PRN BID PRN PO CONSTIPATION; Start 07/01/19 at 15:30 Famotidine (Pepcid) 20 mg QHS PO Last administered on 07/01/19at 20:07; Start 07/01/19 at 21:00 Furosemide (Lasix) 40 mg BID92 PO Last administered on 07/02/19at 13:57; Start 07/02/19 at 09:00 Gabapentin (Neurontin) 300 mg TID PO Last administered on 07/02/19 13:57; Start 07/01/19 at 21:00 Levothyroxine Sodium (Synthroid) 25 mcg DAILY06 PO Last administered on 07/03/19 07:35; Start 07/02/19 at 06:00 Potassium Chloride (Klor-Con) 10 meq DAILY PO Last administered on 07/02/19 09:59; Start 07/02/19 at 09:00 Tamsulosin HCl (Flomax) 0.4 mg DAILY PO Last administered on 07/02/19 10:01; Start 07/02/19 at 09:00 Ascorbic Acid (Vitamin C) 500 mg DAILY PO Last administered on 07/02/19 09:58; Start 07/02/19 at 09:00 Carvedilol (Coreg) 25 mg BIDWMEALS PO Last administered on 07/02/19at 18:17; Start 07/01/19 at 17:00 Lactobacillus Rhamnosus (Culturelle) 1 cap DAILY PO Last administered on 07/02/19 09:59; Start 07/02/19 at 09:00 Cetirizine HCl (ZyrTEC) 10 mg DAILY PO Last administered on 07/02/19 09:59; Start 07/02/19 at 09:00 Vitamin B Complex (Eloy B) 1 tab DAILY PO Last administered on 07/02/19 09:59; Start 07/02/19 at 09:00 Ferrous Sulfate (Iron Oral Solution) 300 mg BIDWMEALS PO ; Start 07/03/19 at 08:00 Ferrous Sulfate (Iron Oral Solution) 300 mg 1X STAT PO ; Start 07/02/19 at 18:39; Stop 07/02/19 at 18:48; Status DC Methadone HCl (Dolophine) 10 mg [id number] PO Last administered on 07/03/19 07:35; Start 07/02/19 at 19:27 Lorazepam (Ativan Inj) 4 mg PRN Q4HRS PRN IVP ANXIETY / AGITATION Last administered on 07/02/19at 19:30; Start 07/02/19 at 19:30; Stop 07/02/19 at 19:34; Status DC Haloperidol Lactate (Haldol Inj) 5 mg PRN Q6HRS PRN IVP AGITATION; Start 07/02/19 at 19:30; Stop 07/02/19 at 19:33; Status DC Haloperidol Lactate (Haldol Inj) 5 mg PRN Q6HRS PRN IM AGITATION; Start 07/02/19 at 19:45 Lorazepam (Ativan Inj) 4 mg PRN Q4HRS PRN IM/IV ANXIETY / AGITATION; Start 07/02/19 at 19:45 Active Scripts Active Augmentin 250-62.5 Mg/5 Ml (Amoxicillin/Potassium Clav) 250 Mg/5 Ml Susp.recon 5 Ml PO BID 10 Days Famotidine 20 Mg Tablet 20 Mg PO QHS 30 Days Colace (Docusate Sodium) 100 Mg Capsule 100 Mg PO PRN BID PRN 30 Days Lorazepam 0.5 Mg Tablet 0.5 Mg PO PRN Q4HRS PRN 14 Days Tylenol (Acetaminophen) 325 Mg Tablet 650 Mg PO PRN Q4HRS PRN 30 Days Catapres (Clonidine Hcl) 0.1 Mg Tablet 0.1 Mg PO PRN Q6HRS PRN 14 Days Proair Hfa (Albuterol Sulfate) 8.5 Gm Hfa.aer.ad 2.5 Mg NEB PRN Q4HRS PRN 14 Days Dicyclomine Hcl 10 Mg Capsule 10 Mg PO PRN 1X PRN 14 Days Reported Warfarin Sodium 3 Mg Tablet 3 Mg PO DAILY Gabapentin (Gabapentin) 300 Mg Capsule 300 Mg PO TID Vitamin D3 (Cholecalciferol (Vitamin D3)) 1,000 Unit Tablet 1 Tab PO DAILY Vitamin C (Ascorbic Acid) 500 Mg Capsule 500 Mg PO DAILY Vitamin B Complex 1 Each Capsule 1 Each PO DAILY Sinemet 25-100 Mg Tablet (Carbidopa/Levodopa) 1 Each Tablet 1 Tab PO QID Probiotic (Lactobacillus Combo No.11) 1 Each Cap.sprink 1 Each PO DAILY Potassium Chloride 10 Meq Tab.sr.24h 10 Meq PO DAILY Methadone Hcl 10 Mg Tablet 30 Mg PO TID Loratadine 10 Mg Tablet 1 Tab PO DAILY Levothyroxine Sodium 25 Mcg Tablet 1 Tab PO DAILY Lasix (Furosemide) 40 Mg Tablet 40 Mg PO BID Gabapentin 600 Mg Tablet 600 Mg PO QID Flomax (Tamsulosin Hcl) 0.4 Mg Cap.er.24h 1 Cap PO DAILY Fenofibrate (Fenofibrate,Micronized) 134 Mg Capsule 1 Cap PO DAILY Diltiazem 24HR Cd (Diltiazem Hcl) 120 Mg Cap.er.24h 1 Cap PO DAILY Coumadin (Warfarin Sodium) 7.5 Mg Tablet 1 Tab PO DAILY Coreg (Carvedilol) 25 Mg Tablet 25 Mg PO BIDWMEALS Citalopram Hbr (Citalopram Hydrobromide) 20 Mg Tablet 1 Tab PO DAILY Calcitriol 0.25 Mcg Capsule 1 Cap PO DAILY Aspirin 81 Mg Tab.chew 1 Tab PO DAILY Norvasc (Amlodipine Besylate) 5 Mg Tablet 5 Mg PO DAILY Vitals/I & O Vital Sign - Last 24 Hours 07/02/19 07/02/19 07/02/19 07/02/19 10:00 10:00 10:01 11:05 Temp 97.8 97.8 Pulse 78 78 78 73 Resp 18 B/P (MAP) 171/78 171/78 171/78 157/47 (83) Pulse Ox 94 O2 Delivery Room Air 07/02/19 07/02/19 07/02/19 07/02/19 15:20 18:17 19:35 20:00 Temp 98.3 98.3 Pulse 58 58 76 Resp 18 B/P (MAP) 146/51 (82) 146/51 133/58 (83) Pulse Ox 94 O2 Delivery Room Air Room Air O2 Flow Rate 2.0 07/02/19 07/03/19 07/03/19 23:31 03:22 07:50 Temp 97.6 97.6 Pulse 67 Resp 18 16 18 B/P (MAP) 138/56 (83) Pulse Ox 91 O2 Delivery Room Air Room Air Intake and Output 07/02/19 07/02/19 07/03/19 15:00 23:00 07:00 Intake Total 240 ml 400 ml Output Total 1350 ml 700 ml 2350 ml Balance -1110 ml -300 ml -2350 ml JOHANA SIMMONS MD Jul 03, 2019 09:05
[2019-07-03 09:23] LABS: ALBUMIN 2.9 g/dL (3.4-5.0); ALBUMIN/GLOBULIN RATIO 0.8 (1.0-1.7); CALCIUM 9.2 mg/dL (8.5-10.1); CREATININE 2.7 mg/dL (0.7-1.3); GFR 23.3; POTASSIUM 3.5 mmol/L (3.5-5.1); TOTAL BILIRUBIN 0.5 mg/dL (0.2-1.0); TOTAL PROTEIN 6.4 g/dL (6.4-8.2)
[2019-07-03] MEDS: PANTOPRAZOLE IV PUSH 40 MG VIAL. IVP SCH (10:34)
[2019-07-03] MEDS: LACTOBACILLUS RHAMNOSUS GG 1 CAPSULE. PO SCH (10:34)
[2019-07-03] MEDS: CITALOPRAM 20 MG TABLET. PO SCH (10:35)
[2019-07-03] MEDS: FERROUS SULFATE ORAL 300 MG/5 ML SOLUTION. PO SCH ×2 (10:35→17:00)
[2019-07-03] MEDS: CALCITRIOL 0.25 MCG CAPSULE. PO SCH (10:35)
[2019-07-03] MEDS: GABAPENTIN 300 MG CAPSULE. PO SCH ×3 (10:35→23:23)
[2019-07-03] MEDS: CHOLECALCIFEROL (VITAMIN D3) 1,000 UNIT TABLET PO SCH (10:35)
[2019-07-03] MEDS: VITAMIN B COMPLEX TABLET. PO SCH (10:35)
[2019-07-03] MEDS: ASCORBIC ACID 500 MG TABLET PO SCH (10:35)
[2019-07-03] MEDS: CARBIDOPA/LEVODOPA 25/100MG TABLET PO SCH ×4 (10:35→23:23)
[2019-07-03] MEDS: POTASSIUM CHLORIDE 10 MEQ TABLET.ER. PO SCH (10:36)
[2019-07-03] MEDS: CETIRIZINE HCL 10 MG TABLET. PO SCH (10:36)
[2019-07-03] MEDS: CARVEDILOL 12.5 MG TABLET. PO SCH ×2 (10:36→18:16)
[2019-07-03] MEDS: TAMSULOSIN 0.4 MG CAP.ER.24H. PO SCH (10:37)
[2019-07-03] MEDS: amLODIPine BESYLATE 5 MG TABLET PO SCH (10:37)
[2019-07-03] MEDS: FUROSEMIDE 40 MG TABLET. PO SCH ×2 (10:37→13:49)
[2019-07-03 11:00] VITALS: BP 154/74
--- NOTE | 2019-07-03 11:48 | PDOC ---
G I PROGRESS NOTE Reason for Follow-up GI bleed Subjective Not conversive Physical Exam Lungs clear CV S1 S2 ABD +BS, soft,nontender Review of Relevant I have reviewed the following items piyush (where applicable) has been applied. Labs Laboratory Tests Test 07/01/19 13:15 07/01/19 20:20 07/02/19 03:10 07/03/19 08:35 Hemoglobin 7.9 g/dL (13.0-17.5) 7.2 g/dL (13.0-17.5) 9.5 g/dL (13.0-17.5) Hematocrit 24.0 % (39.0-53.0) 21.9 % (39.0-53.0) 28.2 % (39.0-53.0) Mean Corpuscular Hemoglobin Concent 33 g/dL (31-37) 33 g/dL (31-37) 34 g/dL (31-37) Glucose (Fingerstick) 92 mg/dL (70-99) White Blood Count 11.1 x10^3/uL (4.0-11.0) 10.2 x10^3/uL (4.0-11.0) Red Blood Count 2.54 x10^6/uL (4.30-5.70) 3.27 x10^6/uL (4.30-5.70) Mean Corpuscular Volume 86 fL (79-100) 86 fL (79-100) Mean Corpuscular Hemoglobin 29 pg (25-35) 29 pg (25-35) Red Cell Distribution Width 16.6 % (11.5-14.5) 16.5 % (11.5-14.5) Platelet Count 219 x10^3/uL (140-400) 242 x10^3/uL (140-400) Neutrophils (%) (Auto) 77 % (31-73) 79 % (31-73) Lymphocytes (%) (Auto) 13 % (24-48) 10 % (24-48) Monocytes (%) (Auto) 6 % (0-9) 6 % (0-9) Eosinophils (%) (Auto) 3 % (0-3) 4 % (0-3) Basophils (%) (Auto) 1 % (0-3) 1 % (0-3) Neutrophils # (Auto) 8.6 x10^3/uL (1.8-7.7) 8.1 x10^3/uL (1.8-7.7) Lymphocytes # (Auto) 1.4 x10^3/uL (1.0-4.8) 1.0 x10^3/uL (1.0-4.8) Monocytes # (Auto) 0.6 x10^3/uL (0.0-1.1) 0.6 x10^3/uL (0.0-1.1) Eosinophils # (Auto) 0.3 x10^3/uL (0.0-0.7) 0.4 x10^3/uL (0.0-0.7) Basophils # (Auto) 0.1 x10^3/uL (0.0-0.2) 0.1 x10^3/uL (0.0-0.2) Prothrombin Time 19.0 SEC (11.7-14.0) Prothromb Time International Ratio 1.6 (0.8-1.1) Sodium Level 145 mmol/L (136-145) 149 mmol/L (136-145) Potassium Level 3.5 mmol/L (3.5-5.1) 3.5 mmol/L (3.5-5.1) Chloride Level 110 mmol/L (98-107) 110 mmol/L (98-107) Carbon Dioxide Level 28 mmol/L (21-32) 32 mmol/L (21-32) Anion Gap 7 (6-14) 7 (6-14) Blood Urea Nitrogen 36 mg/dL (8-26) 29 mg/dL (8-26) Creatinine 2.5 mg/dL (0.7-1.3) 2.7 mg/dL (0.7-1.3) Estimated GFR (Cockcroft-Gault) 25.4 23.3 BUN/Creatinine Ratio 14 (6-20) 11 (6-20) Glucose Level 94 mg/dL (70-99) 106 mg/dL (70-99) Calcium Level 8.8 mg/dL (8.5-10.1) 9.2 mg/dL (8.5-10.1) Total Bilirubin 0.5 mg/dL (0.2-1.0) 0.5 mg/dL (0.2-1.0) Aspartate Amino Transf (AST/SGOT) 45 U/L (15-37) 51 U/L (15-37) Alanine Aminotransferase (ALT/SGPT) < 6 U/L (16-63) 7 U/L (16-63) Alkaline Phosphatase 48 U/L (46-116) 63 U/L (46-116) Total Protein 5.3 g/dL (6.4-8.2) 6.4 g/dL (6.4-8.2) Albumin 2.4 g/dL (3.4-5.0) 2.9 g/dL (3.4-5.0) Albumin/Globulin Ratio 0.8 (1.0-1.7) 0.8 (1.0-1.7) Laboratory Tests Test 07/03/19 08:35 White Blood Count 10.2 x10^3/uL (4.0-11.0) Red Blood Count 3.27 x10^6/uL (4.30-5.70) Hemoglobin 9.5 g/dL (13.0-17.5) Hematocrit 28.2 % (39.0-53.0) Mean Corpuscular Volume 86 fL (79-100) Mean Corpuscular Hemoglobin 29 pg (25-35) Mean Corpuscular Hemoglobin Concent 34 g/dL (31-37) Red Cell Distribution Width 16.5 % (11.5-14.5) Platelet Count 242 x10^3/uL (140-400) Neutrophils (%) (Auto) 79 % (31-73) Lymphocytes (%) (Auto) 10 % (24-48) Monocytes (%) (Auto) 6 % (0-9) Eosinophils (%) (Auto) 4 % (0-3) Basophils (%) (Auto) 1 % (0-3) Neutrophils # (Auto) 8.1 x10^3/uL (1.8-7.7) Lymphocytes # (Auto) 1.0 x10^3/uL (1.0-4.8) Monocytes # (Auto) 0.6 x10^3/uL (0.0-1.1) Eosinophils # (Auto) 0.4 x10^3/uL (0.0-0.7) Basophils # (Auto) 0.1 x10^3/uL (0.0-0.2) Sodium Level 149 mmol/L (136-145) Potassium Level 3.5 mmol/L (3.5-5.1) Chloride Level 110 mmol/L (98-107) Carbon Dioxide Level 32 mmol/L (21-32) Anion Gap 7 (6-14) Blood Urea Nitrogen 29 mg/dL (8-26) Creatinine 2.7 mg/dL (0.7-1.3) Estimated GFR (Cockcroft-Gault) 23.3 BUN/Creatinine Ratio 11 (6-20) Glucose Level 106 mg/dL (70-99) Calcium Level 9.2 mg/dL (8.5-10.1) Total Bilirubin 0.5 mg/dL (0.2-1.0) Aspartate Amino Transf (AST/SGOT) 51 U/L (15-37) Alanine Aminotransferase (ALT/SGPT) 7 U/L (16-63) Alkaline Phosphatase 63 U/L (46-116) Total Protein 6.4 g/dL (6.4-8.2) Albumin 2.9 g/dL (3.4-5.0) Albumin/Globulin Ratio 0.8 (1.0-1.7) Medications Current Medications Ondansetron HCl (Zofran) 4 mg PRN Q8HRS PRN IV NAUSEA/VOMITING; Start 06/28/19 at 22:00; Stop 06/29/19 at 21:59; Status DC Sodium Chloride 1,000 ml @ 125 mls/hr Q8H IV Last administered on 06/29/19at 19:34; Start 06/28/19 at 22:00; Stop 06/29/19 at 21:59; Status DC Pantoprazole Sodium (PROTONIX VIAL for IV PUSH) 40 mg DAILYAC IVP Last administered on 07/03/19at 10:34; Start 06/29/19 at 11:00 Heparin Sodium (Porcine) (HEPARIN for NUC MED) 100 unit 1X ONCE IV ; Start 06/29/19 at 12:15; Stop 06/29/19 at 12:16; Status DC Phytonadione (Vitamin K Ampule) 5 mg 1X ONCE SQ Last administered on 06/29/19at 16:29; Start 06/29/19 at 16:30; Stop 06/29/19 at 16:31; Status DC Morphine Sulfate (Morphine Sulfate) 4 mg PRN Q1HR PRN IV PAIN Last administered on 07/01/19 04:12; Start 06/29/19 at 18:15 Amlodipine Besylate (Norvasc) 5 mg DAILY PO Last administered on 07/03/19 10:37; Start 07/02/19 at 09:00 Calcitriol (Rocaltrol) 0.25 mcg DAILY PO Last administered on 07/03/19 10:35; Start 07/02/19 at 09:00 Carbidopa/Levodopa (Sinemet 25/100) 1 tab QID PO Last administered on 07/03/19 10:35; Start 07/01/19 at 17:00 Vitamin D (Vitamin D3) 1,000 unit DAILY PO Last administered on 07/03/19 10:35; Start 07/02/19 at 09:00 Citalopram Hydrobromide (CeleXA) 20 mg DAILY PO Last administered on 07/03/19 10:35; Start 07/02/19 at 09:00 Clonidine HCl (Catapres) 0.1 mg PRN Q6HRS PRN PO SBP>160 OR DBP>90; Start 07/01/19 at 15:30 Diltiazem HCl (Cardizem 24hr Cd) 120 mg DAILY PO Last administered on 07/03/19 10:35; Start 07/02/19 at 09:00 Docusate Sodium (Colace) 100 mg PRN BID PRN PO CONSTIPATION; Start 07/01/19 at 15:30 Famotidine (Pepcid) 20 mg QHS PO Last administered on 07/01/19 20:07; Start 07/01/19 at 21:00 Furosemide (Lasix) 40 mg BID92 PO Last administered on 07/03/19 10:37; Start 07/02/19 at 09:00 Gabapentin (Neurontin) 300 mg TID PO Last administered on 07/03/19 10:35; Start 07/01/19 at 21:00 Levothyroxine Sodium (Synthroid) 25 mcg DAILY06 PO Last administered on 07/03/19 07:35; Start 07/02/19 at 06:00 Potassium Chloride (Klor-Con) 10 meq DAILY PO Last administered on 07/03/19 10:36; Start 07/02/19 at 09:00 Tamsulosin HCl (Flomax) 0.4 mg DAILY PO Last administered on 07/03/19 10:37; Start 07/02/19 at 09:00 Ascorbic Acid (Vitamin C) 500 mg DAILY PO Last administered on 07/03/19 10:35; Start 07/02/19 at 09:00 Carvedilol (Coreg) 25 mg BIDWMEALS PO Last administered on 07/03/19 10:36; Start 07/01/19 at 17:00 Lactobacillus Rhamnosus (Culturelle) 1 cap DAILY PO Last administered on 07/03/19 10:34; Start 07/02/19 at 09:00 Cetirizine HCl (ZyrTEC) 10 mg DAILY PO Last administered on 07/03/19 10:36; Start 07/02/19 at 09:00 Vitamin B Complex (Eloy B) 1 tab DAILY PO Last administered on 07/03/19 10:35; Start 07/02/19 at 09:00 Ferrous Sulfate (Iron Oral Solution) 300 mg BIDWMEALS PO Last administered on 07/03/19at 10:35; Start 07/03/19 at 08:00 Ferrous Sulfate (Iron Oral Solution) 300 mg 1X STAT PO ; Start 07/02/19 at 18:39; Stop 07/02/19 at 18:48; Status DC Methadone HCl (Dolophine) 10 mg [id number] PO Last administered on 07/03/19 07:35; Start 07/02/19 at 19:27 Lorazepam (Ativan Inj) 4 mg PRN Q4HRS PRN IVP ANXIETY / AGITATION Last administered on 07/02/19at 19:30; Start 07/02/19 at 19:30; Stop 07/02/19 at 19:34; Status DC Haloperidol Lactate (Haldol Inj) 5 mg PRN Q6HRS PRN IVP AGITATION; Start 07/02/19 at 19:30; Stop 07/02/19 at 19:33; Status DC Haloperidol Lactate (Haldol Inj) 5 mg PRN Q6HRS PRN IM AGITATION; Start 07/02/19 at 19:45 Lorazepam (Ativan Inj) 4 mg PRN Q4HRS PRN IM/IV ANXIETY / AGITATION; Start 07/02/19 at 19:45 Active Scripts Active Augmentin 250-62.5 Mg/5 Ml (Amoxicillin/Potassium Clav) 250 Mg/5 Ml Susp.recon 5 Ml PO BID 10 Days Famotidine 20 Mg Tablet 20 Mg PO QHS 30 Days Colace (Docusate Sodium) 100 Mg Capsule 100 Mg PO PRN BID PRN 30 Days Lorazepam 0.5 Mg Tablet 0.5 Mg PO PRN Q4HRS PRN 14 Days Tylenol (Acetaminophen) 325 Mg Tablet 650 Mg PO PRN Q4HRS PRN 30 Days Catapres (Clonidine Hcl) 0.1 Mg Tablet 0.1 Mg PO PRN Q6HRS PRN 14 Days Proair Hfa (Albuterol Sulfate) 8.5 Gm Hfa.aer.ad 2.5 Mg NEB PRN Q4HRS PRN 14 Days Dicyclomine Hcl 10 Mg Capsule 10 Mg PO PRN 1X PRN 14 Days Reported Warfarin Sodium 3 Mg Tablet 3 Mg PO DAILY Gabapentin (Gabapentin) 300 Mg Capsule 300 Mg PO TID Vitamin D3 (Cholecalciferol (Vitamin D3)) 1,000 Unit Tablet 1 Tab PO DAILY Vitamin C (Ascorbic Acid) 500 Mg Capsule 500 Mg PO DAILY Vitamin B Complex 1 Each Capsule 1 Each PO DAILY Sinemet 25-100 Mg Tablet (Carbidopa/Levodopa) 1 Each Tablet 1 Tab PO QID Probiotic (Lactobacillus Combo No.11) 1 Each Cap.sprink 1 Each PO DAILY Potassium Chloride 10 Meq Tab.sr.24h 10 Meq PO DAILY Methadone Hcl 10 Mg Tablet 30 Mg PO TID Loratadine 10 Mg Tablet 1 Tab PO DAILY Levothyroxine Sodium 25 Mcg Tablet 1 Tab PO DAILY Lasix (Furosemide) 40 Mg Tablet 40 Mg PO BID Gabapentin 600 Mg Tablet 600 Mg PO QID Flomax (Tamsulosin Hcl) 0.4 Mg Cap.er.24h 1 Cap PO DAILY Fenofibrate (Fenofibrate,Micronized) 134 Mg Capsule 1 Cap PO DAILY Diltiazem 24HR Cd (Diltiazem Hcl) 120 Mg Cap.er.24h 1 Cap PO DAILY Coumadin (Warfarin Sodium) 7.5 Mg Tablet 1 Tab PO DAILY Coreg (Carvedilol) 25 Mg Tablet 25 Mg PO BIDWMEALS Citalopram Hbr (Citalopram Hydrobromide) 20 Mg Tablet 1 Tab PO DAILY Calcitriol 0.25 Mcg Capsule 1 Cap PO DAILY Aspirin 81 Mg Tab.chew 1 Tab PO DAILY Norvasc (Amlodipine Besylate) 5 Mg Tablet 5 Mg PO DAILY Vitals/I & O Vital Sign - Last 24 Hours 07/02/19 07/02/19 07/02/19 07/02/19 15:20 18:17 19:35 20:00 Temp 98.3 98.3 Pulse 58 58 76 Resp 18 B/P (MAP) 146/51 (82) 146/51 133/58 (83) Pulse Ox 94 O2 Delivery Room Air Room Air O2 Flow Rate 2.0 07/02/19 07/03/19 07/03/19 07/03/19 23:31 03:22 07:50 10:35 Temp 97.6 97.6 Pulse 67 67 Resp 18 16 18 B/P (MAP) 138/56 (83) 138/56 Pulse Ox 91 O2 Delivery Room Air Room Air 07/03/19 07/03/19 07/03/19 10:36 10:37 11:00 Temp 97.7 97.7 Pulse 67 67 74 Resp 20 B/P (MAP) 138/56 138/56 154/74 (100) Pulse Ox 94 O2 Delivery Room Air Intake and Output 07/02/19 07/02/19 07/03/19 15:00 23:00 07:00 Intake Total 240 ml 400 ml Output Total 1350 ml 700 ml 2350 ml Balance -1110 ml -300 ml -2350 ml Problem List LGI bleed- hg resolved, likely LGI source, CPM with encephalopathy RONAN SEE MD Jul 03, 2019 11:48
[2019-07-03 15:32] VITALS: BP 124/59
[2019-07-03 19:53] VITALS: BP 117/47
[2019-07-03 23:14] VITALS: BP 119/64
[2019-07-03] MEDS: FAMOTIDINE 20 MG TABLET. PO SCH (23:23)
[2019-07-04 03:37] VITALS: BP 144/65
[2019-07-04] MEDS: LEVOTHYROXINE 25 MCG TABLET. PO SCH (06:16)
[2019-07-04 07:42] VITALS: BP 136/64
[2019-07-04] MEDS: VITAMIN B COMPLEX TABLET. PO SCH (08:42)
[2019-07-04] MEDS: FERROUS SULFATE ORAL 300 MG/5 ML SOLUTION. PO SCH ×2 (08:42→17:11)
[2019-07-04] MEDS: CALCITRIOL 0.25 MCG CAPSULE. PO SCH (08:42)
[2019-07-04] MEDS: PANTOPRAZOLE IV PUSH 40 MG VIAL. IVP SCH (08:42)
[2019-07-04] MEDS: CHOLECALCIFEROL (VITAMIN D3) 1,000 UNIT TABLET PO SCH (08:43)
[2019-07-04] MEDS: LACTOBACILLUS RHAMNOSUS GG 1 CAPSULE. PO SCH (08:43)
[2019-07-04] MEDS: METHADONE 10 MG TABLET. PO SCH ×2 (08:43→17:11)
[2019-07-04] MEDS: CARBIDOPA/LEVODOPA 25/100MG TABLET PO SCH ×4 (08:43→19:44)
[2019-07-04] MEDS: CITALOPRAM 20 MG TABLET. PO SCH (08:43)
[2019-07-04] MEDS: CARVEDILOL 12.5 MG TABLET. PO SCH ×2 (08:43→16:48)
[2019-07-04] MEDS: CETIRIZINE HCL 10 MG TABLET. PO SCH (08:44)
[2019-07-04] MEDS: ASCORBIC ACID 500 MG TABLET PO SCH (08:44)
[2019-07-04] MEDS: POTASSIUM CHLORIDE 10 MEQ TABLET.ER. PO SCH (08:44)
[2019-07-04] MEDS: amLODIPine BESYLATE 5 MG TABLET PO SCH (08:44)
[2019-07-04] MEDS: FUROSEMIDE 40 MG TABLET. PO SCH ×2 (08:44→13:32)
[2019-07-04] MEDS: TAMSULOSIN 0.4 MG CAP.ER.24H. PO SCH (08:44)
[2019-07-04] MEDS: GABAPENTIN 300 MG CAPSULE. PO SCH ×3 (08:44→19:44)
[2019-07-04 09:36] LABS: BASO # 0.1 x10^3/uL (0.0-0.2); BASO % 1 % (0-3); EOS # 0.4 x10^3/uL (0.0-0.7); EOS % 4 % (0-3); HEMATOCRIT 25.2 % (39.0-53.0); HEMOGLOBIN 8.4 g/dL (13.0-17.5); LYMPH # 1.3 x10^3/uL (1.0-4.8); LYMPH % 13 % (24-48); MEAN CORPUSCULAR HEMOGLOBIN 29 pg (25-35); MEAN CORPUSCULAR HGB CONC 34 g/dL (31-37); MEAN CORPUSCULAR VOLUME 87 fL (79-100); MONO # 0.6 x10^3/uL (0.0-1.1); MONO % 6 % (0-9); NEUT # 7.3 x10^3/uL (1.8-7.7); NEUT % 75 % (31-73); PLATELET COUNT 250 x10^3/uL (140-400); RED BLOOD COUNT 2.91 x10^6/uL (4.30-5.70); RED CELL DISTRIBUTION WIDTH 16.8 % (11.5-14.5); WHITE BLOOD COUNT 9.7 x10^3/uL (4.0-11.0)
[2019-07-04 10:07] LABS: ALBUMIN 2.8 g/dL (3.4-5.0); ALBUMIN/GLOBULIN RATIO 0.9 (1.0-1.7); CALCIUM 9.1 mg/dL (8.5-10.1); CREATININE 2.7 mg/dL (0.7-1.3); GFR 23.3; POTASSIUM 3.5 mmol/L (3.5-5.1); TOTAL BILIRUBIN 0.5 mg/dL (0.2-1.0)
--- NOTE | 2019-07-04 10:38 | PDOC ---
PROGRESS NOTES Chief Complaint Chief Complaint 1. No acute intracranial findings. ON CT HEAD, RECENT acute metabolic encephalopathy sec to UTI 2. Chronic left insular infarct. Moderate atrophy and chronic microangiopathic white matter change. 3. FALLS 4. Generalized weakness 5 morbid obesity 6. HYPERTENSION 7. Depression 8. Mild basilar atelectasis. 9. CKD stage 4-[address] abd Significant calcific involvement of the arterial vasculature. Bilateral common iliac artery fusiform aneurysms. 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 Alternatively, this may represent significant atherosclerotic calcific involvement. 11, RECENT uti 12 GI bleed with acute blood loss anemia 13 CAD 14 Parkinson's, with dementia, neurology consulted 15. severe protein-caloric malnutrition 16. marked debility 10- BRIGHT RED RECTAL bleeding noted by RN today - hgb slightly lower, follow History of Present Illness History of Present Illness impression - 1. No acute intracranial findings. ON CT HEAD, RECENT acute metabolic encephalopathy sec to UTI 2. Chronic left insular infarct. Moderate atrophy and chronic microangiopathic white matter change. 3. FALLS 4. Generalized weakness 5 morbid obesity 6. HYPERTENSION 7. Depression 8. Mild basilar atelectasis. 9. CKD stage 4-[address] abd Significant calcific involvement of the arterial vasculature. Bilateral common iliac artery fusiform aneurysms. 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 Alternatively, this may represent significant atherosclerotic calcific involvement. 11, RECENT uti 12 GI bleed 13 CAD 14 Parkinson's, dementia d/w family in room cbc, comp in am 10-13 NEPHROLOGY TO SEE problems Impaired fnctnl mobility * Strength * Cognition * Balance 28 MIN PT EXAM, CHART REVIEW, > 50% OF TIME SPENT WITH EXAM, CHART REVIEW, PT CARE COORDINATION 07/01/19 Pt seen and examined in the ICU Pt currently being transferred 1 unit of blood Pt is sitting upright and responsive to questions Accompanied by D/w nurse. GI gave ok to downgrade from ICU Diet was advanced Chart and labs reviewed WBC was 11.8, down from 13.5 INR was 2.0, down from 2.6 Hgb was 6.8, down from 7.3 BUN was 47, down from 51 Cr is 2.9, down from 3.1 06/30/19 Pt seen and examined in the ICU Pt was transferred 2 units of blood on 06/29 Pt is sitting upright Skin pallor is improved compared to yesterday Pt is responsive to questions Accompanied by and granddaughter D/w nurse and family Charts and labs reviewed WBC is 13.5, up from 10 Hgb is 7.3, down from 8 BUN is 51, up from 44 Cr remains 3.1 Vitals Vitals Vital Signs Date Time Temp Pulse Resp B/P (MAP) Pulse Ox O2 Delivery O2 Flow Rate FiO2 07/04/19 08:44 65 136/64 07/04/19 08:00 Room Air 07/04/19 07:42 97.5 20 92 97.5 Physical Exam Physical Exam Right forearm has ecchymosis present General: Alert, Cooperative, No acute distress, Other (confused to details) Heart: Regular rate Lungs: Clear Abdomen: Normal bowel sounds, Soft, No tenderness, No hepatosplenomegaly Extremities: No clubbing, No cyanosis Skin: Other Labs LABS Laboratory Tests Test 07/04/19 08:43 White Blood Count 9.7 x10^3/uL (4.0-11.0) Red Blood Count 2.91 x10^6/uL (4.30-5.70) Hemoglobin 8.4 g/dL (13.0-17.5) Hematocrit 25.2 % (39.0-53.0) Mean Corpuscular Volume 87 fL (79-100) Mean Corpuscular Hemoglobin 29 pg (25-35) Mean Corpuscular Hemoglobin Concent 34 g/dL (31-37) Red Cell Distribution Width 16.8 % (11.5-14.5) Platelet Count 250 x10^3/uL (140-400) Neutrophils (%) (Auto) 75 % (31-73) Lymphocytes (%) (Auto) 13 % (24-48) Monocytes (%) (Auto) 6 % (0-9) Eosinophils (%) (Auto) 4 % (0-3) Basophils (%) (Auto) 1 % (0-3) Neutrophils # (Auto) 7.3 x10^3/uL (1.8-7.7) Lymphocytes # (Auto) 1.3 x10^3/uL (1.0-4.8) Monocytes # (Auto) 0.6 x10^3/uL (0.0-1.1) Eosinophils # (Auto) 0.4 x10^3/uL (0.0-0.7) Basophils # (Auto) 0.1 x10^3/uL (0.0-0.2) Sodium Level 147 mmol/L (136-145) Potassium Level 3.5 mmol/L (3.5-5.1) Chloride Level 107 mmol/L (98-107) Carbon Dioxide Level 32 mmol/L (21-32) Anion Gap 8 (6-14) Blood Urea Nitrogen 30 mg/dL (8-26) Creatinine 2.7 mg/dL (0.7-1.3) Estimated GFR (Cockcroft-Gault) 23.3 BUN/Creatinine Ratio 11 (6-20) Glucose Level 101 mg/dL (70-99) Calcium Level 9.1 mg/dL (8.5-10.1) Total Bilirubin 0.5 mg/dL (0.2-1.0) Aspartate Amino Transf (AST/SGOT) 34 U/L (15-37) Alanine Aminotransferase (ALT/SGPT) 7 U/L (16-63) Alkaline Phosphatase 62 U/L (46-116) Total Protein 6.0 g/dL (6.4-8.2) Albumin 2.8 g/dL (3.4-5.0) Albumin/Globulin Ratio 0.9 (1.0-1.7) Assessment and Plan Assessmemt and Plan L knee flexion: ~110 degrees Strength * R knee extension: 4/5 R ankle DF: 5/5 L ankle DF: 5/5 Sitting Balance * 4+ Moves 1-2" all planes Standing Balance * 2 balances w/ both UEs Pain Score * 0 Pain Scale Type * Numeric Pain Location * none PT PAIN COMMENTS * Pt denied L knee pain with ambulation Supine to Sit Assistance Required * Independent Transfer Assistance Required * Contact Guard Assist Transfer Type * Sit to Stand Transfer Assistive Device * Roller Walker Ambulation Assistance Required * Min Assistance Ambulation Assistive Device * Roller Walker Ambulation Distance * 15 Ft x2 Gait Impairments * Slow Rea Ambulation Comments * Min A for RW advancement to bathroom due to current BM. Back from bathroom, pt able to advance RW with CGA. Slow gait speed. Rehab Potential to Achieve Goals * Good Learning Preferences * One-on-One Instruction * Demonstration Factors Facilitating Goal Achievement * Motivation level * Prior level of function * Available resources Problem List (body system elements) * Impaired fnctnl mobility * Strength * Cognition * Balance Clinical Presentation * Evolving Evaluation Complexity Level * Moderate Complexity Pt/caregiver agrees with plan of care/goals * Yes Patient condition at conclusion of therapy * Pt in chair * Personal alarm on * Call light in reach * Phone in reach * PtIn no apparent distress * Pt denies further needs * Visitor with patient Communicated Patient Care With (Name, Title) * CHANELL De La Rosa and MICHELL Clement Goal 2 - Transfers Assistance Required * Independent Goal 2 - Transfer Type * Sit to Stand Goal 2 Assessment * Appropriate - Continue Goal 3 - Ambulation Assistance Required * Independent Goal 3 - Ambulation Distance * 250' Goal 3 - Ambulation Device * Roller Walker Goal 3 Assessment * Appropriate - Continue Goal 4 - Stairs Assistance Required * Independent Goal 4 - Number of Stairs * 2-4 Goal 4 - Device on Stairs * Rail on Right Goal 4 Assessment * Appropriate - Continue Goal 5 * Independent with HEP Goal 5 Assessment * Appropriate - Continue Treatment Plan * Therapeutic Exercise * Bed Mobility Training * Transfer training * Gait Training * Dynamic Balance Training Frequency of Treatment Expected * 7 visits/week Duration of Treatment Expected * 2 weeks Discharge Recommendations * [facility] Unit Discharge Recommendation - DME * None Discharge Recommendation Comments * continue to assess progress Comment Review of Relevant I have reviewed the following items piyush (where applicable) has been applied. Labs Laboratory Tests Test 07/03/19 08:35 07/04/19 08:43 White Blood Count 10.2 x10^3/uL (4.0-11.0) 9.7 x10^3/uL (4.0-11.0) Red Blood Count 3.27 x10^6/uL (4.30-5.70) 2.91 x10^6/uL (4.30-5.70) Hemoglobin 9.5 g/dL (13.0-17.5) 8.4 g/dL (13.0-17.5) Hematocrit 28.2 % (39.0-53.0) 25.2 % (39.0-53.0) Mean Corpuscular Volume 86 fL (79-100) 87 fL (79-100) Mean Corpuscular Hemoglobin 29 pg (25-35) 29 pg (25-35) Mean Corpuscular Hemoglobin Concent 34 g/dL (31-37) 34 g/dL (31-37) Red Cell Distribution Width 16.5 % (11.5-14.5) 16.8 % (11.5-14.5) Platelet Count 242 x10^3/uL (140-400) 250 x10^3/uL (140-400) Neutrophils (%) (Auto) 79 % (31-73) 75 % (31-73) Lymphocytes (%) (Auto) 10 % (24-48) 13 % (24-48) Monocytes (%) (Auto) 6 % (0-9) 6 % (0-9) Eosinophils (%) (Auto) 4 % (0-3) 4 % (0-3) Basophils (%) (Auto) 1 % (0-3) 1 % (0-3) Neutrophils # (Auto) 8.1 x10^3/uL (1.8-7.7) 7.3 x10^3/uL (1.8-7.7) Lymphocytes # (Auto) 1.0 x10^3/uL (1.0-4.8) 1.3 x10^3/uL (1.0-4.8) Monocytes # (Auto) 0.6 x10^3/uL (0.0-1.1) 0.6 x10^3/uL (0.0-1.1) Eosinophils # (Auto) 0.4 x10^3/uL (0.0-0.7) 0.4 x10^3/uL (0.0-0.7) Basophils # (Auto) 0.1 x10^3/uL (0.0-0.2) 0.1 x10^3/uL (0.0-0.2) Sodium Level 149 mmol/L (136-145) 147 mmol/L (136-145) Potassium Level 3.5 mmol/L (3.5-5.1) 3.5 mmol/L (3.5-5.1) Chloride Level 110 mmol/L (98-107) 107 mmol/L (98-107) Carbon Dioxide Level 32 mmol/L (21-32) 32 mmol/L (21-32) Anion Gap 7 (6-14) 8 (6-14) Blood Urea Nitrogen 29 mg/dL (8-26) 30 mg/dL (8-26) Creatinine 2.7 mg/dL (0.7-1.3) 2.7 mg/dL (0.7-1.3) Estimated GFR (Cockcroft-Gault) 23.3 23.3 BUN/Creatinine Ratio 11 (6-20) 11 (6-20) Glucose Level 106 mg/dL (70-99) 101 mg/dL (70-99) Calcium Level 9.2 mg/dL (8.5-10.1) 9.1 mg/dL (8.5-10.1) Total Bilirubin 0.5 mg/dL (0.2-1.0) 0.5 mg/dL (0.2-1.0) Aspartate Amino Transf (AST/SGOT) 51 U/L (15-37) 34 U/L (15-37) Alanine Aminotransferase (ALT/SGPT) 7 U/L (16-63) 7 U/L (16-63) Alkaline Phosphatase 63 U/L (46-116) 62 U/L (46-116) Total Protein 6.4 g/dL (6.4-8.2) 6.0 g/dL (6.4-8.2) Albumin 2.9 g/dL (3.4-5.0) 2.8 g/dL (3.4-5.0) Albumin/Globulin Ratio 0.8 (1.0-1.7) 0.9 (1.0-1.7) Laboratory Tests Test 07/04/19 08:43 White Blood Count 9.7 x10^3/uL (4.0-11.0) Red Blood Count 2.91 x10^6/uL (4.30-5.70) Hemoglobin 8.4 g/dL (13.0-17.5) Hematocrit 25.2 % (39.0-53.0) Mean Corpuscular Volume 87 fL (79-100) Mean Corpuscular Hemoglobin 29 pg (25-35) Mean Corpuscular Hemoglobin Concent 34 g/dL (31-37) Red Cell Distribution Width 16.8 % (11.5-14.5) Platelet Count 250 x10^3/uL (140-400) Neutrophils (%) (Auto) 75 % (31-73) Lymphocytes (%) (Auto) 13 % (24-48) Monocytes (%) (Auto) 6 % (0-9) Eosinophils (%) (Auto) 4 % (0-3) Basophils (%) (Auto) 1 % (0-3) Neutrophils # (Auto) 7.3 x10^3/uL (1.8-7.7) Lymphocytes # (Auto) 1.3 x10^3/uL (1.0-4.8) Monocytes # (Auto) 0.6 x10^3/uL (0.0-1.1) Eosinophils # (Auto) 0.4 x10^3/uL (0.0-0.7) Basophils # (Auto) 0.1 x10^3/uL (0.0-0.2) Sodium Level 147 mmol/L (136-145) Potassium Level 3.5 mmol/L (3.5-5.1) Chloride Level 107 mmol/L (98-107) Carbon Dioxide Level 32 mmol/L (21-32) Anion Gap 8 (6-14) Blood Urea Nitrogen 30 mg/dL (8-26) Creatinine 2.7 mg/dL (0.7-1.3) Estimated GFR (Cockcroft-Gault) 23.3 BUN/Creatinine Ratio 11 (6-20) Glucose Level 101 mg/dL (70-99) Calcium Level 9.1 mg/dL (8.5-10.1) Total Bilirubin 0.5 mg/dL (0.2-1.0) Aspartate Amino Transf (AST/SGOT) 34 U/L (15-37) Alanine Aminotransferase (ALT/SGPT) 7 U/L (16-63) Alkaline Phosphatase 62 U/L (46-116) Total Protein 6.0 g/dL (6.4-8.2) Albumin 2.8 g/dL (3.4-5.0) Albumin/Globulin Ratio 0.9 (1.0-1.7) Medications Current Medications Ondansetron HCl (Zofran) 4 mg PRN Q8HRS PRN IV NAUSEA/VOMITING; Start 06/28/19 at 22:00; Stop 06/29/19 at 21:59; Status DC Sodium Chloride 1,000 ml @ 125 mls/hr Q8H IV Last administered on 06/29/19at 19:34; Start 06/28/19 at 22:00; Stop 06/29/19 at 21:59; Status DC Pantoprazole Sodium (PROTONIX VIAL for IV PUSH) 40 mg DAILYAC IVP Last administered on 07/04/19 08:42; Start 06/29/19 at 11:00 Heparin Sodium (Porcine) (HEPARIN for NUC MED) 100 unit 1X ONCE IV ; Start 06/29/19 at 12:15; Stop 06/29/19 at 12:16; Status DC Phytonadione (Vitamin K Ampule) 5 mg 1X ONCE SQ Last administered on 06/29/19 16:29; Start 06/29/19 at 16:30; Stop 06/29/19 at 16:31; Status DC Morphine Sulfate (Morphine Sulfate) 4 mg PRN Q1HR PRN IV PAIN Last administered on 07/01/19 04:12; Start 06/29/19 at 18:15 Amlodipine Besylate (Norvasc) 5 mg DAILY PO Last administered on 07/04/19 08:44; Start 07/02/19 at 09:00 Calcitriol (Rocaltrol) 0.25 mcg DAILY PO Last administered on 07/04/19 08:42; Start 07/02/19 at 09:00 Carbidopa/Levodopa (Sinemet 25/100) 1 tab QID PO Last administered on 07/04/19 08:43; Start 07/01/19 at 17:00 Vitamin D (Vitamin D3) 1,000 unit DAILY PO Last administered on 07/04/19 08:43; Start 07/02/19 at 09:00 Citalopram Hydrobromide (CeleXA) 20 mg DAILY PO Last administered on 07/04/19 08:43; Start 07/02/19 at 09:00 Clonidine HCl (Catapres) 0.1 mg PRN Q6HRS PRN PO SBP>160 OR DBP>90; Start 07/01/19 at 15:30 Diltiazem HCl (Cardizem 24hr Cd) 120 mg DAILY PO Last administered on 07/04/19 08:43; Start 07/02/19 at 09:00 Docusate Sodium (Colace) 100 mg PRN BID PRN PO CONSTIPATION; Start 07/01/19 at 15:30 Famotidine (Pepcid) 20 mg QHS PO Last administered on 07/03/19 23:23; Start 07/01/19 at 21:00 Furosemide (Lasix) 40 mg [id number] PO Last administered on 07/04/19 08:44; Start 07/02/19 at 09:00 Gabapentin (Neurontin) 300 mg TID PO Last administered on 07/04/19 08:44; Start 07/01/19 at 21:00 Levothyroxine Sodium (Synthroid) 25 mcg DAILY06 PO Last administered on 07/04/19 06:16; Start 07/02/19 at 06:00 Potassium Chloride (Klor-Con) 10 meq DAILY PO Last administered on 07/04/19 08:44; Start 07/02/19 at 09:00 Tamsulosin HCl (Flomax) 0.4 mg DAILY PO Last administered on 07/04/19 08:44; Start 07/02/19 at 09:00 Ascorbic Acid (Vitamin C) 500 mg DAILY PO Last administered on 07/04/19 08:44; Start 07/02/19 at 09:00 Carvedilol (Coreg) 25 mg BIDWMEALS PO Last administered on 07/04/19 08:43; Start 07/01/19 at 17:00 Lactobacillus Rhamnosus (Culturelle) 1 cap DAILY PO Last administered on 07/04/19 08:43; Start 07/02/19 at 09:00 Cetirizine HCl (ZyrTEC) 10 mg DAILY PO Last administered on 07/04/19 08:44; Start 07/02/19 at 09:00 Vitamin B Complex (Eloy B) 1 tab DAILY PO Last administered on 07/04/19 08:42; Start 07/02/19 at 09:00 Ferrous Sulfate (Iron Oral Solution) 300 mg BIDWMEALS PO Last administered on 07/04/19 08:42; Start 07/03/19 at 08:00 Ferrous Sulfate (Iron Oral Solution) 300 mg 1X STAT PO ; Start 07/02/19 at 18:39; Stop 07/02/19 at 18:48; Status DC Methadone HCl (Dolophine) 10 mg [id number] PO Last administered on 07/04/19 08:43; Start 07/02/19 at 19:27 Lorazepam (Ativan Inj) 4 mg PRN Q4HRS PRN IVP ANXIETY / AGITATION Last administered on 10/11/19at 19:30; Start 07/02/19 at 19:30; Stop 07/02/19 at 19:34; Status DC Haloperidol Lactate (Haldol Inj) 5 mg PRN Q6HRS PRN IVP AGITATION; Start 07/02/19 at 19:30; Stop 07/02/19 at 19:33; Status DC Haloperidol Lactate (Haldol Inj) 5 mg PRN Q6HRS PRN IM AGITATION; Start 07/02/19 at 19:45 Lorazepam (Ativan Inj) 4 mg PRN Q4HRS PRN IM/IV ANXIETY / AGITATION; Start 07/02/19 at 19:45 Active Scripts Active Augmentin 250-62.5 Mg/5 Ml (Amoxicillin/Potassium Clav) 250 Mg/5 Ml Susp.recon 5 Ml PO BID 10 Days Famotidine 20 Mg Tablet 20 Mg PO QHS 30 Days Colace (Docusate Sodium) 100 Mg Capsule 100 Mg PO PRN BID PRN 30 Days Lorazepam 0.5 Mg Tablet 0.5 Mg PO PRN Q4HRS PRN 14 Days Tylenol (Acetaminophen) 325 Mg Tablet 650 Mg PO PRN Q4HRS PRN 30 Days Catapres (Clonidine Hcl) 0.1 Mg Tablet 0.1 Mg PO PRN Q6HRS PRN 14 Days Proair Hfa (Albuterol Sulfate) 8.5 Gm Hfa.aer.ad 2.5 Mg NEB PRN Q4HRS PRN 14 Days Dicyclomine Hcl 10 Mg Capsule 10 Mg PO PRN 1X PRN 14 Days Reported Warfarin Sodium 3 Mg Tablet 3 Mg PO DAILY Gabapentin (Gabapentin) 300 Mg Capsule 300 Mg PO TID Vitamin D3 (Cholecalciferol (Vitamin D3)) 1,000 Unit Tablet 1 Tab PO DAILY Vitamin C (Ascorbic Acid) 500 Mg Capsule 500 Mg PO DAILY Vitamin B Complex 1 Each Capsule 1 Each PO DAILY Sinemet 25-100 Mg Tablet (Carbidopa/Levodopa) 1 Each Tablet 1 Tab PO QID Probiotic (Lactobacillus Combo No.11) 1 Each Cap.sprink 1 Each PO DAILY Potassium Chloride 10 Meq Tab.sr.24h 10 Meq PO DAILY Methadone Hcl 10 Mg Tablet 30 Mg PO TID Loratadine 10 Mg Tablet 1 Tab PO DAILY Levothyroxine Sodium 25 Mcg Tablet 1 Tab PO DAILY Lasix (Furosemide) 40 Mg Tablet 40 Mg PO BID Gabapentin 600 Mg Tablet 600 Mg PO QID Flomax (Tamsulosin Hcl) 0.4 Mg Cap.er.24h 1 Cap PO DAILY Fenofibrate (Fenofibrate,Micronized) 134 Mg Capsule 1 Cap PO DAILY Diltiazem 24HR Cd (Diltiazem Hcl) 120 Mg Cap.er.24h 1 Cap PO DAILY Coumadin (Warfarin Sodium) 7.5 Mg Tablet 1 Tab PO DAILY Coreg (Carvedilol) 25 Mg Tablet 25 Mg PO BIDWMEALS Citalopram Hbr (Citalopram Hydrobromide) 20 Mg Tablet 1 Tab PO DAILY Calcitriol 0.25 Mcg Capsule 1 Cap PO DAILY Aspirin 81 Mg Tab.chew 1 Tab PO DAILY Norvasc (Amlodipine Besylate) 5 Mg Tablet 5 Mg PO DAILY Vitals/I & O Vital Sign - Last 24 Hours 07/03/19 07/03/19 07/03/19 07/03/19 11:00 15:32 18:16 19:45 Temp 97.7 99.0 97.7 99.0 Pulse 74 67 67 Resp 20 18 B/P (MAP) 154/74 (100) 124/59 (80) 124/59 Pulse Ox 94 91 O2 Delivery Room Air Room Air Room Air 07/03/19 07/03/19 07/04/19 07/04/19 19:53 23:14 03:37 07:42 Temp 98.8 98.8 98.5 97.5 98.8 98.8 98.5 97.5 Pulse 58 74 108 65 Resp 18 18 16 20 B/P (MAP) 117/47 (70) 119/64 (82) 144/65 (91) 136/64 (88) Pulse Ox 92 92 96 92 O2 Delivery Room Air Room Air Room Air Room Air 07/04/19 07/04/19 07/04/19 07/04/19 08:00 08:43 08:43 08:44 Pulse 65 65 65 B/P (MAP) 136/64 136/64 136/64 O2 Delivery Room Air Intake and Output 07/03/19 07/03/19 07/04/19 15:00 23:00 07:00 Intake Total 60 ml 840 ml 0 ml Output Total 450 ml 700 ml 550 ml Balance -390 ml 140 ml -550 ml JOHANA SIMMONS MD Jul 04, 2019 10:38
[2019-07-04 11:50] VITALS: BP 108/47
--- NOTE | 2019-07-04 12:36 | PDOC2 ---
CONSULT Date of Consult Date of Consult DATE: 07/04/19 TIME: 12:36 Reason for Consult Reason for Consult: Renal failure Referring Physician Referring Physician: Shalonda Identification/Chief Complaint Chief Complaint Lower GI bleed Source Source: Chart review, Patient History of Present Illness Reason for Visit: Patient is a 73-year-old gentleman who follows with our practice (Dr. Posadas). He is known to have chronic kidney disease stage IV with creatinines running between 2.5-3.4. His current GFR is 23 mL/m corresponding to a creatini ne of 2.7. He was felt to have blood loss per rectum and was brought to the ER for further evaluation. Per ER records he used to be on Coumadin however due to GI bleed his INR was reversed and then he had a stroke. He does have an AV fistula in place in case of need for initiation of dialysis. I have reviewed patient's most recent imaging studies from May 2019 at our facility. Family in the room does not recollect seeing a urologist for the same. There is some suspicion of possible right-sided hydronephrosis in the setting of significant left renal atrophy Past Medical History Cardiovascular: CAD, HTN CENTRAL NERVOUS SYSTEM: CVA, Other GI: Constipation Musculoskeletal: Osteoarthritis ENT: Other (decreased hearing) Renal/: Chronic renal insuff Past Surgical History Past Surgical History: CABG, Total knee replacement Family History Family History: Hearing Loss, High Cholestrol, Hypertension Social History No ALCOHOL: none Drugs: None Current Medications Current Medications Current Medications Ondansetron HCl (Zofran) 4 mg PRN Q8HRS PRN IV NAUSEA/VOMITING; Start 06/28/19 at 22:00; Stop 06/29/19 at 21:59; Status DC Sodium Chloride 1,000 ml @ 125 mls/hr Q8H IV Last administered on 06/29/19at 19:34; Start 06/28/19 at 22:00; Stop 06/29/19 at 21:59; Status DC Pantoprazole Sodium (PROTONIX VIAL for IV PUSH) 40 mg DAILYAC IVP Last administered on 07/04/19at 08:42; Start 06/29/19 at 11:00 Heparin Sodium (Porcine) (HEPARIN for NUC MED) 100 unit 1X ONCE IV ; Start 06/29/19 at 12:15; Stop 06/29/19 at 12:16; Status DC Phytonadione (Vitamin K Ampule) 5 mg 1X ONCE SQ Last administered on 06/29/19 16:29; Start 06/29/19 at 16:30; Stop 06/29/19 at 16:31; Status DC Morphine Sulfate (Morphine Sulfate) 4 mg PRN Q1HR PRN IV PAIN Last administered on 07/01/19 04:12; Start 06/29/19 at 18:15 Amlodipine Besylate (Norvasc) 5 mg DAILY PO Last administered on 07/04/19 08:44; Start 07/02/19 at 09:00 Calcitriol (Rocaltrol) 0.25 mcg DAILY PO Last administered on 07/04/19 08:42; Start 07/02/19 at 09:00 Carbidopa/Levodopa (Sinemet 25/100) 1 tab QID PO Last administered on 07/04/19 08:43; Start 07/01/19 at 17:00 Vitamin D (Vitamin D3) 1,000 unit DAILY PO Last administered on 07/04/19 08:4 3; Start 07/02/19 at 09:00 Citalopram Hydrobromide (CeleXA) 20 mg DAILY PO Last administered on 07/04/19 08:43; Start 07/02/19 at 09:00 Clonidine HCl (Catapres) 0.1 mg PRN Q6HRS PRN PO SBP>160 OR DBP>90; Start 07/01/19 at 15:30 Diltiazem HCl (Cardizem 24hr Cd) 120 mg DAILY PO Last administered on 07/04/19 08:43; Start 07/02/19 at 09:00 Docusate Sodium (Colace) 100 mg PRN BID PRN PO CONSTIPATION; Start 07/01/19 at 15:30 Famotidine (Pepcid) 20 mg QHS PO Last administered on 07/03/19 23:23; Start 07/01/19 at 21:00 Furosemide (Lasix) 40 mg BID92 PO Last administered on 07/04/19 08:44; Start 07/02/19 at 09:00 Gabapentin (Neurontin) 300 mg TID PO Last administered on 07/04/19 08:44; Start 07/01/19 at 21:00 Levothyroxine Sodium (Synthroid) 25 mcg DAILY06 PO Last administered on 07/04/19 06:16; Start 07/02/19 at 06:00 Potassium Chloride (Klor-Con) 10 meq DAILY PO Last administered on 07/04/19 08:44; Start 07/02/19 at 09:00 Tamsulosin HCl (Flomax) 0.4 mg DAILY PO Last administered on 07/04/19 08:44; Start 07/02/19 at 09:00 Ascorbic Acid (Vitamin C) 500 mg DAILY PO Last administered on 07/04/19 08:44; Start 07/02/19 at 09:00 Carvedilol (Coreg) 25 mg BIDWMEALS PO Last administered on 07/04/19 08:43; Start 07/01/19 at 17:00 Lactobacillus Rhamnosus (Culturelle) 1 cap DAILY PO Last administered on 07/04/19 08:43; Start 07/02/19 at 09:00 Cetirizine HCl (ZyrTEC) 10 mg DAILY PO Last administered on 07/04/19 08:44; Start 07/02/19 at 09:00 Vitamin B Complex (Eloy B) 1 tab DAILY PO Last administered on 07/04/19 08:42; Start 07/02/19 at 09:00 Ferrous Sulfate (Iron Oral Solution) 300 mg BIDWMEALS PO Last administered on 07/04/19 08:42; Start 07/03/19 at 08:00 Ferrous Sulfate (Iron Oral Solution) 300 mg 1X STAT PO ; Start 07/02/19 at 18:39; Stop 07/02/19 at 18:48; Status DC Methadone HCl (Dolophine) 10 mg [id number] PO Last administered on 07/04/19 08:43; Start 07/02/19 at 19:27 Lorazepam (Ativan Inj) 4 mg PRN Q4HRS PRN IVP ANXIETY / AGITATION Last administered on 07/02/19 19:30; Start 07/02/19 at 19:30; Stop 07/02/19 at 19:34; Status DC Haloperidol Lactate (Haldol Inj) 5 mg PRN Q6HRS PRN IVP AGITATION; Start 07/02/19 at 19:30; Stop 07/02/19 at 19:33; Status DC Haloperidol Lactate (Haldol Inj) 5 mg PRN Q6HRS PRN IM AGITATION; Start 07/02/19 at 19:45 Lorazepam (Ativan Inj) 4 mg PRN Q4HRS PRN IM/IV ANXIETY / AGITATION; Start 07/02/19 at 19:45 Active Scripts Active Augmentin 250-62.5 Mg/5 Ml (Amoxicillin/Potassium Clav) 250 Mg/5 Ml Susp.recon 5 Ml PO BID 10 Days Famotidine 20 Mg Tablet 20 Mg PO QHS 30 Days Colace (Docusate Sodium) 100 Mg Capsule 100 Mg PO PRN BID PRN 30 Days Lorazepam 0.5 Mg Tablet 0.5 Mg PO PRN Q4HRS PRN 14 Days Tylenol (Acetaminophen) 325 Mg Tablet 650 Mg PO PRN Q4HRS PRN 30 Days Catapres (Clonidine Hcl) 0.1 Mg Tablet 0.1 Mg PO PRN Q6HRS PRN 14 Days Proair Hfa (Albuterol Sulfate) 8.5 Gm Hfa.aer.ad 2.5 Mg NEB PRN Q4HRS PRN 14 Days Dicyclomine Hcl 10 Mg Capsule 10 Mg PO PRN 1X PRN 14 Days Reported Warfarin Sodium 3 Mg Tablet 3 Mg PO DAILY Gabapentin (Gabapentin) 300 Mg Capsule 300 Mg PO TID Vitamin D3 (Cholecalciferol (Vitamin D3)) 1,000 Unit Tablet 1 Tab PO DAILY Vitamin C (Ascorbic Acid) 500 Mg Capsule 500 Mg PO DAILY Vitamin B Complex 1 Each Capsule 1 Each PO DAILY Sinemet 25-100 Mg Tablet (Carbidopa/Levodopa) 1 Each Tablet 1 Tab PO QID Probiotic (Lactobacillus Combo No.11) 1 Each Cap.sprink 1 Each PO DAILY Potassium Chloride 10 Meq Tab.sr.24h 10 Meq PO DAILY Methadone Hcl 10 Mg Tablet 30 Mg PO TID Loratadine 10 Mg Tablet 1 Tab PO DAILY Levothyroxine Sodium 25 Mcg Tablet 1 Tab PO DAILY Lasix (Furosemide) 40 Mg Tablet 40 Mg PO BID Gabapentin 600 Mg Tablet 600 Mg PO QID Flomax (Tamsulosin Hcl) 0.4 Mg Cap.er.24h 1 Cap PO DAILY Fenofibrate (Fenofibrate,Micronized) 134 Mg Capsule 1 Cap PO DAILY Diltiazem 24HR Cd (Diltiazem Hcl) 120 Mg Cap.er.24h 1 Cap PO DAILY Coumadin (Warfarin Sodium) 7.5 Mg Tablet 1 Tab PO DAILY Coreg (Carvedilol) 25 Mg Tablet 25 Mg PO BIDWMEALS Citalopram Hbr (Citalopram Hydrobromide) 20 Mg Tablet 1 Tab PO DAILY Calcitriol 0.25 Mcg Capsule 1 Cap PO DAILY Aspirin 81 Mg Tab.chew 1 Tab PO DAILY Norvasc (Amlodipine Besylate) 5 Mg Tablet 5 Mg PO DAILY Allergies Allergies: Coded Allergies: ibuprofen (Verified Allergy, Intermediate, 06/20/19) ROS Review of System 14 point review of systems conducted with the patient and his family at bedside. He is hard of hearing Physical Exam Physical Exam General Appearance: Awake Alert Oriented x 3 In no Distress Eyes: VIsion Unchanged Conjunctiva Normal EN: No EN Drainage Mucous Memb. moist Neck: no JVD no JVP Supple no Thyromegaly CVS: S1 S2 soft Murmur No Gallop No Rub no Edema Resp: no Rales no Rhonchi no Acc. Muscle use GI: BAS +ve NO Bruit Non Tender Non Distended : no CVA tenderness; no Suprapubic Tenderness SKIN: no Rashes Breast Exam deferred Mu.Sk: Adequate ROM no Muscle Atrophy Heme: Unable to palpate Obvious LAD no Splenomegaly NEURO: Good Strength and Tone Cranial Nerves II - XII grossly intact Psych: ? Depressed no Active hallucination Vital Signs Vital Signs Date Time Temp Pulse Resp B/P (MAP) Pulse Ox O2 Delivery O2 Flow Rate FiO2 07/04/19 11:50 98.0 60 18 108/47 (67) 96 Room Air 98.0 Assessment & Plan Chronic kidney disease stage IV: Current FLuid and E-lyte status does not necessitate emergent need for Dialysis. Will re-evaluate for Dialysis in am Possible hydronephrosis noted on previous CT scan May 2019: Will check renal sonogram Possible unilateral functioning kidney: Significant left renal atrophy is present in previous CT scan. Left renal lower pole cysts are present. Circumferential wall thickening urinary bladder is present on CT scan hence bladder scan will be checked for urinary retention. Marginal hypernatremia: Watch trend. May need hypotonic IV fluids Anemia: Presumably associated with GI losses. Patient's hemoglobin is trending upwards gradually. We'll check iron and start erythropoietin. Transfuse as needed. Discussed Plan of Care and prognosis etc. at length with family. Labs Labs Laboratory Tests Test 07/03/19 08:35 07/04/19 08:43 White Blood Count 10.2 x10^3/uL (4.0-11.0) 9.7 x10^3/uL (4.0-11.0) Red Blood Count 3.27 x10^6/uL (4.30-5.70) 2.91 x10^6/uL (4.30-5.70) Hemoglobin 9.5 g/dL (13.0-17.5) 8.4 g/dL (13.0-17.5) Hematocrit 28.2 % (39.0-53.0) 25.2 % (39.0-53.0) Mean Corpuscular Volume 86 fL (79-100) 87 fL (79-100) Mean Corpuscular Hemoglobin 29 pg (25-35) 29 pg (25-35) Mean Corpuscular Hemoglobin Concent 34 g/dL (31-37) 34 g/dL (31-37) Red Cell Distribution Width 16.5 % (11.5-14.5) 16.8 % (11.5-14.5) Platelet Count 242 x10^3/uL (140-400) 250 x10^3/uL (140-400) Neutrophils (%) (Auto) 79 % (31-73) 75 % (31-73) Lymphocytes (%) (Auto) 10 % (24-48) 13 % (24-48) Monocytes (%) (Auto) 6 % (0-9) 6 % (0-9) Eosinophils (%) (Auto) 4 % (0-3) 4 % (0-3) Basophils (%) (Auto) 1 % (0-3) 1 % (0-3) Neutrophils # (Auto) 8.1 x10^3/uL (1.8-7.7) 7.3 x10^3/uL (1.8-7.7) Lymphocytes # (Auto) 1.0 x10^3/uL (1.0-4.8) 1.3 x10^3/uL (1.0-4.8) Monocytes # (Auto) 0.6 x10^3/uL (0.0-1.1) 0.6 x10^3/uL (0.0-1.1) Eosinophils # (Auto) 0.4 x10^3/uL (0.0-0.7) 0.4 x10^3/uL (0.0-0.7) Basophils # (Auto) 0.1 x10^3/uL (0.0-0.2) 0.1 x10^3/uL (0.0-0.2) Sodium Level 149 mmol/L (136-145) 147 mmol/L (136-145) Potassium Level 3.5 mmol/L (3.5-5.1) 3.5 mmol/L (3.5-5.1) Chloride Level 110 mmol/L (98-107) 107 mmol/L (98-107) Carbon Dioxide Level 32 mmol/L (21-32) 32 mmol/L (21-32) Anion Gap 7 (6-14) 8 (6-14) Blood Urea Nitrogen 29 mg/dL (8-26) 30 mg/dL (8-26) Creatinine 2.7 mg/dL (0.7-1.3) 2.7 mg/dL (0.7-1.3) Estimated GFR (Cockcroft-Gault) 23.3 23.3 BUN/Creatinine Ratio 11 (6-20) 11 (6-20) Glucose Level 106 mg/dL (70-99) 101 mg/dL (70-99) Calcium Level 9.2 mg/dL (8.5-10.1) 9.1 mg/dL (8.5-10.1) Total Bilirubin 0.5 mg/dL (0.2-1.0) 0.5 mg/dL (0.2-1.0) Aspartate Amino Transf (AST/SGOT) 51 U/L (15-37) 34 U/L (15-37) Alanine Aminotransferase (ALT/SGPT) 7 U/L (16-63) 7 U/L (16-63) Alkaline Phosphatase 63 U/L (46-116) 62 U/L (46-116) Total Protein 6.4 g/dL (6.4-8.2) 6.0 g/dL (6.4-8.2) Albumin 2.9 g/dL (3.4-5.0) 2.8 g/dL (3.4-5.0) Albumin/Globulin Ratio 0.8 (1.0-1.7) 0.9 (1.0-1.7) Laboratory Tests Test 07/04/19 08:43 White Blood Count 9.7 x10^3/uL (4.0-11.0) Red Blood Count 2.91 x10^6/uL (4.30-5.70) Hemoglobin 8.4 g/dL (13.0-17.5) Hematocrit 25.2 % (39.0-53.0) Mean Corpuscular Volume 87 fL (79-100) Mean Corpuscular Hemoglobin 29 pg (25-35) Mean Corpuscular Hemoglobin Concent 34 g/dL (31-37) Red Cell Distribution Width 16.8 % (11.5-14.5) Platelet Count 250 x10^3/uL (140-400) Neutrophils (%) (Auto) 75 % (31-73) Lymphocytes (%) (Auto) 13 % (24-48) Monocytes (%) (Auto) 6 % (0-9) Eosinophils (%) (Auto) 4 % (0-3) Basophils (%) (Auto) 1 % (0-3) Neutrophils # (Auto) 7.3 x10^3/uL (1.8-7.7) Lymphocytes # (Auto) 1.3 x10^3/uL (1.0-4.8) Monocytes # (Auto) 0.6 x10^3/uL (0.0-1.1) Eosinophils # (Auto) 0.4 x10^3/uL (0.0-0.7) Basophils # (Auto) 0.1 x10^3/uL (0.0-0.2) Sodium Level 147 mmol/L (136-145) Potassium Level 3.5 mmol/L (3.5-5.1) Chloride Level 107 mmol/L (98-107) Carbon Dioxide Level 32 mmol/L (21-32) Anion Gap 8 (6-14) Blood Urea Nitrogen 30 mg/dL (8-26) Creatinine 2.7 mg/dL (0.7-1.3) Estimated GFR (Cockcroft-Gault) 23.3 BUN/Creatinine Ratio 11 (6-20) Glucose Level 101 mg/dL (70-99) Calcium Level 9.1 mg/dL (8.5-10.1) Total Bilirubin 0.5 mg/dL (0.2-1.0) Aspartate Amino Transf (AST/SGOT) 34 U/L (15-37) Alanine Aminotransferase (ALT/SGPT) 7 U/L (16-63) Alkaline Phosphatase 62 U/L (46-116) Total Protein 6.0 g/dL (6.4-8.2) Albumin 2.8 g/dL (3.4-5.0) Albumin/Globulin Ratio 0.9 (1.0-1.7) Review All relevant outside records, renal labs, imaging studies, telemetry/EKG's were reviewed. Images Images Review of CT scan from May 2019 shows Fullness of the right pelvicalyceal system is present. Significant left renal atrophy is present. Left renal lower pole cysts are present. Circumferential wall thickening urinary bladder is present. Gas is present within the inner bladder. Significant surrounding stranding of the urinary bladder is evident. No loculated collections. SHAVON MOON MD Jul 04, 2019 12:36
[2019-07-04] MEDS ORDERED: MAGNESIUM SULFATE 2GM 50 ML IV PRN (13:00)
--- NOTE | 2019-07-04 15:03 | PDOC ---
G I PROGRESS NOTE Reason for Follow-up GI bleed Subjective More alert, no further bleeding Physical Exam Lungs decreased BS CV S1 S2 ABD +BS, osft, nontender Review of Relevant I have reviewed the following items piyush (where applicable) has been applied. Labs Laboratory Tests Test 07/03/19 08:35 07/04/19 08:43 White Blood Count 10.2 x10^3/uL (4.0-11.0) 9.7 x10^3/uL (4.0-11.0) Red Blood Count 3.27 x10^6/uL (4.30-5.70) 2.91 x10^6/uL (4.30-5.70) Hemoglobin 9.5 g/dL (13.0-17.5) 8.4 g/dL (13.0-17.5) Hematocrit 28.2 % (39.0-53.0) 25.2 % (39.0-53.0) Mean Corpuscular Volume 86 fL (79-100) 87 fL (79-100) Mean Corpuscular Hemoglobin 29 pg (25-35) 29 pg (25-35) Mean Corpuscular Hemoglobin Concent 34 g/dL (31-37) 34 g/dL (31-37) Red Cell Distribution Width 16.5 % (11.5-14.5) 16.8 % (11.5-14.5) Platelet Count 242 x10^3/uL (140-400) 250 x10^3/uL (140-400) Neutrophils (%) (Auto) 79 % (31-73) 75 % (31-73) Lymphocytes (%) (Auto) 10 % (24-48) 13 % (24-48) Monocytes (%) (Auto) 6 % (0-9) 6 % (0-9) Eosinophils (%) (Auto) 4 % (0-3) 4 % (0-3) Basophils (%) (Auto) 1 % (0-3) 1 % (0-3) Neutrophils # (Auto) 8.1 x10^3/uL (1.8-7.7) 7.3 x10^3/uL (1.8-7.7) Lymphocytes # (Auto) 1.0 x10^3/uL (1.0-4.8) 1.3 x10^3/uL (1.0-4.8) Monocytes # (Auto) 0.6 x10^3/uL (0.0-1.1) 0.6 x10^3/uL (0.0-1.1) Eosinophils # (Auto) 0.4 x10^3/uL (0.0-0.7) 0.4 x10^3/uL (0.0-0.7) Basophils # (Auto) 0.1 x10^3/uL (0.0-0.2) 0.1 x10^3/uL (0.0-0.2) Sodium Level 149 mmol/L (136-145) 147 mmol/L (136-145) Potassium Level 3.5 mmol/L (3.5-5.1) 3.5 mmol/L (3.5-5.1) Chloride Level 110 mmol/L (98-107) 107 mmol/L (98-107) Carbon Dioxide Level 32 mmol/L (21-32) 32 mmol/L (21-32) Anion Gap 7 (6-14) 8 (6-14) Blood Urea Nitrogen 29 mg/dL (8-26) 30 mg/dL (8-26) Creatinine 2.7 mg/dL (0.7-1.3) 2.7 mg/dL (0.7-1.3) Estimated GFR (Cockcroft-Gault) 23.3 23.3 BUN/Creatinine Ratio 11 (6-20) 11 (6-20) Glucose Level 106 mg/dL (70-99) 101 mg/dL (70-99) Calcium Level 9.2 mg/dL (8.5-10.1) 9.1 mg/dL (8.5-10.1) Total Bilirubin 0.5 mg/dL (0.2-1.0) 0.5 mg/dL (0.2-1.0) Aspartate Amino Transf (AST/SGOT) 51 U/L (15-37) 34 U/L (15-37) Alanine Aminotransferase (ALT/SGPT) 7 U/L (16-63) 7 U/L (16-63) Alkaline Phosphatase 63 U/L (46-116) 62 U/L (46-116) Total Protein 6.4 g/dL (6.4-8.2) 6.0 g/dL (6.4-8.2) Albumin 2.9 g/dL (3.4-5.0) 2.8 g/dL (3.4-5.0) Albumin/Globulin Ratio 0.8 (1.0-1.7) 0.9 (1.0-1.7) Iron Level 28 ug/dL (65-175) Total Iron Binding Capacity 241 ug/dL (250-450) Iron Saturation 12 % (15-34) Ferritin 177 ng/mL (26-388) Laboratory Tests Test 07/04/19 08:43 White Blood Count 9.7 x10^3/uL (4.0-11.0) Red Blood Count 2.91 x10^6/uL (4.30-5.70) Hemoglobin 8.4 g/dL (13.0-17.5) Hematocrit 25.2 % (39.0-53.0) Mean Corpuscular Volume 87 fL (79-100) Mean Corpuscular Hemoglobin 29 pg (25-35) Mean Corpuscular Hemoglobin Concent 34 g/dL (31-37) Red Cell Distribution Width 16.8 % (11.5-14.5) Platelet Count 250 x10^3/uL (140-400) Neutrophils (%) (Auto) 75 % (31-73) Lymphocytes (%) (Auto) 13 % (24-48) Monocytes (%) (Auto) 6 % (0-9) Eosinophils (%) (Auto) 4 % (0-3) Basophils (%) (Auto) 1 % (0-3) Neutrophils # (Auto) 7.3 x10^3/uL (1.8-7.7) Lymphocytes # (Auto) 1.3 x10^3/uL (1.0-4.8) Monocytes # (Auto) 0.6 x10^3/uL (0.0-1.1) Eosinophils # (Auto) 0.4 x10^3/uL (0.0-0.7) Basophils # (Auto) 0.1 x10^3/uL (0.0-0.2) Sodium Level 147 mmol/L (136-145) Potassium Level 3.5 mmol/L (3.5-5.1) Chloride Level 107 mmol/L (98-107) Carbon Dioxide Level 32 mmol/L (21-32) Anion Gap 8 (6-14) Blood Urea Nitrogen 30 mg/dL (8-26) Creatinine 2.7 mg/dL (0.7-1.3) Estimated GFR (Cockcroft-Gault) 23.3 BUN/Creatinine Ratio 11 (6-20) Glucose Level 101 mg/dL (70-99) Calcium Level 9.1 mg/dL (8.5-10.1) Iron Level 28 ug/dL (65-175) Total Iron Binding Capacity 241 ug/dL (250-450) Iron Saturation 12 % (15-34) Ferritin 177 ng/mL (26-388) Total Bilirubin 0.5 mg/dL (0.2-1.0) Aspartate Amino Transf (AST/SGOT) 34 U/L (15-37) Alanine Aminotransferase (ALT/SGPT) 7 U/L (16-63) Alkaline Phosphatase 62 U/L (46-116) Total Protein 6.0 g/dL (6.4-8.2) Albumin 2.8 g/dL (3.4-5.0) Albumin/Globulin Ratio 0.9 (1.0-1.7) Medications Current Medications Ondansetron HCl (Zofran) 4 mg PRN Q8HRS PRN IV NAUSEA/VOMITING; Start 06/28/19 at 22:00; Stop 06/29/19 at 21:59; Status DC Sodium Chloride 1,000 ml @ 125 mls/hr Q8H IV Last administered on 06/29/19at 19:34; Start 06/28/19 at 22:00; Stop 06/29/19 at 21:59; Status DC Pantoprazole Sodium (PROTONIX VIAL for IV PUSH) 40 mg DAILYAC IVP Last administered on 07/04/19at 08:42; Start 06/29/19 at 11:00 Heparin Sodium (Porcine) (HEPARIN for NUC MED) 100 unit 1X ONCE IV ; Start 06/29/19 at 12:15; Stop 06/29/19 at 12:16; Status DC Phytonadione (Vitamin K Ampule) 5 mg 1X ONCE SQ Last administered on 06/29/19at 16:29; Start 06/29/19 at 16:30; Stop 06/29/19 at 16:31; Status DC Morphine Sulfate (Morphine Sulfate) 4 mg PRN Q1HR PRN IV PAIN Last administered on 07/01/19 04:12; Start 06/29/19 at 18:15 Amlodipine Besylate (Norvasc) 5 mg DAILY PO Last administered on 07/04/19 08:44; Start 07/02/19 at 09:00 Calcitriol (Rocaltrol) 0.25 mcg DAILY PO Last administered on 07/04/19 08:42; Start 07/02/19 at 09:00 Carbidopa/Levodopa (Sinemet 25/100) 1 tab QID PO Last administered on 07/04/19 13:32; Start 07/01/19 at 17:00 Vitamin D (Vitamin D3) 1,000 unit DAILY PO Last administered on 07/04/19 08:43; Start 07/02/19 at 09:00 Citalopram Hydrobromide (CeleXA) 20 mg DAILY PO Last administered on 07/04/19 08:43; Start 07/02/19 at 09:00 Clonidine HCl (Catapres) 0.1 mg PRN Q6HRS PRN PO SBP>160 OR DBP>90; Start 07/01/19 at 15:30 Diltiazem HCl (Cardizem 24hr Cd) 120 mg DAILY PO Last administered on 07/04/19 08:43; Start 07/02/19 at 09:00 Docusate Sodium (Colace) 100 mg PRN BID PRN PO CONSTIPATION; Start 07/01/19 at 15:30 Famotidine (Pepcid) 20 mg QHS PO Last administered on 07/03/19 23:23; Start 07/01/19 at 21:00 Furosemide (Lasix) 40 mg BID92 PO Last administered on 07/04/19 13:32; Start 07/02/19 at 09:00 Gabapentin (Neurontin) 300 mg TID PO Last administered on 07/04/19 13:32; Start 07/01/19 at 21:00 Levothyroxine Sodium (Synthroid) 25 mcg DAILY06 PO Last administered on 07/04 06:16; Start 07/02/19 at 06:00 Potassium Chloride (Klor-Con) 10 meq DAILY PO Last administered on 07/04/19 08:44; Start 07/02/19 at 09:00 Tamsulosin HCl (Flomax) 0.4 mg DAILY PO Last administered on 07/04/19 08:44; Start 07/02/19 at 09:00 Ascorbic Acid (Vitamin C) 500 mg DAILY PO Last administered on 07/04/19 08:44; Start 07/02/19 at 09:00 Carvedilol (Coreg) 25 mg BIDWMEALS PO Last administered on 07/04/19 08:43; Start 07/01/19 at 17:00 Lactobacillus Rhamnosus (Culturelle) 1 cap DAILY PO Last administered on 07/04/19 08:43; Start 07/02/19 at 09:00 Cetirizine HCl (ZyrTEC) 10 mg DAILY PO Last administered on 07/04/19 08:44; Start 07/02/19 at 09:00 Vitamin B Complex (Eloy B) 1 tab DAILY PO Last administered on 07/04/19 08:42; Start 07/02/19 at 09:00 Ferrous Sulfate (Iron Oral Solution) 300 mg BIDWMEALS PO Last administered on 07/04/19 08:42; Start 07/03/19 at 08:00 Ferrous Sulfate (Iron Oral Solution) 300 mg 1X STAT PO ; Start 07/02/19 at 18:39; Stop 07/02/19 at 18:48; Status DC Methadone HCl (Dolophine) 10 mg BID76 PO Last administered on 07/04/19 08:43; Start 07/02/19 at 19:27 Lorazepam (Ativan Inj) 4 mg PRN Q4HRS PRN IVP ANXIETY / AGITATION Last administered on 07/02/19at 19:30; Start 07/02/19 at 19:30; Stop 07/02/19 at 19:34; Status DC Haloperidol Lactate (Haldol Inj) 5 mg PRN Q6HRS PRN IVP AGITATION; Start 07/02/19 at 19:30; Stop 07/02/19 at 19:33; Status DC Haloperidol Lactate (Haldol Inj) 5 mg PRN Q6HRS PRN IM AGITATION; Start 07/02/19 at 19:45 Lorazepam (Ativan Inj) 4 mg PRN Q4HRS PRN IM/IV ANXIETY / AGITATION; Start 07/02/19 at 19:45 Magnesium Sulfate 50 ml @ 25 mls/hr PRN DAILY PRN IV for Mag < 1.7 on am labs; Start 07/04/19 at 13:00 Active Scripts Active Augmentin 250-62.5 Mg/5 Ml (Amoxicillin/Potassium Clav) 250 Mg/5 Ml Susp.recon 5 Ml PO BID 10 Days Famotidine 20 Mg Tablet 20 Mg PO QHS 30 Days Colace (Docusate Sodium) 100 Mg Capsule 100 Mg PO PRN BID PRN 30 Days Lorazepam 0.5 Mg Tablet 0.5 Mg PO PRN Q4HRS PRN 14 Days Tylenol (Acetaminophen) 325 Mg Tablet 650 Mg PO PRN Q4HRS PRN 30 Days Catapres (Clonidine Hcl) 0.1 Mg Tablet 0.1 Mg PO PRN Q6HRS PRN 14 Days Proair Hfa (Albuterol Sulfate) 8.5 Gm Hfa.aer.ad 2.5 Mg NEB PRN Q4HRS PRN 14 Days Dicyclomine Hcl 10 Mg Capsule 10 Mg PO PRN 1X PRN 14 Days Reported Warfarin Sodium 3 Mg Tablet 3 Mg PO DAILY Gabapentin (Gabapentin) 300 Mg Capsule 300 Mg PO TID Vitamin D3 (Cholecalciferol (Vitamin D3)) 1,000 Unit Tablet 1 Tab PO DAILY Vitamin C (Ascorbic Acid) 500 Mg Capsule 500 Mg PO DAILY Vitamin B Complex 1 Each Capsule 1 Each PO DAILY Sinemet 25-100 Mg Tablet (Carbidopa/Levodopa) 1 Each Tablet 1 Tab PO QID Probiotic (Lactobacillus Combo No.11) 1 Each Cap.sprink 1 Each PO DAILY Potassium Chloride 10 Meq Tab.sr.24h 10 Meq PO DAILY Methadone Hcl 10 Mg Tablet 30 Mg PO TID Loratadine 10 Mg Tablet 1 Tab PO DAILY Levothyroxine Sodium 25 Mcg Tablet 1 Tab PO DAILY Lasix (Furosemide) 40 Mg Tablet 40 Mg PO BID Gabapentin 600 Mg Tablet 600 Mg PO QID Flomax (Tamsulosin Hcl) 0.4 Mg Cap.er.24h 1 Cap PO DAILY Fenofibrate (Fenofibrate,Micronized) 134 Mg Capsule 1 Cap PO DAILY Diltiazem 24HR Cd (Diltiazem Hcl) 120 Mg Cap.er.24h 1 Cap PO DAILY Coumadin (Warfarin Sodium) 7.5 Mg Tablet 1 Tab PO DAILY Coreg (Carvedilol) 25 Mg Tablet 25 Mg PO BIDWMEALS Citalopram Hbr (Citalopram Hydrobromide) 20 Mg Tablet 1 Tab PO DAILY Calcitriol 0.25 Mcg Capsule 1 Cap PO DAILY Aspirin 81 Mg Tab.chew 1 Tab PO DAILY Norvasc (Amlodipine Besylate) 5 Mg Tablet 5 Mg PO DAILY Vitals/I & O Vital Sign - Last 24 Hours 07/03/19 07/03/19 07/03/19 07/03/19 15:32 18:16 19:45 19:53 Temp 99.0 98.8 99.0 98.8 Pulse 67 67 58 Resp 18 18 B/P (MAP) 124/59 (80) 124/59 117/47 (70) Pulse Ox 91 92 O2 Delivery Room Air Room Air Room Air 07/03/19 07/04/19 07/04/19 07/04/19 23:14 03:37 07:42 08:00 Temp 98.8 98.5 97.5 98.8 98.5 97.5 Pulse 74 108 65 Resp 18 16 20 B/P (MAP) 119/64 (82) 144/65 (91) 136/64 (88) Pulse Ox 92 96 92 O2 Delivery Room Air Room Air Room Air Room Air 07/04/19 07/04/19 07/04/19 07/04/19 08:43 08:43 08:44 11:50 Temp 98.0 98.0 Pulse 65 65 65 60 Resp 18 B/P (MAP) 136/64 136/64 136/64 108/47 (67) Pulse Ox 96 O2 Delivery Room Air Intake and Output 07/03/19 07/03/19 07/04/19 15:00 23:00 07:00 Intake Total 60 ml 840 ml 0 ml Output Total 450 ml 700 ml 550 ml Balance -390 ml 140 ml -550 ml Problem List Acute blood lsos anemia- Hg stable, likely diverticualr bleed, renal insufficiency continues,CPM RONAN SEE MD Jul 04, 2019 15:03
[2019-07-04 15:46] VITALS: BP 105/45
--- NOTE | 2019-07-04 15:52 | RAD ---
RENAL COMPLETE BILATERAL History: Previous hydronephrosis Comparison: June 21, 2019 CT exam Findings: Multiple sonographic images of the kidneys and retroperitoneal structures are submitted. Right kidney measured 12.1 x 4.4 x 4.8 cm. Left kidney measured 8.8 x 5 x 4.7 cm. There are 2 hypoechoic foci of the left kidney, superiorly up to 1.3 cm and inferiorly about 2.2 cm greatest dimension. There is no hydronephrosis of either kidney. Abdominal aortic caliber is within normal limits up to 2.7 cm proximally, distally obscured by bowel gas on this exam. There is segmental visualization of the inferior vena cava. There is Pelaez catheter present urinary bladder, poorly visualized urinary bladder. Incidental node is made of cholelithiasis. Impression: 1. Urinary bladder is decompressed by Pelaez catheter. There is no hydronephrosis of either kidney. 2. Left kidney is atrophic. There are 2 left renal cysts. 3. There is incidentally noted cholelithiasis. Electronically signed by: Toby Goldstein MD (07/04/2019 3:49 PM) [facility]
[2019-07-04 19:43] VITALS: BP 129/56
[2019-07-04] MEDS: FAMOTIDINE 20 MG TABLET. PO SCH (19:43)
[2019-07-04] MEDS ORDERED: ONDANSETRON PF 4 MG/2 ML VIAL. IVP PRN (20:15)
[2019-07-04] MEDS ORDERED: ACETAMINOPHEN 500 MG TABLET PO PRN (20:15)
[2019-07-04 23:58] VITALS: BP 160/67
[2019-07-05 03:32] VITALS: BP 145/66
[2019-07-05] MEDS: LEVOTHYROXINE 25 MCG TABLET. PO SCH (05:58)
[2019-07-05 07:00] VITALS: BP 154/64
[2019-07-05] MEDS ORDERED: PANTOPRAZOLE 40 MG TABLET.DR. PO SCH (07:30)
[2019-07-05 07:37] LABS: BASO # 0.1 x10^3/uL (0.0-0.2); BASO % 1 % (0-3); EOS # 0.5 x10^3/uL (0.0-0.7); EOS % 5 % (0-3); HEMATOCRIT 24.1 % (39.0-53.0); HEMOGLOBIN 8.1 g/dL (13.0-17.5); LYMPH # 1.7 x10^3/uL (1.0-4.8); LYMPH % 17 % (24-48); MEAN CORPUSCULAR HEMOGLOBIN 29 pg (25-35); MEAN CORPUSCULAR HGB CONC 34 g/dL (31-37); MEAN CORPUSCULAR VOLUME 87 fL (79-100); MONO # 0.7 x10^3/uL (0.0-1.1); MONO % 7 % (0-9); NEUT # 7.2 x10^3/uL (1.8-7.7); NEUT % 70 % (31-73); PLATELET COUNT 261 x10^3/uL (140-400); RED BLOOD COUNT 2.77 x10^6/uL (4.30-5.70); RED CELL DISTRIBUTION WIDTH 17.5 % (11.5-14.5); WHITE BLOOD COUNT 10.2 x10^3/uL (4.0-11.0)
[2019-07-05 08:13] LABS: ALBUMIN 2.7 g/dL (3.4-5.0); ALBUMIN/GLOBULIN RATIO 0.8 (1.0-1.7); CREATININE 2.9 mg/dL (0.7-1.3); GFR 21.4; MAGNESIUM 2.6 mg/dL (1.8-2.4); PHOSPHORUS 3.5 mg/dL (2.6-4.7); POTASSIUM 3.2 mmol/L (3.5-5.1); TOTAL BILIRUBIN 0.3 mg/dL (0.2-1.0); TOTAL PROTEIN 5.9 g/dL (6.4-8.2)
[2019-07-05] MEDS: FERROUS SULFATE ORAL 300 MG/5 ML SOLUTION. PO SCH (08:45)
[2019-07-05] MEDS: METHADONE 10 MG TABLET. PO SCH (08:46)
[2019-07-05] MEDS: CARVEDILOL 12.5 MG TABLET. PO SCH (08:48)
[2019-07-05] MEDS: LACTOBACILLUS RHAMNOSUS GG 1 CAPSULE. PO SCH (08:49)
[2019-07-05] MEDS: TAMSULOSIN 0.4 MG CAP.ER.24H. PO SCH (08:49)
[2019-07-05] MEDS: VITAMIN B COMPLEX TABLET. PO SCH (08:50)
[2019-07-05] MEDS: CITALOPRAM 20 MG TABLET. PO SCH (08:50)
[2019-07-05] MEDS: GABAPENTIN 300 MG CAPSULE. PO SCH ×2 (08:50→13:54)
[2019-07-05] MEDS: FUROSEMIDE 40 MG TABLET. PO SCH ×2 (08:50→13:54)
[2019-07-05] MEDS: CARBIDOPA/LEVODOPA 25/100MG TABLET PO SCH ×2 (08:50→13:54)
[2019-07-05] MEDS: CHOLECALCIFEROL (VITAMIN D3) 1,000 UNIT TABLET PO SCH (08:50)
[2019-07-05] MEDS: CALCITRIOL 0.25 MCG CAPSULE. PO SCH (08:50)
[2019-07-05] MEDS: amLODIPine BESYLATE 5 MG TABLET PO SCH (08:51)
[2019-07-05] MEDS: POTASSIUM CHLORIDE 10 MEQ TABLET.ER. PO SCH (08:51)
[2019-07-05] MEDS: ASCORBIC ACID 500 MG TABLET PO SCH (08:51)
[2019-07-05] MEDS: CETIRIZINE HCL 10 MG TABLET. PO SCH (08:51)
[2019-07-05] MEDS ORDERED: OLANZapine IM 10 MG VIAL. IM PRN (09:00)
--- NOTE | 2019-07-05 09:24 | PDOC ---
Subjective: Subjective: Cold. Not sure if he's going to eat breakfast. Stooled yesterday - no blood - nurse confirms. Objective: Vital Signs: Vital Signs Date Time Temp Pulse Resp B/P (MAP) Pulse Ox O2 Delivery O2 Flow Rate FiO2 07/05/19 08:51 71 154/64 07/05/19 07:00 97.6 16 90 Room Air 97.6 Labs: Laboratory Tests Test 07/05/19 06:25 White Blood Count 10.2 x10^3/uL Red Blood Count 2.77 x10^6/uL Hemoglobin 8.1 g/dL Hematocrit 24.1 % Mean Corpuscular Volume 87 fL Mean Corpuscular Hemoglobin 29 pg Mean Corpuscular Hemoglobin Concent 34 g/dL Red Cell Distribution Width 17.5 % Platelet Count 261 x10^3/uL Neutrophils (%) (Auto) 70 % Lymphocytes (%) (Auto) 17 % Monocytes (%) (Auto) 7 % Eosinophils (%) (Auto) 5 % Basophils (%) (Auto) 1 % Neutrophils # (Auto) 7.2 x10^3/uL Lymphocytes # (Auto) 1.7 x10^3/uL Monocytes # (Auto) 0.7 x10^3/uL Eosinophils # (Auto) 0.5 x10^3/uL Basophils # (Auto) 0.1 x10^3/uL Sodium Level 145 mmol/L Potassium Level 3.2 mmol/L Chloride Level 108 mmol/L Carbon Dioxide Level 29 mmol/L Anion Gap 8 Blood Urea Nitrogen 31 mg/dL Creatinine 2.9 mg/dL Estimated GFR (Cockcroft-Gault) 21.4 BUN/Creatinine Ratio 11 Glucose Level 92 mg/dL Calcium Level 9.0 mg/dL Phosphorus Level 3.5 mg/dL Magnesium Level 2.6 mg/dL Total Bilirubin 0.3 mg/dL Aspartate Amino Transf (AST/SGOT) 24 U/L Alanine Aminotransferase (ALT/SGPT) 9 U/L Alkaline Phosphatase 58 U/L Total Protein 5.9 g/dL Albumin 2.7 g/dL Albumin/Globulin Ratio 0.8 PE: GEN: NAD LUNGS: CTAB HEART: RRR ABD: S/ND/NT NEURO/PSYCH: A & O �3 A/P: Diverticular bleed - resolved Anemia - stable; on iron, Coumadin held CRC screen - 2014 (had stroke 4 days after) -- Stable GI-preston. Encouraged PO. AMBROCIO HOGAN Jul 05, 2019 09:24
--- NOTE | 2019-07-05 09:38 | PDOC ---
PROGRESS NOTES Chief Complaint Chief Complaint discharge dx promary DISCHARGE DX ==== dx ACUTE LOWER GI BLEEDING HGB AT 8.1 07/05 1. No acute intracranial findings. ON CT HEAD, RECENT acute metabolic encephalopathy sec to UTI 2. Chronic left insular infarct. Moderate atrophy and chronic microangiopathic white matter change. 3. FALLS 4. Generalized weakness 5 morbid obesity 6. HYPERTENSION 7. Depression 8. Mild basilar atelectasis. 9. CKD stage 4-[address] abd Significant calcific involvement of the arterial vasculature. Bilateral common iliac artery fusiform aneurysms. 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 Alternatively, this may represent significant atherosclerotic calcific involvement. 11, RECENT uti 12 GI bleed with acute blood loss anemia 13 CAD 14 Parkinson's, with dementia, neurology consulted 15. severe protein-caloric malnutrition 16. marked debility 10- BRIGHT RED RECTAL bleeding noted by RN today - hgb slightly lower, follow 07-05- NO MORE GI BLOOD LOSS IDENTIFIED TODAY, PLAN D/C D/C PLANNING 24 MIN TIME History of Present Illness History of Present Illness impression - 1. No acute intracranial findings. ON CT HEAD, RECENT acute metabolic encephalopathy sec to UTI 2. Chronic left insular infarct. Moderate atrophy and chronic microangiopathic white matter change. 3. FALLS 4. Generalized weakness 5 morbid obesity 6. HYPERTENSION 7. Depression 8. Mild basilar atelectasis. 9. CKD stage 4-[address] abd Significant calcific involvement of the arterial vasculature. Bilateral common iliac artery fusiform aneurysms. 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 Alternatively, this may represent significant atherosclerotic calcific involvement. 11, RECENT uti 12 GI bleed 13 CAD 14 Parkinson's, dementia d/w family in room cbc, comp in am 10- NEPHROLOGY TO SEE problems Impaired fnctnl mobility * Strength * Cognition * Balance 28 MIN PT EXAM, CHART REVIEW, > 50% OF TIME SPENT WITH EXAM, CHART REVIEW, PT CARE COORDINATION 07/01/19 Pt seen and examined in the ICU Pt currently being transferred 1 unit of blood Pt is sitting upright and responsive to questions Accompanied by D/w nurse. GI gave ok to downgrade from ICU Diet was advanced Chart and labs reviewed WBC was 11.8, down from 13.5 INR was 2.0, down from 2.6 Hgb was 6.8, down from 7.3 BUN was 47, down from 51 Cr is 2.9, down from 3.1 06/30/19 Pt seen and examined in the ICU Pt was transferred 2 units of blood on 06/29 Pt is sitting upright Skin pallor is improved compared to yesterday Pt is responsive to questions Accompanied by and granddaughter D/w nurse and family Charts and labs reviewed WBC is 13.5, up from 10 Hgb is 7.3, down from 8 BUN is 51, up from 44 Cr remains 3.1 Vitals Vitals Vital Signs Date Time Temp Pulse Resp B/P (MAP) Pulse Ox O2 Delivery O2 Flow Rate FiO2 07/05/19 08:51 71 154/64 07/05/19 07:00 97.6 16 90 Room Air 97.6 Physical Exam Physical Exam Right forearm has ecchymosis present General: Alert, Cooperative, No acute distress, Other (confused to details) Heart: Regular rate Lungs: Clear Abdomen: Normal bowel sounds, Soft, No tenderness, No hepatosplenomegaly Extremities: No clubbing, No cyanosis Skin: Other Labs LABS Laboratory Tests Test 07/05/19 06:25 White Blood Count 10.2 x10^3/uL (4.0-11.0) Red Blood Count 2.77 x10^6/uL (4.30-5.70) Hemoglobin 8.1 g/dL (13.0-17.5) Hematocrit 24.1 % (39.0-53.0) Mean Corpuscular Volume 87 fL (79-100) Mean Corpuscular Hemoglobin 29 pg (25-35) Mean Corpuscular Hemoglobin Concent 34 g/dL (31-37) Red Cell Distribution Width 17.5 % (11.5-14.5) Platelet Count 261 x10^3/uL (140-400) Neutrophils (%) (Auto) 70 % (31-73) Lymphocytes (%) (Auto) 17 % (24-48) Monocytes (%) (Auto) 7 % (0-9) Eosinophils (%) (Auto) 5 % (0-3) Basophils (%) (Auto) 1 % (0-3) Neutrophils # (Auto) 7.2 x10^3/uL (1.8-7.7) Lymphocytes # (Auto) 1.7 x10^3/uL (1.0-4.8) Monocytes # (Auto) 0.7 x10^3/uL (0.0-1.1) Eosinophils # (Auto) 0.5 x10^3/uL (0.0-0.7) Basophils # (Auto) 0.1 x10^3/uL (0.0-0.2) Sodium Level 145 mmol/L (136-145) Potassium Level 3.2 mmol/L (3.5-5.1) Chloride Level 108 mmol/L (98-107) Carbon Dioxide Level 29 mmol/L (21-32) Anion Gap 8 (6-14) Blood Urea Nitrogen 31 mg/dL (8-26) Creatinine 2.9 mg/dL (0.7-1.3) Estimated GFR (Cockcroft-Gault) 21.4 BUN/Creatinine Ratio 11 (6-20) Glucose Level 92 mg/dL (70-99) Calcium Level 9.0 mg/dL (8.5-10.1) Phosphorus Level 3.5 mg/dL (2.6-4.7) Magnesium Level 2.6 mg/dL (1.8-2.4) Total Bilirubin 0.3 mg/dL (0.2-1.0) Aspartate Amino Transf (AST/SGOT) 24 U/L (15-37) Alanine Aminotransferase (ALT/SGPT) 9 U/L (16-63) Alkaline Phosphatase 58 U/L (46-116) Total Protein 5.9 g/dL (6.4-8.2) Albumin 2.7 g/dL (3.4-5.0) Albumin/Globulin Ratio 0.8 (1.0-1.7) Comment Review of Relevant I have reviewed the following items piyush (where applicable) has been applied. Labs Laboratory Tests Test 07/04/19 08:43 07/05/19 06:25 White Blood Count 9.7 x10^3/uL (4.0-11.0) 10.2 x10^3/uL (4.0-11.0) Red Blood Count 2.91 x10^6/uL (4.30-5.70) 2.77 x10^6/uL (4.30-5.70) Hemoglobin 8.4 g/dL (13.0-17.5) 8.1 g/dL (13.0-17.5) Hematocrit 25.2 % (39.0-53.0) 24.1 % (39.0-53.0) Mean Corpuscular Volume 87 fL (79-100) 87 fL (79-100) Mean Corpuscular Hemoglobin 29 pg (25-35) 29 pg (25-35) Mean Corpuscular Hemoglobin Concent 34 g/dL (31-37) 34 g/dL (31-37) Red Cell Distribution Width 16.8 % (11.5-14.5) 17.5 % (11.5-14.5) Platelet Count 250 x10^3/uL (140-400) 261 x10^3/uL (140-400) Neutrophils (%) (Auto) 75 % (31-73) 70 % (31-73) Lymphocytes (%) (Auto) 13 % (24-48) 17 % (24-48) Monocytes (%) (Auto) 6 % (0-9) 7 % (0-9) Eosinophils (%) (Auto) 4 % (0-3) 5 % (0-3) Basophils (%) (Auto) 1 % (0-3) 1 % (0-3) Neutrophils # (Auto) 7.3 x10^3/uL (1.8-7.7) 7.2 x10^3/uL (1.8-7.7) Lymphocytes # (Auto) 1.3 x10^3/uL (1.0-4.8) 1.7 x10^3/uL (1.0-4.8) Monocytes # (Auto) 0.6 x10^3/uL (0.0-1.1) 0.7 x10^3/uL (0.0-1.1) Eosinophils # (Auto) 0.4 x10^3/uL (0.0-0.7) 0.5 x10^3/uL (0.0-0.7) Basophils # (Auto) 0.1 x10^3/uL (0.0-0.2) 0.1 x10^3/uL (0.0-0.2) Sodium Level 147 mmol/L (136-145) 145 mmol/L (136-145) Potassium Level 3.5 mmol/L (3.5-5.1) 3.2 mmol/L (3.5-5.1) Chloride Level 107 mmol/L (98-107) 108 mmol/L (98-107) Carbon Dioxide Level 32 mmol/L (21-32) 29 mmol/L (21-32) Anion Gap 8 (6-14) 8 (6-14) Blood Urea Nitrogen 30 mg/dL (8-26) 31 mg/dL (8-26) Creatinine 2.7 mg/dL (0.7-1.3) 2.9 mg/dL (0.7-1.3) Estimated GFR (Cockcroft-Gault) 23.3 21.4 BUN/Creatinine Ratio 11 (6-20) 11 (6-20) Glucose Level 101 mg/dL (70-99) 92 mg/dL (70-99) Calcium Level 9.1 mg/dL (8.5-10.1) 9.0 mg/dL (8.5-10.1) Iron Level 28 ug/dL (65-175) Total Iron Binding Capacity 241 ug/dL (250-450) Iron Saturation 12 % (15-34) Ferritin 177 ng/mL (26-388) Total Bilirubin 0.5 mg/dL (0.2-1.0) 0.3 mg/dL (0.2-1.0) Aspartate Amino Transf (AST/SGOT) 34 U/L (15-37) 24 U/L (15-37) Alanine Aminotransferase (ALT/SGPT) 7 U/L (16-63) 9 U/L (16-63) Alkaline Phosphatase 62 U/L (46-116) 58 U/L (46-116) Total Protein 6.0 g/dL (6.4-8.2) 5.9 g/dL (6.4-8.2) Albumin 2.8 g/dL (3.4-5.0) 2.7 g/dL (3.4-5.0) Albumin/Globulin Ratio 0.9 (1.0-1.7) 0.8 (1.0-1.7) Phosphorus Level 3.5 mg/dL (2.6-4.7) Magnesium Level 2.6 mg/dL (1.8-2.4) Laboratory Tests Test 10/14/19 06:25 White Blood Count 10.2 x10^3/uL (4.0-11.0) Red Blood Count 2.77 x10^6/uL (4.30-5.70) Hemoglobin 8.1 g/dL (13.0-17.5) Hematocrit 24.1 % (39.0-53.0) Mean Corpuscular Volume 87 fL (79-100) Mean Corpuscular Hemoglobin 29 pg (25-35) Mean Corpuscular Hemoglobin Concent 34 g/dL (31-37) Red Cell Distribution Width 17.5 % (11.5-14.5) Platelet Count 261 x10^3/uL (140-400) Neutrophils (%) (Auto) 70 % (31-73) Lymphocytes (%) (Auto) 17 % (24-48) Monocytes (%) (Auto) 7 % (0-9) Eosinophils (%) (Auto) 5 % (0-3) Basophils (%) (Auto) 1 % (0-3) Neutrophils # (Auto) 7.2 x10^3/uL (1.8-7.7) Lymphocytes # (Auto) 1.7 x10^3/uL (1.0-4.8) Monocytes # (Auto) 0.7 x10^3/uL (0.0-1.1) Eosinophils # (Auto) 0.5 x10^3/uL (0.0-0.7) Basophils # (Auto) 0.1 x10^3/uL (0.0-0.2) Sodium Level 145 mmol/L (136-145) Potassium Level 3.2 mmol/L (3.5-5.1) Chloride Level 108 mmol/L (98-107) Carbon Dioxide Level 29 mmol/L (21-32) Anion Gap 8 (6-14) Blood Urea Nitrogen 31 mg/dL (8-26) Creatinine 2.9 mg/dL (0.7-1.3) Estimated GFR (Cockcroft-Gault) 21.4 BUN/Creatinine Ratio 11 (6-20) Glucose Level 92 mg/dL (70-99) Calcium Level 9.0 mg/dL (8.5-10.1) Phosphorus Level 3.5 mg/dL (2.6-4.7) Magnesium Level 2.6 mg/dL (1.8-2.4) Total Bilirubin 0.3 mg/dL (0.2-1.0) Aspartate Amino Transf (AST/SGOT) 24 U/L (15-37) Alanine Aminotransferase (ALT/SGPT) 9 U/L (16-63) Alkaline Phosphatase 58 U/L (46-116) Total Protein 5.9 g/dL (6.4-8.2) Albumin 2.7 g/dL (3.4-5.0) Albumin/Globulin Ratio 0.8 (1.0-1.7) Medications Current Medications Ondansetron HCl (Zofran) 4 mg PRN Q8HRS PRN IV NAUSEA/VOMITING; Start 06/28/19 at 22:00; Stop 06/29/19 at 21:59; Status DC Sodium Chloride 1,000 ml @ 125 mls/hr Q8H IV Last administered on 06/29/19at 19:34; Start 06/28/19 at 22:00; Stop 06/29/19 at 21:59; Status DC Pantoprazole Sodium (PROTONIX VIAL for IV PUSH) 40 mg DAILYAC IVP Last administered on 07/04/19 08:42; Start 06/29/19 at 11:00; Stop 07/04/19 at 20:13; Status DC Heparin Sodium (Porcine) (HEPARIN for NUC MED) 100 unit 1X ONCE IV ; Start 06/29/19 at 12:15; Stop 06/29/19 at 12:16; Status DC Phytonadione (Vitamin K Ampule) 5 mg 1X ONCE SQ Last administered on 06/29/19at 16:29; Start 06/29/19 at 16:30; Stop 06/29/19 at 16:31; Status DC Morphine Sulfate (Morphine Sulfate) 4 mg PRN Q1HR PRN IV PAIN Last administered on 07/01/19 04:12; Start 06/29/19 at 18:15 Amlodipine Besylate (Norvasc) 5 mg DAILY PO Last administered on 07/05/19 08:51; Start 07/02/19 at 09:00 Calcitriol (Rocaltrol) 0.25 mcg DAILY PO Last administered on 07/05/19at 08:50; Start 07/02/19 at 09:00 Carbidopa/Levodopa (Sinemet 25/100) 1 tab QID PO Last administered on 07/05/19 08:50; Start 07/01/19 at 17:00 Vitamin D (Vitamin D3) 1,000 unit DAILY PO Last administered on 07/05/19 08:50; Start 07/02/19 at 09:00 Citalopram Hydrobromide (CeleXA) 20 mg DAILY PO Last administered on 07/05/19 08:50; Start 07/02/19 at 09:00 Clonidine HCl (Catapres) 0.1 mg PRN Q6HRS PRN PO SBP>160 OR DBP>90; Start 07/01/19 at 15:30 Diltiazem HCl (Cardizem 24hr Cd) 120 mg DAILY PO Last administered on 07/05/19 08:51; Start 07/02/19 at 09:00 Docusate Sodium (Colace) 100 mg PRN BID PRN PO CONSTIPATION; Start 07/01/19 at 15:30 Famotidine (Pepcid) 20 mg QHS PO Last administered on 07/04/19 19:43; Start 07/01/19 at 21:00; Stop 07/05/19 at 09:25; Status DC Furosemide (Lasix) 40 mg [id number] PO Last administered on 07/05/19 08:50; Start 07/02/19 at 09:00 Gabapentin (Neurontin) 300 mg TID PO Last administered on 07/05/19 08:50; Start 07/01/19 at 21:00 Levothyroxine Sodium (Synthroid) 25 mcg DAILY06 PO Last administered on 07/05/19 05:58; Start 07/02/19 at 06:00 Potassium Chloride (Klor-Con) 10 meq DAILY PO Last administered on 07/05/19 08:51; Start 07/02/19 at 09:00 Tamsulosin HCl (Flomax) 0.4 mg DAILY PO Last administered on 07/05/19 08:49; Start 07/02/19 at 09:00 Ascorbic Acid (Vitamin C) 500 mg DAILY PO Last administered on 07/05/19 08:51; Start 07/02/19 at 09:00 Carvedilol (Coreg) 25 mg BIDWMEALS PO Last administered on 07/05/19 08:48; Start 07/01/19 at 17:00 Lactobacillus Rhamnosus (Culturelle) 1 cap DAILY PO Last administered on 07/05/19 08:49; Start 07/02/19 at 09:00 Cetirizine HCl (ZyrTEC) 10 mg DAILY PO Last administered on 07/05/19 08:51; Start 07/02/19 at 09:00 Vitamin B Complex (Eloy B) 1 tab DAILY PO Last administered on 07/05/19 08:50; Start 07/02/19 at 09:00 Ferrous Sulfate (Iron Oral Solution) 300 mg BIDWMEALS PO Last administered on 07/05/19 08:45; Start 07/03/19 at 08:00 Ferrous Sulfate (Iron Oral Solution) 300 mg 1X STAT PO ; Start 07/02/19 at 18:39; Stop 07/02/19 at 18:48; Status DC Methadone HCl (Dolophine) 10 mg [id number] PO Last administered on 07/05/19 08:46; Start 07/02/19 at 19:27 Lorazepam (Ativan Inj) 4 mg PRN Q4HRS PRN IVP ANXIETY / AGITATION Last admi nistered on 07/02/19at 19:30; Start 07/02/19 at 19:30; Stop 07/02/19 at 19:34; Status DC Haloperidol Lactate (Haldol Inj) 5 mg PRN Q6HRS PRN IVP AGITATION; Start 07/02/19 at 19:30; Stop 07/02/19 at 19:33; Status DC Haloperidol Lactate (Haldol Inj) 5 mg PRN Q6HRS PRN IM AGITATION 2ND CHOICE; Start 07/02/19 at 19:45; Stop 07/05/19 at 08:59; Status DC Lorazepam (Ativan Inj) 4 mg PRN Q4HRS PRN IM/IV ANXIETY / AGITATION; Start 07/02/19 at 19:45 Magnesium Sulfate 50 ml @ 25 mls/hr PRN DAILY PRN IV for Mag < 1.7 on am labs; Start 07/04/19 at 13:00 Pantoprazole Sodium (Protonix) 40 mg DAILYAC PO Last administered on 07/05/19at 08:46; Start 07/05/19 at 07:30 Ondansetron HCl (Zofran) 4 mg PRN Q6HRS PRN IVP NAUSEA/VOMITING; Start 07/04/19 at 20:15 Acetaminophen (Tylenol) 500 mg PRN Q6HRS PRN PO MILD PAIN / TEMP; Start 07/04/19 at 20:15 Olanzapine (ZyPREXA IM) 5 mg BID PRN IM AGITATION; Start 07/05/19 at 09:00 Active Scripts Active Augmentin 250-62.5 Mg/5 Ml (Amoxicillin/Potassium Clav) 250 Mg/5 Ml Susp.recon 5 Ml PO BID 10 Days Famotidine 20 Mg Tablet 20 Mg PO QHS 30 Days Colace (Docusate Sodium) 100 Mg Capsule 100 Mg PO PRN BID PRN 30 Days Lorazepam 0.5 Mg Tablet 0.5 Mg PO PRN Q4HRS PRN 14 Days Tylenol (Acetaminophen) 325 Mg Tablet 650 Mg PO PRN Q4HRS PRN 30 Days Catapres (Clonidine Hcl) 0.1 Mg Tablet 0.1 Mg PO PRN Q6HRS PRN 14 Days Proair Hfa (Albuterol Sulfate) 8.5 Gm Hfa.aer.ad 2.5 Mg NEB PRN Q4HRS PRN 14 Days Dicyclomine Hcl 10 Mg Capsule 10 Mg PO PRN 1X PRN 14 Days Reported Warfarin Sodium 3 Mg Tablet 3 Mg PO DAILY Gabapentin (Gabapentin) 300 Mg Capsule 300 Mg PO TID Vitamin D3 (Cholecalciferol (Vitamin D3)) 1,000 Unit Tablet 1 Tab PO DAILY Vitamin C (Ascorbic Acid) 500 Mg Capsule 500 Mg PO DAILY Vitamin B Complex 1 Each Capsule 1 Each PO DAILY Sinemet 25-100 Mg Tablet (Carbidopa/Levodopa) 1 Each Tablet 1 Tab PO QID Probiotic (Lactobacillus Combo No.11) 1 Each Cap.sprink 1 Each PO DAILY Potassium Chloride 10 Meq Tab.sr.24h 10 Meq PO DAILY Methadone Hcl 10 Mg Tablet 30 Mg PO TID Loratadine 10 Mg Tablet 1 Tab PO DAILY Levothyroxine Sodium 25 Mcg Tablet 1 Tab PO DAILY Lasix (Furosemide) 40 Mg Tablet 40 Mg PO BID Gabapentin 600 Mg Tablet 600 Mg PO QID Flomax (Tamsulosin Hcl) 0.4 Mg Cap.er.24h 1 Cap PO DAILY Fenofibrate (Fenofibrate,Micronized) 134 Mg Capsule 1 Cap PO DAILY Diltiazem 24HR Cd (Diltiazem Hcl) 120 Mg Cap.er.24h 1 Cap PO DAILY Coumadin (Warfarin Sodium) 7.5 Mg Tablet 1 Tab PO DAILY Coreg (Carvedilol) 25 Mg Tablet 25 Mg PO BIDWMEALS Citalopram Hbr (Citalopram Hydrobromide) 20 Mg Tablet 1 Tab PO DAILY Calcitriol 0.25 Mcg Capsule 1 Cap PO DAILY Aspirin 81 Mg Tab.chew 1 Tab PO DAILY Norvasc (Amlodipine Besylate) 5 Mg Tablet 5 Mg PO DAILY Vitals/I & O Vital Sign - Last 24 Hours 07/04/19 07/04/19 07/04/19 07/04/19 11:50 15:46 16:48 19:43 Temp 98.0 97.3 98.3 98.0 97.3 98.3 Pulse 60 59 59 57 Resp 18 18 16 B/P (MAP) 108/47 (67) 105/45 (65) 105/45 129/56 (80) Pulse Ox 96 96 92 O2 Delivery Room Air Room Air Room Air 07/04/19 07/04/19 07/05/19 07/05/19 20:00 23:58 03:32 07:00 Temp 98.7 98.3 97.6 98.7 98.3 97.6 Pulse 78 79 71 Resp 16 16 16 B/P (MAP) 160/67 (98) 145/66 (92) 154/64 (94) Pulse Ox 92 91 90 O2 Delivery Room Air Room Air Room Air Room Air 07/05/19 07/05/19 07/05/19 08:48 08:51 08:51 Pulse 71 71 71 B/P (MAP) 154/64 154/64 154/64 Intake and Output 07/04/19 07/04/19 07/05/19 15:00 23:00 07:00 Intake Total 120 ml 300 ml 100 ml Output Total 1250 ml Balance 120 ml 300 ml -1150 ml JOHANA SIMMONS MD Jul 05, 2019 09:38
--- NOTE | 2019-07-05 09:56 | PDOC ---
SUBJECTIVE ROS Stable, No concerns voiced by Pt digital coordinator . No N/V. No mote bleeding OBJECTIVE Vital Signs Vital Signs Date Time Temp Pulse Resp B/P (MAP) Pulse Ox O2 Delivery O2 Flow Rate FiO2 07/05/19 08:51 71 154/64 07/05/19 07:00 97.6 16 90 Room Air 97.6 I & 0 Intake and Output 07/05/19 06:59 Intake Total 520 ml Output Total 1250 ml Balance -730 ml Intake Oral 520 ml Output Urine Total 1250 ml PHYSICAL EXAM Physical Exam GENERAL: No apparent distress. HEENT: OM moist NECK: Supple, LUNGS: Clear to auscultation HEART: RRR, S1, S2 present. ABDOMEN: soft EXTREMITIES: No edema. Lt Arm AVF with good thrill and bruit NEUROLOGIC Grossly normal SKIN: No rash DIAGNOSIS/ASSESSMENT Assessment & Plan Chronic kidney disease stage IV: Baseline Cr between 2.5-3.4. Follows with Dr. Posadas of our practice Renal US -Left kidney is atrophic. There are 2 left renal cysts. Current FLuid and E-lyte status does not necessitate emergent need for Dialysis Access- has Lt arm AV ACcess (per Pt has been there for 3 years) Possible hydronephrosis noted on previous CT scan May 2019: There is no hydronephrosis of either kidney on US 07/04 No Urinary retention Hypernatremia: resolved Hypokalemia- Mild- replace On PO Lasix Anemia: Diverticular bleed per GI Coumadin held Per RN anticipating dc today back to [facility]. Defer to primary team Keep scheduled appt with Dr. Posadas COMMENT/RELEVANT DATA Meds Current Medications Medications (Trade) Dose Ordered Sig/Derick Start Time Stop Time Status Last Admin Dose Admin Acetaminophen (Tylenol) 500 mg PRN Q6HRS PRN 07/04/19 20:15 Amlodipine Besylate (Norvasc) 5 mg DAILY 07/02/19 09:00 07/05/19 08:51 5 MG Ascorbic Acid (Vitamin C) 500 mg DAILY 07/02/19 09:00 07/05/19 08:51 500 MG Calcitriol (Rocaltrol) 0.25 mcg DAILY 07/02/19 09:00 07/05/19 08:50 0.25 MCG Carbidopa/Levodopa (Sinemet 25/100) 1 tab QID 07/01/19 17:00 07/05/19 08:50 1 TAB Carvedilol (Coreg) 25 mg BIDWMEALS 07/01/19 17:00 07/05/19 08:48 25 MG Cetirizine HCl (ZyrTEC) 10 mg DAILY 07/02/19 09:00 07/05/19 08:51 10 MG Citalopram Hydrobromide (CeleXA) 20 mg DAILY 07/02/19 09:00 07/05/19 08:50 20 MG Clonidine HCl (Catapres) 0.1 mg PRN Q6HRS PRN 07/01/19 15:30 Diltiazem HCl (Cardizem 24hr Cd) 120 mg DAILY 07/02/19 09:00 07/05/19 08:51 120 MG Docusate Sodium (Colace) 100 mg PRN BID PRN 07/01/19 15:30 Famotidine (Pepcid) 20 mg QHS 07/01/19 21:00 07/05/19 09:25 DC 07/04/19 19:43 20 MG Ferrous Sulfate (Iron Oral Solution) 300 mg 1X STAT 07/02/19 18:39 07/02/19 18:48 DC Furosemide (Lasix) 40 mg BID92 07/02/19 09:00 07/05/19 08:50 40 MG Gabapentin (Neurontin) 300 mg TID 07/01/19 21:00 07/05/19 08:50 300 MG Haloperidol Lactate (Haldol Inj) 5 mg PRN Q6HRS PRN 07/02/19 19:45 07/05/19 08:59 DC Heparin Sodium (Porcine) (HEPARIN for NUC MED) 100 unit 1X ONCE 06/29/19 12:15 06/29/19 12:16 DC Lactobacillus Rhamnosus (Culturelle) 1 cap DAILY 07/02/19 09:00 07/05/19 08:49 1 CAP Levothyroxine Sodium (Synthroid) 25 mcg DAILY06 07/02/19 06:00 07/05/19 05:58 25 MCG Lorazepam (Ativan Inj) 4 mg PRN Q4HRS PRN 07/02/19 19:45 Magnesium Sulfate 50 ml @ 25 mls/hr PRN DAILY PRN 07/04/19 13:00 Methadone HCl (Dolophine) 10 mg [id number] 07/02/19 19:27 07/05/19 08:46 10 MG Morphine Sulfate (Morphine Sulfate) 4 mg PRN Q1HR PRN 06/29/19 18:15 07/01/19 04:12 4 MG Olanzapine (ZyPREXA IM) 5 mg BID PRN 07/05/19 09:00 Ondansetron HCl (Zofran) 4 mg PRN Q6HRS PRN 07/04/19 20:15 Pantoprazole Sodium (PROTONIX VIAL for IV PUSH) 40 mg DAILYAC 06/29/19 11:00 07/04/19 20:13 DC 07/04/19 08:42 40 MG Pantoprazole Sodium (Protonix) 40 mg DAILYAC 07/05/19 07:30 07/05/19 08:46 40 MG Phytonadione (Vitamin K Ampule) 5 mg 1X ONCE 06/29/19 16:30 06/29/19 16:31 DC 06/29/19 16:29 5 MG Potassium Chloride (Klor-Con) 10 meq DAILY 07/02/19 09:00 07/05/19 08:51 10 MEQ Sodium Chloride 1,000 ml @ 125 mls/hr Q8H 06/28/19 22:00 06/29/19 21:59 DC 06/29/19 19:34 125 MLS/HR Tamsulosin HCl (Flomax) 0.4 mg DAILY 07/02/19 09:00 07/05/19 08:49 0.4 MG Vitamin B Complex (Eloy B) 1 tab DAILY 07/02/19 09:00 07/05/19 08:50 1 TAB Vitamin D (Vitamin D3) 1,000 unit DAILY 07/02/19 09:00 07/05/19 08:50 1,000 UNIT Lab Laboratory Tests Test 07/05/19 06:25 White Blood Count 10.2 x10^3/uL (4.0-11.0) Red Blood Count 2.77 x10^6/uL (4.30-5.70) Hemoglobin 8.1 g/dL (13.0-17.5) Hematocrit 24.1 % (39.0-53.0) Mean Corpuscular Volume 87 fL (79-100) Mean Corpuscular Hemoglobin 29 pg (25-35) Mean Corpuscular Hemoglobin Concent 34 g/dL (31-37) Red Cell Distribution Width 17.5 % (11.5-14.5) Platelet Count 261 x10^3/uL (140-400) Neutrophils (%) (Auto) 70 % (31-73) Lymphocytes (%) (Auto) 17 % (24-48) Monocytes (%) (Auto) 7 % (0-9) Eosinophils (%) (Auto) 5 % (0-3) Basophils (%) (Auto) 1 % (0-3) Neutrophils # (Auto) 7.2 x10^3/uL (1.8-7.7) Lymphocytes # (Auto) 1.7 x10^3/uL (1.0-4.8) Monocytes # (Auto) 0.7 x10^3/uL (0.0-1.1) Eosinophils # (Auto) 0.5 x10^3/uL (0.0-0.7) Basophils # (Auto) 0.1 x10^3/uL (0.0-0.2) Sodium Level 145 mmol/L (136-145) Potassium Level 3.2 mmol/L (3.5-5.1) Chloride Level 108 mmol/L (98-107) Carbon Dioxide Level 29 mmol/L (21-32) Anion Gap 8 (6-14) Blood Urea Nitrogen 31 mg/dL (8-26) Creatinine 2.9 mg/dL (0.7-1.3) Estimated GFR (Cockcroft-Gault) 21.4 BUN/Creatinine Ratio 11 (6-20) Glucose Level 92 mg/dL (70-99) Calcium Level 9.0 mg/dL (8.5-10.1) Phosphorus Level 3.5 mg/dL (2.6-4.7) Magnesium Level 2.6 mg/dL (1.8-2.4) Total Bilirubin 0.3 mg/dL (0.2-1.0) Aspartate Amino Transf (AST/SGOT) 24 U/L (15-37) Alanine Aminotransferase (ALT/SGPT) 9 U/L (16-63) Alkaline Phosphatase 58 U/L (46-116) Total Protein 5.9 g/dL (6.4-8.2) Albumin 2.7 g/dL (3.4-5.0) Albumin/Globulin Ratio 0.8 (1.0-1.7) Results All relevant outside records, renal labs, imaging studies, telemetry/EKG's were reviewed. Other 1. Urinary bladder is decompressed by Pelaez catheter. There is no hydronephrosis of either kidney. 2. Left kidney is atrophic. There are 2 left renal cysts. 3. There is incidentally noted cholelithiasis. SHANTEL CLAY MD Jul 05, 2019 09:56
[2019-07-05 11:00] VITALS: BP 132/43
--- NOTE | 2019-07-05 12:13 | PDOC3 ---
Discharge Summary Date of Admission: Jun 28, 2019 Date of Discharge: Jul 05, 2019 Follow-Up: 1-2 days Admitting Diagnosis comment: discharge dx promary DISCHARGE DX ==== dx ACUTE LOWER GI BLEEDING HGB AT 8.1 07/05 1. No acute intracranial findings. ON CT HEAD, RECENT acute metabolic encephalopathy sec to UTI 2. Chronic left insular infarct. Moderate atrophy and chronic microangiopathic white matter change. 3. FALLS 4. Generalized weakness 5 morbid obesity 6. HYPERTENSION 7. Depression 8. Mild basilar atelectasis. 9. CKD stage 4-[address] abd Significant calcific involvement of the arterial vasculature. Bilateral common iliac artery fusiform aneurysms. 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 Alternatively, this may represent significant atherosclerotic calcific involvement. 11, RECENT uti 12 GI bleed with acute blood loss anemia 13 CAD 14 Parkinson's, with dementia, neurology consulted 15. severe protein-caloric malnutrition 16. marked debility 10- BRIGHT RED RECTAL bleeding noted by RN today 07-04 hgb slightly lower, follow 07-05- NO MORE GI BLOOD LOSS IDENTIFIED TODAY, PLAN D/C D/C PLANNING 24 MIN TIME History of Present Illness History of Present Illness impression 07-02 1. No acute intracranial findings. ON CT HEAD, RECENT acute metabolic encephalopathy sec to UTI 2. Chronic left insular infarct. Moderate atrophy and chronic microangiopathic white matter change. 3. FALLS 4. Generalized weakness 5 morbid obesity 6. HYPERTENSION 7. Depression 8. Mild basilar atelectasis. 9. CKD stage 4-[address] abd Significant calcific involvement of the arterial vasculature. Bilateral common iliac artery fusiform aneurysms. 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 Alternatively, this may represent significant atherosclerotic calcific involvement. 11, RECENT uti 12 GI bleed 13 CAD 14 Parkinson's, dementia d/w family in room cbc, comp in am 10- NEPHROLOGY OK TO D/C problems Impaired fnctnl mobility * Strength * Cognition * Balance 24 MIN PT EXAM, CHART REVIEW,D/C PLANNING TIME > 50% OF TIME SPENT WITH EXAM, CHART REVIEW, PT CARE COORDINATION 07/01/19 Pt seen and examined in the ICU Pt currently being transferred 1 unit of blood Pt is sitting upright and responsive to questions Accompanied by D/w nurse. GI gave ok to downgrade from ICU Diet was advanced Chart and labs reviewed WBC was 11.8, down from 13.5 INR was 2.0, down from 2.6 Hgb was 6.8, down from 7.3 BUN was 47, down from 51 Cr is 2.9, down from 3.1 06/30/19 Pt seen and examined in the ICU Pt was transferred 2 units of blood on 06/29 Pt is sitting upright Skin pallor is improved compared to yesterday Pt is responsive to questions Accompanied by and granddaughter D/w nurse and family Charts and labs reviewed WBC is 13.5, up from 10 Hgb is 7.3, down from 8 BUN is 51, up from 44 Cr remains 3.1 Vitals Vitals Vital Signs Date Time Temp Pulse Resp B/P (MAP) Pulse Ox O2 Delivery O2 Flow Rate FiO2 07/05/19 08:51 71 154/64 07/05/19 07:00 97.6 16 90 Room Air 97.6 Physical Exam Physical Exam Right forearm has ecchymosis present STABLE General: Alert, Cooperative, No acute distress, Other (confused to details) Heart: Regular rate Lungs: Clear Abdomen: Normal bowel sounds, Soft, No tenderness, No hepatosplenomegaly Extremities: No clubbing, No cyanosis Skin: Other Brief Hospital Course Mr. Dinh is a 73 old [sex] who presented with [GI BLEEDING ] CONDITION AT DISCHARGE: Improved Discharge Medications Current Medications Ondansetron HCl (Zofran) 4 mg PRN Q8HRS PRN IV NAUSEA/VOMITING; Start 06/28/19 at 22:00; Stop 06/29/19 at 21:59; Status DC Sodium Chloride 1,000 ml @ 125 mls/hr Q8H IV Last administered on 06/29/19at 19:34; Start 06/28/19 at 22:00; Stop 06/29/19 at 21:59; Status DC Pantoprazole Sodium (PROTONIX VIAL for IV PUSH) 40 mg DAILYAC IVP Last administered on 07/04/19at 08:42; Start 06/29/19 at 11:00; Stop 07/04/19 at 20:13; Status DC Heparin Sodium (Porcine) (HEPARIN for NUC MED) 100 unit 1X ONCE IV ; Start 06/29/19 at 12:15; Stop 06/29/19 at 12:16; Status DC Phytonadione (Vitamin K Ampule) 5 mg 1X ONCE SQ Last administered on 06/29/19 16:29; Start 06/29/19 at 16:30; Stop 06/29/19 at 16:31; Status DC Morphine Sulfate (Morphine Sulfate) 4 mg PRN Q1HR PRN IV PAIN Last administered on 07/01/19 04:12; Start 06/29/19 at 18:15 Amlodipine Besylate (Norvasc) 5 mg DAILY PO Last administered on 07/05/19 08:51; Start 07/02/19 at 09:00 Calcitriol (Rocaltrol) 0.25 mcg DAILY PO Last administered on 07/05/19 08:50; Start 07/02/19 at 09:00 Carbidopa/Levodopa (Sinemet 25/100) 1 tab QID PO Last administered on 07/05/19 08:50; Start 07/01/19 at 17:00 Vitamin D (Vitamin D3) 1,000 unit DAILY PO Last administered on 07/05/19 08:50; Start 07/02/19 at 09:00 Citalopram Hydrobromide (CeleXA) 20 mg DAILY PO Last administered on 07/05/19 08:50; Start 07/02/19 at 09:00 Clonidine HCl (Catapres) 0.1 mg PRN Q6HRS PRN PO SBP>160 OR DBP>90; Start 07/01/19 at 15:30 Diltiazem HCl (Cardizem 24hr Cd) 120 mg DAILY PO Last administered on 07/05/19 08:51; Start 07/02/19 at 09:00 Docusate Sodium (Colace) 100 mg PRN BID PRN PO CONSTIPATION; Start 07/01/19 at 15:30 Famotidine (Pepcid) 20 mg QHS PO Last administered on 07/04/19 19:43; Start 07/01/19 at 21:00; Stop 07/05/19 at 09:25; Status DC Furosemide (Lasix) 40 mg BID92 PO Last administered on 07/05/19 08:50; Start 07/02/19 at 09:00 Gabapentin (Neurontin) 300 mg TID PO Last administered on 07/05/19 08:50; Start 07/01/19 at 21:00 Levothyroxine Sodium (Synthroid) 25 mcg DAILY06 PO Last administered on 07/05/19 05:58; Start 07/02/19 at 06:00 Potassium Chloride (Klor-Con) 10 meq DAILY PO Last administered on 07/05/19 08:51; Start 07/02/19 at 09:00 Tamsulosin HCl (Flomax) 0.4 mg DAILY PO Last administered on 07/05/19 08:49; Start 07/02/19 at 09:00 Ascorbic Acid (Vitamin C) 500 mg DAILY PO Last administered on 07/05/19 08:51; Start 07/02/19 at 09:00 Carvedilol (Coreg) 25 mg BIDWMEALS PO Last administered on 07/05/19 08:48; Start 07/01/19 at 17:00 Lactobacillus Rhamnosus (Culturelle) 1 cap DAILY PO Last administered on 07/05/19 08:49; Start 07/02/19 at 09:00 Cetirizine HCl (ZyrTEC) 10 mg DAILY PO Last administered on 07/05/19 08:51; Start 07/02/19 at 09:00 Vitamin B Complex (Eloy B) 1 tab DAILY PO Last administered on 07/05/19 08:50; Start 07/02/19 at 09:00 Ferrous Sulfate (Iron Oral Solution) 300 mg BIDWMEALS PO Last administered on 07/05/19 08:45; Start 07/03/19 at 08:00 Ferrous Sulfate (Iron Oral Solution) 300 mg 1X STAT PO ; Start 07/02/19 at 18:39; Stop 07/02/19 at 18:48; Status DC Methadone HCl (Dolophine) 10 mg BID76 PO Last administered on 07/05/19 08:46; Start 07/02/19 at 19:27 Lorazepam (Ativan Inj) 4 mg PRN Q4HRS PRN IVP ANXIETY / AGITATION Last administered on 07/02/19 19:30; Start 07/02/19 at 19:30; Stop 07/02/19 at 19:34; Status DC Haloperidol Lactate (Haldol Inj) 5 mg PRN Q6HRS PRN IVP AGITATION; Start 08/10 at 19:30; Stop 07/02/19 at 19:33; Status DC Haloperidol Lactate (Haldol Inj) 5 mg PRN Q6HRS PRN IM AGITATION 2ND CHOICE; Start 07/02/19 at 19:45; Stop 07/05/19 at 08:59; Status DC Lorazepam (Ativan Inj) 4 mg PRN Q4HRS PRN IM/IV ANXIETY / AGITATION; Start 07/02/19 at 19:45 Magnesium Sulfate 50 ml @ 25 mls/hr PRN DAILY PRN IV for Mag < 1.7 on am labs; Start 07/04/19 at 13:00 Pantoprazole Sodium (Protonix) 40 mg DAILYAC PO Last administered on 07/05/19at 08:46; Start 07/05/19 at 07:30 Ondansetron HCl (Zofran) 4 mg PRN Q6HRS PRN IVP NAUSEA/VOMITING; Start 07/04/19 at 20:15 Acetaminophen (Tylenol) 500 mg PRN Q6HRS PRN PO MILD PAIN / TEMP; Start 07/04/19 at 20:15 Olanzapine (ZyPREXA IM) 5 mg BID PRN IM AGITATION; Start 07/05/19 at 09:00 Active Scripts Active Augmentin 250-62.5 Mg/5 Ml (Amoxicillin/Potassium Clav) 250 Mg/5 Ml Susp.recon 5 Ml PO BID 10 Days Famotidine 20 Mg Tablet 20 Mg PO QHS 30 Days Colace (Docusate Sodium) 100 Mg Capsule 100 Mg PO PRN BID PRN 30 Days Lorazepam 0.5 Mg Tablet 0.5 Mg PO PRN Q4HRS PRN 14 Days Tylenol (Acetaminophen) 325 Mg Tablet 650 Mg PO PRN Q4HRS PRN 30 Days Catapres (Clonidine Hcl) 0.1 Mg Tablet 0.1 Mg PO PRN Q6HRS PRN 14 Days Proair Hfa (Albuterol Sulfate) 8.5 Gm Hfa.aer.ad 2.5 Mg NEB PRN Q4HRS PRN 14 Days Dicyclomine Hcl 10 Mg Capsule 10 Mg PO PRN 1X PRN 14 Days Reported Warfarin Sodium 3 Mg Tablet 3 Mg PO DAILY Gabapentin (Gabapentin) 300 Mg Capsule 300 Mg PO TID Vitamin D3 (Cholecalciferol (Vitamin D3)) 1,000 Unit Tablet 1 Tab PO DAILY Vitamin C (Ascorbic Acid) 500 Mg Capsule 500 Mg PO DAILY Vitamin B Complex 1 Each Capsule 1 Each PO DAILY Sinemet 25-100 Mg Tablet (Carbidopa/Levodopa) 1 Each Tablet 1 Tab PO QID Probiotic (Lactobacillus Combo No.11) 1 Each Cap.sprink 1 Each PO DAILY Potassium Chloride 10 Meq Tab.sr.24h 10 Meq PO DAILY Methadone Hcl 10 Mg Tablet 30 Mg PO TID Loratadine 10 Mg Tablet 1 Tab PO DAILY Levothyroxine Sodium 25 Mcg Tablet 1 Tab PO DAILY Lasix (Furosemide) 40 Mg Tablet 40 Mg PO BID Gabapentin 600 Mg Tablet 600 Mg PO QID Flomax (Tamsulosin Hcl) 0.4 Mg Cap.er.24h 1 Cap PO DAILY Fenofibrate (Fenofibrate,Micronized) 134 Mg Capsule 1 Cap PO DAILY Diltiazem 24HR Cd (Diltiazem Hcl) 120 Mg Cap.er.24h 1 Cap PO DAILY Coumadin (Warfarin Sodium) 7.5 Mg Tablet 1 Tab PO DAILY Coreg (Carvedilol) 25 Mg Tablet 25 Mg PO BIDWMEALS Citalopram Hbr (Citalopram Hydrobromide) 20 Mg Tablet 1 Tab PO DAILY Calcitriol 0.25 Mcg Capsule 1 Cap PO DAILY Aspirin 81 Mg Tab.chew 1 Tab PO DAILY Norvasc (Amlodipine Besylate) 5 Mg Tablet 5 Mg PO DAILY Vital Signs Vital Signs Date Time Temp Pulse Resp B/P (MAP) Pulse Ox O2 Delivery O2 Flow Rate FiO2 07/05/19 11:00 98.1 76 18 132/43 (72) 92 Room Air 98.1 Labs Laboratory Tests Test 07/04/19 08:43 07/05/19 06:25 White Blood Count 9.7 x10^3/uL (4.0-11.0) 10.2 x10^3/uL (4.0-11.0) Red Blood Count 2.91 x10^6/uL (4.30-5.70) 2.77 x10^6/uL (4.30-5.70) Hemoglobin 8.4 g/dL (13.0-17.5) 8.1 g/dL (13.0-17.5) Hematocrit 25.2 % (39.0-53.0) 24.1 % (39.0-53.0) Mean Corpuscular Volume 87 fL (79-100) 87 fL (79-100) Mean Corpuscular Hemoglobin 29 pg (25-35) 29 pg (25-35) Mean Corpuscular Hemoglobin Concent 34 g/dL (31-37) 34 g/dL (31-37) Red Cell Distribution Width 16.8 % (11.5-14.5) 17.5 % (11.5-14.5) Platelet Count 250 x10^3/uL (140-400) 261 x10^3/uL (140-400) Neutrophils (%) (Auto) 75 % (31-73) 70 % (31-73) Lymphocytes (%) (Auto) 13 % (24-48) 17 % (24-48) Monocytes (%) (Auto) 6 % (0-9) 7 % (0-9) Eosinophils (%) (Auto) 4 % (0-3) 5 % (0-3) Basophils (%) (Auto) 1 % (0-3) 1 % (0-3) Neutrophils # (Auto) 7.3 x10^3/uL (1.8-7.7) 7.2 x10^3/uL (1.8-7.7) Lymphocytes # (Auto) 1.3 x10^3/uL (1.0-4.8) 1.7 x10^3/uL (1.0-4.8) Monocytes # (Auto) 0.6 x10^3/uL (0.0-1.1) 0.7 x10^3/uL (0.0-1.1) Eosinophils # (Auto) 0.4 x10^3/uL (0.0-0.7) 0.5 x10^3/uL (0.0-0.7) Basophils # (Auto) 0.1 x10^3/uL (0.0-0.2) 0.1 x10^3/uL (0.0-0.2) Sodium Level 147 mmol/L (136-145) 145 mmol/L (136-145) Potassium Level 3.5 mmol/L (3.5-5.1) 3.2 mmol/L (3.5-5.1) Chloride Level 107 mmol/L (98-107) 108 mmol/L (98-107) Carbon Dioxide Level 32 mmol/L (21-32) 29 mmol/L (21-32) Anion Gap 8 (6-14) 8 (6-14) Blood Urea Nitrogen 30 mg/dL (8-26) 31 mg/dL (8-26) Creatinine 2.7 mg/dL (0.7-1.3) 2.9 mg/dL (0.7-1.3) Estimated GFR (Cockcroft-Gault) 23.3 21.4 BUN/Creatinine Ratio 11 (6-20) 11 (6-20) Glucose Level 101 mg/dL (70-99) 92 mg/dL (70-99) Calcium Level 9.1 mg/dL (8.5-10.1) 9.0 mg/dL (8.5-10.1) Iron Level 28 ug/dL (65-175) Total Iron Binding Capacity 241 ug/dL (250-450) Iron Saturation 12 % (15-34) Ferritin 177 ng/mL (26-388) Total Bilirubin 0.5 mg/dL (0.2-1.0) 0.3 mg/dL (0.2-1.0) Aspartate Amino Transf (AST/SGOT) 34 U/L (15-37) 24 U/L (15-37) Alanine Aminotransferase (ALT/SGPT) 7 U/L (16-63) 9 U/L (16-63) Alkaline Phosphatase 62 U/L (46-116) 58 U/L (46-116) Total Protein 6.0 g/dL (6.4-8.2) 5.9 g/dL (6.4-8.2) Albumin 2.8 g/dL (3.4-5.0) 2.7 g/dL (3.4-5.0) Albumin/Globulin Ratio 0.9 (1.0-1.7) 0.8 (1.0-1.7) Phosphorus Level 3.5 mg/dL (2.6-4.7) Magnesium Level 2.6 mg/dL (1.8-2.4) Laboratory Tests Test 07/05/19 06:25 White Blood Count 10.2 x10^3/uL (4.0-11.0) Red Blood Count 2.77 x10^6/uL (4.30-5.70) Hemoglobin 8.1 g/dL (13.0-17.5) Hematocrit 24.1 % (39.0-53.0) Mean Corpuscular Volume 87 fL (79-100) Mean Corpuscular Hemoglobin 29 pg (25-35) Mean Corpuscular Hemoglobin Concent 34 g/dL (31-37) Red Cell Distribution Width 17.5 % (11.5-14.5) Platelet Count 261 x10^3/uL (140-400) Neutrophils (%) (Auto) 70 % (31-73) Lymphocytes (%) (Auto) 17 % (24-48) Monocytes (%) (Auto) 7 % (0-9) Eosinophils (%) (Auto) 5 % (0-3) Basophils (%) (Auto) 1 % (0-3) Neutrophils # (Auto) 7.2 x10^3/uL (1.8-7.7) Lymphocytes # (Auto) 1.7 x10^3/uL (1.0-4.8) Monocytes # (Auto) 0.7 x10^3/uL (0.0-1.1) Eosinophils # (Auto) 0.5 x10^3/uL (0.0-0.7) Basophils # (Auto) 0.1 x10^3/uL (0.0-0.2) Sodium Level 145 mmol/L (136-145) Potassium Level 3.2 mmol/L (3.5-5.1) Chloride Level 108 mmol/L (98-107) Carbon Dioxide Level 29 mmol/L (21-32) Anion Gap 8 (6-14) Blood Urea Nitrogen 31 mg/dL (8-26) Creatinine 2.9 mg/dL (0.7-1.3) Estimated GFR (Cockcroft-Gault) 21.4 BUN/Creatinine Ratio 11 (6-20) Glucose Level 92 mg/dL (70-99) Calcium Level 9.0 mg/dL (8.5-10.1) Phosphorus Level 3.5 mg/dL (2.6-4.7) Magnesium Level 2.6 mg/dL (1.8-2.4) Total Bilirubin 0.3 mg/dL (0.2-1.0) Aspartate Amino Transf (AST/SGOT) 24 U/L (15-37) Alanine Aminotransferase (ALT/SGPT) 9 U/L (16-63) Alkaline Phosphatase 58 U/L (46-116) Total Protein 5.9 g/dL (6.4-8.2) Albumin 2.7 g/dL (3.4-5.0) Albumin/Globulin Ratio 0.8 (1.0-1.7) Allergies Allergies Coded Allergies Type Severity Reaction Last Updated Verified ibuprofen Allergy Intermediate 06/20/19 Yes Disposition/Orders: Other (D/C TO SNF BED) JOHANA SIMMONS MD Jul 05, 2019 12:13
[2019-07-05] MEDS ORDERED: METH10TA2 PO (12:16)
[2019-07-05] MEDS ORDERED: FERR300L PO (12:16)
--- NOTE | 2019-07-05 12:18 | SNU/HH DC ---
DISCHARGE ORDERS DISCHARGE INFORMATION: CONDITION ON DISCHARGE: Stable CODE STATUS: Code Status: Full [facility]ENIOR LIVING: SNF STAY <30 DAYS: Yes HOSPICE: HOSPICE: No HOSPICE EVAL & TREAT: No LTAC: ADMIT TO LTAC: No POST DISCHARGE ORDERS: ACTIVITY ORDERS: No restrictions, Resume previous activity, Activity as tolerated WEIGHT BEARING STATUS: No restrictions, Full weight bearing, As tolerated DIET AFTER DISCHARGE: Cardiac WOUND/INCISION CARE: No wound care needed CHECKS AFTER DISCHARGE: CHECKS AFTER DISCHARGE: Check blood press - daily, Check your Temp as needed TREATMENT/EQUIPMENT ORDERS: ADAPTIVE EQUIPMENT NEEDED: Front wheeled walker, Wheelchair RESPIRATORY EQUIPMENT NEEDED: Oxygen Physical Therapy For: Evalulation/Treatment Occupational Therapy For: Evaluation/Treatment Speech Language Pathology For: Evaluation/Treatment DISCHARGE MEDICATIONS: Home Meds Active Scripts Methadone Hcl (METHADONE HCL) 10 Mg Tablet, 10 MG PO BID76 for SEVERE PAIN for 30 Days, #60 TAB Prov:JOHANA SIMMONS MD 07/05/19 Ferrous Sulfate (FERROUS SULFATE) 300 Mg/5 Ml Liquid, 300 MG PO BIDWMEALS for ANEMIA for 30 Days, #120 LIQUID Prov:JOHANA SIMMONS MD 07/05/19 Famotidine (FAMOTIDINE) 20 Mg Tablet, 20 MG PO QHS for STOMACH ACID for 30 Days, #30 TAB Prov:JOHANA SIMMONS MD 06/23/19 Docusate Sodium (COLACE) 100 Mg Capsule, 100 MG PO PRN BID PRN for CONSTIPATION for 30 Days, #30 CAP Prov:JOHANA SIMMONS MD 06/23/19 Lorazepam (LORAZEPAM) 0.5 Mg Tablet, 0.5 MG PO PRN Q4HRS PRN for ANXIETY / AGITATION for 14 Days, #30 TAB Prov:JOHANA SIMMONS MD 06/23/19 Acetaminophen (TYLENOL) 325 Mg Tablet, 650 MG PO PRN Q4HRS PRN for TEMP OVER 100.4F OR MILD PAIN for 30 Days, #60 TAB Prov:JOHANA SIMMONS MD 06/23/19 Clonidine Hcl (CATAPRES) 0.1 Mg Tablet, 0.1 MG PO PRN Q6HRS PRN for SBP>160 OR DBP>90 for 14 Days, #30 TAB Prov:JOHANA SIMMONS MD 06/23/19 Reported Medications Gabapentin (GABAPENTIN ) 300 Mg Capsule, 300 MG PO TID for NEUROGENIC PAIN, CAP 06/29/19 Cholecalciferol (Vitamin D3) (VITAMIN D3) 1,000 Unit Tablet, 1 TAB PO DAILY for supplement, #30 TAB 5 Refills 06/20/19 Ascorbic Acid (Vitamin C) 500 Mg Capsule, 500 MG PO DAILY for Supplement, CAP 06/20/19 Vitamin B Complex (VITAMIN B COMPLEX) 1 Each Capsule, 1 EACH PO DAILY for Supplement, CAP 06/20/19 Carbidopa/Levodopa (SINEMET 25-100 MG TABLET) 1 Each Tablet, 1 TAB PO QID for Parkinson, TAB 06/20/19 Lactobacillus Combo No.11 (PROBIOTIC) 1 Each Cap.sprink, 1 EACH PO DAILY for supplement, CAP 06/20/19 Potassium Chloride (POTASSIUM CHLORIDE) 10 Meq Tab.sr.24h, 10 MEQ PO DAILY for Supplement, TAB.SR 06/20/19 Loratadine (LORATADINE) 10 Mg Tablet, 1 TAB PO DAILY for Allergy, #30 TAB 5 Refills 06/20/19 Levothyroxine Sodium (LEVOTHYROXINE SODIUM) 25 Mcg Tablet, 1 TAB PO DAILY for Hypothyroidism, #30 TAB 5 Refills 06/20/19 Furosemide (LASIX) 40 Mg Tablet, 40 MG PO BID for Edema/swelling, TAB 06/20/19 Tamsulosin Hcl (FLOMAX) 0.4 Mg Cap.er.24h, 1 CAP PO DAILY for Prostate, #30 CAP 11 Refills 06/20/19 Diltiazem Hcl (DILTIAZEM 24HR CD) 120 Mg Cap.er.24h, 1 CAP PO DAILY for Hypertension, #90 CAP 1 Refill 06/20/19 Carvedilol (COREG) 25 Mg Tablet, 25 MG PO BIDWMEALS for CARDIAC, TAB 06/20/19 Citalopram Hydrobromide (CITALOPRAM HBR) 20 Mg Tablet, 1 TAB PO DAILY for depression, #30 TAB 5 Refills 06/20/19 Calcitriol (CALCITRIOL) 0.25 Mcg Capsule, 1 CAP PO DAILY for Supplement, #30 CAP 5 Refills 06/20/19 Amlodipine Besylate (NORVASC) 5 Mg Tablet, 5 MG PO DAILY for Hypertension, TAB 06/20/19 Discontinued Reported Medications Warfarin Sodium (WARFARIN SODIUM) 3 Mg Tablet, 3 MG PO DAILY for blood thinner, #30 TAB 06/29/19 Methadone Hcl (METHADONE HCL) 10 Mg Tablet, 30 MG PO TID for pain, TAB 06/20/19 Gabapentin (GABAPENTIN) 600 Mg Tablet, 600 MG PO QID for NEUROGENIC PAIN, TAB 06/20/19 Fenofibrate,Micronized (FENOFIBRATE) 134 Mg Capsule, 1 CAP PO DAILY for Cholesterol, #30 CAP 5 Refills 06/20/19 Warfarin Sodium (COUMADIN) 7.5 Mg Tablet, 1 TAB PO DAILY for Afib, #30 TAB 06/20/19 Aspirin (ASPIRIN) 81 Mg Tab.chew, 1 TAB PO DAILY for blood thinner, #30 TAB 3 Refills 06/20/19 Discontinued Scripts Amoxicillin/Potassium Clav (AUGMENTIN 250-62.5 MG/5 ML) 250 Mg/5 Ml Susp.recon, 5 ML PO BID for UTI for 10 Days, #100 ML Prov:JOHANA SIMMONS MD 06/23/19 Albuterol Sulfate (Proair Hfa) 8.5 Gm Hfa.aer.ad, 2.5 MG NEB PRN Q4HRS PRN for SHORTNESS OF BREATH for 14 Days, #1 INHALER Prov:JOHANA SIMMONS MD 06/23/19 Dicyclomine Hcl (DICYCLOMINE HCL) 10 Mg Capsule, 10 MG PO PRN 1X PRN for recurrence of crampy abd pain for 14 Days, #30 CAP Prov:JOHANA SIMMONS MD 06/23/19 JOHANA SIMMONS MD Jul 05, 2019 12:18
--- NOTE | 2019-07-05 13:46 | PDOC2 ---
NEUROLOGY CONSULT Date of Admission Date of Admission DATE: 07/05/19 TIME: 13:36 Reason for Consult Reason for Consult: Parkinson's Referring Physician Referring Physician: Dr. Liz Source Source: Chart review, Patient History of Present Illness History of Present Illness The patient is a 73-year-old right-handed male with history of Parkinson's and dementia. He was admitted a week ago with G.I. bleed and it was decided to consult neurology on hospital day 6. I see that he is going back to the [facility] today. Dr. Briones saw the patient during his hospital stay 2 weeks ago. Past Medical History Cardiovascular: AFIB, CAD, HTN, Hyperlipidemia CENTRAL NERVOUS SYSTEM: CVA, Periperal neuropathy, Other (Parkinsonism with dementia) GI: Other ( C. difficile) Past Surgical History Past Surgical History: CABG, Other ( left knee) Family History Family History: No pertinent hx Social History Social History , no alcohol or tobacco Current Medications Current Medications Current Medications Ondansetron HCl (Zofran) 4 mg PRN Q8HRS PRN IV NAUSEA/VOMITING; Start 06/28/19 at 22:00; Stop 06/29/19 at 21:59; Status DC Sodium Chloride 1,000 ml @ 125 mls/hr Q8H IV Last administered on 06/29/19at 19:34; Start 06/28/19 at 22:00; Stop 06/29/19 at 21:59; Status DC Pantoprazole Sodium (PROTONIX VIAL for IV PUSH) 40 mg DAILYAC IVP Last administered on 07/04/19at 08:42; Start 06/29/19 at 11:00; Stop 07/04/19 at 20:13; Status DC Heparin Sodium (Porcine) (HEPARIN for NUC MED) 100 unit 1X ONCE IV ; Start 06/29/19 at 12:15; Stop 06/29/19 at 12:16; Status DC Phytonadione (Vitamin K Ampule) 5 mg 1X ONCE SQ Last administered on 06/29/19at 16:29; Start 06/29/19 at 16:30; Stop 06/29/19 at 16:31; Status DC Morphine Sulfate (Morphine Sulfate) 4 mg PRN Q1HR PRN IV PAIN Last administered on 07/01/19at 04:12; Start 06/29/19 at 18:15 Amlodipine Besylate (Norvasc) 5 mg DAILY PO Last administered on 07/05/19 08:51; Start 07/02/19 at 09:00 Calcitriol (Rocaltrol) 0.25 mcg DAILY PO Last administered on 07/05/19 08:50; Start 07/02/19 at 09:00 Carbidopa/Levodopa (Sinemet 25/100) 1 tab QID PO Last administered on 07/05/19 08:50; Start 07/01/19 at 17:00 Vitamin D (Vitamin D3) 1,000 unit DAILY PO Last administered on 07/05/19 08:50; Start 07/02/19 at 09:00 Citalopram Hydrobromide (CeleXA) 20 mg DAILY PO Last administered on 07/05/19 08:50; Start 07/02/19 at 09:00 Clonidine HCl (Catapres) 0.1 mg PRN Q6HRS PRN PO SBP>160 OR DBP>90; Start 07/01/19 at 15:30 Diltiazem HCl (Cardizem 24hr Cd) 120 mg DAILY PO Last administered on 07/05/19 08:51; Start 07/02/19 at 09:00 Docusate Sodium (Colace) 100 mg PRN BID PRN PO CONSTIPATION; Start 07/01/19 at 15:30 Famotidine (Pepcid) 20 mg QHS PO Last administered on 07/04/19 19:43; Start 07/01/19 at 21:00; Stop 07/05/19 at 09:25; Status DC Furosemide (Lasix) 40 mg BID92 PO Last administered on 07/05/19 08:50; Start 07/02/19 at 09:00 Gabapentin (Neurontin) 300 mg TID PO Last administered on 07/05/19 08:50; Start 07/01/19 at 21:00 Levothyroxine Sodium (Synthroid) 25 mcg DAILY06 PO Last administered on 07/05/19 05:58; Start 07/02/19 at 06:00 Potassium Chloride (Klor-Con) 10 meq DAILY PO Last administered on 07/05/19 08:51; Start 07/02/19 at 09:00 Tamsulosin HCl (Flomax) 0.4 mg DAILY PO Last administered on 07/05/19 08:49; Start 07/02/19 at 09:00 Ascorbic Acid (Vitamin C) 500 mg DAILY PO Last administered on 07/05/19 08:51; Start 07/02/19 at 09:00 Carvedilol (Coreg) 25 mg BIDWMEALS PO Last administered on 07/05/19 08:48; Start 07/01/19 at 17:00 Lactobacillus Rhamnosus (Culturelle) 1 cap DAILY PO Last administered on 07/05/19 08:49; Start 07/02/19 at 09:00 Cetirizine HCl (ZyrTEC) 10 mg DAILY PO Last administered on 07/05/19 08:51; Start 07/02/19 at 09:00 Vitamin B Complex (Eloy B) 1 tab DAILY PO Last administered on 07/05/19 08:50; Start 07/02/19 at 09:00 Ferrous Sulfate (Iron Oral Solution) 300 mg BIDWMEALS PO Last administered on 07/05/19 08:45; Start 07/03/19 at 08:00 Ferrous Sulfate (Iron Oral Solution) 300 mg 1X STAT PO ; Start 07/02/19 at 18:39; Stop 07/02/19 at 18:48; Status DC Methadone HCl (Dolophine) 10 mg BID76 PO Last administered on 07/05/19 08:46; Start 07/02/19 at 19:27 Lorazepam (Ativan Inj) 4 mg PRN Q4HRS PRN IVP ANXIETY / AGITATION Last admin istered on 07/02/19at 19:30; Start 07/02/19 at 19:30; Stop 07/02/19 at 19:34; Status DC Haloperidol Lactate (Haldol Inj) 5 mg PRN Q6HRS PRN IVP AGITATION; Start 07/02/19 at 19:30; Stop 07/02/19 at 19:33; Status DC Haloperidol Lactate (Haldol Inj) 5 mg PRN Q6HRS PRN IM AGITATION 2ND CHOICE; Start 07/02/19 at 19:45; Stop 07/05/19 at 08:59; Status DC Lorazepam (Ativan Inj) 4 mg PRN Q4HRS PRN IM/IV ANXIETY / AGITATION; Start 07/02/19 at 19:45 Magnesium Sulfate 50 ml @ 25 mls/hr PRN DAILY PRN IV for Mag < 1.7 on am labs; Start 07/04/19 at 13:00 Pantoprazole Sodium (Protonix) 40 mg DAILYAC PO Last administered on 07/05/19at 08:46; Start 07/05/19 at 07:30 Ondansetron HCl (Zofran) 4 mg PRN Q6HRS PRN IVP NAUSEA/VOMITING; Start 07/04/19 at 20:15 Acetaminophen (Tylenol) 500 mg PRN Q6HRS PRN PO MILD PAIN / TEMP; Start 07/04/19 at 20:15 Olanzapine (ZyPREXA IM) 5 mg BID PRN IM AGITATION; Start 07/05/19 at 09:00 Active Scripts Active Methadone Hcl 10 Mg Tablet 10 Mg PO BID76 30 Days Ferrous Sulfate 300 Mg/5 Ml Liquid 300 Mg PO BIDWMEALS 30 Days Famotidine 20 Mg Tablet 20 Mg PO QHS 30 Days Colace (Docusate Sodium) 100 Mg Capsule 100 Mg PO PRN BID PRN 30 Days Lorazepam 0.5 Mg Tablet 0.5 Mg PO PRN Q4HRS PRN 14 Days Tylenol (Acetaminophen) 325 Mg Tablet 650 Mg PO PRN Q4HRS PRN 30 Days Catapres (Clonidine Hcl) 0.1 Mg Tablet 0.1 Mg PO PRN Q6HRS PRN 14 Days Reported Gabapentin (Gabapentin) 300 Mg Capsule 300 Mg PO TID Vitamin D3 (Cholecalciferol (Vitamin D3)) 1,000 Unit Tablet 1 Tab PO DAILY Vitamin C (Ascorbic Acid) 500 Mg Capsule 500 Mg PO DAILY Vitamin B Complex 1 Each Capsule 1 Each PO DAILY Sinemet 25-100 Mg Tablet (Carbidopa/Levodopa) 1 Each Tablet 1 Tab PO QID Probiotic (Lactobacillus Combo No.11) 1 Each Cap.sprink 1 Each PO DAILY Potassium Chloride 10 Meq Tab.sr.24h 10 Meq PO DAILY Loratadine 10 Mg Tablet 1 Tab PO DAILY Levothyroxine Sodium 25 Mcg Tablet 1 Tab PO DAILY Lasix (Furosemide) 40 Mg Tablet 40 Mg PO BID Flomax (Tamsulosin Hcl) 0.4 Mg Cap.er.24h 1 Cap PO DAILY Diltiazem 24HR Cd (Diltiazem Hcl) 120 Mg Cap.er.24h 1 Cap PO DAILY Coreg (Carvedilol) 25 Mg Tablet 25 Mg PO BIDWMEALS Citalopram Hbr (Citalopram Hydrobromide) 20 Mg Tablet 1 Tab PO DAILY Calcitriol 0.25 Mcg Capsule 1 Cap PO DAILY Norvasc (Amlodipine Besylate) 5 Mg Tablet 5 Mg PO DAILY Allergies Allergies: Coded Allergies: ibuprofen (Verified Allergy, Intermediate, 06/20/19) ROS Review of System Negative for fever, chills, weight loss, shortness of breath, chest pain, indigestion, hematochezia, melena, and dysuria. Full 14-point review of systems is negative. Physical Exam Physical Examination General: Well-developed, well-nourished white male n no acute distress HEENT: Normocephalic and�atraumatic. Tympanic membranes clear.�Temporal arteries�pulsatile and nontender.�Fundoscopic exam unremarkable Neck: Supple without bruit, no meningismus� Musculoskeletal: Stability:�see neurologic. Gait exam:�see neurologic. Tone:�see neurologic.�Strength:�see neurologic.� Neurological: Mental Status:�orientation, memory, attention span/concentration, language, fund of knowledge: he can tell me his name and that he is in the hospital, does not know the name of the hospital or the date. Follows commands poorly. Cranial Nerves:�Pupils equal and reactive to light, extraocular movements are�intact, visual cardona are full to confrontation. Facial sensation is normal. There is no facial asymmetry. Vestibulo-ocular reflex is intact. Palate elevates and tongue protrudes in midline. All other cranial related problems are negative except as mentioned before.�Reflexes:�1+ and symmetric with flexor plantar responses. Motor:�3/5 strength with increased tone. Coordination and gait:�not cooperative. I do not detect any tremor. Sensory:� possibly some stocking loss, patient not very cooperative. Vitals VITALS Vital Signs Date Time Temp Pulse Resp B/P (MAP) Pulse Ox O2 Delivery O2 Flow Rate FiO2 07/05/19 11:00 98.1 76 18 132/43 (72) 92 Room Air 98.1 Labs Labs Laboratory Tests Test 07/04/19 08:43 07/05/19 06:25 White Blood Count 9.7 x10^3/uL (4.0-11.0) 10.2 x10^3/uL (4.0-11.0) Red Blood Count 2.91 x10^6/uL (4.30-5.70) 2.77 x10^6/uL (4.30-5.70) Hemoglobin 8.4 g/dL (13.0-17.5) 8.1 g/dL (13.0-17.5) Hematocrit 25.2 % (39.0-53.0) 24.1 % (39.0-53.0) Mean Corpuscular Volume 87 fL (79-100) 87 fL (79-100) Mean Corpuscular Hemoglobin 29 pg (25-35) 29 pg (25-35) Mean Corpuscular Hemoglobin Concent 34 g/dL (31-37) 34 g/dL (31-37) Red Cell Distribution Width 16.8 % (11.5-14.5) 17.5 % (11.5-14.5) Platelet Count 250 x10^3/uL (140-400) 261 x10^3/uL (140-400) Neutrophils (%) (Auto) 75 % (31-73) 70 % (31-73) Lymphocytes (%) (Auto) 13 % (24-48) 17 % (24-48) Monocytes (%) (Auto) 6 % (0-9) 7 % (0-9) Eosinophils (%) (Auto) 4 % (0-3) 5 % (0-3) Basophils (%) (Auto) 1 % (0-3) 1 % (0-3) Neutrophils # (Auto) 7.3 x10^3/uL (1.8-7.7) 7.2 x10^3/uL (1.8-7.7) Lymphocytes # (Auto) 1.3 x10^3/uL (1.0-4.8) 1.7 x10^3/uL (1.0-4.8) Monocytes # (Auto) 0.6 x10^3/uL (0.0-1.1) 0.7 x10^3/uL (0.0-1.1) Eosinophils # (Auto) 0.4 x10^3/uL (0.0-0.7) 0.5 x10^3/uL (0.0-0.7) Basophils # (Auto) 0.1 x10^3/uL (0.0-0.2) 0.1 x10^3/uL (0.0-0.2) Sodium Level 147 mmol/L (136-145) 145 mmol/L (136-145) Potassium Level 3.5 mmol/L (3.5-5.1) 3.2 mmol/L (3.5-5.1) Chloride Level 107 mmol/L (98-107) 108 mmol/L (98-107) Carbon Dioxide Level 32 mmol/L (21-32) 29 mmol/L (21-32) Anion Gap 8 (6-14) 8 (6-14) Blood Urea Nitrogen 30 mg/dL (8-26) 31 mg/dL (8-26) Creatinine 2.7 mg/dL (0.7-1.3) 2.9 mg/dL (0.7-1.3) Estimated GFR (Cockcroft-Gault) 23.3 21.4 BUN/Creatinine Ratio 11 (6-20) 11 (6-20) Glucose Level 101 mg/dL (70-99) 92 mg/dL (70-99) Calcium Level 9.1 mg/dL (8.5-10.1) 9.0 mg/dL (8.5-10.1) Iron Level 28 ug/dL (65-175) Total Iron Binding Capacity 241 ug/dL (250-450) Iron Saturation 12 % (15-34) Ferritin 177 ng/mL (26-388) Total Bilirubin 0.5 mg/dL (0.2-1.0) 0.3 mg/dL (0.2-1.0) Aspartate Amino Transf (AST/SGOT) 34 U/L (15-37) 24 U/L (15-37) Alanine Aminotransferase (ALT/SGPT) 7 U/L (16-63) 9 U/L (16-63) Alkaline Phosphatase 62 U/L (46-116) 58 U/L (46-116) Total Protein 6.0 g/dL (6.4-8.2) 5.9 g/dL (6.4-8.2) Albumin 2.8 g/dL (3.4-5.0) 2.7 g/dL (3.4-5.0) Albumin/Globulin Ratio 0.9 (1.0-1.7) 0.8 (1.0-1.7) Phosphorus Level 3.5 mg/dL (2.6-4.7) Magnesium Level 2.6 mg/dL (1.8-2.4) Laboratory Tests Test 07/05/19 06:25 White Blood Count 10.2 x10^3/uL (4.0-11.0) Red Blood Count 2.77 x10^6/uL (4.30-5.70) Hemoglobin 8.1 g/dL (13.0-17.5) Hematocrit 24.1 % (39.0-53.0) Mean Corpuscular Volume 87 fL (79-100) Mean Corpuscular Hemoglobin 29 pg (25-35) Mean Corpuscular Hemoglobin Concent 34 g/dL (31-37) Red Cell Distribution Width 17.5 % (11.5-14.5) Platelet Count 261 x10^3/uL (140-400) Neutrophils (%) (Auto) 70 % (31-73) Lymphocytes (%) (Auto) 17 % (24-48) Monocytes (%) (Auto) 7 % (0-9) Eosinophils (%) (Auto) 5 % (0-3) Basophils (%) (Auto) 1 % (0-3) Neutrophils # (Auto) 7.2 x10^3/uL (1.8-7.7) Lymphocytes # (Auto) 1.7 x10^3/uL (1.0-4.8) Monocytes # (Auto) 0.7 x10^3/uL (0.0-1.1) Eosinophils # (Auto) 0.5 x10^3/uL (0.0-0.7) Basophils # (Auto) 0.1 x10^3/uL (0.0-0.2) Sodium Level 145 mmol/L (136-145) Potassium Level 3.2 mmol/L (3.5-5.1) Chloride Level 108 mmol/L (98-107) Carbon Dioxide Level 29 mmol/L (21-32) Anion Gap 8 (6-14) Blood Urea Nitrogen 31 mg/dL (8-26) Creatinine 2.9 mg/dL (0.7-1.3) Estimated GFR (Cockcroft-Gault) 21.4 BUN/Creatinine Ratio 11 (6-20) Glucose Level 92 mg/dL (70-99) Calcium Level 9.0 mg/dL (8.5-10.1) Phosphorus Level 3.5 mg/dL (2.6-4.7) Magnesium Level 2.6 mg/dL (1.8-2.4) Total Bilirubin 0.3 mg/dL (0.2-1.0) Aspartate Amino Transf (AST/SGOT) 24 U/L (15-37) Alanine Aminotransferase (ALT/SGPT) 9 U/L (16-63) Alkaline Phosphatase 58 U/L (46-116) Total Protein 5.9 g/dL (6.4-8.2) Albumin 2.7 g/dL (3.4-5.0) Albumin/Globulin Ratio 0.8 (1.0-1.7) Images Images CT CERVICAL SPINE WO CONTRAST, 06/20 History: Fall, pain Comparison/Correlation: None Findings: Axial images of cervical spine were obtained without contrast. Sagittal and coronal reformatted images were provided. Atlantoaxial joint degenerative remodeling is present. Reversal of cervical lordosis is present. Spurring at multiple levels of the cervical spine are notable vertically from C3 to C6 centrally. Moderate disc space narrowing at C3-4 is present. Moderate to severe disc space narrowing from C5 to C7 noted. Spurring is significant involving the anterior aspects of C3-C6. Mild spurring partially also is present. Neural foraminal narrowing is evident bilaterally from C3 through C6 especially. Vertebral body heights are adequate. Alignment is unremarkable. Soft tissues of neck are unremarkable. Sternotomy wires and anterior thoracic inlet surgical clips are present. Impression: Severe degenerative changes. No displaced fracture or malalignment. Reversal of cervical lordosis may represent normal variant or spasm. CT HEAD WITHOUT CONTRAST, 06/19. HISTORY: Weakness. TECHNIQUE: Computed tomography of the head was performed without intravenous contrast. COMPARISON: None. FINDINGS: There is no intracranial hemorrhage. There is a chronic infarct in the left external capsule. Hypoattenuation within the white matter indicates moderate chronic microangiopathic change. Prominence of the lateral ventricles and hemispheric sulci indicates moderate atrophy. There is mild mucosal thickening in the ethmoid air cells. There are small mucus retention cysts in the right maxillary sinus. The orbits are unremarkable. The temporal bones are unremarkable. The calvarium reveals no suspicious lesions. There are atherosclerotic calcifications of the internal carotid and vertebral arteries. IMPRESSION: 1. No acute intracranial findings. 2. Chronic left insular infarct. Moderate atrophy and chronic microangiopathic white matter change. Assessment/Plan Assessment/Plan IMPRESSION: Parkinson's disease with dementia Falls and generalized weakness. Chronic urinary retention on Pelaez. HTN. Obesity. 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 Brain atrophy, moderate. Severe cervical spondylosis, not a surgical candidate given his dementia. RECOMMENDATIONS/PLAN: Continue carbidopa/levodopa. No additional neurological studies or treatment needed Okay to transfer back to [facility]. I attempted to call the patient's , there was no answer at either phone number, no voicemail available. Thank you for letting me help with the patient's care. SHANKAR WOMACK MD Jul 05, 2019 13:46
[2019-07-05 15:36] VITALS: BP 142/61
--- NOTE | 2019-07-05 16:21 | NUR ---
Orders faxed to [facility] and pt will transport via [employer] [facility] between [phone]. Pt's notified and agreeable. D/W CHANELL.
--- NOTE | 2019-07-05 17:12 | NUR ---
Discharge Note: [facility] Discharge instructions and discharge home medications reviewed with Starla LUA of [facility] at 1545 and a copy given to transport personnel. All questions have been answered and understanding verbalized. Patient to continue rehab treatment. Discontinued lines and drains: Peripheral IV intact, patient tolerated removal, no complications noted. Pelaez catheter left in place due to urinary retention. Patient discharged to [facility] via wheelchair accompanied by the patient's and transport personnel. The patient left the unit at 1632.
== END 2019-07-05 16:32 | disposition home or self-care (01) | DRG 377 ==
LOC: ER 20:06 → 4 NORTH 21:48 → 1 WEST ICU 06-29 12:55 → 6 SOUTH 07-01 13:47
PROVIDERS: ADMIT Internal Medicine; ATTEND Internal Medicine
PROC: 30233N1 Transfusion of Nonautologous Red Blood Cells into Peripheral Vein, Percutaneous Approach (ICD-10-PCS; principal; 2019-06-29)
DX: K57.91 Diverticulosis of intestine, part unspecified, without perforation or abscess with bleeding (principal); E43 Unspecified severe protein-calorie malnutrition; G93.41 Metabolic encephalopathy; D62 Acute posthemorrhagic anemia; I12.0 Hypertensive chronic kidney disease with stage 5 chronic kidney disease or end stage renal disease; J98.11 Atelectasis; N18.5 Chronic kidney disease, stage 5; E66.01 Morbid (severe) obesity due to excess calories; E78.5 Hyperlipidemia, unspecified; F02.80 Dementia in other diseases classified elsewhere, unspecified severity, without behavioral disturbance, psychotic disturbance, mood disturbance, and anxiety; M19.90 Unspecified osteoarthritis, unspecified site; F32.9 Major depressive disorder, single episode, unspecified; Z96.652 Presence of left artificial knee joint; G31.83 Neurocognitive disorder with Lewy bodies; G62.9 Polyneuropathy, unspecified; H91.90 Unspecified hearing loss, unspecified ear; I25.10 Atherosclerotic heart disease of native coronary artery without angina pectoris; I48.91 Unspecified atrial fibrillation; K59.00 Constipation, unspecified; M47.812 Spondylosis without myelopathy or radiculopathy, cervical region; N40.1 Benign prostatic hyperplasia with lower urinary tract symptoms; Z79.01 Long term (current) use of anticoagulants; Z82.49 Family history of ischemic heart disease and other diseases of the circulatory system; Z86.73 Personal history of transient ischemic attack (TIA), and cerebral infarction without residual deficits; Z95.1 Presence of aortocoronary bypass graft; Z88.8 Allergy status to other drugs, medicaments and biological substances; Z68.26 Body mass index [BMI] 26.0-26.9, adult
CPT/HCPCS: 36415; 36430; 76770; 78278; 80053; 82728; 82962; 83540; 83550; 83735; 84100; 84484; 85007; 85014; 85018; 85025; 85027; 85610; 86850; 86900; 86901; 86920; 93005; 96374; A9560; C9113; J2060; J2270; J3430; J7030; P9016; 97110; 97116; 97530; 97535; 99285-25; G0378

== ENCOUNTER → 2019-07-30 | Outpatient (CLI) | payer MEDICARE, OTHER ==
[2019-07-05 15:36] VITALS: BP 142/61
[~2019-07-30] MED LIST changes: +CEPH500C PO; +CIPR500T94 PO; +FERR300L PO; +GABA300C18 PO; +WARF3TAB50 PO
--- NOTE | 2019-07-30 16:39 | RAD ---
Examination: VENOUS LOWER EXTREMITY RIGHT History: DVT follow-up Comparison/Correlation: No prior exams prior for comparison at this time. FINDINGS: Right lower extremity duplex venous ultrasound exam was performed. Grayscale, color Doppler, and spectral Doppler imaging was performed. Compression and augmentation was performed. The right common femoral vein, superficial femoral vein and greater saphenous vein are unremarkable. Partially occlusive thrombus involving the popliteal vein and peroneal venous structures noted. Incomplete compressibility noted. Posterior tibial vein is not visualized. IMPRESSION: Partially occlusive thrombus involving the right popliteal vein and peroneal venous structures. Right posterior tibial venous structures are not delineated. Dr. Person was performed on 07/30/2019 at 1634. Electronically signed by: Jake Castaneda MD (07/30/2019 4:35 PM) [place] [id number]
== END | disposition home or self-care (01) ==
LOC: US 15:35
PROVIDERS: ATTEND Internal Medicine
DX: I82.431 Acute embolism and thrombosis of right popliteal vein (principal); Z86.718 Personal history of other venous thrombosis and embolism
CPT/HCPCS: 93971

== ENCOUNTER 2019-09-16 16:24 | Emergency (ER) | payer MEDICARE, OTHER ==
[~2019-09-16] VITALS: Ht 182.9 cm; Wt 108.9 kg
[2019-09-16 16:58] LABS: BASO # 0.1 x10^3/uL (0.0-0.2); BASO % 1 % (0-3); EOS # 0.3 x10^3/uL (0.0-0.7); EOS % 3 % (0-3); HEMOGLOBIN 9.3 g/dL (13.0-17.5); LYMPH # 1.4 x10^3/uL (1.0-4.8); LYMPH % 12 % (24-48); MEAN CORPUSCULAR HEMOGLOBIN 25 pg (25-35); MEAN CORPUSCULAR HGB CONC 32 g/dL (31-37); MEAN CORPUSCULAR VOLUME 77 fL (79-100); MONO # 0.7 x10^3/uL (0.0-1.1); MONO % 7 % (0-9); NEUT # 8.5 x10^3/uL (1.8-7.7); NEUT % 77 % (31-73); PLATELET COUNT 326 x10^3/uL (140-400); RED BLOOD COUNT 3.77 x10^6/uL (4.30-5.70)
--- NOTE | 2019-09-16 17:08 | PHYS DOC ---
Past Medical History Past Medical History: A-Fib, CVA, Dementia, Hypertension, Other Additional Past Medical Histor: PARKINSON'S, BPH Past Surgical History: Coronary Bypass Surgery, Knee Replacement, Pacemaker, Other Additional Past Surgical Histo: KNEE Alcohol Use: None Drug Use: None Adult General Chief Complaint Chief Complaint: URINE CATHETER PROBLEM HPI HPI 74 year male patient with history of hypertension, atrial fibrillation, CVA, Parkinson, dementia, BPH with including Pelaez catheter who presents by EMS because of traumatizes Pelaez catheter. Patient removed his Pelaez catheter with the balloon inflated and had a large amount of bleeding from urethra. EMS had t o place a clamp on penis to stop bleeding. Patient is alert and oriented 1 and not able to give history. Review of Systems Review of Systems Unable to obtain because of dementia Allergies Allergies Allergies Coded Allergies Type Severity Reaction Last Updated Verified ibuprofen Allergy Intermediate 06/20/19 Yes Physical Exam Physical Exam Constitutional: Well nourished, mild distress, non-toxic appearance. [] HENT: Normocephalic, atraumatic. Eyes: PERRLA, EOMI, conjunctiva normal, no discharge. [] Neck: Normal range of motion, no tenderness, supple, no stridor. [] Cardiovascular:Heart rate regular rhythm, no murmur [] Lungs & Thorax: Bilateral breath sounds clear to auscultation [] Abdomen: Bowel sounds normal, soft, no tenderness, no masses, no pulsatile masses. Blood clots in the tip of penis without active bleeding. Skin: Warm, dry, no erythema, no rash. [] Back: No tenderness, no CVA tenderness. [] Extremities: No tenderness, no cyanosis, no clubbing, ROM intact, no edema. [] Neurologic: Alert and oriented X 1, no focal deficits noted. [] Psychologic: Affect normal, judgement normal, mood normal. [] Current Patient Data Vital Signs Vital Signs Date Time Temp Pulse Resp B/P (MAP) Pulse Ox O2 Delivery O2 Flow Rate FiO2 09/16/19 16:24 98.5 77 20 166/72 (103) 99 Room Air 98.5 Lab Values Laboratory Tests Test 09/16/19 16:41 White Blood Count 11.0 x10^3/uL (4.0-11.0) Red Blood Count 3.77 x10^6/uL (4.30-5.70) L Hemoglobin 9.3 g/dL (13.0-17.5) L Hematocrit 29.0 % (39.0-53.0) L Mean Corpuscular Volume 77 fL (79-100) L Mean Corpuscular Hemoglobin 25 pg (25-35) Mean Corpuscular Hemoglobin Concent 32 g/dL (31-37) Red Cell Distribution Width 18.0 % (11.5-14.5) H Platelet Count 326 x10^3/uL (140-400) Neutrophils (%) (Auto) 77 % (31-73) H Lymphocytes (%) (Auto) 12 % (24-48) L Monocytes (%) (Auto) 7 % (0-9) Eosinophils (%) (Auto) 3 % (0-3) Basophils (%) (Auto) 1 % (0-3) Neutrophils # (Auto) 8.5 x10^3/uL (1.8-7.7) H Lymphocytes # (Auto) 1.4 x10^3/uL (1.0-4.8) Monocytes # (Auto) 0.7 x10^3/uL (0.0-1.1) Eosinophils # (Auto) 0.3 x10^3/uL (0.0-0.7) Basophils # (Auto) 0.1 x10^3/uL (0.0-0.2) Prothrombin Time 14.9 SEC (11.7-14.0) H Prothrombin Time INR 1.2 (0.8-1.1) H Activated Partial Thromboplast Time 39 SEC (24-38) H Sodium Level 142 mmol/L (136-145) Potassium Level 3.9 mmol/L (3.5-5.1) Chloride Level 107 mmol/L (98-107) Carbon Dioxide Level 28 mmol/L (21-32) Anion Gap 7 (6-14) Blood Urea Nitrogen 31 mg/dL (8-26) H Creatinine 2.5 mg/dL (0.7-1.3) H Estimated GFR (Cockcroft-Gault) 25.4 BUN/Creatinine Ratio 12 (6-20) Glucose Level 125 mg/dL (70-99) H Calcium Level 9.3 mg/dL (8.5-10.1) Total Bilirubin 0.2 mg/dL (0.2-1.0) Aspartate Amino Transferase (AST) 14 U/L (15-37) L Alanine Aminotransferase (ALT) 7 U/L (16-63) L Alkaline Phosphatase 85 U/L (46-116) Total Protein 7.0 g/dL (6.4-8.2) Albumin 2.6 g/dL (3.4-5.0) L Albumin/Globulin Ratio 0.6 (1.0-1.7) L Laboratory Tests 09/16/19 16:41 Laboratory Tests 09/16/19 16:41 EKG EKG [] Radiology/Procedures Radiology/Procedures Coude catheter 18 Fr was placed without problem with clear urine return. Patient tolerated the procedure well. Course & Med Decision Making Course & Med Decision Making Pertinent Labs reviewed. (See chart for details) Evaluation of patient in ER showed 74-year-old male patient brought in by EMS because of traumatized Pelaez catheter removal by patient. Patient's family requested a [facility] because of lack of urologist in this hospital. Dr. Harris at the [facility] was contacted at 1700 and recommended to insert Coude catheter with one try and if not able to pass the catheter transfer patient to [facility]. I was able to insert a catheter without any problem with clear output.discharge: I've spoken with the patient and/or caregivers. I've explained the patient's condition, diagnosis and treatment plan based on information available to me at this time. I've answered the patient's and/or caregivers questions and addressed any concerns. The patient and/or caregivers have a good understanding the patient's diagnosis, condition and treatment plan as can be expected at this point. Vital signs have been stabilized. The patient's condition is stable for discharge from the emergency department. The patient will pursue further outpatient evaluation with her primary care provider or other designated consulting physician as outlined in the discharge instructions. Patient and/or caregivers are agreeable to this plan of care and follow-up instructions have been explained in detail. The patient and/or caregivers have received these instructions in written format and expressed understanding of these discharge instructions. The patient and her caregivers are aware that if any significant change in condition or worsening of symptoms should prompt him to immediately return to this of the closest emergency department. If an emergent department is not readily available I would encourage him to call 911. Le Disclaimer Dragjerilyn Disclaimer This electronic medical record was generated, in whole or in part, using a voice recognition dictation system. Departure Departure Impression: Primary Impression: Displacement of Pelaez catheter Additional Impressions: Urethral injury, closed Chronic anemia Disposition: HOME, SELF-CARE (1747) Condition: IMPROVED Referrals: SHANKAR WALDROP (PCP) Patient Instructions: Pelaez Catheter Care, Adult Additional Instructions: Follow-up with your primary care physician in 3-5 days Return to ER if not getting better Thank you for visiting [facility]. We appreciate you trusting us with your care. If any additional problems come up don't hesitate to return to visit us. Please follow up with your primary care provider so they can plan additional care if needed and know about the problem that you had. If symptoms worsen come back to the Emergency Department. Any concerning symptoms that start such as chest pain, shortness of air, weakness or numbness on one side of the body, running high fevers or any other concerning symptoms return to the ER. Problem Qualifiers Primary Impression: Displacement of Pelaez catheter Encounter type: initial encounter Qualified Codes: T83.021A - Displacement of indwelling urethral catheter, initial encounter Additional Impressions: Urethral injury, closed Encounter type: subsequent encounter Qualified Codes: S37.30XD - Unspecified injury of urethra, subsequent encounter MARIELLA LOWE MD Sep 16, 2019 17:08
[2019-09-16 17:09] LABS: CALCIUM 9.3 mg/dL (8.5-10.1); CREATININE 2.5 mg/dL (0.7-1.3); GFR 25.4; POTASSIUM 3.9 mmol/L (3.5-5.1)
[2019-09-16 17:10] LABS: PROTHROMBIN TIME PATIENT 14.9 SEC (11.7-14.0)
[2019-09-16 17:14] LABS: ALBUMIN 2.6 g/dL (3.4-5.0); ALBUMIN/GLOBULIN RATIO 0.6 (1.0-1.7); TOTAL BILIRUBIN 0.2 mg/dL (0.2-1.0)
[2019-09-16 18:30] VITALS: BP 160/77
== END 2019-09-16 19:00 | disposition home or self-care (01) ==
LOC: ER 16:24
DX: T83.021A Displacement of indwelling urethral catheter, initial encounter (principal); S37.30XA Unspecified injury of urethra, initial encounter; D64.9 Anemia, unspecified; I48.91 Unspecified atrial fibrillation; I10 Essential (primary) hypertension; G20 Parkinson's disease; F02.80 Dementia in other diseases classified elsewhere, unspecified severity, without behavioral disturbance, psychotic disturbance, mood disturbance, and anxiety; Z86.73 Personal history of transient ischemic attack (TIA), and cerebral infarction without residual deficits; Z95.1 Presence of aortocoronary bypass graft; Z95.0 Presence of cardiac pacemaker; Z88.8 Allergy status to other drugs, medicaments and biological substances; Y82.8 Other medical devices associated with adverse incidents; Y92.89 Other specified places as the place of occurrence of the external cause
CPT/HCPCS: 36415; 51702; 80053; 85025; 85610; 85730; 99284-25

== ENCOUNTER 2019-11-01 01:52 | Emergency (ER) | payer MEDICARE, OTHER ==
[~2019-11-01] VITALS: Ht 182.9 cm; Wt 108.0 kg
--- NOTE | 2019-11-01 02:30 | PHYS DOC ---
Past Medical History Past Medical History: A-Fib, CVA, Dementia, Hypertension, Other Additional Past Medical Histor: PARKINSON'S, BPH Past Surgical History: Coronary Bypass Surgery, Knee Replacement, Pacemaker, Other Additional Past Surgical Histo: KNEE Smoking Status: Former Smoker Alcohol Use: None Drug Use: None Adult General Chief Complaint Chief Complaint: URINE CATHETER PROBLEM HPI HPI Patient presents to the ER with complaints of hematuria. Patient chronic indwelling catheter, history of atrial fibrillation with chronic anticoagulation. Nursing staff at facility noticed hematuria approximately 1256, clots present therefore patient was sent to the ER for further evaluation, denies pain. Nursing staff states he has a history of pulling on catheter. Patient denies headache, visual changes, chest pain, shortness breath, nausea, vomiting. Review of Systems Review of Systems Constitutional: Denies fever or chills [] Respiratory: Denies cough or shortness of breath [] Cardiovascular: No additional information not addressed in HPI [] GI: Denies abdominal pain, nausea, vomiting, bloody stools or diarrhea [] : + hematuria Musculoskeletal: Denies back pain or joint pain [] Neurologic: Denies headache, focal weakness or sensory changes [] All other systems were reviewed and found to be within normal limits, except as documented in this note. Allergies Allergies Allergies Coded Allergies Type Severity Reaction Last Updated Verified ibuprofen Allergy Intermediate 06/20/19 Yes Physical Exam Physical Exam Constitutional: Well developed, well nourished, no acute distress, non-toxic appearance. [] Cardiovascular:Heart rate regular rhythm, no murmur [] Lungs & Thorax: Bilateral breath sounds clear to auscultation [] Abdomen: Bowel sounds normal, soft, no tenderness, no masses, no pulsatile masses. [] Skin: Warm, dry, no erythema, no rash. [] Back: No tenderness, no CVA tenderness. [] Extremities: No tenderness, no edema. [] Neurologic: Alert and oriented X 3, no focal deficits noted. [] Psychologic: Affect normal, judgement normal, mood normal. [] Current Patient Data Vital Signs Vital Signs Date Time Temp Pulse Resp B/P (MAP) Pulse Ox O2 Delivery O2 Flow Rate FiO2 11/01/19 01:54 98.2 82 20 139/64 (89) 91 Room Air 98.2 Lab Values Laboratory Tests Test 11/01/19 03:05 White Blood Count 11.1 x10^3/uL (4.0-11.0) H Red Blood Count 3.58 x10^6/uL (4.30-5.70) L Hemoglobin 8.5 g/dL (13.0-17.5) L Hematocrit 26.9 % (39.0-53.0) L Mean Corpuscular Volume 75 fL (79-100) L Mean Corpuscular Hemoglobin 24 pg (25-35) L Mean Corpuscular Hemoglobin Concent 32 g/dL (31-37) Red Cell Distribution Width 19.5 % (11.5-14.5) H Platelet Count 287 x10^3/uL (140-400) Neutrophils (%) (Auto) 76 % (31-73) H Lymphocytes (%) (Auto) 10 % (24-48) L Monocytes (%) (Auto) 9 % (0-9) Eosinophils (%) (Auto) 5 % (0-3) H Basophils (%) (Auto) 1 % (0-3) Neutrophils # (Auto) 8.4 x10^3/uL (1.8-7.7) H Lymphocytes # (Auto) 1.2 x10^3/uL (1.0-4.8) Monocytes # (Auto) 1.0 x10^3/uL (0.0-1.1) Eosinophils # (Auto) 0.5 x10^3/uL (0.0-0.7) Basophils # (Auto) 0.1 x10^3/uL (0.0-0.2) Laboratory Tests 11/01/19 03:05 EKG EKG [] Radiology/Procedures Radiology/Procedures [] Course & Med Decision Making Course & Med Decision Making Pertinent Labs and Imaging studies reviewed. (See chart for details) []Patient presents to the ER with complaints of hematuria. Patient chronic indwelling catheter, history of atrial fibrillation with chronic anticoagulation. Nursing staff at facility noticed hematuria approximately 1256, clots present therefore patient was sent to the ER for further evaluation, denies pain. Nursing staff states he has a history of pulling on catheter. Patient denies headache, visual changes, chest pain, shortness breath, nausea, vomiting. Pelaez catheter replaced 16fr Irrigation with saline cleared urine and is currently without clots or blood Hgb 8.5 Recommend dc back to nursing facility Follow up with care home physician as scheduled Le Disclaimer Le Disclaimer This electronic medical record was generated, in whole or in part, using a voice recognition dictation system. Departure Departure Impression: Primary Impression: Pelaez catheter problem Additional Impression: Hematuria Disposition: 03 TRANSFER SNF Condition: IMPROVED Referrals: SHANKAR WALDROP (PCP) Patient Instructions: Hematuria, Adult Additional Instructions: Recommend follow up with PCP 3 - 5 days Return to the ER with worsening symptoms, intractable pain, fever, altered mental status Tylenol/Motrin as needed for pain Hematuria resolved with irrigation/catheter replacement Problem Qualifiers Primary Impression: Pelaez catheter problem Encounter type: initial encounter Qualified Codes: T83.9XXA - Unspecified complication of genitourinary prosthetic device, implant and graft, initial encounter Additional Impression: Hematuria Hematuria type: gross Qualified Codes: R31.0 - Gross hematuria RACHEL EDMOND MD Nov 01, 2019 02:29
[2019-11-01 03:14] LABS: BASO # 0.1 x10^3/uL (0.0-0.2); BASO % 1 % (0-3); EOS # 0.5 x10^3/uL (0.0-0.7); EOS % 5 % (0-3); HEMATOCRIT 26.9 % (39.0-53.0); HEMOGLOBIN 8.5 g/dL (13.0-17.5); LYMPH # 1.2 x10^3/uL (1.0-4.8); LYMPH % 10 % (24-48); MEAN CORPUSCULAR HEMOGLOBIN 24 pg (25-35); MEAN CORPUSCULAR HGB CONC 32 g/dL (31-37); MEAN CORPUSCULAR VOLUME 75 fL (79-100); MONO % 9 % (0-9); NEUT # 8.4 x10^3/uL (1.8-7.7); NEUT % 76 % (31-73); PLATELET COUNT 287 x10^3/uL (140-400); RED BLOOD COUNT 3.58 x10^6/uL (4.30-5.70); RED CELL DISTRIBUTION WIDTH 19.5 % (11.5-14.5); WHITE BLOOD COUNT 11.1 x10^3/uL (4.0-11.0)
[2019-11-01 06:40] VITALS: BP 160/73
== END 2019-11-01 06:45 | disposition home or self-care (01) ==
LOC: ER 01:52
DX: T83.9XXA Unspecified complication of genitourinary prosthetic device, implant and graft, initial encounter (principal); R31.0 Gross hematuria; N40.0 Benign prostatic hyperplasia without lower urinary tract symptoms; I48.91 Unspecified atrial fibrillation; I10 Essential (primary) hypertension; G20 Parkinson's disease; F02.80 Dementia in other diseases classified elsewhere, unspecified severity, without behavioral disturbance, psychotic disturbance, mood disturbance, and anxiety; Z86.73 Personal history of transient ischemic attack (TIA), and cerebral infarction without residual deficits; Z95.0 Presence of cardiac pacemaker; Z95.1 Presence of aortocoronary bypass graft; Z87.891 Personal history of nicotine dependence; Z88.8 Allergy status to other drugs, medicaments and biological substances; Y82.8 Other medical devices associated with adverse incidents; Y92.89 Other specified places as the place of occurrence of the external cause
CPT/HCPCS: 36415; 51702; 85025; 99285-25

== ENCOUNTER 2019-11-07 13:54 | Emergency (ER) | payer MEDICARE, OTHER ==
[~2019-11-07] VITALS: Ht 177.8 cm; Wt 110.0 kg
--- NOTE | 2019-11-07 14:10 | PHYS DOC ---
Past Medical History Past Medical History: A-Fib, CVA, Dementia, Hypertension, Other Additional Past Medical Histor: PARKINSON'S, BPH Past Surgical History: Coronary Bypass Surgery, Knee Replacement, Pacemaker, Other Additional Past Surgical Histo: KNEE Smoking Status: Former Smoker Alcohol Use: None Drug Use: None Adult General Chief Complaint Chief Complaint: URINE CATHETER PROBLEM HPI HPI Patient is a 74 year old was brought here from the [facility] because they suspected that he pulled the breen catheter out. Patient denied any pain in his penile area, no abdominal pain, no nausea or vomiting. He is not sure why they sent him here. Review of Systems Review of Systems Constitutional: Denies fever or chills [] Eyes: Denies change in visual acuity, redness, or eye pain [] HENT: Denies nasal congestion or sore throat [] Respiratory: Denies cough or shortness of breath [] Cardiovascular: No additional information not addressed in HPI [] GI: Denies abdominal pain, nausea, vomiting, bloody stools or diarrhea [] : Denies dysuria or hematuria [] Musculoskeletal: Denies back pain or joint pain [] Integument: Denies rash or skin lesions [] Neurologic: Denies headache, focal weakness or sensory changes [] Endocrine: Denies polyuria or polydipsia [] All other systems were reviewed and found to be within normal limits, except as documented in this note. Allergies Allergies Allergies Coded Allergies Type Severity Reaction Last Updated Verified ibuprofen Allergy Intermediate 06/20/19 Yes Physical Exam Physical Exam Constitutional: Well developed, well nourished, no acute distress, non-toxic appearance. [] HENT: Normocephalic, atraumatic, bilateral external ears normal, oropharynx moist, no oral exudates, nose normal. [] Eyes: PERRLA, EOMI, conjunctiva normal, no discharge. [] Neck: Normal range of motion, no tenderness, supple, no stridor. [] Cardiovascular:Heart rate regular rhythm, no murmur [] Lungs & Thorax: Bilateral breath sounds clear to auscultation [] Abdomen: Bowel sounds normal, soft, no tenderness, no masses, no pulsatile masses. BREEN CATHETER IN PLACE, NO BLOOD IN THE BAG Skin: Warm, dry, no erythema, no rash. [] Back: No tenderness, no CVA tenderness. [] Extremities: RIGHT LEG AND FOOT IN CAST. Neurologic: ALERT, AWAKE. Psychologic: Affect normal, judgement normal, mood normal. [] Current Patient Data Vital Signs Vital Signs Date Time Temp Pulse Resp B/P (MAP) Pulse Ox O2 Delivery O2 Flow Rate FiO2 11/07/19 14:19 97.4 75 18 193/80 (117) 90 Room Air 97.4 EKG EKG [] Radiology/Procedures Radiology/Procedures [] Course & Med Decision Making Course & Med Decision Making Pertinent Labs and Imaging studies reviewed. (See chart for details) Breen catheter firmly in place, flushed without any problem. No bleeding, no blood in bag. Patient denied any pain. No nausea or vomiting. Dragon Disclaimer Dragon Disclaimer This electronic medical record was generated, in whole or in part, using a voice recognition dictation system. Departure Departure Impression: Primary Impression: Breen catheter status Disposition: 01 HOME, SELF-CARE Condition: STABLE Referrals: SHANKAR WALDROP (PCP) follow up with your doctor as needed Patient Instructions: Breen Catheter Care, Adult DANIEL CAR DO Nov 07, 2019 14:10
[2019-11-07 14:19] VITALS: BP 193/80
== END 2019-11-07 14:36 | disposition home or self-care (01) ==
LOC: ER 13:54
DX: I48.20 Chronic atrial fibrillation, unspecified (principal); F03.90 Unspecified dementia, unspecified severity, without behavioral disturbance, psychotic disturbance, mood disturbance, and anxiety; I97.821 Postprocedural cerebrovascular infarction following other surgery; G20 Parkinson's disease; F17.200 Nicotine dependence, unspecified, uncomplicated; Z98.890 Other specified postprocedural states; Z88.6 Allergy status to analgesic agent; Z46.6 Encounter for fitting and adjustment of urinary device
CPT/HCPCS: 99284